=== PATIENT | male | born 1950 | race Caucasian/White ===

== ENCOUNTER → 2018-04-16 10:26 | Outpatient (CLI) | payer MEDICARE, SELFPAY ==
[2018-04-10 13:32] VITALS: BMI 37.9
[2018-04-16 11:04] LABS: Absolute Lymphocyte Count 1.22 X10^3/ul (0.83-4.51); Absolute Neutrophil Count 4.9 X10^3/uL (2.0-7.7); Basophil# 0.05 X10^3/uL; Basophil% 0.7 % (0-1); Eosinophil# 0.12 X10^3/uL; Eosinophils% 1.8 % (0-5); Hematocrit 44.5 % (40-54); Hemoglobin 14.7 g/dl (13.0-16.5); Lymphocyte # 1.22 X10^3/ul (4.0); Lymphocyte % 18.2 % (19-41); Mean Corpuscular Hgb 29.3 pg (27.0-32.0); Mean Corpuscular Volume 88.6 fL (80-94); Mean Platelet Vol. 10.6 fl (6.2-12.0); Monocyte# 0.43 X10^3/uL; Monocyte% 6.4 % (0-10); Neutrophil # 4.88 X10^3/uL (2.7-7.7); Neutrophil % 72.6 % (47-70); Platelet Count 253 K/mm3 (150-450); RBC Distribution Width CV 14.6 % (11.6-14.6); Red Blood Count 5.02 M/mm3 (4.6-6.2); White Blood Count 6.7 K/mm3 (4.4-11.0)
[2018-04-16 11:12] LABS: POSITIVE COUNT NO; POSITIVE DIFFERENTIAL NO; POSITIVE MORPHOLOGY NO
[2018-04-16 11:27] LABS: ALB/GLOB Ratio 0.9 RATIO (0.9-2.4); AST(SGOT) 15 U/L (15-37); Alanine Aminotransfer ALT/SGPT 28 U/L (16-61); Albumin, Serum 3.4 g/dL (3.2-5.0); Alkaline Phosphatase 135 U/L (45-117); Anion Gap 10 (5-15); BUN 16 mg/dL (7-18); BUN/Creat Ratio 16.3 RATIO (10-20); Calcium,Total 8.5 mg/dL (8.5-10.1); Chloride 109 mmol/L (98-107); Cholesterol 123 mg/dL (200); Creatinine, Serum 0.98 mg/dL (0.70-1.30); EST Glomerular Filtration Rate 81 mL/min (>60); Est Glom Filt Rate - Afr Amer 98 mL/min (>60); Globulin 3.9 g/dL (2.2-4.2); Glucose 134 mg/dL (74-106); High Density Lipoprotein 32 mg/dL; PSA,Total - Annual Screen 1.11 ng/mL (0.00-4.00); Potassium 4.3 mmol/L (3.5-5.1); Protein, Total 7.3 g/dL (6.4-8.2); Sodium Level 141 mmol/L (136-145); Triglycerides 135 mg/dL; Very Low Density Lipoprotein 27 mg/dL (5-40)
[2018-04-16 11:36] LABS: Hemoglobin A1c 7.1 % (4.2-6.3)
[2018-04-16 12:12] LABS: Microalbumin,Random Urine 86.2 mg/L (NO RANGE EST.); Microalbumin:Creatinine Ratio 62.9 mg/g CRE (<30 mg/g CRE)
== END ==
PROVIDERS: Family Provider Internal Medicine; PCP Internal Medicine; Referring Provider Internal Medicine; Visit Provider Internal Medicine
DX: E11.9 Type 2 diabetes mellitus without complications (principal); N40.0 Benign prostatic hyperplasia without lower urinary tract symptoms; Z12.5 Encounter for screening for malignant neoplasm of prostate
CPT/HCPCS: 36415; 80053; 80061; 82043; 82570; 83036; 84153; 85025; G0103

== ENCOUNTER → 2018-07-26 | Outpatient (CLI) | payer MEDICARE, SELFPAY ==
[2018-07-12 16:16] VITALS: BMI 37.4
--- NOTE | 2018-07-26 12:33 | ART_ITS ---
Version 2 Reason For Study: Claudication Procedure A bilateral lower extremity continuous wave Doppler with analog waveform analysis,segmental pressures,and ankle brachial indexes with exercise. Left Segmental Pressures Left brachial= 159mmHg. Left posterior tibial artery = 181mmHg. Left dorsalis pedis artery = 183mmHg. Left digit = 129 mmHg. The left dorsalis pedis waveforms are triphasic. The left posterior tibial artery waveforms are triphasic. Right Segmental Pressures Right brachial= 165mmHg. Right posterior tibial artery = 173mmHg. Right dorsalis pedis artery = 179mmHg. Right digit = 128 mmHg. The right dorsalis pedis waveforms are triphasic. The right posterior tibial artery waveforms are triphasic. Indices The right ankle brachial index by the dorsalis pedis is 1.08. The right ankle brachial index by the posterior tibial artery is 1.05. The right digital-brachial index is 0.78. The right post exercise ankle brachial index is 0.84. The left ankle brachial index by the dorsalis pedis is 1.11. The left ankle brachial index by the posterior tibial artery is 1.10. The left digital-brachial index is 0.78. The left post exercise ankle brachial index is 0.94. Interpretation Summary Normal resting bilateral lower extremity SILVESTRE's and doppler waveforms. Volume pulse recordings appear to be maintained bilaterally Minimally diminished digital indices bilaterally suggestive of possible temperature effect or small vessel disease. On exercise component the right SILVESTRE drops from 1.08 to 0.84 and there is recovery by 3 minutes. On exercise component the left SILVESTRE drops from 1.11 to 0.94 and there is recovery by 3 minutes. This would be consistent with mild vascular claudication bilaterally with the location of the disease not identified. Ordering Physician: Harvey Holguin Referring Physician: Mai Cruz Performed By: Michelle Ramirez RVT
== END | disposition home or self-care (01) ==
PROVIDERS: Family Provider Internal Medicine; PCP Internal Medicine; Referring Provider Surgery; Visit Provider Surgery
DX: I73.9 Peripheral vascular disease, unspecified (principal); I25.10 Atherosclerotic heart disease of native coronary artery without angina pectoris
CPT/HCPCS: 93306; 93924; Q9957; A4216; C8929

== ENCOUNTER → 2018-08-09 | Outpatient (CLI) | payer MEDICARE, SELFPAY ==
[2018-07-30 13:35] VITALS: BMI 37.4
--- NOTE | 2018-08-09 13:00 | CDU_ITS ---
Reason For Study: carotid stenosis Rt. Velocities/BP Lt. Velocities/BP Prox CCA 67.4/15.2 cm/sec. Prox CCA 91.2/15.1 cm/sec. Mid CCA 72.6/15.2 cm/sec. Mid CCA 96.2/16.3 cm/sec. Dist CCA 62.1/16.5 cm/sec. Dist CCA 75.3/12.6 cm/sec. Prox ICA 151.0/46.8 cm/sec. Prox ICA 445.0/160.9 cm/sec. Mid ICA 156.4/50.5 cm/sec. Mid ICA 374.1/107 cm/sec. Dist ICA 163.7/46.8 cm/sec. Dist ICA 338.3/70.0 cm/sec. Rt. ICA/CCA = 2.3. Lt. ICA/CCA = 4.6. Prox ECA 75.5/9.5 cm/sec. Prox ECA 139.0/16.0 cm/sec. Rt. Vert. 40.9/7.8 cm/sec. Lt. Vert. 47.5/11.8 cm/sec. Right Extracranial There is homogeneous, smooth atherosclerotic plaque noted in the right common carotid artery. There is heterogeneous, irregular atherosclerotic plaque noted in the right internal carotid artery. There is homogeneous, irregular atherosclerotic plaque noted in the right external carotid artery. Antegrade flow is noted in the right vertebral artery. Left Extracranial There is homogeneous, smooth atherosclerotic plaque noted in the left common carotid artery. There is heterogeneous, irregular atherosclerotic plaque noted in the left internal carotid artery. There is homogeneous, smooth atherosclerotic plaque noted in the left external carotid artery. Antegrade flow is noted in the left vertebral artery. Procedure Carotid Duplex [id number]. The exam was diagnostic. Prelim called to Dr. Melina Holguin. Exam performed in department. 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 <50% stenosis left external carotid Patent and antegrade vertebrals bilaterally Ordering Physician: Harvey Holguin Performed By: Efrain Keenan RVT
== END | disposition home or self-care (01) ==
LOC: CVS 12:46
PROVIDERS: Family Provider Internal Medicine; PCP Internal Medicine; Referring Provider Surgery; Visit Provider Surgery
DX: I65.23 Occlusion and stenosis of bilateral carotid arteries (principal)
CPT/HCPCS: 93880

== ENCOUNTER → 2018-08-14 | Outpatient (CLI) | payer MEDICARE, SELFPAY ==
[2018-07-30 13:35] VITALS: BMI 37.4
--- NOTE | 2018-08-14 07:41 | CT_ITS ---
STUDY: CTA NECK WITH CONTRAST REASON FOR EXAM: Male, 67 years old. Carotid stenosis. RADIATION DOSAGE (If Supplied By Facility): CTDIvol = ( 17.2 ) mGy, DLP = ( 744.45 ) mGycm TECHNIQUE: CT angiography with multi-detector data acquisition was performed from the aortic arch to the skull base following intravenous administration of 100 IV Isovue 370. MIP images were reconstructed from the axial data set. Post-processing of the angiographic images was performed, with multiplanar reformation and 3D reconstruction. Individualized dose optimization techniques were used for this CT. COMPARISON: None. FINDINGS: AORTIC ARCH: There is a bovine origin of the great vessels arising from the aortic arch with a common origin of the brachiocephalic and left common carotid artery. Normal origin of the left subclavian artery. RIGHT CAROTID ARTERIES: Normal right common carotid artery (CCA). Normal right common carotid bulb. There is moderate atherosclerotic plaque formation of the origin of the right internal carotid artery with an estimated stenosis of 50-69% stenosis. Normal visualized cervical portion of the right internal carotid artery. Normal origin of the right external carotid artery (ECA). LEFT CAROTID ARTERIES: Normal left common carotid artery (CCA). Normal left common carotid bulb. There is severe atherosclerotic plaque formation of the origin of the left internal carotid artery with a near complete occlusion. Normal visualized cervical portion of the left internal carotid artery. Normal origin of the left external carotid artery (ECA). VERTEBRAL ARTERIES: Normal bilateral vertebral arteries. 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 50-69% narrowing at the origin of the right internal carotid artery. Electronically Signed: Sharif Gonzalez, at 9:14 EDT , Service support ,
[2018-08-14 07:51] LABS: Hematocrit 48.7 % (40-54); Hemoglobin 15.9 g/dl (13.0-16.5); Mean Corp Hgb Conc 32.6 g/gl (32-36); Mean Corpuscular Hgb 27.5 pg (27.0-32.0); Mean Corpuscular Volume 84.1 fL (80-94); Mean Platelet Vol. 10.7 fl (6.2-12.0); Platelet Count 259 K/mm3 (150-450); RBC Distribution Width CV 15.3 % (11.6-14.6); RBC Distribution Width SD 46.8 fl (35.1-43.9); Red Blood Count 5.79 M/mm3 (4.6-6.2); White Blood Count 6.7 K/mm3 (4.4-11.0)
[2018-08-14 07:56] LABS: Scan Indicated on CBC? Y/N NO
[2018-08-14 08:21] LABS: CREATININE FINGERSTICK 0.9 mg/dL (0.70-1.30)
--- NOTE | 2018-08-14 08:23 | AAAS_ITS ---
Reason For Study: Abnormal CT Aorta Measurements Aorta Doppler Measurements Proximal aorta measures1.77 x 1.96cm. in cross- Peak systolic flow velocities within the proximal sectional axis. aorta measure 73.2 cm/sec. Proximal aorta measures1.79cm. in longitudinal Peak systolic flow velocities within the mid aorta axis. measure 147.2 cm/sec. Mid aorta measures1.75 x 2.03cm. in cross- Peak systolic flow velocities within the distal sectional axis. aorta measure 158.2 cm/sec. Mid aorta measures1.88cm. in longitudinal axis. Distal aorta measures1.58 x 1.7cm. in cross- sectional axis. Distal aorta measures1.75cm. in longitudinal axis. Left Iliac Artery Left iliac artery measures .75 x .92 cm. in the cross-sectional axis. Left iliac artery measures .76 cm. in the longitudinal axis. Peak systolic velocity in the left iliac artery measures 86.9 cm/sec. Right Iliac Artery Right iliac artery measures .75 x .8 cm. in the cross-sectional axis. Right iliac artery measures .81 cm. in the longitudinal axis. Peak systolic velocity in the right iliac artery measures 86.9 cm/sec. Procedure The exam was of fair technical quality due to bowel gas.. Technically difficult study due to bowel gas. Exam performed in department. Interpretation Summary Maximal aortic diameter proximally 1.77 x 1.96cm Increased flow velocity distal aorta consistent with mild disease. Left common iliac 0.75 x 0.92 cm Right common iliac 0.75 x 0.8 cm Fair quality exam because of bowel gas Ordering Physician: Harvey Holguin Performed By: Efrain Keenan RVAlejandrina
[2018-08-14 08:55] LABS: Anion Gap 9 (5-15); BUN 20 mg/dL (7-18); BUN/Creat Ratio 17.9 RATIO (10-20); Calcium,Total 9.1 mg/dL (8.5-10.1); Chloride 108 mmol/L (98-107); Creatinine, Serum 1.12 mg/dL (0.70-1.30); EST Glomerular Filtration Rate 70 mL/min (>60); Est Glom Filt Rate - Afr Amer 84 mL/min (>60); Glucose 126 mg/dL (74-106); Potassium 4.7 mmol/L (3.5-5.1); Sodium Level 142 mmol/L (136-145)
== END | disposition home or self-care (01) ==
PROVIDERS: Family Provider Internal Medicine; PCP Internal Medicine; Referring Provider Surgery; Visit Provider Surgery
DX: Z01.818 Encounter for other preprocedural examination (principal); I65.23 Occlusion and stenosis of bilateral carotid arteries; R93.5 Abnormal findings on diagnostic imaging of other abdominal regions, including retroperitoneum; E11.9 Type 2 diabetes mellitus without complications
CPT/HCPCS: 36415; 70498; 76706; 80048; 85027; Q9967

== ENCOUNTER 2018-09-12 05:30 | Inpatient (IN) | payer MEDICARE, SELFPAY ==
[2018-08-15 14:23] VITALS: BMI 37.4
[2018-09-05 10:06] VITALS: BP 147/77; PULSE 52; RESP 16; TEMP 36.3; O2SAT 97; BMI 37.5
[2018-09-05 11:16] LABS: Hematocrit 48.9 % (40-54); Hemoglobin 15.8 g/dl (13.0-16.5); Mean Corp Hgb Conc 32.3 g/gl (32-36); Mean Corpuscular Hgb 28.3 pg (27.0-32.0); Mean Corpuscular Volume 87.5 fL (80-94); Mean Platelet Vol. 10.4 fl (6.2-12.0); Platelet Count 232 K/mm3 (150-450); RBC Distribution Width CV 15.7 % (11.6-14.6); RBC Distribution Width SD 49.9 fl (35.1-43.9); Red Blood Count 5.59 M/mm3 (4.6-6.2); White Blood Count 7.8 K/mm3 (4.4-11.0)
[2018-09-05 11:17] LABS: International Normalized Ratio 1.1; Prothrombin Time (Protime)PT. 13.6 SECONDS (11.7-14.9); Scan Indicated on CBC? Y/N NO
[2018-09-05 11:18] LABS: Partial Thromboplast Time 28.6 Seconds (24.1-36.2)
[2018-09-05 11:42] LABS: AST(SGOT) 20 U/L (15-37); Alanine Aminotransfer ALT/SGPT 28 U/L (16-61); Albumin, Serum 3.7 g/dL (3.2-5.0); Alkaline Phosphatase 130 U/L (45-117); Anion Gap 4 (5-15); BUN 19 mg/dL (7-18); BUN/Creat Ratio 17.6 RATIO (10-20); Bilirubin, Direct 0.18 mg/dL (0.00-0.30); Calcium,Total 9.3 mg/dL (8.5-10.1); Chloride 108 mmol/L (98-107); Creatinine, Serum 1.08 mg/dL (0.70-1.30); EST Glomerular Filtration Rate 73 mL/min (>60); Est Glom Filt Rate - Afr Amer 88 mL/min (>60); Globulin 3.5 g/dL (2.2-4.2); Glucose 122 mg/dL (74-106); Potassium 4.8 mmol/L (3.5-5.1); Protein, Total 7.2 g/dL (6.4-8.2); Sodium Level 140 mmol/L (136-145)
[2018-09-05 11:46] LABS: Hemoglobin A1c 6.7 % (4.2-6.3)
[2018-09-12] VITALS (66 sets, daily range): BP systolic 102–206; BP diastolic 51–120; PULSE 51–111; RESP 11–20; TEMP 36.4–36.8; O2SAT 90–100; BMI 37.5; BMI 38.0; BMI 38.1
[2018-09-12 06:16] LABS: Bedside Glucose 116 mg/dL (70-110)
--- NOTE | 2018-09-12 06:21 | HP.PCM_ITS ---
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 Is patient in pain?: No Allergies No Known Allergies Allergy (Verified 08/15/18 14:22) Medications aspirin 81 mg tablet,delayed release 81 mg PO DAILY 04/10/18 [History Confirmed 08/15/18] clopidogrel 75 mg tablet 75 mg PO DAILY #90 tab 04/10/18 [Rx Confirmed 08/15/18] dutasteride 0.5 mg capsule 0.5 mg PO DAILY #90 cap 04/10/18 [Rx Confirmed 08/15/18] famotidine 20 mg tablet 20 mg PO DAILY PRN 04/10/18 [History Confirmed 08/15/18] metoprolol tartrate 25 mg tablet 25 mg PO BID #180 tab 04/10/18 [Rx Confirmed 08/15/18] multivitamin tablet 1 tab PO DAILY 04/10/18 [History Confirmed 08/15/18] glyburide 2.5 mg-metformin 500 mg tablet 1 tab PO DAILY #90 tab 05/16/18 [Rx Confirmed 08/15/18] pravastatin 80 mg tablet 80 mg PO DAILY #90 tab 06/07/18 [Rx Confirmed 08/15/18] tamsulosin 0.4 mg capsule 0.4 mg PO DAILY #90 cap 06/07/18 [Rx Confirmed 08/15/18] gabapentin 100 mg capsule 100 mg PO QHS #90 cap 07/10/18 [Rx Confirmed 08/15/18] hydrocortisone 2.5 % lotion 1 applic TOPICAL BID PRN #59 ml 07/10/18 [Rx Confirmed 08/15/18] betamethasone valerate 0.1 % lotion 1 applic TOPICAL DAILY PRN #60 ml 08/10/18 [Rx Confirmed 08/15/18] lisinopril 20 mg tablet 20 mg PO BID #90 tab 08/10/18 [Rx Confirmed 08/15/18] [facility] Medical History Mixed hyperlipidemia (Chronic) Atherosclerotic heart disease of [place] coronary artery without angina pectoris (Chronic) Essential hypertension (Chronic) Presence of stent in coronary artery (Chronic ~03/09/16) Non-rheumatic mitral regurgitation (Chronic) Nonrheumatic tricuspid valve regurgitation (Chronic) Bilateral carotid artery stenosis (Chronic) History of ST elevation myocardial infarction (STEMI) (Acute ~03/08/16) Type 2 diabetes mellitus (Chronic) Psoriasis (Chronic) Peripheral artery disease (Chronic) Sleep apnea (Chronic) Vision problems (Chronic) Vascular disease (Chronic) prostatse issues (Chronic) Pneumonia (Resolved) GERD (gastroesophageal reflux disease) (Chronic) Cataracts, bilateral (Chronic) Back problem (Chronic) Seasonal allergies (Chronic) Diabetes (Inactive) Heart attack (Inactive) Heart disease (Inactive) High cholesterol (Inactive) Hypertension (Inactive) Type 2 diabetes mellitus (Inactive) Surgical History S/P aortobifemoral bypass surgery (Resolved ~01/09/17) History of cataract surgery (Resolved) Presence of coronary angioplasty implant and graft (Resolved ~03/09/16) S/P aortobifemoral bypass surgery (Resolved) S/P aortobifemoral bypass surgery (Resolved) S/P aortobifemoral bypass surgery (Resolved) Status post aortobifemoral bypass surgery (Resolved) history aortic bifemerol bypass (Inactive) Family History Father Angina pectoris Brother Angina pectoris Cancer Myocardial infarction Heart disease Hypertension High cholesterol Mother Angina pectoris Cancer Myocardial infarction Heart disease Hypertension High cholesterol Sister Hypertension Social History Smoking Status: Former smoker alcohol intake: current alcohol intake frequency: holidays/special occasions only substance use type: does not use caffeine: Yes Type: coffee Number of servings: 3 what type of physical activity do you participate in: none HPI HPI HPI: CELESTE KINCAID, is a 67 M who presents to the office today for HPI HPI Surgical H&P: Yes HPI: CELESTE KINCAID, is a 67 M who presents to the office today for ongoing mayito gical evaluation regarding peripheral vascular occlusive disease. I initially saw the patient on July 30, 2018. This was my first patient interaction. He has recently moved to this area from [place]. During my interaction with him on July 30 it was apparent that he had had a previous history of extracranial carotid artery occlusive disease. At his previous interview he suggested that he had had a ultrasound and then a CT scan with a CT scan suggesting 40% stenosis on the right and 60% stenosis on the left and so conservative measures were recommended. We now have a partially readable copy from [facility] dated May 16, 2017 a CTA of the neck. Unfortunately the print is small. I can read that there is 40% stenosis of the right internal carotid and according to the patient 60% stenosis on the left though the number could be 80%. I am going by the patient's discussion with me as to what he was told. To help evaluate him on August 09, 2018 locally here at [place] we obtain carotid duplex imaging. Peak systolic velocity within the distal right internal carotid is 163 cm second peak systolic flow consistent with 50 to 69% stenosis. On the left peak systolic velocity within the proximal left internal carotid is 445 cm/s with an end-diastolic velocity of 160 cm/s. I felt that this was consistent with greater than 80% stenosis on the left. It is of note then that on August 14, 2018 yesterday the patient had a CTA of the carotids performed locally. I have reviewed this imaging. There is felt to be 50 to 69% stenosis on the right and subtotal occlusion of the origin of the left internal carotid. This would correlate with the current ultrasound examination although the current ultrasound examination does demonstrate patency on the left. 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 Is patient in pain?: No Allergies No Known Allergies Allergy (Verified 07/30/18 13:34) Medications aspirin 81 mg tablet,delayed release 81 mg PO DAILY 04/10/18 [History Confirmed 07/30/18] clopidogrel 75 mg tablet 75 mg PO DAILY #90 tab 04/10/18 [Rx Confirmed 07/30/18] dutasteride 0.5 mg capsule 0.5 mg PO DAILY #90 cap 04/10/18 [Rx Confirmed 07/30/18] famotidine 20 mg tablet 20 mg PO DAILY PRN 04/10/18 [History Confirmed 07/30/18] metoprolol tartrate 25 mg tablet 25 mg PO BID #180 tab 04/10/18 [Rx Confirmed 07/30/18] multivitamin tablet 1 tab PO DAILY 04/10/18 [History Confirmed 07/30/18] glyburide 2.5 mg-metformin 500 mg tablet 1 tab PO DAILY #90 tab 05/16/18 [Rx Confirmed 07/30/18] pravastatin 80 mg tablet 80 mg PO DAILY #90 tab 06/07/18 [Rx Confirmed 07/30/18] tamsulosin 0.4 mg capsule 0.4 mg PO DAILY #90 cap 06/07/18 [Rx Confirmed 07/30/18] betamethasone valerate 0.1 % lotion 1 applic TOPICAL DAILY PRN #60 ml 07/10/18 [Rx Confirmed 07/30/18] gabapentin 100 mg capsule 100 mg PO QHS #90 cap 07/10/18 [Rx Confirmed 07/30/18] hydrocortisone 2.5 % lotion 1 applic TOPICAL BID PRN #59 ml 07/10/18 [Rx Confirmed 07/30/18] lisinopril 20 mg tablet 20 mg PO DAILY #90 tab 07/12/18 [Rx Confirmed 07/30/18] [facility] Medical History Mixed hyperlipidemia (Chronic) Atherosclerotic heart disease of [place] coronary artery without angina pectoris (Chronic) Essential hypertension (Chronic) Presence of stent in coronary artery (Chronic ~03/09/16) Non-rheumatic mitral regurgitation (Chronic) Nonrheumatic tricuspid valve regurgitation (Chronic) Bilateral carotid artery stenosis (Chronic) History of ST elevation myocardial infarction (STEMI) (Acute ~03/08/16) Type 2 diabetes mellitus (Chronic) Psoriasis (Chronic) Peripheral artery disease (Chronic) Sleep apnea (Chronic) Vision problems (Chronic) Vascular disease (Chronic) prostatse issues (Chronic) Pneumonia (Resolved) GERD (gastroesophageal reflux disease) (Chronic) Cataracts, bilateral (Chronic) Back problem (Chronic) Seasonal allergies (Chronic) Diabetes (Inactive) Heart attack (Inactive) Heart disease (Inactive) High cholesterol (Inactive) Hypertension (Inactive) Type 2 diabetes mellitus (Inactive) Surgical History S/P aortobifemoral bypass surgery (Resolved ~01/09/17) History of cataract surgery (Resolved) Presence of coronary angioplasty implant and graft (Resolved ~03/09/16) S/P aortobifemoral bypass surgery (Resolved) S/P aortobifemoral bypass surgery (Resolved) S/P aortobifemoral bypass surgery (Resolved) Status post aortobifemoral bypass surgery (Resolved) history aortic bifemerol bypass (Inactive) Family History Father Angina pectoris Brother Angina pectoris Cancer Myocardial infarction Heart disease Hypertension High cholesterol Mother Angina pectoris Cancer Myocardial infarction Heart disease Hypertension High cholesterol Sister Hypertension Social History Smoking Status: Former smoker alcohol intake: current alcohol intake frequency: holidays/special occasions only substance use type: does not use caffeine: Yes Type: coffee Number of servings: 3 what type of physical activity do you participate in: none HPI HPI HPI: CELESTE KINCAID, is a 67 M who presents to the office today for surgical consultation regarding peripheral vascular occlusive disease. The patient is referred by Dr Cruz and Dr Mathias and a written copy of my surgical consult recommendations will be returned to them. Pleasant 67-year-old gentleman. He describes to me a previous history of iliac stents x5. He then describes to me severe lower extremity claudication. He did have a attempt at endovascular treatment of his lower extremity problem on December 27, 2016 but that failed. Subsequently on January 09, 2017 at [facility] in [facility] because of occlusion of the infrarenal abdominal aorta bilateral common iliacs bilateral external iliacs he had a aortobifemoral bypass with 16 x 8 Hemashield gold graft. Endarterectomy of the immediate infrarenal abdominal aorta was required due to the complete occlusion. Reinforcement of the entire proximal suture line with pledgets was required secondary to the thin abdominal aorta as a result of the endarterectomy. As of July 26, 2018 the patient had PVRs performed. Normal resting indices with the right DP and PT index of 1.08 and 1.05 and a digital index of 0.78. Post exercise the right SILVESTRE went close to 0.84 and there is rapid recovery. The resting left PT and DP index is 1. 1 and 1.01. The left digital brachial index is 0.78. Left post exercise index is 0.94. It is of additional note that the patient has bilateral extracranial carotid art chuck occlusive disease. By report April 2017 carotid duplex suggested 50 to 69% stenosis on the right and 70 to 99% stenosis on the left. By report a CTA of the neck was obtained suggesting 40% stenosis on the right and 60% on the left. He has not had additional follow-up since that time. April 2017 transthoracic echocardiogram shows left ventricular ejection fraction of 55 to 60%. March 2018 total cholesterol is 123 with an LDL of 64 and an HDL 32 with a triglyceride of 135 It is of note that he was a very long-term cigarette smoker at least the rate of a pack per day quitting in 2016 HPI HPI HPI: CELESTE KINCAID, is a 67 M who presents to the office today for ROS General General: No weight change, appetite, fatigue, colon cancer, breast cancer or weakness HEENT HEENT: Yes eye injury and eye surgery; no difficulty swallowing, swollen glands or hoarseness Endo Endocrine: Yes diabetes mellitus; no thyroid disease, thyroid cancer, Hair loss, heat intolerance or cold in tolerance Skin Skin: No rash or changing moles Breast Breast: No left breast lump, right breast lump, nipple discharge, breast pain, abnormal mammogram, abnormal US or breast enlargement Musc Musculoskeletal: No back problems, arthritis, rheumatoid arthritis, gout or joint pain Cardio Cardiovascular: Yes murmur, heart disease, high blood pressure, heart attack and heart stent; no pacemaker, atrial fibrillation, palpitations, shortness of breat with exertion or chest pain Psych Psychiatric: Yes anxiety; no depression or hearing voices Resp Respiratory: No shortness of breath, Yes sleep apnea, No cough, No COPD, No asthma, No emphysema, No wheezing Gastro Gastrointestinal: No abdominal pain, No nausea or vomiting, No diarrhea, No constipation, No blood in stool, Yes acid reflux, Yes hemorrhoids, No ulcers, No gallbladder problem, No black,tarry stools Donovan Hematologic: Yes blood thinners, No blood disorders, Yes bleeding, No anemia, No blood clots Neuro Neurologic: No system reviewed and no additional complaints, except as docu, No as per HPI, No abnormal walking, No abnormal hearing, No abnormal movements, No abnormal speech, No behavioral changes, No burning sensations, No confusion, No seizure-like activity, No unsteadiness, No dizziness, No localized weakness, No frequent falls, No headache(s), No lack of coordination, No loss of vision, No memory loss, Yes numbness, No other visual disturbances, No radiating pain, No restless legs, No sensory deficit, No fainting, Yes tingling, No tremor(s), No weakness, No other Exam Const General: cooperative, healthy appearing, comfortable, no acute distress Nutritional Appearance: obese Orientation: alert, awake, oriented x3 HENMT Head: normal to inspection Eyes General: appearance normal, both eyes and all related structures Chest Chest palpation & inspection: normal inspection of the chest Breast Palpation: No nipple discharge Resp Effort & Inspection: normal respiratory effort Auscultation: clear to auscultation bilaterally Cardio Rate: regular rate Rhythm: regular rhythm Heart Sounds: murmur Other: Bilateral radials are 0. Bilateral brachials 3+. Bilateral carotids 2+ no bruits. Bilateral femorals 3+ with well-healed groin incisions. Bilateral popliteals 3+. Bilateral DPs 0. Bilateral PTs 3+ GI Palpation: soft Other: Well-healed long midline incision extending from the xiphoid to the pubis. Nontender. No gross hepatospleno megaly. Bowel sounds are present. I am not able to palpate the aorta due to the patient's body habitus Musc Cervical Spine: normal cervical lordosis Skin Lesions: no lesions Neuro Cognition: normal cognition Extrem General: no calf tenderness bilaterally Psych Affect: normal affect Assessment & Plan Problems 1. S/P aortobifemoral bypass surgery Z95.828 2. Carotid stenosis, bilateral I65.23 3. Peripheral artery disease I73.9 Plan 67-year-old gentleman. December 2016 he had complicated aortobifemoral bypass graft with aortic endarterectomy. Difficulty obtaining a proximal anastomosis due to the thin nature of the abdominal aorta and pledgets were required circumferentially. The patient is at increased risk for pseudoaneurysm formation. I recommend an attempt at a aortic duplex exam particularly of this area. History of bilateral extracranial carotid artery occlusive disease. CTA did not correlate with previous carotid duplex imaging. The patient however has a already had significant imaging with contrast required. Again I recommend carotid duplex imaging as a current mode of him imaging modality with implants to compare to his previous one. He has peripheral vascular occlusive disease. The aortobifemoral bypass graft appears to be patent. We will obtain PVRs with exercise at 6 months and office follow-up. He clearly is at increased risk for progressive disease. Had an extensive discussion with the patient regarding modifiable factors. We discussed diet recommending a Mediterranean diet. We recommended exercise and weight loss and management of cholesterol and routine diabetes awareness with blood glucose checks and hypertension control with routine checks. He has had an opting to ask and have questions answered. A written descriptive information pack is been provided as well. I anticipate this time carotid duplex imaging. I anticipate at 6 months PVRs with exercise and office follow-up. We will obtain a aortic duplex exam inspecting the proximal anastomotic area of the aortobifemoral bypass. He has been educated about the importance of modifiable factors. I appreciate the opportunity of assisting with his surgical care CC: Dr. Cruz and Dr. Mathias \Harvey Holguin M.D., F.A.C.S. I very much appreciate the kind opportunity of assisting with his surgical care. Orders Orders: Carotid Duplex Ultrasound Today I65.23 Lower Ext Art Exam w/ Exercise 01/26/19 I73.9 Coding Level of Care Code Comprehensive,moderate Diagnoses S/P aortobifemoral bypass surgery Z95.828 Carotid stenosis, bilateral I65.23 Peripheral artery disease I73.9 07/30/18 1827<Electronically signed by Harvey Holguin MD> Date Harvey Holguin MD Cosigner Signature:Date (if applicable) CC: Mai Cruz MD; Jesus Mathias MD ~ Assessment & Plan Problems 1. Carotid stenosis, bilateral I65.23 Plan I had an extensive discussion with the patient today. His daughter who was not able to be present was available through a phone call and monitored the conversation. This was approximately a 30-minute [id number] consultative appointment. I have discussed with him the findings of the current carotid duplex imaging and if the current CTA of the neck performed here locally at [place]. I have compared and contrasted that with previous information. The patient states today that his previous carotid duplex exam 1 year ago was said to demonstrate significant disease particularly on the left. Apparently when the CTA came back with a softer reading it was felt to be the more accurate exam and no intervention was recommended. I have suggested to the patient that I believe that the carotid duplex ultrasound and the CTA both correlate well and the current circumstance. I feel that he has high-grade stenosis of the left proximal internal carotid. The patient is asymptomatic. I have discussed with him in detail the technique, benefit, risk and alternatives of a left carotid endarterectomy with patch angioplasty. We discussed utilization of an intraoperative shunt. We discussed utilization of an arterial line. I compared and contrasted that to left carotid artery stenting. I made clear to the patient that I do not perform carotid artery stenting. He has had an opportunity to ask and have questions answered. I am recommending to the patient intervention. The patient is aware that I will be on a brief vacation and that our opportunity to facilitate his surgery would be later in August. I offered him the opportunity to try to facilitate a referral elsewhere. His daughter expressed some interest in being referred to [facility]. At the conclusion of the appointment the patient was felt to have had answers to his questions. He will further discuss treatment options with his daughter. He will continue his medical treatment. I suspect he has had a high-grade of left carotid stenosis over the past year at least. I very much appreciate the kind opportunity of assisting with his surgical care. The patient will recontact me as to how he would like to proceed. CC: and Dr Mathias. Harvey Holguin M.D., F.A.C.S. Coding Level of Care Code Off vis,est,level 3 Diagnoses Carotid stenosis, bilateral I65.23 08/15/18 1432 <Electronically signed by Harvey bryan MD> Date _ Harvey Solanoign Signature: Date (if applicable) CC: Mai Cruz MD; Jesus Mathias MD ~ I have re-examined the patient. There are no clinical changes since date of exam.
--- NOTE | 2018-09-12 07:15 | PLAQ_PTH ---
PATIENT: CELESTE KINCAID LOC: ICU U#:[id number] AGE/SX: 67/M ROOM: ICU01 RE09/12/[address]: Dr. Harvey Holguin MD : 1950 BED: 1 DIS: 09/13/2018 SPEC #: [id number] RECD: 09/12/18 10:42 STATUS: GUSTAVO REQ #: [id number] ELSA: 09/12/18 07:[address]: Harvey Holguin DEPT: SURGICAL PATHOLOGY RECD BY: Antolin Albrecht ENTERED: 09/12/18 11:14 SP TYPE: PLAQUE OTHR DR: Dr. Mai Cruz MD Tissues: PLAQUE Procedures: Decalcification bone/plaque Surgery Specimen Level III HEADER OPERATION: Carotid endarterectomy PRE-OP DIAGNOSIS: Near complete occlusion left extracranial internal carotid artery TISSUE SUBMITTED: Left carotid plaque MICROSCOPIC DIAGNOSIS Carotid endarterectomy: Calcified atherosclerotic plaque. FA:[email or web address] 09/13/18 GROSS DESCRIPTION Received in fixative is one container labeled with the patient's name and designated plaque. The specimen consists of yellowish-pimentel plaque measuring 3.5 cm in length and 0.8 cm in diameter. The specimen is serially sectioned and totally submitted in two cassettes. / FA:[email or web address] 09/12/18 TC:5 CPT: 99902
--- NOTE | 2018-09-12 07:41 | OP.PCM_ITS ---
Problem List (1) Bilateral carotid artery stenosis Status: Chronic Report of Operation Date of Procedure: 09/12/18 Pre-Operative Diagnosis: Near complete occlusion left extracranial internal carotid artery Post-Operative Diagnosis: Same Surgery/Procedure Performed:: Attempted left radial arterial line placement. Attempted left brachial artery arterial line placement. Successful right brachial artery arterial line placement. Left carotid endarterectomy with bovine patch angioplasty Description of Surgical Findings:: Timeout informed consent was obtained. At the bedside in the holding room had the right radial artery inspected he had had previous cardiac intervention and it appeared that the artery was thrombosed. Inspection of the left radial sensory due to diminished radial artery. Jack test demonstrated adequate ulnar flow. The left wrist was gently extended prep with Betadine ultrasound machine use 1% lidocaine was instilled and I attempted to access the left radial artery. Although been able to access the artery could not Seldinger wire advanced. I then try the left brachial and the left brachial artery was very thickened. I was able to access the left brachial artery but again could not advance. I aborted further attempts in the holding area. The patient was separately taken the operating room. The right antecubital space was prepped with Betadine ul trasound which is the right brachial artery was less thick-walled and more superficial. I utilized 1% lidocaine total of 1 cc. Under ultrasound guidance advanced a 20-gauge Angiocath there are quit into the right brachial artery and this time seldinger wire advancement was achieved. The catheter was secured to skin with 3-0 silk. Is connected to pressure tubing. OpSite dressing was applied. Good waveform was obtained. A arm board was placed with Kerlix wrap. The hand was viable. No apparent complication. Subsequently the patient underwent general endotracheal intubation anesthesia an d the procedure commenced. 2 g of Ancef were given intravenously. Patient underwent general endotracheal intubation anesthesia. Was placed on the table. The left neck was sterilely prepped and draped. An oblique incision was made along the anterior border of the sternocleidomastoid. Sharp dissection carried down through the subtenons tissue. The patient had a rather fatty neck. Tedious dissection performed the crossing facial vein was secured with 3-0 Vicryl ligature. The common carotid was identified sufflation dissection was performed there appeared to be enlarged cervical vessels off of the external carotid including the superior thyroid ascending pharyngeal. He describes able to get circumferential control of the cervical vessels of the external carotid and then circumferential control of the internal carotid and common carotid. The patient initially received 11,000 units of heparin then throughout the procedure additional 1000 units of heparin and additional 500 units of heparin. Davis clamp was placed on the internal carotid that is actually been quite high the hypoglossal nerve had been identified and carefully preserved. Davis clamps placed in the internal carotid peripheral vascular clamp on the external carotid in common carotid and 11 blade was used to make an arteriotomy was exuberant exophytic grumous type plaque at the proximal internal carotid I was able to carefully tease my way through that I did make a incision superiorly with a 15 blade to get back to true lumen. This point was very high in the neck his cerebral oximeter did not change and so I elected not to place a shunt. There was good retrograde flow from the internal carotid. I sharply transected the plaque at the common carotid and used an elevator and completely released the plaque very nice reasonable feathering of the internal carotid and external carotid. Debris was carefully removed with fine forceps. I then placed 2 tacking sutures of 7-0 Prolene at the cephalad internal carotid. I used a 8 x 0.8 cm bovine Vascu- Guard patch.[id number], P and [id number], lot [id number] -shaped attached form. I performed a patch angioplasty with running 6-0 Prolene. Prior to completion of this was copiously irrigated. There is good antegrade flow from the common carotid good retrograde flow from the internal carotid. The patch angioplasty was completed. Initial flow was instituted from the external carotid common carotid from the internal carotid. A couple repair sutures of 7-0 Prolene was placed. Hemostasis was intact. Pressure was held fo r hemostasis. The patient did receive 10 mg of protamine as reversal. I initially used Surgicel that I remove that placed FloSeal. The wound was closed in layers with a running 3-0 Vicryl to repair the platysma and then a running septic and a 5-0 Vicryl. Skin edges were nicely approximated with Steri-Strips. The elvis-incisional area was anesthetized with 10 cc of 0.5% Marcaine. Telfa and tape dressings applied. Sponge and instrument and needle counts were reported to the surgeon for correct. Blood loss 200 cc. Specimen plaque. Drains none. He appeared to awake neurologically intact. He was taken to the recovery area in satisfactory condition. Harvey Holguin M.D., F.A.C.S. Type of Anesthesia:: General Anesthesiologist: Mindi Marks
[2018-09-12] MEDS: Cefazolin 2 GM in 0.9% Normal Saline 100 ML IV (07:43)
--- NOTE | 2018-09-12 07:46 | DCINST_ITS ---
Discharge Diet: Light diet - advance as tolerated - if you have questions about your diet instructions, please talk to you doctor. Discharge Activity: May Not Drive - for 1 week or while taking narcotic pain medicine. May shower in (days): 3 - July shower on Monday Lifting Restrictions: 10 pounds Call your doctor if your incision/area has: Continuous Slow Oozing, Sudden Increased Bleeding, Increased Pain/ Swelling, Increased Redness, Foul Smelling Discharge Call your doctor if you observe: Fever of 101 or Higher Suture Line Care: Avoid Pulling/Pushing, Avoid Pinching/Bending Additional Dressing/Incision Instructions:: If clothing rubs on the incision you may reapply a dry dressing to the incision site. Otherwise you may leave the Steri-Strips in place for 1 week. You may then carefully remove them after a soaking shower. Allergies/Adverse Reactions: Allergies No Known Allergies Allergy (Verified 09/05/18 09:51) Medications to take at Discharge aspirin 81 mg tablet,delayed release 81 mg PO DAILY 04/10/18 famotidine 20 mg tablet 20 mg PO DAILY PRN 04/10/18 multivitamin tablet 1 tab PO DAILY 04/10/18 hydrocortisone 2.5 % lotion 1 applic TOPICAL BID PRN #59 ml 07/10/18 betamethasone valerate 0.1 % lotion 1 applic TOPICAL DAILY PRN #60 ml 08/10/18 Clopidogrel Bisulfate [Clopidogrel] 75 mg PO DAILY 09/05/18 Dutasteride 0.5 mg PO DAILY 09/05/18 Gabapentin [Neurontin] 100 mg PO QHS 09/05/18 Glyburide/Metformin HCl [Glyburide-Metformin 2.5-500 mg] 1 tab PO DAILY 09/05/18 Lisinopril 20 mg PO BID 09/05/18 Metoprolol Tartrate [Lopressor (beta arnoldo)] 25 mg PO BID 09/05/18 Pravastatin Sodium 80 mg PO DAILY 09/05/18 Tamsulosin HCl 0.4 mg PO DAILY 09/05/18 Primary Care Physician: Mai Cruz MD [Primary Care Provider] - Test Results: Test results from this visit will be discussed in further detail at your follow- up appointment, if applicable. Please Follow Up With: Havrey Holguin MD - [phone] When: Call to make an appointment to be seen in about 10 days.
[2018-09-12] MEDS: Heparin Injection (Vial) 5,000 UNIT/ML VIAL 5000 UNIT (08:06)
[2018-09-12] MEDS: Bupivacaine Mpf 0.5% 30 ML VIAL (10:44)
[2018-09-12 11:51] LABS: Bedside Glucose 160 mg/dL (70-110)
--- NOTE | 2018-09-12 12:15 | SUR.PHASEI ---
ON ARRIVAL TO PACU, MODERATE AMOUNT SANGUINOUS DRAINAGE TO DRESSING, MILD EDEMA NOTED OVER SITE. SBP 190-200 WITH NIPRIDE GTT ON AT 0.3 MCG/KG/MIN, BP REPORTEDLY VERY LABILE IN O.R. PER FRANK HOU CRNA. PRESSURE HELD OVER SURGICAL SITE PER PROTOCOL, TITRATING NIPRIDE TO OBTAIN SBP < 160. NEURO CHECKS NEGATIVE. AFTER INITIAL 30 MINUTES OF SURGICAL SITE PRESSURE, CHECKED SITE WHICH NOW APPEARS MORE EDEMATOUS AND FIRM WITH ONLY SLIGHTLY MORE DRAINAGE NOTED ON DRESSING. GABBI Summers RN, CALLED TO Berenice OWENS O.R. RN IN ROOM WHERE DR CASTILLO IN SURGERY NOTIFYING THAT POSSIBLE HEMATOMA DEVELOPING, ASKING TO EVALUATE PATIENT SOON ABLE. RN CONTINUED TITRATING NIPRIDE TO LOWER SBP < 160. NO CORRELATION BETWEEN NIBP AND ART BP. PATIENT BP NOTED TO BE MILDLY LABILE AT TIMES. DR MEDINA CALLED TO EVALUATE PATIENT TO HELP CONTROL BP. FIRM SURGICAL SITE PRESSURE CONTINUED UNTIL EVALUATED BY DR CASTILLO AT APPROX 1210, AND CONTINUES UNTIL SBP CONSISTENTLY BELOW 160.
[2018-09-12] MEDS: HYDROcodone Bitartrate/Apap 5/325 Tablet PO ×2 (13:53→21:25)
--- NOTE | 2018-09-12 14:35 | SUR.PHASEI ---
PAGED DR CASTILLO TO UPDATE VIA NADYA, SEPTIC TANK INSTALLER: PATIENT SBP CONTINUES TO BE LABILE, UNABLE TO WEAN OFF NIPRIDE GTT WHICH CONTINUES AT 1 MCG/KG/MIN, HAS HAD ADDITIONAL IV LABETATOL AND HYDRALAZINE WHICH WAS ORDERED BY ANESTHESIA. DR CASTILLO AWARE/EVALUATED HEMATOMA WHICH IS SLIGHTLY LARGER THAN WHEN HE SAW IT, PRESSURE HAS BEEN HELD CONTINUOUSLY SINCE IT'S DISCOVERY EXCEPT FOR AN APPROX 15 MINUTE PERIOD WHEN PATIENT'S SBP MAINTAINED IN THE 130'S BEFORE INCREASING AGAIN. NEURO EXAM INTACT, CAN SWALLOW WITHOUT DIFFICULTY. DR CASTILLO ORDERED FOR PATIENT TO BE TRANSFERRED TO ICU ON NIPRIDE GTT, HE WILL CONSULT THE HOSPITALIST. CURRICULUM COORDINATOR NOTIFIED. THIS RN SPOKE WITH PATIENT'S DAUGHTER, COLLIN, TO UPDATE AND IS AGREEABLE AND VERBALIZES UNDERSTANDING. PATIENT AWARE.
--- NOTE | 2018-09-12 15:35 | CON.PCM_ITS ---
Problem List (1) Hypertensive urgency Status: Acute Reason for Consult Date of Consultation: 09/12/18 Reason for Consultation: Consult requested by Dr. Holguin for hypertension management History of Present Illness: The patient is a 67 year old M who underwent a left carotid endarterectomy today by Dr. Holguin. In the PACU, blood pressure was noted to be in the 170s and started to develop a hematoma over the left carotid endarterectomy surgical site. Patient received several doses of labetalol and hydralazine nicardipine drip which improved blood pressure into the 120s. Pressure was applied to the hematoma for 30 minutes by nursing. Patient feels a little groggy postoperatively and actually did vomit during the encounter. Patient did not have any nausea preceding that nor any abdominal pain. Patient was put on CPAP without oxygen which is what he takes at home but that was removed after he vomited. [] Past Medical History Past Medical History (Chronic Problems): Chronic Problems (Last Reviewed 08/15/18 @ 14:22 by Roxie Noble) Mixed hyperlipidemia (Chronic) Atherosclerotic heart disease of [place] coronary artery without angina pectoris (Chronic) Essential hypertension (Chronic) Presence of stent in coronary artery (Chronic ~03/09/16) PTCA/LAURA of the mid LCX 03/08/16; Staged PCI/LAURA of the mid and distal LAD 03/09/16 Non-rheumatic mitral regurgitation (Chronic) Nonrheumatic tricuspid valve regurgitation (Chronic) Bilateral carotid artery stenosis (Chronic) Diabetic neuropathy (Chronic) Venous insufficiency (Chronic) BPH (benign prostatic hyperplasia) (Chronic) Type 2 diabetes mellitus (Chronic) Psoriasis (Chronic) Peripheral artery disease (Chronic) Sleep apnea (Chronic) Vision problems (Chronic) Vascular disease (Chronic) prostatse issues (Chronic) GERD (gastroesophageal reflux disease) (Chronic) Cataracts, bilateral (Chronic) Back problem (Chronic) Seasonal allergies (Chronic) Medical History: Medical History (Last Reviewed 09/12/18 @ 15:36 by Matt Perea DO) Mixed hyperlipidemia (Chronic) E78.2 Atherosclerotic heart disease of [place] coronary artery without angina pectoris (Chronic) I25.10 Essential hypertension (Chronic) I10 Presence of stent in coronary artery (Chronic) Onset Date: ~03/09/16 Z95.5 PTCA/LAURA of the mid LCX 03/08/16; Staged PCI/LAURA of the mid and distal LAD Non-rheumatic mitral regurgitation (Chronic) I34.0 Nonrheumatic tricuspid valve regurgitation (Chronic) I36.1 Bilateral carotid artery stenosis (Chronic) I65.[address] elevation myocardial infarction (STEMI) (Acute) Onset Date: ~03/08/16 I25.2 Type 2 diabetes mellitus (Chronic) E11.9 Psoriasis (Chronic) L40.9 Peripheral artery disease (Chronic) I73.9 Sleep apnea (Chronic) G47.30 Vision problems (Chronic) H54.7 Vascular disease (Chronic) I99.9 prostatse issues (Chronic) Pneumonia (Resolved) J18.9 GERD (gastroesophageal reflux disease) (Chronic) K21.9 Cataracts, bilateral (Chronic) H26.9 Back problem (Chronic) M53.9 Seasonal allergies (Chronic) J30.2 Diabetes (Inactive) E11.9 Heart attack (Inactive) I21.9 03/08/16 Heart disease (Inactive) I51.9 High cholesterol (Inactive) E78.00 Hypertension (Inactive) I10 Type 2 diabetes mellitus (Inactive) E11.9 Allergies No Known Allergies Allergy (Verified 09/05/18 09:51) Home Medications: Ambulatory Orders Medication Instructions Recorded aspirin 81 mg tablet,delayed 81 mg PO DAILY 04/10/18 release famotidine 20 mg tablet 20 mg PO DAILY PRN 04/10/18 multivitamin tablet 1 tab PO DAILY 04/10/18 hydrocortisone 2.5 % lotion 1 applic TOPICAL BID PRN #59 ml 07/10/18 betamethasone valerate 0.1 % lotion 1 applic TOPICAL DAILY PRN #60 ml 08/10/18 Clopidogrel Bisulfate [Clopidogrel] 75 mg PO DAILY 09/05/18 Dutasteride 0.5 mg PO DAILY 09/05/18 Gabapentin [Neurontin] 100 mg PO QHS 09/05/18 Glyburide/Metformin HCl 1 tab PO DAILY 09/05/18 [Glyburide-Metformin 2.5-500 mg] Lisinopril 20 mg PO BID 09/05/18 Metoprolol Tartrate [Lopressor 25 mg PO BID 09/05/18 (beta arnoldo)] Pravastatin Sodium 80 mg PO DAILY 09/05/18 Tamsulosin HCl 0.4 mg PO DAILY 09/05/18 Surgical History: Surgical History (Last Reviewed 09/12/18 @ 15:37 by Matt Perea DO) S/P aortobifemoral bypass surgery (Resolved) Onset Date: ~01/09/17 Z95.828 16x8 Hemashield gold graft with endarterectomy of the immediate infrarenal abdominal aorta 01/09/17 History of cataract surgery Z98.49 Lt Presence of coronary angioplasty implant and graft Onset Date: ~03/09/16 Z95.5 PTCA/LAURA of the mid LCX 03/08/16; Staged PCI/LAURA of the mid and distal LAD 03/09/16 S/P aortobifemoral bypass surgery Z95.828 S/P aortobifemoral bypass surgery Z95.828 S/P aortobifemoral bypass surgery Z95.828 Status post aortobifemoral bypass surgery Z95.828 history aortic bifemerol bypass 01/03 Smoking Status: Former smoker Tobacco Use: Non-smoker - *Family History Maternal Family History: Family History (Last Reviewed 09/12/18 @ 15:38 by Matt Perea DO) Father Angina pectoris Brother Angina pectoris Cancer Myocardial infarction Heart disease Hypertension High cholesterol Mother Angina pectoris Cancer Myocardial infarction Heart disease Hypertension High cholesterol Sister Hypertension Review of Systems Constitutional: Denies: Anorexia, Chills, Fever Eyes: Denies: Blurred vision, Double vision HEENT: Denies: Head Aches, Sinus Congestion, Sinus Drainage Cardiovascular: Denies: Chest Pain, Palpitations Respiratory: Denies: Cough, Shortness of breath at rest, Sputum production Gastrointestinal: Reports: Vomiting. Denies: Abdominal Pain, Nausea Genitourinary: Denies: Dysuria Musculoskeletal: Denies: Joint Pain, Joint Tenderness Skin: Denies: Rash, Wounds Neurological: Denies: Numbness, Tingling, Focal weakness Psychiatric: Denies: Anxiety, Depression Hematologic/ Lymphatic: Denies: Easy Bruising, Easy Bleeding, Hx of blood clot Patient Problems: Active and Suspected Problems (Last Reviewed 08/15/18 @ 14:22 by Roxie Noble) Hypertensive urgency (Acute) - Physical Exam General: Alert, No apparent distress HEENT: Atraumatic, PERRLA, EOMI, Normocephalic Oral: Moist Mucosa, No Gingival or Mucosal Lesions/ Ulcerations Neck: - - hematoma over the left carotid enterectomy site. Lungs: Clear to auscultation, Normal air movement, No rhonchi, No wheeze Cardiovascular: Regular rate, Regular Rhythm, Normal S1, Normal S2 Abdomen: Bowel Sounds Present, Soft, Non Tender, Non-Distended, Hypoactive Bowel Sounds Extremities: No edema, No Calf Tenderness Skin: No rashes, No breakdown Musculoskeletal: No Tenderness to Palpation of Joints or Extremities, No Muscle Wasting Psych/Mental Status: Normal Affect, Appropriate Vital Signs Temp Pulse Resp BP Pulse Ox 36.8 C 108 H 20 H 122/66 H 96 09/12/18 15:20 09/12/18 15:25 09/12/18 15:25 09/12/18 15:25 09/12/18 15:25 Oxygen Flow Rate (L/min) 3 Oxygen Delivery Method Room Air Weight: 108.7 kg Body Mass Index (BMI) 37.5 Finger Stick Blood Glucose 160 Intake and Output for Last 24 Hours 09/10/18 09/11/18 09/12/18 23:59 23:59 23:59 Intake Total 2049 Balance 2049 Laboratory Tests Past 24 Hrs 09/12/18 09/12/18 05:55 11:45 POC Glucose 116 H 160 H POC Glucose 09/12/18 09/12/18 11:45 05:55 POC Glucose 160 H 116 H Assessment/Plan All Active Problems (Last Reviewed 08/15/18 @ 14:22 by Roxie Noble) Hypertensive urgency (Acute) S/P aortobifemoral bypass surgery (Resolved ~01/09/17) History of ST elevation myocardial infarction (STEMI) (Acute ~03/08/16) Pneumonia (Resolved) 1. Hypertensive urgency * with subsequent hematoma of LCEA incision * status post several doses of other antihypertensives * started on nicardipine in PACU, which has improved. When trying to wean off, SBP goes up to 170. Wean as tolerated. Goal per Dr. Holguin is SBP < 160. * continue home meds (lisinopril, metoprolol) * patient to be admitted to ICU given the nicardipine. 2. Left carotid endarterectomy * mgmt per general surgery * on ASA, pravastatin 3. DM2 * continue metformin and glyburide * add SSI 4. Hematoma * maintain BP * additional mgmt per primary svc 5. VTE proph: SCDs. Thank you for the consult. The hospital service will continue to follow along during the course of this patient's hospitalization. Code Visit Inpatient E&M: 99823 Init Hosp L2
[2018-09-12] MEDS: Lactated Ringers 1,000 ML 30 ML IV (16:09)
[2018-09-12 16:26] LABS: Bedside Glucose 257 mg/dL (70-110)
[2018-09-12] MEDS: Ondansetron 4 MG/2 ML Vial IV (17:20)
[2018-09-12] MEDS: Cefazolin 1 GM/50 ML BAG IV ×2 (17:42→23:27)
[2018-09-12] MEDS: Morphine 2 MG/ML Syringe IV ×2 (18:02→23:21)
[2018-09-12] MEDS: Enalaprilat 1.25 MG/ML Vial IV ×2 (19:17→23:21)
[2018-09-12] MEDS: 0.9% NaCl Peripheral Flush Adult/Peds IV ×3 (19:17→23:25)
--- NOTE | 2018-09-12 19:35 | CPS ---
set up pt own cpap machine with distilled water-pt placed on face -added saira to side with incision-ana maria well
[2018-09-12] MEDS: Gabapentin 100 MG Capsule PO (21:20)
[2018-09-12] MEDS: Finasteride 5 MG Tablet PO (21:20)
[2018-09-12] MEDS: Tamsulosin HCl 0.4 MG Capsule PO (21:20)
[2018-09-12] MEDS: Metoprolol Tartrate 25 MG Tablet PO (21:20)
[2018-09-12 21:35] LABS: Bedside Glucose 233 mg/dL (70-110)
[2018-09-13] VITALS (32 sets, daily range): BP systolic 101–172; BP diastolic 50–98; PULSE 56–100; RESP 11–19; TEMP 36.7–37.1; O2SAT 93–100
[2018-09-13] MEDS: 0.9% NaCl Peripheral Flush Adult/Peds IV ×2 (00:27→04:16)
[2018-09-13] MEDS: hydrALAZINE 20 MG/ML Vial 10 MG IV ×2 (00:27→04:32)
[2018-09-13] MEDS: Morphine 2 MG/ML Syringe IV ×2 (00:35→06:09)
[2018-09-13] MEDS: HYDROcodone Bitartrate/Apap 5/325 Tablet PO ×2 (04:38→10:46)
[2018-09-13 04:49] LABS: Anion Gap 8 (5-15); BUN 13 mg/dL (7-18); BUN/Creat Ratio 14.7 RATIO (10-20); Calcium,Total 8.5 mg/dL (8.5-10.1); Chloride 108 mmol/L (98-107); Creatinine, Serum 0.89 mg/dL (0.70-1.30); EST Glomerular Filtration Rate 91 mL/min (>60); Est Glom Filt Rate - Afr Amer 110 mL/min (>60); Estimated Creatinine Clearance 76.33 ml/min; Glucose 146 mg/dL (74-106); Sodium Level 142 mmol/L (136-145)
--- NOTE | 2018-09-13 05:45 | PCM.CAROT ---
General Carotid Note - Subjective Post-Op Day #: 1 Subjective: Pt feeling much better today, no specific complaints Urinary retention treated with lopez yesterday. Pt on chronic flomax Just finally off of nipride drip at 3a.m. - Objective Vital Signs Temp Pulse Resp BP Pulse Ox 98.1 F 78 19 H 138/64 H 98 09/13/18 04:00 09/13/18 05:00 09/13/18 05:00 09/13/18 05:00 09/13/18 05:00 Laboratory Tests Past 24 Hrs 09/13/18 04:25 Sodium 142 Potassium 4.0 Chloride 108 H Carbon Dioxide 26.0 Anion Gap 8 BUN 13 Creatinine 0.89 Estim Creat Clear Calc 76.33 Est GFR (MDRD) Af Amer 110 Est GFR (MDRD) Non-Af 91 BUN/Creatinine Ratio 14.7 Glucose 146 H Calcium 8.5 Neck: - - left neck swelling stable if not sl. softer Neurological: Cranial nerves II-XII grossly intact Cardiovascular: - - chest: clear, good effort - Assessment/Plan Will antoine shepard Mobilize pt Hopeful discharge later today
[2018-09-13 06:56] LABS: Bedside Glucose 151 mg/dL (70-110)
--- NOTE | 2018-09-13 07:53 | PCM.PN.HOSP ---
Patient Problems: Active and Suspected Problems (Last Reviewed 09/12/18 @ 15:36 by Matt Perea DO) Hypertensive urgency (Acute) Subjective: Overnight, patient blood pressure was controlled with IV Vasotec. Earlier in PACU, patient had IV labetalol, esmolol and hydralazine then transferred to ICU for further control. Patient was noted to have hematoma over left carotid endarterectomy surgical site. Blood pressure was in 170s in PACU. Currently, blood pressure is controlled. 114/51, 115/50, heart rate 70, regular. Pulse ox 95% on room air. Patient on sips oral. Vitals/I&O's: Vital Signs Temp Pulse Resp BP Pulse Ox 98.1 F 72 14 115/50 L 95 09/13/18 04:00 09/13/18 07:00 09/13/18 07:00 09/13/18 07:00 09/13/18 07:00 Oxygen Flow Rate (L/min) 3 Oxygen Delivery Method Room Air Weight: 240 lb 1.334 oz Body Mass Index (BMI) 38.0 Finger Stick Blood Glucose 160 Intake and Output for Last 24 Hours 09/11/18 09/12/18 09/13/18 23:59 23:59 23:59 Intake Total 2483 / 2956.4 1144.4 / 1144.4 Output Total 800 / 1100 550 / 550 Balance 1683 / 1856.4 594.4 / 594.4 General: Alert, Oriented x3, Cooperative HEENT: Atraumatic, PERRLA, EOMI, Normocephalic Neck: Supple, No JVD, Negative Carotid Bruits, - - Right carotid endarterectomy. Surgical dressing is dry. Surrounding hematoma is present. Lungs: Clear to auscultation, Normal air movement, No rhonchi, No wheeze, No rales, - - On CPAP at night Cardiovascular: Regular rate, Regular Rhythm, Normal S1, Normal S2, No murmurs, - - Peripheral pulses and radial artery are diminished; as per patient it is chronic. Patient also had aorto bifemoral graft. Abdomen: Bowel Sounds Present, Soft, Non Tender, Non-Distended Extremities: No edema, Capillary Refill Less than 3 Seconds Skin: No rashes, No breakdown Musculoskeletal: No Tenderness to Palpation of Joints or Extremities, Arthritic Changes Neurological: Cranial nerves II-XII grossly intact Psych/Mental Status: Normal Affect, Appropriate Laboratory Results 09/12/18 11:45: POC Glucose 160 H 09/12/18 16:17: POC Glucose 257 H 09/12/18 21:32: POC Glucose 233 H 09/13/18 04:25: Sodium 142, Potassium 4.0, Chloride 108 H, Carbon Dioxide 26.0, Anion Gap 8, BUN 13, Creatinine 0.89, Estim Creat Clear Calc 76.33, Est GFR (MDRD) Af Amer 110, Est GFR (MDRD) Non-Af 91, BUN/Creatinine Ratio 14.7, Glucose 146 H, Calcium 8.5 09/13/18 06:49: POC Glucose 151 H Current Medications Acetaminophen (Tylenol) 325 - 650 mg PO Q4H PRN PRN PRN Reason: Pain or Headache Hydrocodone Bitart/Acetaminophen ([place] 5mg-325mg) 1 - 2 tablet PO Q6H PRN PRN PRN Reason: Pain Last Admin: 09/13/18 04:38 Dose: 2 tablet Documented by: [facility] Betamethasone Valerate (Valisone Lotion) 1 applic TOPICAL DAILY PRN; Protocol PRN Reason: skin irritation Last Admin: 09/13/18 04:07 Dose: 1 applicatio Documented by: Dextrose (D50w Syringe) 0 gm IV X1 PRN; Protocol PRN Reason: Hypoglycemia Famotidine (Pepcid) 20 mg PO DAILY PRN PRN Reason: GERD Finasteride (Proscar) 5 mg PO DAILY [facility] Last Admin: 09/12/18 21:20 Dose: 5 mg Documented by: Gabapentin (Neurontin) 100 mg PO QHS [facility] Last Admin: 09/12/18 21:20 Dose: 100 mg Documented by: Glucagon () 1 mg IM .X1 PRN PRN Reason: Hypoglycemia Glyburide (Micronase) [facility] Hydralazine HCl (Apresoline Iv) 10 mg IV Q4H PRN PRN PRN Reason: SBP GREATER THAN 170 Last Admin: 09/13/18 04:32 Dose: 10 mg Documented by: Hydrocortisone (Hytone) 1 applic TOPICAL BID PRN PRN Reason: skin irritation Lactated Ringer's () 1,000 mls @ 30 mls/hr IV .[id number] [facility] Last Admin: 09/12/18 16:09 Dose: 30 mls/hr Documented by: Sodium Nitroprusside 50 mg/ (Dextrose) 250 mls @ 9.783 mls/hr CONT INF .[id number] [facility] Last Admin: 09/12/18 23:27 Dose: Not Given Documented by: Sodium Chloride () 250 mls @ 15 mls/hr IV .[id number] PRN PRN Reason: SALINE FLUSH Sodium Chloride () 1,000 mls @ 1 mls/hr IV .Q48H PRN PRN Reason: Saline Flush Insulin Human Lispro (Humalog Kwikpen (Bkc)) 0 unit SC TIDAC [facility]; Protocol Last Admin: 09/13/18 06:51 Dose: Not Given Documented by: Lisinopril (Zestril) 20 mg PO BID [facility] Metformin HCl (Glucophage) [facility] Metoprolol Tartrate (Lopressor (Beta Cora)) 25 mg PO BID [facility] Last Admin: 09/12/18 21:20 Dose: 25 mg Documented by: Morphine Sulfate () 2 - 4 mg IV Q1H PRN PRN PRN Reason: Pain Last Admin: 09/13/18 06:09 Dose: 2 mg Documented by: Morphine Sulfate () 2 - 4 mg IV Q1H PRN PRN PRN Reason: Pain Multivitamins (Multivitamin) 1 tablet PO DAILY@0800 [facility] Ondansetron HCl (Zofran) 4 mg IV Q8H PRN PRN PRN Reason: nausea Last Admin: 09/12/18 17:20 Dose: 4 mg Documented by: Pravastatin Sodium (Pravachol) 80 mg PO QHS [facility] Sodium Chloride () 5 - 15 ml IV UD PRN PRN Reason: SALINE FLUSH Last Admin: 09/13/18 04:16 Dose: 10 ml Documented by: Tamsulosin HCl (Flomax) 0.4 mg PO DAILY@0830 [facility] Last Admin: 09/12/18 21:20 Dose: 0.4 mg Documented by: Medical Necessity - Tobacco Use Smoking Status: Former smoker Tobacco Use: Non-smoker Assessment/Plan All Active Problems (Last Reviewed 09/12/18 @ 15:36 by Matt Perea DO) Hypertensive urgency (Acute) S/P aortobifemoral bypass surgery (Resolved ~01/09/17) History of ST elevation myocardial infarction (STEMI) (Acute ~03/08/16) Pneumonia (Resolved) There is a 67-year-old gentleman was admitted in ICU for hypertensive urgency after left carotid endarterectomy on 09/12/2018. In PACU, systolic blood pressure noted 170s and had hematoma over left carotid endarterectomy surgical site. The patient was started on nicardipine drip in PACU and then transferred to ICU. 1. Hypertensive urgency with subsequent hematoma of LCEA incision Patient did not respond to several doses of IV hydralazine, labetalol and esmolol. Was on on nicardipine in PACU, later discontinued overnight. continue home meds (lisinopril, metoprolol) Blood pressure is controlled 2. Left carotid endarterectomy with surgical site hematoma on ASA, and pravastatin 3. Coronary artery disease status post stents: Patient home medications continued. No chest pain. 4. DM2 continue metformin and glyburide. Blood sugars are controlled between 150-200. On BMP, glucose 146 5. BPH: Patient on Flomax and dutasteride at home. Here on Flomax and finasteride. Pizarro catheter is removed. Waiting for spontaneous voiding. VTE proph: SCDs. Plan: As the patient wants urine and tolerates oral, he is medically stable to be discharged. Blood pressure is controlled. Follow-up PCP in 1 to 2 weeks. Follow-up surgeon Dr. Harvey Holguin as scheduled Code Visit Inpatient E&M: 43406 [facility] L3
--- NOTE | 2018-09-13 10:20 | CASEMGMT ---
RN CM Note: Spoke with daughter MalinaZAIRE who will be assisting pt on dc. Pt is independent and plans to return home with family support. No discharge needs identified. Ryan RUIZ RN ACM DC PLAN: Home w/family support
[2018-09-13] MEDS: metFORMIN HCl 500 MG Tablet PO (10:21)
[2018-09-13] MEDS: Finasteride 5 MG Tablet PO (10:21)
[2018-09-13] MEDS: Lisinopril 20 MG Tablet PO (10:21)
[2018-09-13] MEDS: Metoprolol Tartrate 25 MG Tablet PO (10:21)
[2018-09-13] MEDS: Multivitamins,Therapeutic Tablet 1 TABLET PO (10:21)
[2018-09-13] MEDS: glyBURIDE 2.5 MG Tablet PO (10:21)
[2018-09-13] MEDS: Tamsulosin HCl 0.4 MG Capsule PO (10:22)
[2018-09-13] MEDS: Aspirin E.C. 81 MG Tablet PO (10:22)
[2018-09-13 12:20] LABS: Bedside Glucose 151 mg/dL (70-110)
[2018-09-13] MEDS: Famotidine 20 MG Tablet PO (14:00)
== END 2018-09-13 16:15 | disposition home or self-care (01) | DRG 38 ==
LOC: ACINP 05:32 → MS3 05:36 → ICU 15:41
PROVIDERS: Anesthesiology; Admitting Provider Surgery; Family Provider Internal Medicine; PCP Internal Medicine; Referring Provider Surgery; Visit Provider Surgery
PROC: 03CL0ZZ Extirpation of Matter from Left Internal Carotid Artery, Open Approach (ICD-10-PCS; CPT 35301; principal; 2018-09-12 06:55)
DX: I65.23 Occlusion and stenosis of bilateral carotid arteries (principal); L76.32 Postprocedural hematoma of skin and subcutaneous tissue following other procedure; I73.9 Peripheral vascular disease, unspecified; I16.0 Hypertensive urgency; Y83.8 Other surgical procedures as the cause of abnormal reaction of the patient, or of later complication, without mention of misadventure at the time of the procedure; I25.10 Atherosclerotic heart disease of native coronary artery without angina pectoris; R33.8 Other retention of urine; N40.1 Benign prostatic hyperplasia with lower urinary tract symptoms; Z87.891 Personal history of nicotine dependence; Z79.84 Long term (current) use of oral hypoglycemic drugs; Z95.5 Presence of coronary angioplasty implant and graft; I25.2 Old myocardial infarction; Z95.828 Presence of other vascular implants and grafts
CPT/HCPCS: 80048; 80076; 82962; 83036; 85027; 85610; 85730; 88304; 88311; J7040; J7120; A4216; J2405

== ENCOUNTER → 2018-09-25 | Outpatient (CLI) | payer MEDICARE, SELFPAY ==
[2018-09-12 16:13] VITALS: BMI 38.0
--- NOTE | 2018-09-25 13:31 | CDUL_ITS ---
Reason For Study: Post endarectomy Lt. Velocities/BP Prox CCA 63.6/13.1 cm/sec. Mid CCA 64.7/17.5 cm/sec. Dist CCA 66.6/11.6 cm/sec. Unable to visualized ECA, ICA and VertA due to hematoma. Nonvascularized hematoma noted. Procedure Carotid Duplex [id number]. The study was technically limited due to hematoma. Exam performed in department. Interpretation Summary Patent left common carotid artery Large left neck hematoma with no active flow within it noted Unable to visualize he left internal or external carotids or vertebral secondary to the hematoma Ordering Physician: Harvey Holguin Referring Physician: Mai Cruz Performed By: Michelle Ramirez RVT
== END | disposition home or self-care (01) ==
LOC: CVS 13:30
PROVIDERS: Family Provider Internal Medicine; PCP Internal Medicine; Referring Provider Surgery; Visit Provider Surgery
DX: I65.23 Occlusion and stenosis of bilateral carotid arteries (principal)
CPT/HCPCS: 93882

== ENCOUNTER → 2018-10-09 | Outpatient (CLI) | payer MEDICARE, SELFPAY ==
[2018-10-09 13:49] VITALS: BMI 38.0
[2018-10-09 15:46] LABS: Hematocrit 42.2 % (40-54); Hemoglobin 13.5 g/dL (13.0-16.5); Mean Corpuscular Hgb 28.3 pg (27.0-32.0); Mean Corpuscular Volume 88.5 fL (80-94); Mean Platelet Vol. 10.5 fl (6.2-12.0); Platelet Count 247 K/mm3 (150-450); RBC Distribution Width CV 15.8 % (11.6-14.6); RBC Distribution Width SD 50.7 fl (35.1-43.9); Red Blood Count 4.77 M/mm3 (4.6-6.2); White Blood Count 6.6 K/mm3 (4.4-11.0)
== END | disposition home or self-care (01) ==
LOC: LAB 14:53
PROVIDERS: Family Provider Internal Medicine; PCP Internal Medicine; Referring Provider Internal Medicine; Visit Provider Internal Medicine
DX: L40.9 Psoriasis, unspecified (principal); G47.30 Sleep apnea, unspecified
CPT/HCPCS: 36415; 85027

== ENCOUNTER → 2018-11-14 | Outpatient (CLI) | payer MEDICARE, SELFPAY ==
[2018-10-09 13:49] VITALS: BMI 38.0
== END | disposition home or self-care (01) ==
LOC: SL 20:12
PROVIDERS: Family Provider Internal Medicine; PCP Internal Medicine; Referring Provider Internal Medicine; Visit Provider Internal Medicine
DX: G47.10 Hypersomnia, unspecified (principal)
CPT/HCPCS: 95810

== ENCOUNTER → 2019-05-24 12:19 | Outpatient (CLI) | payer MEDICARE, OTHER, SELFPAY ==
[2019-05-01 06:25] VITALS: BMI 37.7
== END ==
PROVIDERS: PCP Internal Medicine; Referring Provider Internal Medicine Critical Care Medicine; Visit Provider Internal Medicine Critical Care Medicine
DX: G47.33 Obstructive sleep apnea (adult) (pediatric) (principal)
CPT/HCPCS: 95811

== ENCOUNTER → 2019-05-27 12:28 | Outpatient (CLI) | payer MEDICARE, OTHER, SELFPAY ==
[2019-05-01 06:25] VITALS: BMI 37.7
--- NOTE | 2019-05-28 17:43 | PFT ---
INTRODUCTION: The patient is a 68-year-old male that presents for pulmonary function studies secondary to a diagnosis of dyspnea. Respiratory therapy reports good patient effort. Bronchodilators were used during testing. INTERPRETATION: Forced expiration spirometry demonstrates the presence of a mild large airways obstructive ventilatory defect. There was no significant response to aerosolized bronchodilators. Spirograms are of good quality and plateau gradually indicating slow emptying of the lungs. Body plethysmography was performed and revealed an elevated RV to 120% of predicted, indicative of underlying air trapping. Diffusing capacity by single breath CO was within normal limits. IMPRESSION: Irreversible mild large airways obstructive ventilatory defect with associated air trapping and preserved diffusing capacity.
== END ==
PROVIDERS: PCP Internal Medicine; Referring Provider Internal Medicine Critical Care Medicine; Visit Provider Internal Medicine Critical Care Medicine
DX: R06.09 Other forms of dyspnea (principal)
CPT/HCPCS: 94060; 94726; 94729

== ENCOUNTER → 2019-08-02 14:37 | Outpatient (CLI) | payer MEDICARE, OTHER, SELFPAY ==
[2019-08-02 13:07] VITALS: BMI 38.0
[2019-08-02 15:26] LABS: Absolute Neutrophil Count 4.6 X10^3/uL (2.0-7.7); Basophil# 0.07 X10^3/uL; Eosinophil# 0.21 X10^3/uL; Eosinophils% 2.9 % (0-5); Hematocrit 45.2 % (40-54); Hemoglobin 14.9 g/dL (13.0-16.5); Lymphocyte % 23.7 % (19-41); Mean Corpuscular Hgb 29.2 pg (27.0-32.0); Mean Corpuscular Volume 88.6 fL (80-94); Mean Platelet Vol. 10.6 fl (6.2-12.0); Monocyte# 0.59 X10^3/uL; Monocyte% 8.2 % (0-10); NRBC Flagged by Analyzer 0 % (0-5); Neutrophil # 4.58 X10^3/uL (2.7-7.7); Neutrophil % 63.9 % (47-70); Platelet Count 209 K/mm3 (150-450); RBC Distribution Width CV 14.2 % (11.6-14.6); RBC Distribution Width SD 45.6 fl (35.1-43.9); White Blood Count 7.2 K/mm3 (4.4-11.0)
[2019-08-02 15:55] LABS: Microalbumin,Random Urine 92.4 mg/L (NO RANGE EST.)
[2019-08-02 16:20] LABS: ALB/GLOB Ratio 0.9 RATIO (0.9-2.4); AST(SGOT) 14 U/L (15-37); Alanine Aminotransfer ALT/SGPT 28 U/L (16-61); Albumin, Serum 3.4 g/dL (3.2-5.0); Alkaline Phosphatase 139 U/L (45-117); Anion Gap 9 (5-15); BUN 14 mg/dL (7-18); BUN/Creat Ratio 13.9 RATIO (10-20); Calcium,Total 8.9 mg/dL (8.5-10.1); Chloride 105 mmol/L (98-107); Cholesterol 151 mg/dL (200); Creatinine, Serum 1.01 mg/dL (0.70-1.30); EST Glomerular Filtration Rate 78 mL/min (>60); Est Glom Filt Rate - Afr Amer 95 mL/min (>60); Globulin 3.7 g/dL (2.2-4.2); Glucose 85 mg/dL (74-106); High Density Lipoprotein 38 mg/dL; PSA,Total - Annual Screen 1.22 ng/mL (0.00-4.00); Potassium 4.5 mmol/L (3.5-5.1); Protein, Total 7.1 g/dL (6.4-8.2); Sodium Level 138 mmol/L (136-145); Thyroid Stim Hormone (TSH) 1.75 uIU/mL (0.358-3.74); Triglycerides 195 mg/dL; Very Low Density Lipoprotein 39 mg/dL (5-40)
== END ==
PROVIDERS: PCP Internal Medicine; Referring Provider Nurse Practitioner Family; Visit Provider Nurse Practitioner Family
DX: E11.9 Type 2 diabetes mellitus without complications (principal); I10 Essential (primary) hypertension; N40.0 Benign prostatic hyperplasia without lower urinary tract symptoms; Z12.5 Encounter for screening for malignant neoplasm of prostate
CPT/HCPCS: 36415; 80053; 80061; 82043; 82570; 84153; 84443; 85025; G0103

== ENCOUNTER → 2019-10-30 12:42 | Outpatient (CLI) | payer MEDICARE, OTHER, SELFPAY ==
[2019-08-19 13:30] VITALS: BMI 37.8
--- NOTE | 2019-10-30 12:43 | CDU_ITS ---
Reason For Study: Carotid stenosis Rt. Velocities/BP Lt. Velocities/BP Prox CCA 76.2/11.3 cm/sec. Prox CCA 92.5/12.6 cm/sec. Mid CCA 91.5/14.6 cm/sec. Mid CCA 112/20.6 cm/sec. Dist CCA 69.5/13.5 cm/sec. Dist CCA 79.1/13.3 cm/sec. Prox ICA 165.2/44.5 cm/sec. Prox ICA 155.8/42.6 cm/sec. Mid ICA 139.4/26.1 cm/sec. Mid ICA 124.7/33.4 cm/sec. Dist ICA 135.7/18.8 cm/sec. Dist ICA 90/26.1 cm/sec. Rt. ICA/CCA = 2.17. Lt. ICA/CCA = 1.68. Prox ECA 143/17 cm/sec. Prox ECA 88.2/9.1 cm/sec. Rt. Vert. 52/11.3 cm/sec. Lt. Vert. 44.3/13.5 cm/sec. Right Extracranial There is homogeneous, smooth atherosclerotic plaque noted in the right common carotid artery. There is heterogeneous, irregular atherosclerotic plaque noted in the right internal carotid artery. There is homogeneous, smooth atherosclerotic plaque noted in the right external carotid artery. Antegrade flow is noted in the right vertebral artery. Left Extracranial There is homogeneous, smooth atherosclerotic plaque noted in the left common carotid artery. The left internal carotid artery is not well visualized in march scale, relied on color. There is intimal thickening but no significant atherosclerotic plaque noted in the left external carotid artery. Antegrade flow is noted in the left vertebral artery. Procedure Carotid Duplex [id number]. Exam performed in department. Interpretation Summary Irregular calcific plaque at the proximal right internal carotid artery with 50 to 69% stenosis. <50% stenosis right external carotid Difficult to image the left internal carotid artery. 50 to 69% stenosis of the left internal carotid. Color flow imaging might suggest a smaller diameter lumen <50% stenosis left external carotid Patent and antegrade vertebrals bilaterally From a previous examination of August 09, 2018 there is no change on the right and there is improvement noted on the left Ordering Physician: Harvey Holguin Referring Physician: Mai Cruz Performed By: Michelle Ramirez RVT
== END ==
PROVIDERS: PCP Internal Medicine; Referring Provider Surgery; Visit Provider Surgery
DX: I65.23 Occlusion and stenosis of bilateral carotid arteries (principal); Z98.890 Other specified postprocedural states
CPT/HCPCS: 93880

== ENCOUNTER → 2020-01-29 13:45 | Outpatient (CLI) | payer MEDICARE, OTHER, SELFPAY ==
[2020-01-29 13:09] VITALS: BMI 37.0
[2020-01-29 15:20] LABS: Absolute Lymphocyte Count 1.24 X10^3/uL (0.83-4.51); Absolute Neutrophil Count 4.2 X10^3/uL (2.0-7.7); Basophil# 0.07 X10^3/uL; Basophil% 1.1 % (0-1); Eosinophil# 0.13 X10^3/uL; Eosinophils% 2.1 % (0-5); Hematocrit 48.9 % (40-54); Hemoglobin 15.5 g/dL (13.0-16.5); Lymphocyte # 1.24 X10^3/ul (4.0); Lymphocyte % 19.9 % (19-41); Mean Corp Hgb Conc 31.7 g/dL (32-36); Mean Corpuscular Hgb 28.9 pg (27.0-32.0); Mean Corpuscular Volume 91.2 fL (80-94); Mean Platelet Vol. 10.7 fl (6.2-12.0); Monocyte# 0.62 X10^3/uL; NRBC Flagged by Analyzer 0 % (0-5); Neutrophil # 4.15 X10^3/uL (2.7-7.7); Neutrophil % 66.6 % (47-70); Platelet Count 260 K/mm3 (150-450); RBC Distribution Width CV 14.4 % (11.6-14.6); RBC Distribution Width SD 47.8 fl (35.1-43.9); Red Blood Count 5.36 M/mm3 (4.6-6.2); White Blood Count 6.2 K/mm3 (4.4-11.0)
[2020-01-29 15:30] LABS: Anion Gap 4 (5-15); BUN 20 mg/dL (7-18); BUN/Creat Ratio 17.4 RATIO (10-20); Calcium,Total 9.6 mg/dL (8.5-10.1); Chloride 108 mmol/L (98-107); Creatinine, Serum 1.15 mg/dL (0.70-1.30); EST Glomerular Filtration Rate 67 mL/min (>60); Est Glom Filt Rate - Afr Amer 81 mL/min (>60); Glucose 99 mg/dL (74-106); Potassium 4.8 mmol/L (3.5-5.1); Sodium Level 140 mmol/L (136-145)
== END ==
PROVIDERS: PCP Internal Medicine; Referring Provider Internal Medicine; Visit Provider Internal Medicine
DX: I10 Essential (primary) hypertension (principal)
CPT/HCPCS: 36415; 80048; 85025

== ENCOUNTER → 2020-05-21 12:28 | Outpatient (CLI) | payer MEDICARE, OTHER, SELFPAY ==
[2020-04-14 13:03] VITALS: BMI 36.6
[2020-04-28 13:08] VITALS: BMI 36.1
--- NOTE | 2020-05-21 12:31 | CDU_ITS ---
Reason For Study: Carotid stenosis Rt. Velocities/BP Lt. Velocities/BP Prox CCA 83.8/12.1 cm/sec. Prox CCA 114.7/21.5 cm/sec. Mid CCA 90.4/18.6 cm/sec. Mid CCA 110.4/18.2 cm/sec. Dist CCA 66.9/12.1 cm/sec. Dist CCA 92.8/16 cm/sec. Prox ICA 184.7/42.2 cm/sec. Prox ICA 153.6/39.6 cm/sec. Mid ICA 141.2/31.4 cm/sec. Mid ICA 141.2/31.6 cm/sec. Dist ICA 158.7/27 cm/sec. Dist ICA 91.9/27.9 cm/sec. Rt. ICA/CCA = 2.20. Lt. ICA/CCA = 1.39. Prox ECA 160.9/18.2 cm/sec. Prox ECA 115.6/9.7 cm/sec. Rt. Vert. 60.5/10.2 cm/sec. Lt. Vert. 47/11.4 cm/sec. Right Extracranial There is homogeneous, smooth atherosclerotic plaque noted in the right common carotid artery. There is heterogeneous, irregular atherosclerotic plaque noted in the right internal carotid artery. There is homogeneous, smooth atherosclerotic plaque noted in the right external carotid artery. Antegrade flow is noted in the right vertebral artery. Left Extracranial There is homogeneous, smooth atherosclerotic plaque noted in the left common carotid artery. There is heterogeneous, irregular atherosclerotic plaque noted in the left internal carotid artery. The left internal carotid artery is not well visualized. Relied on color flow and doppler to identify ICA. There is intimal thickening but no significant atherosclerotic plaque noted in the left external carotid artery. Antegrade flow is noted in the left vertebral artery. Procedure Carotid Duplex [id number]. This is a Carotid Duplex examination using B-mode, color flow and specral Doppler. The study was technically difficult. Exam performed in department. Interpretation Summary Irregular calcific plaque in the proximal right internal and external carotid arteries with mild shadowing. 50-69% stenosis right internal carotid <50% stenosis right external carotid Irregular plaque at the proximal left internal carotid artery. It is of note that the left internal carotid artery is not well visualized 50-69% stenosis left internal carotid <50% stenosis left external carotid Patent and antegrade vertebrals bilaterally No change from the previous examination of October 30, 2019 Ordering Physician: Harvey Holguin Referring Physician: Mai Cruz Performed By: Michelle Ramirez RVT
== END ==
PROVIDERS: PCP Internal Medicine; Referring Provider Surgery; Visit Provider Surgery
DX: I65.23 Occlusion and stenosis of bilateral carotid arteries (principal)
CPT/HCPCS: 93880

== ENCOUNTER → 2020-07-02 14:50 | Outpatient (CLI) | payer MEDICARE, OTHER, SELFPAY ==
[2020-06-05 09:48] VITALS: BMI 35.6
[2020-07-02 17:52] LABS: Absolute Lymphocyte Count 1.32 X10^3/uL (0.83-4.51); Absolute Neutrophil Count 4.5 X10^3/uL (2.0-7.7); Basophil# 0.09 X10^3/uL; Basophil% 1.4 % (0-1); Eosinophil# 0.14 X10^3/uL; Eosinophils% 2.1 % (0-5); Hematocrit 49.6 % (40-54); Hemoglobin 15.4 g/dL (13.0-16.5); Lymphocyte # 1.32 X10^3/ul (0.83-4.51); Lymphocyte % 19.8 % (19-41); Mean Corpuscular Hgb 28.1 pg (27.0-32.0); Mean Corpuscular Volume 90.3 fL (80-94); Mean Platelet Vol. 11.8 fl (6.2-12.0); NRBC Flagged by Analyzer 0 % (0-5); Neutrophil # 4.48 X10^3/uL (2.7-7.7); Neutrophil % 67.4 % (47-70); Platelet Count 224 K/mm3 (150-450); RBC Distribution Width CV 14.2 % (11.6-14.6); RBC Distribution Width SD 47.1 fl (35.1-43.9); Red Blood Count 5.49 M/mm3 (4.6-6.2); White Blood Count 6.7 K/mm3 (4.4-11.0)
[2020-07-02 18:10] LABS: AST(SGOT) 12 U/L (15-37); Alanine Aminotransfer ALT/SGPT 25 U/L (16-61); Albumin, Serum 3.5 g/dL (3.2-5.0); Alkaline Phosphatase 180 U/L (45-117); Anion Gap 5 (5-15); BUN 26 mg/dL (7-18); BUN/Creat Ratio 26.3 RATIO (10-20); Calcium,Total 9.3 mg/dL (8.5-10.1); Chloride 106 mmol/L (98-107); Creatinine, Serum 0.99 mg/dL (0.70-1.30); EST Glomerular Filtration Rate 80 mL/min (>60); Est Glom Filt Rate - Afr Amer 97 mL/min (>60); Globulin 3.5 g/dL (2.2-4.2); Glucose 122 mg/dL (74-106); Potassium 4.5 mmol/L (3.5-5.1); Sodium Level 136 mmol/L (136-145)
[2020-07-09 03:06] LABS: HEPATITIS B SURFACE AG Negative (Negative); Hepatitis A AB, Total Negative (Negative); Hepatitis A IgM Antibody Negative (Negative); Hepatitis B Core AB IgM Negative (Negative); Hepatitis B Core Ab Total Negative (Negative); Hepatitis C Ab <0.1 s/co ratio (0.0-0.9); QNTFERON TB Mitogen Value > 10.00 IU/mL (.); QNTFERON TB Nil Value 0.05 IU/mL (.); QNTFERON TB1+ Ag Value 0.04 IU/mL (.); QNTFERON TB2+ Ag Value 0.03 IU/mL (.)
[2020-07-09 16:40] LABS: Hep B Surface Antibodies Non Reactive (.); QNTIFERON TB Positive Criteria Negative (Negative)
== END ==
PROVIDERS: PCP Internal Medicine; Referring Provider Dermatology Pediatric Dermatology; Visit Provider Dermatology Pediatric Dermatology
DX: L40.0 Psoriasis vulgaris (principal); L71.8 Other rosacea; T49.0X5A Adverse effect of local antifungal, anti-infective and anti-inflammatory drugs, initial encounter; Z79.899 Other long term (current) drug therapy
CPT/HCPCS: 36415; 80053; 85025; 86480; 86704; 86705; 86706; 86708; 86709; 86803; 87340

== ENCOUNTER → 2020-08-11 13:36 | Outpatient (CLI) | payer MEDICARE, OTHER, SELFPAY ==
[2020-08-11 13:05] VITALS: BMI 35.6
[2020-08-11 17:02] LABS: Cholesterol 156 mg/dL (200); High Density Lipoprotein 47 mg/dL; PSA,Total - Annual Screen 1.64 ng/mL (0.00-4.00); Thyroid Stim Hormone (TSH) 2.96 uIU/mL (0.358-3.74); Triglycerides 159 mg/dL; Very Low Density Lipoprotein 32 mg/dL (5-40)
[2020-08-11 17:20] LABS: Microalbumin:Creatinine Ratio 115.3 mg/g CRE (<30 mg/g CRE)
== END ==
PROVIDERS: PCP Internal Medicine; Referring Provider Nurse Practitioner Family; Visit Provider Nurse Practitioner Family
DX: L40.9 Psoriasis, unspecified (principal); E11.42 Type 2 diabetes mellitus with diabetic polyneuropathy; I10 Essential (primary) hypertension; N40.0 Benign prostatic hyperplasia without lower urinary tract symptoms; G47.30 Sleep apnea, unspecified
CPT/HCPCS: 36415; 80061; 82043; 82570; 84153; 84443; G0103

== ENCOUNTER → 2020-09-01 13:33 | Outpatient (CLI) | payer MEDICARE, OTHER, SELFPAY ==
[2020-08-11 13:05] VITALS: BMI 35.6
[2020-09-01 13:02] VITALS: BMI 36.2
--- NOTE | 2020-09-01 13:35 | CT_ITS ---
STUDY: LOW DOSE CT LUNG CANCER SCREENING REASON FOR EXAM: Male, 69 years old. Lung cancer screening -- 40pack yr history; former smoker; asymptomatic RADIATION DOSAGE (If Supplied By Facility): CTDIvol = ( 3.18 ) mGy, DLP = ( 110.40 ) mGycm TECHNIQUE: No contrast was administered. Low dose technique was utilized (average mAS-38 and kVp 120). 1.25 mm axial source images with a slice interval of 1.25-mm were reconstructed in lung windows. 2.5 mm axial source images with a slice interval of 2.5-mm were reconstructed in lung windows. 5.0 mm axial source images with a slice interval of 5.0-mm were reconstructed in soft tissue windows. Nodule measured using lung windows on PACS and/or independent workstation with automated measurement of minimum and maximum diameter. Nodule measurement reported as average diameter rounded to the nearest whole number. Growth is defined as an increase ins size of greater than 1.5 mm. COMPARISON: None. NODULES: No suspicious nodules are seen. Calcified bilateral hilar lymph nodes. Emphysema: No significant emphysematous changes seen. Endobronchial lesion: None Aorta: Minimal plaque calcification. Coronary arteries: Coronary artery calcification. Mediastinal nodes: Small mediastinal lymph nodes. Other chest and abdominal findings: Degenerative changes of the thoracic spine. CT/Low Dose CT Lung Screening IMPRESSION: Lung-RADS category 2 - Continue annual screening with LDCT in 12 months. IMPORTANT NOTES FOR USE: ACR Lung-RADS Version 1.1 Assessment Categories Release Date: 2018 Category: Coded 0-4 bases on nodule(s) with highest degree of suspicion. Negative screen is defined as categories 1 and 2; a positive screen is defined as categories 3 and 4. Category 3 and 4A nodules that are unchanged on interval CT should be coded as category 2, and individuals returned to screening in 12 months. Category 4X: Category 3 or 4 nodules with additional imaging findings that increase the suspicion of lung cancer, such as spiculation, GGN that doubles in size in 1 year, enlarged lymph notes, etc. Category Modifiers: S (significant finding unrelated to lung cancer) Electronically Signed: Sharif Gonzalez MD at 14:26 EDT , Service support ,
== END ==
PROVIDERS: PCP Internal Medicine; Referring Provider Nurse Practitioner Family; Visit Provider Nurse Practitioner Family
DX: Z12.2 Encounter for screening for malignant neoplasm of respiratory organs (principal); Z87.891 Personal history of nicotine dependence
CPT/HCPCS: 71271

== ENCOUNTER → 2021-02-15 13:59 | Outpatient (CLI) | payer MEDICARE, OTHER, SELFPAY ==
[2021-02-15 15:28] LABS: Anion Gap 4 (5-15); BUN 16 mg/dL (7-18); BUN/Creat Ratio 16.4 RATIO (10-20); Calcium,Total 9.2 mg/dL (8.5-10.1); Chloride 106 mmol/L (98-107); Creatinine, Serum 0.98 mg/dL (0.70-1.30); EST Glomerular Filtration Rate 81 mL/min (>60); Est Glom Filt Rate - Afr Amer 98 mL/min (>60); Glucose 166 mg/dL (74-106); Potassium 4.9 mmol/L (3.5-5.1); Sodium Level 139 mmol/L (136-145)
== END ==
PROVIDERS: PCP Internal Medicine; Referring Provider Internal Medicine; Visit Provider Internal Medicine
DX: E11.42 Type 2 diabetes mellitus with diabetic polyneuropathy (principal)
CPT/HCPCS: 36415; 80048

== ENCOUNTER → 2021-07-12 | Outpatient (CLI) | payer MEDICARE, OTHER, SELFPAY ==
[2021-07-14 16:09] LABS: QNTFERON TB Mitogen Value > 10.00 IU/mL (.); QNTFERON TB Nil Value 0.28 IU/mL (.); QNTFERON TB1+ Ag Value 0.26 IU/mL (.); QNTFERON TB2+ Ag Value 0.27 IU/mL (.)
[2021-07-14 19:27] LABS: Hepatitis B Core Ab Total Negative (Negative); QNTIFERON TB Positive Criteria Negative (Negative)
== END | disposition home or self-care (01) ==
PROVIDERS: PCP Internal Medicine; Visit Provider Physician Assistant Medical
DX: L40.0 Psoriasis vulgaris (principal); Z79.899 Other long term (current) drug therapy
CPT/HCPCS: 36415; 86480; 86704

== ENCOUNTER → 2021-09-28 | Outpatient (CLI) | payer MEDICARE, OTHER, SELFPAY ==
[2021-09-28 15:18] LABS: Absolute Neutrophil Count 4.9 X10^3/uL (2.0-7.7); Basophil# 0.06 X10^3/uL; Basophil% 0.8 % (0-1); Eosinophil# 0.11 X10^3/uL; Eosinophils% 1.5 % (0-5); Hematocrit 42.4 % (40-54); Hemoglobin 13.4 g/dL (13.0-16.5); Lymphocyte % 19.4 % (19-41); Mean Corp Hgb Conc 31.6 g/dL (32-36); Mean Corpuscular Hgb 29.5 pg (27.0-32.0); Mean Corpuscular Volume 93.4 fL (80-94); Mean Platelet Vol. 11.7 fl (6.2-12.0); Monocyte# 0.69 X10^3/uL; Monocyte% 9.6 % (0-10); NRBC Flagged by Analyzer 0 % (0-5); Neutrophil # 4.92 X10^3/uL (2.7-7.7); Neutrophil % 68.4 % (47-70); Platelet Count 227 K/mm3 (150-450); RBC Distribution Width CV 14.8 % (11.6-14.6); RBC Distribution Width SD 51.6 fl (35.1-43.9); Red Blood Count 4.54 M/mm3 (4.6-6.2); White Blood Count 7.2 K/mm3 (4.4-11.0)
[2021-09-28 16:01] LABS: ALB/GLOB Ratio 1.1 RATIO (0.9-2.4); AST(SGOT) 23 U/L (15-37); Alanine Aminotransfer ALT/SGPT 32 U/L (16-61); Albumin, Serum 3.8 g/dL (3.2-5.0); Alkaline Phosphatase 146 U/L (45-117); Anion Gap 6 (5-15); BUN 28 mg/dL (7-18); BUN/Creat Ratio 23.1 RATIO (10-20); Calcium,Total 9.6 mg/dL (8.5-10.1); Chloride 105 mmol/L (98-107); Cholesterol 156 mg/dL (200); Creatinine, Serum 1.21 mg/dL (0.70-1.30); EST Glomerular Filtration Rate 63 mL/min (>60); Est Glom Filt Rate - Afr Amer 76 mL/min (>60); Globulin 3.5 g/dL (2.2-4.2); Glucose 96 mg/dL (74-106); High Density Lipoprotein 44 mg/dL; PSA,Total - Annual Screen 0.91 ng/mL (0.00-4.00); Potassium 5.4 mmol/L (3.5-5.1); Protein, Total 7.3 g/dL (6.4-8.2); Sodium Level 137 mmol/L (136-145); Triglycerides 116 mg/dL; Very Low Density Lipoprotein 23 mg/dL (5-40)
== END | disposition home or self-care (01) ==
LOC: BIMLAB 13:33
PROVIDERS: PCP Internal Medicine; Referring Provider Internal Medicine; Visit Provider Internal Medicine
DX: J30.2 Other seasonal allergic rhinitis (principal); E11.9 Type 2 diabetes mellitus without complications; L40.9 Psoriasis, unspecified; N40.0 Benign prostatic hyperplasia without lower urinary tract symptoms
CPT/HCPCS: 36415; 80053; 80061; 84153; 85025; G0103

== ENCOUNTER → 2021-10-12 | Outpatient (CLI) | payer MEDICARE, OTHER, SELFPAY ==
--- NOTE | 2021-10-12 13:57 | CT_ITS ---
STUDY: LOW DOSE CT LUNG CANCER SCREENING REASON FOR EXAM: Male, 70 years old. Lung cancer screening -- 50 pk yr hx; former smoker; asymptomatic RADIATION DOSAGE (If Supplied By Facility): CTDIvol = ( 2.39 ) mGy, DLP = ( 84.59 ) mGycm TECHNIQUE: No contrast was administered. Low dose technique was utilized (average mAS-38 and kVp 120). 1.25 mm axial source images with a slice interval of 1.25-mm were reconstructed in lung windows. 2.5 mm axial source images with a slice interval of 2.5-mm were reconstructed in lung windows. 5.0 mm axial source images with a slice interval of 5.0-mm were reconstructed in soft tissue windows. COMPARISON: Comparison is made with prior study dated 09/01/2020. NODULES: No suspicious nodules are seen. Emphysema: No significant emphysematous changes are present. Endobronchial lesion: Unremarkable. Aorta: Minimal atherosclerotic plaques. CORONARY ARTERIES: Coronary artery calcification is seen. Heart: Unremarkable. Pulmonary artery: Unremarkable Mediastinal nodes: Small benign-appearing mediastinal lymph nodes. Other chest and abdominal findings: Multiple small gallstones. CT/Low Dose CT Lung Screening IMPRESSION: Lung-RADS category 2 - Continue annual screening with LDCT in 12 months. IMPORTANT NOTES FOR USE: ACR Lung-RADS Version 1.1 Assessment Categories Release Date: 2018 Category: Coded 0-4 bases on nodule(s) with highest degree of suspicion. Negative screen is defined as categories 1 and 2; a positive screen is defined as categories 3 and 4. Category 3 and 4A nodules that are unchanged on interval CT should be coded as category 2, and individuals returned to screening in 12 months. Category 4X: Category 3 or 4 nodules with additional imaging findings that increase the suspicion of lung cancer, such as spiculation, GGN that doubles in size in 1 year, enlarged lymph notes, etc. Category Modifiers: S (significant finding unrelated to lung cancer) Electronically Signed: Sharif Gonzalez MD at 14:35 EDT ,
== END | disposition home or self-care (01) ==
PROVIDERS: PCP Internal Medicine; Referring Provider Nurse Practitioner Family; Visit Provider Nurse Practitioner Family
DX: Z87.891 Personal history of nicotine dependence (principal); Z12.2 Encounter for screening for malignant neoplasm of respiratory organs
CPT/HCPCS: 71271

== ENCOUNTER → 2021-12-29 | Outpatient (CLI) | payer MEDICARE, OTHER, SELFPAY ==
--- NOTE | 2021-12-29 15:40 | RAD_ITS ---
STUDY: X-RAY - THORACIC SPINE REASON FOR EXAM: Male, 71 years old. Back Pain TECHNIQUE: XR Spine Thoracic 3 Views COMPARISON: None FINDINGS: Normal kyphosis of the thoracic spine. There is no substantial scoliosis. There is multilevel endplate spondylosis of the thoracic vertebrae. There is multilevel disc space narrowing of the thoracic spine. The soft tissue structures are unremarkable. RAD/Thoracic Spine 3 Views IMPRESSION: There are degenerative changes as noted above. Electronically Signed: Mj Vick MD at 17:38 EDT ,
[2021-12-29 16:54] LABS: Anion Gap 7 (5-15); BUN 30 mg/dL (7-18); BUN/Creat Ratio 27.8 RATIO (10-20); Calcium,Total 9.9 mg/dL (8.5-10.1); Chloride 107 mmol/L (98-107); Creatinine, Serum 1.08 mg/dL (0.70-1.30); EST Glomerular Filtration Rate 72 mL/min (>60); Est Glom Filt Rate - Afr Amer 87 mL/min (>60); Glucose 96 mg/dL (74-106); Potassium 4.4 mmol/L (3.5-5.1); Sodium Level 140 mmol/L (136-145)
== END | disposition home or self-care (01) ==
PROVIDERS: PCP Internal Medicine; Referring Provider Internal Medicine; Visit Provider Internal Medicine
DX: E11.9 Type 2 diabetes mellitus without complications (principal); M54.9 Dorsalgia, unspecified
CPT/HCPCS: 36415; 72072; 80048

== ENCOUNTER → 2022-01-25 | Outpatient (CLI) | payer MEDICARE, OTHER, SELFPAY ==
--- NOTE | 2022-01-25 17:55 | STRESSREP ---
Stress Test Report Date: Procedure: Exercise tolerance test/imaging study Indications: CAD; PCI; PAD; hyperlipidemia; hypertension Consent: Per the patient Procedure: The patient exercised on a Tristin protocol for 4 minutes and 30 seconds completing Stage I and 1 minute and 30 seconds of Stage II achieving a peak heart rate of 150 bpm (100% predicted maximal heart rate) with resting blood pressure of 154/84 mmHg and a peak blood pressure 188/78 mmHg and a peak MET capacity of 7 METs. The baseline ECG demonstrated sinus bradycardia. The peak exercise ECG demonstrated somatic/motion artifact with no obvious ECG changes. There was a rare PVC during exercise and an isolated ventricular triplet during exercise and a rare PVC during recovery and a brief episode of ventricular bigeminy during recovery. The functional capacity was considered fair. There was no complaint of chest discomfort during exercise or recovery. The examination was discontinued secondary to dyspnea and leg discomfort. Impression: 1. Technically adequate (percent predicted maximal heart rate greater than 85%) exercise tolerance test 2. Peak exercise ECG with somatic/motion artifact with no obvious ECG changes 3. There was a rare PVC during exercise and an isolated ventricular couplet during exercise and a rare PVC during recovery and a brief episode of ventricular bigeminy during recovery 4. Nuclear images pending Myocardial perfusion imaging study: Technique: The patient was injected with 10.9 mCi of technetium 99m Cardiolite and subsequently rest SPECT Cardiolite nuclear imaging was obtained in the horizontal long, vertical long, and short axis views. The patient exercised on a Tristin protocol for 4 minutes and 30 seconds completing Stage I and 1 minute and 30 seconds of Stage II achieving a peak heart rate of 150 bpm (100% predicted maximal heart rate) with resting blood pressure of 154/84 mmHg and a peak blood pressure 188/78 mmHg and a peak MET capacity of 7 METs. The patient was injected with 33.2 mCi of technetium 99m Cardiolite and subsequently stress SPECT Cardiolite nuclear imaging was obtained in the horizontal long, vertical long, and short axis views. A gated Cardiolite study at peak stress was obtained. Interpretation: Rest and stress SPECT Cardiolite nuclear imaging status post realignment, normalization, and attenuation correction, demonstrates the appearance of diminished to absence of myocardial perfusion/tracer uptake in portions of the basal to mid inferolateral segments at both rest and stress and status post stress extending into the distal inferior lateral segments.. There is diminished end-systolic thickening and brightening in the aforementioned areas. The gated Cardiolite study demonstrates myocardial thickening and inward wall motion. The reported LVEF is 55%. Impression: 1. Rest and stress SPECT Cardiolite nuclear imaging demonstrate the appearance of diminished to absence of myocardial perfusion/tracer uptake in portions of the basal to mid inferolateral segments at both rest and stress and status post stress extending into the distal inferolateral segments compatible with an area of previous myocardial injury/infarction with elvis-infarct related myocardial ischemia. 2. The gated Cardiolite study reports an LVEF of 55%. This note was generated with [employer] software. It may contain incorrect words, spelling, and punctuation that were not noted in checking the note before signing.
== END | disposition home or self-care (01) ==
LOC: CVS 06:35
PROVIDERS: PCP Internal Medicine; Referring Provider Nurse Practitioner Gerontology; Visit Provider Nurse Practitioner Gerontology
DX: I25.10 Atherosclerotic heart disease of native coronary artery without angina pectoris (principal)
CPT/HCPCS: 78452; 93017; A9500; A4216

== ENCOUNTER 2022-02-04 13:00 | Outpatient (RCR) | payer MEDICARE, OTHER, SELFPAY ==
--- NOTE | 2022-01-17 14:48 | HP.PTEVAL ---
Patient's Visit Information CELESTE KINCAID is a 71 year old M referred to Physical Therapy by Dr. Mai Cruz MD with a diagnosis of Dorsalgia. Date of Evaluation: 01/17/22 Physical Therapist: Zane Lacey DPT - Visit Plan Frequency: 1x/Week Duration: 6 Weeks Plan: Start with thoracic rotation stretching. Add in thoracic extension and mid trap strengthening. I also gave him a pec stretching all to reduce his thoracic kyphosis and improve trunk stability. - Subjective Pt. is here today for his initial evaluation with diagnosis of dorsalgia. Pt. reports having having increased LBP for a few years now, but has been progressively getting worse. No mech of injury. Decreased pain: sitting in lounge chair does help, bending fwrd seems to help as well. Increases pain: prolonged walking, sleeping. He reports losing some wt. and seems to have progressed his pain. He describes pain at mid back. Pt denies N/T in any extremities and no N/T at all. He does have reports of stocking/glove pattern most likely associated with DMII. Pt. is hopeful to reduce his symptoms to walk recreationally without increase in symptoms. - Pain Lumbar spine Pain Intensity (Out of 10): 0 Pain Intensity Range: 0, 7 - Objective POSTURE: Pt. has increased thoracic kyphosis in sitting and standing. PALPATION: Pt. has rigid spine with spring testing throughout thoracic spine. No pain with testing. NEURO: ROM: Lumbar spine: min loss throughout, mild increase with flexion, but felt in thoracic spine. Thoracic spine: mod loss extension decrease better, flexion min loss increase NW, rotation min loss bialt increase NW. Pt. has tight B HS. MMT: Pt. has 5/5 strength throughout UE and LEs. Core strength- poor+. GAIT: Pt. has normal gait pattern without increase in symptoms. - Special Tests Thoracic Sitting: Flexion - Mechanical Response: No effect Thoracic Sitting: Flexion - Symptoms During Testing: Increases Thoracic Sitting: Flexion - Symptoms After Testing: No worse Thoracic Sitting: Extension - Mechanical Response: No effect Thoracic Sitting: Extension - Symptoms During Testing: Decreases Thoracic Sitting: Extension - Symptoms After Testing: No better Thoracic Sitting: Right rotation - Mechanical Response: No effect Thoracic Sitting: Right Rotation - Symptoms During Testing: No effect Thoracic Sitting: Right Rotation - Symptoms After Testing: No effect Thoracic Sitting: Left rotation - Mechanical Response: No effect Thoracic Sitting: Left Rotation - Symptoms During Testing: Decreases Thoracic Sitting: Left Rotation - Symptoms After Testing: Better Thoracic Lying: Prone Extension - Mechanical Response: No effect Thoracic Lying: Prone Extension - Symptoms During Testing: No effect Thoracic Lying: Prone Extension - Symptoms After Testing: No effect Thoracic Lying: Supine Extension - Mechanical Response: No effect Thoracic Lying: Supine Extension - Symptoms During Testing: No effect Thoracic Lying: Supine Extention - Symptoms After Testing: No effect L/S Slump test left side: Negative L/S Slump test right side: Negative L/S Left Straight Leg Raise: Negative L/S Right Straight Leg Raise: Negative Lumbar Standing: Flexion - Mechanical Response: No effect Lumbar Standing: Flexion - Symptoms During Testing: Increases Lumbar Standing: Flexion - Symptoms After Testing: No worse Comments:: pain at thoracic spine Lumbar Standing: Extension - Mechanical Response: No effect Lumbar Standing: Extension - Symptoms During Testing: No effect Lumbar Standing: Extension - Symptoms After Testing: No effect Lumbar Standing: Right Side Glides - Mechanical Response: No effect Lumbar Standing: Right Side Lowber - Symptoms During Testing: No effect Lumbar Standing: Right Side Lowber - Symptoms After Testing: No effect Lumbar Standing: Left Side Lowber - Mechanical Response: No effect Lumbar Standing: Left Side Lowber - Symptoms During Testing: No effect Lumbar Standing: Left Side Lowber - Symptoms After Testing: No effect - Balance/Special Test Scores Oswestry Low Back Score: 14 - Goals Goal 1:: LTG: Pt. to be I with HEP. Goal Time Frame: 4-6 Weeks Goal 2:: LTG: Pt. to have full thoracic ROM without increase in symptoms. Goal Time Frame: 4-6 Weeks Goal 3:: STG: Pt. to sleep throughout the night without increase in symptoms. Goal Time Frame: 2-4 Weeks Goal 4:: LTG: Pt. to be able to walk unlimited distances without increase in symptoms. 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 He does not have any radicular symptoms, but did have a marked reduction in flexion symptoms after thoracic rotation to L side - Anticipated Interventions Patient/Client Instruction: Educate patient on: Condition, Plan of Care, Risk Factors, Benefits of Fitness Program For the Purpose of:: To improve decision making, To facilitate caregiver knowledge, To improve self management, To prevent re-injury, To improve ability to perform tasks related to life management, To improve tolerance to ADL's Therapeutic Exercise to Include: Strength training, Power training, Postural training, Flexibilty training, Passive ROM, Active ROM, Dynamic Lumbar Stabilization, Dimple Exercises For the Purpose of:: To decrease pain, To increase ROM, To improve nutrient delivery to tissue, To increase oxygenation perfusion, To improve muscle performance and motor function, To increase tolerance to activity/condition/position, To improve health of tissue, To decrease soft tissue restriction, To increase flexibility/ROM, To improve endurance Thank you for the opportunity to evaluate your patient. For Medicare and Medicare HMO plans, please review the plan of care and approve it. It will need to be FAXED BACK to us at [phone] for Medicare purposes. For Medicare only, by signing this I certify the plan of care. Please let me know if there are questions or concerns regarding this plan of care. Physician Signature: Date:
== END 2022-02-04 19:00 | disposition home or self-care (01) ==
LOC: PT 13:00
PROVIDERS: PCP Internal Medicine; Referring Provider Internal Medicine; Visit Provider Internal Medicine
DX: M54.9 Dorsalgia, unspecified (principal)
CPT/HCPCS: 97110; 97140; 97161

== ENCOUNTER 2022-02-14 13:47 | Outpatient (CLI) | payer MEDICARE, OTHER, SELFPAY ==
--- NOTE | 2022-02-14 13:49 | CDU_ITS ---
Reason For Study: Bilateral carotid artery stenosis Rt. Velocities/BP Lt. Velocities/BP Prox CCA 71.1/11.6 cm/sec. Prox CCA 75.3/18.8 cm/sec. Mid CCA 74/13.5 cm/sec. Mid CCA 91.2/18.8 cm/sec. Dist CCA 59.8/10.7 cm/sec. Dist CCA 77.7/12.6 cm/sec. Prox ICA 178.8/49.5 cm/sec. Prox ICA 137.5/29.8 cm/sec. Mid ICA 134.6/33.6 cm/sec. Mid ICA 106.5/29.8 cm/sec. Dist ICA 136.8/29.2 cm/sec. Dist ICA 93.7/22.5 cm/sec. Rt. ICA/CCA = 2.51. Lt. ICA/CCA = 1.77. Prox ECA 106.9/8 cm/sec. Prox ECA 72.8/9 cm/sec. Rt. Vert. 47/9 cm/sec. Lt. Vert. 43.7/12.6 cm/sec. Right Extracranial There is homogeneous, smooth atherosclerotic plaque noted in the right common carotid artery. There is heterogeneous, irregular atherosclerotic plaque noted in the right internal carotid artery. There is homogeneous, smooth atherosclerotic plaque noted in the right external carotid artery. Antegrade flow is noted in the right vertebral artery. Left Extracranial There is homogeneous, smooth atherosclerotic plaque noted in the left common carotid artery. There is heterogeneous, irregular atherosclerotic plaque noted in the left internal carotid artery. There is intimal thickening but no significant atherosclerotic plaque noted in the left external carotid artery. Antegrade flow is noted in the left vertebral artery. Procedure Carotid Duplex [id number]. This is a Carotid Duplex examination using B-mode, color flow and specral Doppler. Exam performed in department. VL/Carotid Duplex Ultrasound Interpretation Summary Irregular calcific plaque with shadowing at the proximal right internal carotid artery with 50 to 69% stenosis. Less than 50% stenosis right external carotid artery Irregular calcific plaque with shadowing at the proximal left internal carotid artery with 50 to 69% stenosis Less than 50% stenosis left external carotid artery Patent and antegrade vertebral arteries bilaterally No significant change from the previous examination of May 21, 2020 Ordering Physician: Francisca Astudillo Referring Physician: Mai Cruz Performed By: Michelle Ramirez RVT
== END 2022-02-14 23:59 | disposition home or self-care (01) ==
LOC: CVS 13:48
PROVIDERS: PCP Internal Medicine; Referring Provider Nurse Practitioner Gerontology; Visit Provider Nurse Practitioner Gerontology
DX: I65.23 Occlusion and stenosis of bilateral carotid arteries (principal)
CPT/HCPCS: 93880

== ENCOUNTER → 2022-04-21 | Outpatient (CLI) | payer MEDICARE, OTHER, SELFPAY ==
[2022-04-21 15:24] LABS: Hemoglobin A1c 5.2 % (3.8-5.6)
[2022-04-21 15:32] LABS: Anion Gap 6 (5-15); BUN 38 mg/dL (7-18); BUN/Creat Ratio 30.2 RATIO (10-20); Calcium,Total 9.9 mg/dL (8.5-10.1); Chloride 105 mmol/L (98-107); Creatinine, Serum 1.26 mg/dL (0.70-1.30); EST Glomerular Filtration Rate 60 mL/min (>60); Est Glom Filt Rate - Afr Amer 73 mL/min (>60); Glucose 93 mg/dL (74-106); Potassium 4.7 mmol/L (3.5-5.1); Sodium Level 137 mmol/L (136-145)
[2022-04-21 15:42] LABS: Microalbumin,Random Urine 24.3 mg/L (NO RANGE EST.); Microalbumin:Creatinine Ratio 26.8 mg/g CRE (<30 mg/g CRE)
== END | disposition home or self-care (01) ==
LOC: BIMLAB 14:24
PROVIDERS: PCP Internal Medicine; Referring Provider Internal Medicine; Visit Provider Internal Medicine
DX: E11.42 Type 2 diabetes mellitus with diabetic polyneuropathy (principal)
CPT/HCPCS: 36415; 80048; 82043; 82570; 83036

== ENCOUNTER → 2022-07-13 | Outpatient (CLI) | payer MEDICARE, OTHER, SELFPAY ==
[2022-07-15 18:07] LABS: QNTFERON TB Mitogen Value > 10.00 IU/mL (.); QNTFERON TB Nil Value 0.46 IU/mL (.); QNTFERON TB1+ Ag Value 0.46 IU/mL (.); QNTFERON TB2+ Ag Value 0.46 IU/mL (.); QNTIFERON TB Positive Criteria Negative (Negative)
== END | disposition home or self-care (01) ==
PROVIDERS: PCP Internal Medicine
DX: L40.0 Psoriasis vulgaris (principal); Z79.899 Other long term (current) drug therapy; L57.0 Actinic keratosis
CPT/HCPCS: 36415; 86480

== ENCOUNTER → 2023-03-29 | Outpatient (CLI) | payer MEDICARE, OTHER, SELFPAY ==
--- OUTSIDE RECORDS SUMMARY | 2023-03-29 16:11 | XMS RPT_ITS | CCD ---
Author Name Unknown Address [facility] [address] [place] [address] Organization [facility] Care Team Providers Care Site Foreman Name Role Phone Deanna Cruz Primary Care Provider No, Physician Primary Care Provider Deanna Singer MD Primary Care Provider DEANNA CRUZ Primary Care Unavailable LAVERN SYKES Attending DEANNA Singer Primary Care Unavailable LAVERN SYKES Referring LAVERN Chacko Attending Rian pham Allergies Allergy Classification Reported Allergen(s) Allergy Type Date of Onset Reaction(s) Facility (1 source) Pravastatin Drug Allergy 07-12-[address] [facility] Medications Current Medications Medication Drug Class(es) Dates Sig (Normalized) Sig (Original) benoxinate hydrochloride 4 mg/ml / fluorescein sodium 2.5 mg/ml ophthalmic solution (1 source) Diagnostic Dye Start: 08-06-2021 End: 08-07-2021 fluorescein-benox inate 0.25-0.4 % 1 Drop (FLURESS) dutasteride 0.5 mg oral capsule (4 sources) 5-alpha Reductase Inhibitor Start: 12-03-2022 take 1 capsule by mouth once daily dutasteride (AVODART) 0.5 mg capsule Take 1 (one) capsule (0.5 mg total) by mouth daily . 0 12/03/2022 Active Completed/Discontinued Medications Medication Drug Class(es) Dates Sig (Normalized) Sig (Original) acetaminophen 325 mg / HYDROcodone bitartrate 10 mg oral tablet (1 source) Opioid Agonist take 1 tablet by mouth every six hours as needed HYDROcodone-Acetamin ophen (NORCO) 10-325 mg per tablet hydrocodone 10 mg-acetaminophen 325 mg tablet TK 1 T PO Q 6 H PRN P 0 Active Problems Active Problems Problem Classification Problem Date Documented Da te Episodic/Chronic Blindness and vision defects (2 sources) Bilateral hyperopia of eyes; Translations: [Hypermetropia, bilateral] 01-02-2023 Episodic Cardiac dysrhythmias (1 source) Bradycardia; Translations: [Bradycardia, unspecified] 12-26-2022 Episodic Cataract (4 sources) Combined forms of age-related cataract, right eye; Translations: [Bilateral pseudophakia] Onset: 04-29-2020 Chronic Cataract (1 source) Pseudophakia of left eye; Translations: [Pseudophakia of left eye] Diabetes mellitus without complication (5 sources) Diabetes mellitus type 2 without retinopathy; Translations: [Type 2 diabetes mellitus] 04-20-2020 Chronic Disorders of lipid metabolism (2 sources) Hypercholesterolemi a; Translations: [Pure hypercholesterolemi a, unspecified] Onset: 2020 2020 Chronic Essential hypertension (3 sources) Essential hypertension; Translations: [Essential (primary) hypertension] Onset: 04-29-2020 04-29-2020 Chronic Hyperplasia of prostate (2 sources) Benign prostatic hyperplasia; Translations: [Benign prostatic hyperplasia without lower urinary tract symptoms] Onset: 2020 2020 Chronic Other ear and sense organ disorders (1 source) Impacted cerumen in left ear; Translations: [Impacted cerumen, left ear] 12-26-2022 Episodic Other ear and sense organ disorders (1 source) Acute otitis externa; Translations: [Swimmer's ear, left ear] 12-26-2022 Episodic Other eye disorders (1 source) Bilateral vitreous floaters; Translations: [Other vitreous opacities, bilateral] Chronic Other eye disorders (1 source) Posterior vitreous detachment of left eye; Translations: [Vitreous degeneration, left eye] Chronic Residual codes; unclassified (2 sources) Obstructive sleep apnea syndrome; Translations: [Obstructive sleep apnea (adult) (pediatric)] Onset: 2020 2020 Chronic Retinal detachments; defects; vascular occlusion; and retinopathy (3 sources) Occlusion of right branch retinal artery; Translations: [Retinal artery branch occlusion, right eye] Onset: 04-29-2020 Chronic Retinal detachments; defects; vascular occlusion; and retinopathy (1 source) Occlusion of right branch retinal artery; Translations: [Branch retinal artery occlusion of right eye] Screening and history of mental health and substance abuse codes (1 source) Ex-smoker; Translations: [Personal history of nicotine dependence] 12-26-2022 Episodic Past or Other Problems Problem Classification Problem Date Documented Da te Episodic/Chronic Coronary atherosclerosis and other heart disease (2 sources) Stented coronary artery; Translations: [Presence of coronary angioplasty implant and graft] Onset: 2020 2020 Episodic Other male genital disorders (2 sources) Disorder of prostate; Translations: [Disorder of prostate, unspecified] Onset: 04-29-2020 04-29-2020 Episodic Results Test Name Value Interpretation Reference Range Facil ity Vital Signs Date Time Vital Sign Value Performing Clinician Faci lity 12-26-2022 11:06-0400 Diastolic blood pressure 75 mm[Hg] Kamila Peterson PA-C Work Phone: [facility] Encounters Encounter Date Encounter Type Care Provider Facility Start: 01-02-2023 End: 01-02-2023 ambulatory DEANNA CRUZ Facility:[facility] Start: 01-02-2023 End: 01-02-2023 Patient encounter procedure Lavern Sykes OD Work Phone: Optometry Procedures Date Procedure Procedure Detail Performing Clinician Start: 08-06-2021 Computerized ophthal deysi imaging retina Raphael Alan MD Work Phone: Start: 04-20-2020 Camera fundoscopy Gurdeep Kelly Work Phone: Start: 04-20-2020 IOL BIOMETRY W/ IOL CALC OD (RIGHT EYE) Raphael Alan Work Phone: Start: 04-20-2020 Computerized ophthal deysi imaging retina Raphael Alan Work Phone: Plan of Treatment Date Care Activity Detail Author Start: 08-09-2023 Hepatitis C antibody, confirmatory test Dilated Retinal Exam [facility] Start: 11-18-2022 COVID-19 Vaccine ( season) COVID-19 Vaccine ( season) [facility] Start: 11-18-2022 Influenza vaccination [facility] Start: 10-06-2022 Screening for malignant neoplasm of colon [facility] Start: 08-06-2022 Hepatitis C antibody, confirmatory test DILATED RETINAL EXAM [facility] Start: 03-20-2022 Advance Directive Discussion Advance Directive Discussion [facility] Start: 03-20-2022 Depression Assessment Depression Assessment [facility] Start: 11-18-2021 Influ[facility] Start: 04-20-2021 Hepatitis C antibody, confirmatory test DILATED RETINAL EXAM [facility] Start: 04-15-2021 COVID-19 VACCINE (2 - Pfizer series) COVID-19 VACCINE (2 - Pfizer series) [facility] Start: 03-20-2021 ADVANCE DIRECTIVE DISCUSSION ADVANCE DIRECTIVE DISCUSSION [facility] Start: 11-19-2019 Influenza vaccination INFLUENZA (#1) [facility] Start: 12-09-2016 ADVANCE DIRECTIVE DISCUSSION ADVANCE DIRECTIVE DISCUSSION [facility] Start: 12-09-2016 Fall risk assessment Falls Risk Assessment [facility] Start: 12-09-2016 Pneumococcal Vaccine: Age 65+ (1 - PCV) Pneumococcal Vaccine: Age 65+ (1 - PCV) [facility] Start: 12-09-2016 PNEUMOVAX AGE 65 AND OVER WITH 5YR LOOKBACK (#1) PNEUMOVAX AGE 65 AND OVER WITH 5YR LOOKBACK (#1) [facility] Start: 2011 Hepatitis B Vaccine (1 of 3 - Risk 3-dose series) Hepatitis B Vaccine (1 of 3 - Risk 3-dose series) [facility] Start: 12-09-2006 PROSTATE CANCER SCREENING DISCUSSION PROSTATE CANCER SCREENING DISCUSSION [facility] Start: 12-09-2001 Administration of herpes zoster vaccine Zoster Vaccines (1 of 2) [facility] Start: 12-09-2001 Screening for malignant neoplasm of colon [facility] Start: 12-09-2001 SHINGRIX VACCINE (1 of 2) SHINGRIX VACCINE (1 of 2) [facility] Start: 12-09-1996 COLOGUARD (FIT-DNA) COLOGUARD (FIT-DNA) [facility] Start: 12-09-1996 Colonoscopy COLONOSCOPY [facility] Start: 12-09-1996 COLORECTAL CANCER SCREENING COLORECTAL CANCER SCREENING [facility] Start: 12-09-[address] COLONOGRAPHY [facility] Start: 12-09-1996 FECAL OCCULT BLOOD FECAL OCCULT BLOOD [facility] Start: 12-09-1996 SIGMOIDOSCOPY SIGMOIDOSCOPY [facility] Start: 12-09-1970 Urine microalbumin profile [facility] Start: 12-09-1969 ANNUAL PCP TEAM CHRONIC DISEASE VISIT ANNUAL PCP TEAM CHRONIC DISEASE VISIT [facility] Start: 12-09-1969 BP CONTROLLED (<130/80) BP CONTROLLED (<130/80) [facility] Start: 12-09-1969 Hepatitis B surface antibody level LDL CHOLESTEROL [facility] Start: 12-09-1969 HEPATITIS C SCREENING HEPATITIS C SCREENING [facility] Start: 12-09-1969 Hepatitis C screening Hepatitis C Screening [facility] Start: 1963 Adult depression screening assessment [facility] Start: 12-09-1961 [object Object] DIABETIC FOOT EXAM [facility] Start: 12-09-1961 Hepatitis B screening URINE ALBUMIN:CREATININE RATIO [facility] Start: 12-09-1957 Pneumococcal Vaccine: 65+ (1 - PCV) Pneumococcal Vaccine: 65+ (1 - PCV) [facility] Start: 12-09-1956 HbA1c (Bld) [Mass fraction] HBA1C [facility] Start: 12-09-1954 History and physical examination, annual for health maintenance Wellness Visit [facility] Start: 1950 ABDOMINAL AORTIC ANEURYSM SCREENING ABDOMINAL AORTIC ANEURYSM SCREENING [facility] Start: 1950 Prostate specific antigen measurement PSA Level [facility] Start: 1950 Screening for malignant neoplasm of colon [facility] Start: 1950 Tetanus vaccination Tetanus: Every 10yrs [facility] End: 12-27-2023 Ear cerum removal Ear cerum removal Procedures Routine Impacted cerumen of left ear 1 Occurrences starting 12/26/2022 until 12/27/2023 [facility] Work Phone: Immunizations Immunization Date Immunization Notes Care Provider Dominique arce 12-29-2021 influenza virus vaccine, unspecified formulation Lavern Sykes OD Work Phone: [facility] Payers Date Payer Category Payer Medicare [id number] 2020 Unknown [id number] 2020 Unknown [id number] 2016 Medicare [id number] 2016 Medicare [id number] 2016 Medicare [id number] Social History Date Type Detail Facility Start: 04-20-2020 End: 12-26-2022 Tobacco smoking status NHIS Former smoker [facility] End: 04-20-2015 History of tobacco use Current smoker [facility] Start: 04-20-2020 End: 12-26-2022 Tobacco use and exposure [facility] used [facility] Start: 04-20-2020 End: 01-02-2023 Alcohol intake Ex-drinker (finding) [facility] Start: 1950 Sex Assigned At Not on file [facility] Exposure to SARS-CoV -2 (event) Not sure [facility] End: 04-20-2015 History of tobacco use Cigarette Smoker [facility] Start: 08-08-2022 Gender identity Not on file [facility] Start: 08-08-2022 History of Social function [facility] National Score (1-10 0), lower number is lower risk [address] [facility] Medical Equipment Procedure Code Equipment Code Equipment Origin al Text Equipment Identifier Dates Lens Acrysof Iq +21.5 Diopter Natural 0 D Biconvex Acrylic Methacrylate - [id number] Start: 05-27-2020 Clinical Notes 05-28-2020 to 01-02-2023 Patient InstructionsCoLavern colon OD - 01/02/2023 1:22 PM EDTPatient InstructionsAttachKamila Galaviz PA-C - 12/26/2022 12:23 PM EDTPatient Instructions Note Date & Type Note Facility 01-02-2023 Note HNO ID: [id number] Author: Lavern Sykes OD Service: ? Author Type: MOTION PICTURE CRITIC Type: Progress Notes Filed: 01/02/2023 1:26 PM Note Text: ASSESSMENT/PLAN: 1. Hyperopia, bilateral - ICD9: 367.0, ICD10: H52.03 (primary diagnosis) 2. Regular astigmatism, bilateral - ICD9: 367.21, ICD10: H52.223 Continue to wear his glasses as desired. He would like to continue care in [place] for convenience. Lavern Sykes OD I have confirmed and edited as necessary the relevant ophthalmic history, ROS, and the neuro exam findings as obtained by others. [facility] 01-02-2023 Instructions Lavern Sykes OD - 01/02/2023 1:23 PM EDT ASSESSMENT/PLAN: 1. Hyperopia, bilateral - ICD9: 367.0, ICD10: H52.03 (primary diagnosis) 2. Regular astigmatism, bilateral - ICD9: 367.21, ICD10: H52.223 Continue to wear his glasses as desired. He would like to continue care in [place] for convenience. documented in this encounter [facility] 01-02-2023 History of Presen t illness Narrative ASSESSMENT/PLAN: 1. Hyperopia, bilateral - ICD9: 367.0, ICD10: H52.03 (primary diagnosis) 2. Regular astigmatism, bilateral - ICD9: 367.21, ICD10: H52.223 Continue to wear his glasses as desired. He would like to continue care in [place] for convenience. Lavern Sykes OD I have confirmed and edited as necessary the relevant ophthalmic history, ROS, and the neuro exam findings as obtained by others. documented in this encounter [facility] 12-26-2022 Instructions Kamila Peterson PA-C - 12/26/2022 12:29 PM EDT Samantha Bertrand ear wax impaction/ Left ear canal infection Ear irrigation Floxin otic Any worsening ear pain, bloody or abnl discharge, doc temp, new or unusual headache, nausea/vomiting, neck pain/stiffness/rash, pain/redness/warmth/swelling behind ear, difficulty walking/speaking, feeling like you are going to pass out/passing out, or any other concerns - ER! Get better!!! The following attachments cannot be sent through Care Everywhere.Earwax Blockage (Setswana)Otitis Externa (Setswana)documented in this encounter [facility] 12-26-2022 History of Presen t illness Narrative Images from the original note were not included. Patient Name: [facility] Location: [facility] [address] [place] [id number] Date Of : Date Of Visit: 1950 12/26/2022 MRN# Provider: [id number] Kamila Peterson PA-C Chief Complaint Patient presents with Ear Fullness C/O left ear fullness x weekend Assessment & Plan 1. Impacted cerumen of left ear Ear cerum removal 2. Former smoker 3. Bradycardia 4. Acute swimmer's ear of left side No follow-ups on file. Medical Decision Making This patient is a 72-year-old male who presents with nontraumatic left ear fullness for the last 2 to 3 days. He has a history of cerumen impactions in the past. He denies any bleeding or discharge from the ear. He has had no luck trying to remove wax on his own before arrival. No recent head cold or chest cold, his heart rate is usually bradycardic due to being on Lopressor, he has had no headache, neck pain, focal abnormality deficits, recent head cold or chest cold, documented temperature, nausea or vomiting, or any other concerns at this time. Exam reveals hard dark wax 60% of left EAC. I cannot visualize TM at this time in the left ear. There is no tragal tenderness, mastoid tenderness redness or swelling. No abscess or skin break or rash located around/in ear. There is no auricular lymphadenopathy. Serum impaction left ear, acute otitis externa Ear irrigation was successful in complete removal of wax, patient tolerated well; no bleeding or skin abnl from irrigation noted on repeat exam Floxin eardrops Follow-up with PCP in 7 to 10 days for recheck of left ear See AVS Additional Clinical Comments Pt is nontoxic, afebrile, w/o ams and verbalized good understanding and agreement. Subjective 72 y.o. male presents with Ear Fullness (C/O left ear fullness x weekend) Ear Fullness Pertinent negatives include no abdominal pain, coughing, diarrhea, ear discharge, headaches, hearing loss, neck pain, rash, rhinorrhea, sore throat or vomiting. Review Of Systems Review of Systems Constitutional: Negative for activity change, appetite change, chills, diaphoresis, fatigue, fever and unexpected weight change. HENT: Negative for congestion, dental problem, drooling, ear discharge, ear pain, facial swelling, hearing loss, mouth sores, nosebleeds, postnasal drip, rhinorrhea, sinus pressure, sinus pain, sneezing, sore throat, tinnitus and trouble swallowing. + L ear fullness Eyes: Negative for photophobia, pain, discharge, redness and visual disturbance. Respiratory: Negative for apnea, cough, choking, chest tightness, shortness of breath, wheezing and stridor. Cardiovascular: Negative for chest pain, palpitations and leg swelling. Gastrointestinal: Negative for abdominal pain, diarrhea, nausea and vomiting. Musculoskeletal: Negative for joint swelling, myalgias, neck pain and neck stiffness. Skin: Negative for rash and wound. Neurological: Negative for syncope, facial asymmetry, speech difficulty and headaches. Hematological: Negative for adenopathy. Does not bruise/bleed easily. Medical History History reviewed. No pertinent past medical history. History reviewed. No pertinent surgical history. There is no problem list on file for this patient. Social History Social History Tobacco Use Smoking status: Former Types: Cigarettes Smokeless tobacco: Never Vaping Use Vaping Use: Never used Substance Use Topics Alcohol use: Not Currently Drug use: Not Currently Family History No family history on file. Objective Physical Exam BP (!) 143/75 Comment: recheck CLG Pulse (!) 44 Comment: recheck CLG Temp 97.8 F (36.6 C) Resp 16 Ht 5' 7 Wt 78.9 kg (174 lb) SpO2 98% BMI 27.25 kg/m Vision/Hearing Exam:No results found. Physical Exam Vitals and nursing note reviewed. Constitutional: General: He is not in acute distress. Appearance: Normal appearance. He is normal weight. He is not ill-appearing, toxic-appearing or diaphoretic. HENT: Head: Normocephalic and atraumatic. Right Ear: External ear normal. Decreased hearing noted. No drainage, swelling or tenderness. No middle ear effusion. There is no impacted cerumen. No foreign body. No mastoid tenderness. No hemotympanum. Tympanic membrane is not perforated, erythematous or retracted. Left Ear: External ear normal. Decreased hearing noted. Drainage, swelling and tenderness present. No middle ear effusion. There is impacted cerumen. No foreign body. No mastoid tenderness. No hemotympanum. Tympanic membrane is not perforated, erythematous or retracted. Nose: Septal deviation present. No mucosal edema, congestion or rhinorrhea. Right Nostril: No epistaxis. Left Nostril: No epistaxis. Right Turbinates: Not enlarged, swollen or pale. Left Turbinates: Not enlarged, swollen or pale. Right Sinus: No maxillary sinus tenderness or frontal sinus tenderness. Left Sinus: No maxillary sinus tenderness or frontal sinus tenderness. Comments: No nasal congestion noted on exam at this time; No turb edema or rhinorrhea. No sinus pain/pressure at this time. No epistaxis; no fb in nares. No nasal polyp. + septal deviation. Mouth/Throat: Lips: [place]. No lesions. Mouth: Mucous membranes are moist. No oral lesions or angioedema. Dentition: No dental tenderness, gingival swelling, dental caries, dental abscesses or gum lesions. Tongue: No lesions. Tongue does not deviate from midline. Palate: No mass and lesions. Pharynx: Oropharynx is clear. Uvula midline. No pharyngeal swelling, oropharyngeal exudate, posterior oropharyngeal erythema or uvula swelling. Tonsils: No tonsillar exudate or tonsillar abscesses. 0 on the right. 0 on the left. Comments: The patient handles his own oral secretions well; no drooling, tripoding, stridor, trismus, speech dyspnea, painful or abnormal respirations. Uvula and tongue are midline without edema. Lips and fingertips acyanotic. No evidence of tons ascess or ludwigs angina at this time. Eyes: General: No scleral icterus. Right eye: No discharge. Left eye: No discharge. Extraocular Movements: Extraocular movements intact. Conjunctiva/sclera: Conjunctivae normal. Cardiovascular: Rate and Rhythm: Regular rhythm. Bradycardia present. Pulses: Normal pulses. Heart sounds: Normal heart sounds. No murmur heard. No friction rub. Pulmonary: Effort: Pulmonary effort is normal. No respiratory distress. Breath sounds: Normal breath sounds. No stridor. No wheezing, rhonchi or rales. Chest: Chest wall: No tenderness. Musculoskeletal: General: No deformity. Normal range of motion. Cervical back: Normal range of motion and neck supple. Skin: General: Skin is warm and dry. Capillary Refill: Capillary refill takes 2 to 3 seconds. Findings: No rash. Neurological: General: No focal deficit present. Mental Status: He is alert and oriented to person, place, and time. Gait: Gait normal. Psychiatric: Mood and Affect: Mood normal. Behavior: Behavior normal. Thought Content: Thought content normal. Judgment: Judgment normal. Procedure Notes Procedures Results No results found for this or any previous visit (from the past 168 hour(s)). No orders to display Orders Placed This Visit Orders Placed This Encounter Procedures Ear cerum removal Medication List At End Of Visit Current Outpatient Medications Medication Sig Dispense Refill dutasteride (AVODART) 0.5 mg capsule Take 1 (one) capsule (0.5 mg total) by mouth daily . lisinopriL (PRINIVIL,ZESTRIL) 20 MG tablet Take 1 (one) tablet (20 mg total) by mouth daily . metoprolol tartrate (LOPRESSOR) 25 MG tablet TAKE 1/2 (ONE-HALF) TABLET BY MOUTH TWICE DAILY FOR BLOOD PRESSURE tamsulosin (FLOMAX) 0.4 mg capsule TAKE 1 CAPSULE BY MOUTH ONCE DAILY FOR PROSTATE triamcinolone (KENALOG) 0.1 % cream APPLY TOPICALLY TO THE AFFECTED AREAS TWICE DAILY FOR UP TO TWO WEEKS, TAKING A WEEK OFF BEFORE RESUMING FOR FLARE UPS ofloxacin (FLOXIN) 0.3 % otic solution 10 drops in affected ear(s) once daily x 7 days . 5 mL 0 No current facility-administered medications for this visit. Patient Instructions Samantha Bertrand ear wax impaction/ Left ear canal infection Ear irrigation Floxin otic Any worsening ear pain, bloody or abnl discharge, doc temp, new or unusual headache, nausea/vomiting, neck pain/stiffness/rash, pain/redness/warmth/swelling behind ear, difficulty walking/speaking, feeling like you are going to pass out/passing out, or any other concerns - ER! Get better!!! documented in this encounter [facility] 08-08-2022 Note HNO ID: [id number] Author: Lavern Sykes OD Service: ? Author Type: MOTION PICTURE CRITIC Type: Progress Notes Filed: 08/08/2022 2:44 PM Note Text: ASSESSMENT/PLAN: 1. Type 2 diabetes mellitus without retinopathy (HCC) - ICD9: 250.00, ICD10: E11.9 (primary diagnosis) Examination shows no ocular diabetic complications today. Discussed need for optimal diabetes control to minimize chance of ocular complications. Advise patient to immediately report worsening in status or additional symptoms. Continue yearly dilated eye examinations. 2. Branch retinal artery occlusion of right eye - ICD9: 362.32, ICD10: H34.231 Stable at this time. 3. Posterior vitreous detachment of left eye - ICD9: 379.21, ICD10: H43.812 4. Floaters, bilateral - ICD9: 379.24, ICD10: H43.393 Vitreal floaters stable both eyes. Retinas flat and intact with no apparent retinal tear or traction. Discussed symptoms of retinal tear/detachment and if seen patient will return to clinic without delay. 5. Pseudophakia, both eyes - ICD9: V43.1, ICD10: Z96.1 Posterior chamber intraocular lenses are well positioned and clear. Recommended yearly dilated exams. Lavern Sykes, OD I have confirmed and edited as necessary the relevant ophthalmic history, ROS, and the neuro exam findings as obtained by others. [facility] 08-06-2021 Instructions Lavern Sykes, MC - 08/06/2021 3:15 PM EDT ASSESSMENT/PLAN: 1. Type 2 diabetes mellitus without retinopathy (HCC) - ICD9: 250.00, ICD10: E11.9 (primary diagnosis) Examination shows no ocular diabetic complications today. Discussed need for optimal diabetes control to minimize chance of ocular complications. Advise patient to immediately report worsening in status or additional symptoms. Continue yearly dilated eye examinations. 2. Branch retinal artery occlusion of right eye - ICD9: 362.32, ICD10: H34.231 Stable and continue to monitor. 3. Floaters, bilateral - ICD9: 379.24, ICD10: H43.393 4. Posterior vitreous detachment of left eye - ICD9: 379.21, ICD10: H43.812 Vitreal floaters stable both eyes. Retinas flat and intact with no apparent retinal tear or traction. Discussed symptoms of retinal tear/detachment and if seen patient will return to clinic without delay. 5. Pseudophakia, both eyes - ICD9: V43.1, ICD10: Z96.1 Posterior chamber intraocular lenses are well positioned. Recommended yearly exams, sooner if changes are noted in his vision. documented in this encounter [facility] 08-06-2021 History of Presen t illness Narrative ASSESSMENT/PLAN: 1. Type 2 diabetes mellitus without retinopathy (HCC) - ICD9: 250.00, ICD10: E11.9 (primary diagnosis) Examination shows no ocular diabetic complications today. Discussed need for optimal diabetes control to minimize chance of ocular complications. Advise patient to immediately report worsening in status or additional symptoms. Continue yearly dilated eye examinations. 2. Branch retinal artery occlusion of right eye - ICD9: 362.32, ICD10: H34.231 Stable and continue to monitor. 3. Floaters, bilateral - ICD9: 379.24, ICD10: H43.393 4. Posterior vitreous detachment of left eye - ICD9: 379.21, ICD10: H43.812 Vitreal floaters stable both eyes. Retinas flat and intact with no apparent retinal tear or traction. Discussed symptoms of retinal tear/detachment and if seen patient will return to clinic without delay. 5. Pseudophakia, both eyes - ICD9: V43.1, ICD10: Z96.1 Posterior chamber intraocular lenses are well positioned. Recommended yearly exams, sooner if changes are noted in his vision. Lavern Sykes, MC documented in this encounter [facility] documented as of this encounter (statuses as of 08/06/2021) [facility]03-[facility]21 History of Past illness Narrative* Problem Noted Date Diagnosed Date Resolved Date Status post cataract extract ion and insertion of intraocular lens of right eye 05/28/2020 022 Combined forms of age-relate d cataract of right eye 04/29/2020 05/27/2020 documented as of this encounter (statuses as of 01/02/2023) [facility] Diagnosis Type 2 diabetes mellitus without retinopathy (HCC)- Primary Type II or unspecified type diabetes mellitus without mention of complication, not stated as uncontrolled Branch retinal artery occlusion of right eye Arterial branch occlusion of retina Floaters, bilateral Posterior vitreous detachment of left eye Vitreous degeneration Pseudophakia, both eyes Lens replaced by other means documented [facility] this [facility] Diagnosis Impacted cerumen of left ear- Primary Impacted cerumen Former smoker Personal history of tobacco use, presenting hazards to health Bradycardia Other specified cardiac dysrhythmias Acute swimmer's ear of left side [facility] Hyperopia, bilateral- Primary Regular astigmatism, bilateral documented in this encounter [facility] Instructions * Patient Instructions* Raphael Alan - 04/20/2020 1:36 PM EST Please keep your blood sugar under good control to minimize risk of ocular complications from diabetes. Current Ophthalmic Meds propylene glycoL (SYSTANE COMPLETE) 0.6 % drop Use 1 Drop in both eyes three times daily. erythromycin ophthalmic ointment Use 1 application in both eyes daily at bedtime. documented in this encounter History of Present Illness * Raphael Alan - 04/20/2020 3:23 PM EST ASSESSMENT/PLAN: 1. Branch retinal artery occlusion of right eye - ICD9: 362.32, ICD10: H34.231 (primary diagnosis) - FUNDUS PHOTOS OU (BOTH EYES) Patient to return for further testing. 2. Combined forms of age-related cataract of right eye - ICD9: 366.19, ICD10: H25.811 - IOL BIOMETRY W/ IOL CALC OD (RIGHT EYE) Patient to obtain physical clearance from PCP before proceeding with cataract surgery of the right eye. 3. Pseudophakia of left eye - ICD9: V43.1, ICD10: Z96.1 Stable 4. Type 2 diabetes mellitus without retinopathy (HCC) - ICD9: 250.00, ICD10: E11.9 Please keep your blood sugar under good control to minimize risk of ocular complications from diabetes. 5. Essential hypertension - ICD9: 401.9, ICD10: I10 Continue care with your primary care provider as directed. Raphael Alan MD I have confirmed and edited as necessary the relevant ophthalmic history, review of systems, surgical history, and ophthalmological examination findings as obtained by the ophthalmic technical staff.I have seen and examined Celeste Banks Cindy. I have discussed the examination findings, diagnosis, and treatment options with Celeste Banks Cindy and/or his family. I have also reviewed and agree with the assessment and plan as stated above and agree with all its relevant components. I gave the patient the opportunity to ask questions about the findings, diagnosis, and treatment options. documented in this encounter Assessments Diagnosis Branch retinal artery occlusion of right eye- Primary Arterial branch occlusion of retina Combined forms of age-related cataract of right eye Other and combined forms of senile cataract Pseudophakia of left eye Lens replaced by other means Type 2 diabetes mellitus without retinopathy (HCC) Type II or unspecified type diabetes mellitus without mention of complication, not stated as uncontrolled Essential hypertension Unspecified essential hypertension Medications Administered Section Active Administered Medications - up to 3 most recent administrations Medication Order MAR Action Action Date Dose Rate Site fluorescein-benoxinate 0.25-0.4 % 1 Drop (FLURESS) 1 Drop, BOTH EYES, DIRECTED, Starting 04/20/20 at 1400, Until Mon04/21/20 at 0159, Administer for applanation tonometry. In the event of a Fluress shortage, administer [place]-Fluor 1 drop into both eyes as directed for applanation tonometry, Given 04/20/2020 2:10 PM EST 1 Drop PHENYLephrine 2.5 % 1 Drop (AK-DILATE, KAZ-SYNEPHRINE) 1 Drop, BOTH EYES, DIRECTED, Starting Mon04/20/20 at 1400, Until Mon04/21/20 at 0159, Administer for dilation PROTECT FROM LIGHT, Given 04/20/2020 2:10 PM EST 1 Drop proparacaine 0.5 % 1 Drop (ALCAINE) 1 Drop, BOTH EYES, DIRECTED, Starting Mon04/20/20 at 1400, Until Mon04/21/20 at 0159, Administer for pneumo tonometry, tonopen tonometry, or pachymetry. In the event of a proparacaine shortage, administer tetracaine 0.5% ophthalmic drops 1 drop in the left eye as directed for pneumo tonometry, tonopen tonometry, or pachymetry, Given 04/20/2020 2:10 PM EST 1 Drop tropicamide 1 % 1 Drop (MYDRIACYL) 1 Drop, BOTH EYES, DIRECTED, Starting Mon04/20/20 at 1400, Until Mon04/21/20 at 0159, Administer for dilation, Given 04/20/2020 2:10 PM EST 1 Drop Active Administered Medications - up to 3 most recent administrations Medication Order MAR Action Action Date Dose Rate Site PHENYLephrine 2.5 % 1 Drop (AK-DILATE, KAZ-SYNEPHRINE) 1 Drop, BOTH EYES, DIRECTED, Starting on Mon08/06/21 at 1500, Until 08/07/21 at 0259, Administer for dilation PROTECT FROM LIGHT Given 08/06/2021 2:45 PM EDT 1 Drop proparacaine 0.5 % 1 Drop (ALCAINE) 1 Drop, BOTH EYES, DIRECTED, Starting on Mon08/06/21 at 1500, Until 08/07/21 at 0259, Administer for pneumo tonometry, tonopen tonometry, or pachymetry. 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 the event this information is protected by the Federal Confidentiality of Alcohol and Drug Abuse Patient Records regulations: The Federal rules restrict any use of the information to criminally investigate or prosecute any alcohol or drug abuse patient.[facility] the event this information is protected by the Federal Confidentiality of Alcohol and Drug Abuse Patient Records regulations: The Federal rules restrict any use of the information to criminally investigate or prosecute any alcohol or drug abuse patient.[facility] Reason for Visit (unrecogniz ed section and content) Reason Comments Branch Retinal Artery Occlusion Follow U p RIght eye Diabetes Last blood sugar jose ding was 159. Last HgbA1c was 8.3 Pseudophakia Bilateral Reason Comments Ear Fullness C/O left ear fullnes s x weekend Reason Comments Refraction Care Teams (unrecognized sec tion and content) Site Foreman Relationship Specialty Start Date End Date No, Physician [facility] PCP - General 12/26/22 Site Foreman Relationship Specialty Start Date End Date Deanna Cruz MD [address] [place] [address] PCP - General Internal Medicine 04/20/20 (unrecognized sect ion and content) No Status Records Found INFORMATION SOURCE (unrecogn ized section and content) FOR RECORDS PERTAINING TO PATIENTS WHO ARE OR HAVE BEEN ENROLLED IN A CHEMICAL DEPENDENCY/SUBSTANCEABUSE PROGRAM, SOME INFORMATION MAY BE OMITTED. This clinical summary was aggregated from multiple sources. Caution should be exercised in using it in the provision of clinical care. This summary normalizes information from multiple sources, and as a consequence, information in this document may materially change the coding, format and clinical context of patient data. In addition, data may be omitted in some cases. CLINICAL DECISIONS SHOULD BE BASED ON THE PRIMARY CLINICAL RECORDS. [employer] [facility]. provides no warranty or guarantee of the accuracy or completeness of information in this document.
[2023-03-29 16:34] LABS: Absolute Lymphocyte Count 1.21 X10^3/uL (0.83-4.51); Absolute Neutrophil Count 3.7 X10^3/uL (2.0-7.7); Basophil# 0.08 X10^3/uL; Basophil% 1.4 % (0-1); Eosinophil# 0.08 X10^3/uL; Eosinophils% 1.4 % (0-5); Hematocrit 45.1 % (40-54); Hemoglobin 14.5 g/dL (13.0-16.5); Lymphocyte # 1.21 X10^3/ul (0.83-4.51); Lymphocyte % 21.6 % (19-41); Mean Corp Hgb Conc 32.2 g/dL (32-36); Mean Corpuscular Hgb 29.1 pg (27.0-32.0); Mean Corpuscular Volume 90.6 fL (80-94); Monocyte# 0.52 X10^3/uL; Monocyte% 9.3 % (0-10); NRBC Flagged by Analyzer 0 % (0-5); Neutrophil # 3.68 X10^3/uL (2.7-7.7); Neutrophil % 65.9 % (47-70); Platelet Count 183 K/mm3 (150-450); RBC Distribution Width CV 15.3 % (11.6-14.6); RBC Distribution Width SD 50.2 fl (35.1-43.9); Red Blood Count 4.98 M/mm3 (4.6-6.2); White Blood Count 5.6 K/mm3 (4.4-11.0)
[2023-03-29 17:00] LABS: ALB/GLOB Ratio 0.9 RATIO (0.9-2.4); AST(SGOT) 24 U/L (15-37); Alanine Aminotransfer ALT/SGPT 39 U/L (16-61); Albumin, Serum 3.5 g/dL (3.2-5.0); Alkaline Phosphatase 190 U/L (45-117); Anion Gap 7 (5-15); BUN 31 mg/dL (7-18); BUN/Creat Ratio 25.6 RATIO (10-20); Calcium,Total 9.1 mg/dL (8.5-10.1); Chloride 109 mmol/L (98-107); Cholesterol 386 mg/dL (200); Creatinine, Serum 1.21 mg/dL (0.70-1.30); EST Glomerular Filtration Rate 63 mL/min (>60); Est Glom Filt Rate - Afr Amer 76 mL/min (>60); Globulin 3.9 g/dL (2.2-4.2); Glucose 88 mg/dL (74-106); High Density Lipoprotein 74 mg/dL; PSA,Total- Diagnostic 1.05 ng/mL (0.0-4.0); Potassium 4.5 mmol/L (3.5-5.1); Protein, Total 7.4 g/dL (6.4-8.2); Sodium Level 139 mmol/L (136-145); Triglycerides 82 mg/dL; Very Low Density Lipoprotein 16 mg/dL (5-40)
[2023-03-29 17:10] LABS: Microalbumin:Creatinine Ratio 189.7 mg/g CRE (<30 mg/g CRE)
== END | disposition home or self-care (01) ==
LOC: BIMLAB 15:49
PROVIDERS: PCP Internal Medicine; Referring Provider Internal Medicine; Visit Provider Internal Medicine
DX: E11.42 Type 2 diabetes mellitus with diabetic polyneuropathy (principal); I10 Essential (primary) hypertension; N40.0 Benign prostatic hyperplasia without lower urinary tract symptoms
CPT/HCPCS: 36415; 80053; 80061; 82043; 82570; 84153; 85025

== ENCOUNTER → 2023-05-25 | Outpatient (CLI) | payer MEDICARE, OTHER, SELFPAY ==
[2023-05-25 15:23] LABS: Absolute Lymphocyte Count 1.44 X10^3/uL (0.83-4.51); Absolute Neutrophil Count 3.6 X10^3/uL (2.0-7.7); Basophil# 0.07 X10^3/uL; Basophil% 1.2 % (0-1); Eosinophil# 0.09 X10^3/uL; Eosinophils% 1.6 % (0-5); Hemoglobin 13.5 g/dL (13.0-16.5); Lymphocyte # 1.44 X10^3/ul (0.83-4.51); Mean Corp Hgb Conc 31.4 g/dL (32-36); Mean Corpuscular Hgb 28.7 pg (27.0-32.0); Mean Corpuscular Volume 91.5 fL (80-94); Mean Platelet Vol. 11.1 fl (6.2-12.0); Monocyte# 0.56 X10^3/uL; Monocyte% 9.7 % (0-10); NRBC Flagged by Analyzer 0 % (0-5); Neutrophil # 3.57 X10^3/uL (2.7-7.7); Neutrophil % 62.2 % (47-70); Platelet Count 254 K/mm3 (150-450); RBC Distribution Width CV 16.1 % (11.6-14.6); RBC Distribution Width SD 53.8 fl (35.1-43.9); White Blood Count 5.8 K/mm3 (4.4-11.0)
[2023-05-25 15:59] LABS: AST(SGOT) 29 U/L (15-37); Alanine Aminotransfer ALT/SGPT 47 U/L (16-61); Albumin, Serum 3.6 g/dL (3.2-5.0); Alkaline Phosphatase 140 U/L (45-117); Anion Gap 8 (5-15); BUN 45 mg/dL (7-18); BUN/Creat Ratio 32.8 RATIO (10-20); Calcium,Total 9.6 mg/dL (8.5-10.1); Chloride 105 mmol/L (98-107); Creatinine, Serum 1.37 mg/dL (0.70-1.30); EST Glomerular Filtration Rate 54 mL/min (>60); Est Glom Filt Rate - Afr Amer 66 mL/min (>60); Globulin 3.7 g/dL (2.2-4.2); Glucose 89 mg/dL (74-106); Potassium 4.9 mmol/L (3.5-5.1); Protein, Total 7.3 g/dL (6.4-8.2); Sodium Level 136 mmol/L (136-145)
== END | disposition home or self-care (01) ==
LOC: BIMLAB 13:41
PROVIDERS: PCP Internal Medicine; Visit Provider Internal Medicine
DX: K56.609 Unspecified intestinal obstruction, unspecified as to partial versus complete obstruction (principal)
CPT/HCPCS: 36415; 80053; 85025

== ENCOUNTER → 2023-06-12 | Outpatient (CLI) | payer MEDICARE, OTHER, SELFPAY ==
[2023-06-14 19:07] LABS: QNTFERON TB Mitogen Value > 10.00 IU/mL (.); QNTFERON TB Nil Value 0.04 IU/mL (.); QNTFERON TB1+ Ag Value 0.03 IU/mL (.); QNTFERON TB2+ Ag Value 0.04 IU/mL (.); QNTIFERON TB Positive Criteria Negative (Negative)
== END | disposition home or self-care (01) ==
LOC: LAB 14:43
PROVIDERS: PCP Internal Medicine
DX: L40.0 Psoriasis vulgaris (principal); Z79.899 Other long term (current) drug therapy; D69.2 Other nonthrombocytopenic purpura
CPT/HCPCS: 36415; 86480

== ENCOUNTER → 2023-08-23 | Outpatient (CLI) | payer MEDICARE, OTHER, SELFPAY ==
[2023-08-23 14:23] LABS: Bacteria 0 SEEN /hpf (None Seen); Mucous, Urine 0 SEEN /hpf (<or=2+); Red Blood Cells-Urine 0 SEEN /hpf (0-5); White Blood Cells 0 SEEN /hpf (0-5)
[2023-08-23 17:05] LABS: Absolute Lymphocyte Count 1.16 X10^3/uL (0.83-4.51); Absolute Neutrophil Count 3.4 X10^3/uL (2.0-7.7); Basophil# 0.06 X10^3/uL; Basophil% 1.2 % (0-1); Eosinophil# 0.07 X10^3/uL; Eosinophils% 1.4 % (0-5); Hematocrit 45.9 % (40-54); Lymphocyte # 1.16 X10^3/ul (0.83-4.51); Lymphocyte % 22.8 % (19-41); Mean Corp Hgb Conc 32.7 g/dL (32-36); Mean Corpuscular Hgb 29.6 pg (27.0-32.0); Mean Corpuscular Volume 90.7 fL (80-94); Mean Platelet Vol. 11.1 fl (6.2-12.0); Monocyte# 0.36 X10^3/uL; Monocyte% 7.1 % (0-10); NRBC Flagged by Analyzer 0 % (0-5); Neutrophil # 3.41 X10^3/uL (2.7-7.7); Neutrophil % 67.1 % (47-70); Platelet Count 182 K/mm3 (150-450); RBC Distribution Width CV 14.6 % (11.6-14.6); RBC Distribution Width SD 48.7 fl (35.1-43.9); Red Blood Count 5.06 M/mm3 (4.6-6.2); White Blood Count 5.1 K/mm3 (4.4-11.0)
[2023-08-23 17:08] LABS: Color, Urine Yellow (Yellow); Glucose, Dipstick Normal (Normal); Ketone-Dipstick 5 mg/dl (Negative); Leukocyte Esterase-Dipstick Negative /ul (Negative); Nitrite-Dipstick Negative (Negative); Occult Blood-Urine Negative /ul (Negative); Protein-Dipstick 15 mg/dl (Negative); Urine Bilirubin Dipstick Negative (Negative); Urine Clarity Clear (Clear); Urine Urobilinogen Normal (Normal)
[2023-08-23 17:40] LABS: Anion Gap 10 (5-15); BUN 49 mg/dL (7-18); BUN/Creat Ratio 36.8 RATIO (10-20); Calcium,Total 9.7 mg/dL (8.5-10.1); Chloride 111 mmol/L (98-107); Creatinine, Serum 1.33 mg/dL (0.70-1.30); EST Glomerular Filtration Rate 56 mL/min (>60); Est Glom Filt Rate - Afr Amer 68 mL/min (>60); Glucose 88 mg/dL (74-106); Potassium 4.6 mmol/L (3.5-5.1); Sodium Level 138 mmol/L (136-145)
[2023-08-23 17:42] LABS: Cholesterol 236 mg/dL (200); High Density Lipoprotein 68 mg/dL; Triglycerides 93 mg/dL; Very Low Density Lipoprotein 19 mg/dL (5-40)
[2023-08-23 17:44] LABS: Squamous Epithelial Cells - UA 0-5 SEEN /hpf (0-5)
== END | disposition home or self-care (01) ==
LOC: BIMLAB 14:21
PROVIDERS: PCP Internal Medicine; Referring Provider Internal Medicine; Visit Provider Internal Medicine
DX: I10 Essential (primary) hypertension (principal); N40.0 Benign prostatic hyperplasia without lower urinary tract symptoms
CPT/HCPCS: 36415; 80048; 80061; 81001; 85025

== ENCOUNTER → 2023-09-04 | Outpatient (CLI) | payer MEDICARE, OTHER, SELFPAY ==
[2023-09-04 20:31] LABS: Anion Gap 8 (5-15); BUN 39 mg/dL (7-18); BUN/Creat Ratio 27.9 RATIO (10-20); Calcium,Total 9.6 mg/dL (8.5-10.1); Chloride 108 mmol/L (98-107); EST Glomerular Filtration Rate 53 mL/min (>60); Est Glom Filt Rate - Afr Amer 64 mL/min (>60); Glucose 92 mg/dL (74-106); Potassium 5.3 mmol/L (3.5-5.1); Sodium Level 138 mmol/L (136-145)
== END | disposition home or self-care (01) ==
LOC: BIMLAB 13:47
PROVIDERS: PCP Internal Medicine; Visit Provider Internal Medicine
DX: R94.4 Abnormal results of kidney function studies (principal)
CPT/HCPCS: 36415; 80048

== ENCOUNTER → 2023-09-12 | Outpatient (CLI) | payer MEDICARE, OTHER, SELFPAY ==
[2023-09-12 15:28] LABS: Anion Gap 5 (5-15); BUN 44 mg/dL (7-18); BUN/Creat Ratio 29.1 RATIO (10-20); Calcium,Total 9.5 mg/dL (8.5-10.1); Chloride 110 mmol/L (98-107); Creatinine, Serum 1.51 mg/dL (0.70-1.30); EST Glomerular Filtration Rate 49 mL/min (>60); Est Glom Filt Rate - Afr Amer 59 mL/min (>60); Glucose 93 mg/dL (74-106); Potassium 5.1 mmol/L (3.5-5.1); Sodium Level 137 mmol/L (136-145)
== END | disposition home or self-care (01) ==
LOC: BIMLAB 13:02
PROVIDERS: PCP Internal Medicine; Visit Provider Internal Medicine
DX: R94.4 Abnormal results of kidney function studies (principal)
CPT/HCPCS: 36415; 80048

== ENCOUNTER → 2023-11-23 | Outpatient (CLI) | payer MEDICARE, OTHER, SELFPAY ==
[2023-11-23 15:21] LABS: Mucous, Urine 0 SEEN /hpf (<or=2+); Red Blood Cells-Urine 0 SEEN /hpf (0-5); White Blood Cells 0 SEEN /hpf (0-5)
[2023-11-23 16:52] LABS: Color, Urine Yellow (Yellow); Glucose, Dipstick Normal (Normal); Ketone-Dipstick Negative (Negative); Leukocyte Esterase-Dipstick Negative /ul (Negative); Nitrite-Dipstick Negative (Negative); Occult Blood-Urine Negative /ul (Negative); Protein-Dipstick Negative (Negative); Urine Bilirubin Dipstick Negative (Negative); Urine Clarity Clear (Clear); Urine Urobilinogen Normal (Normal)
[2023-11-23 17:07] LABS: ALB/GLOB Ratio 1.2 RATIO (0.9-2.4); AST(SGOT) 26 U/L (15-37); Alanine Aminotransfer ALT/SGPT 44 U/L (16-61); Albumin, Serum 3.8 g/dL (3.2-5.0); Alkaline Phosphatase 167 U/L (45-117); Anion Gap 7 (5-15); BUN 38 mg/dL (7-18); BUN/Creat Ratio 28.6 RATIO (10-20); Calcium,Total 9.5 mg/dL (8.5-10.1); Chloride 107 mmol/L (98-107); Cholesterol 98 mg/dL (200); Creatinine, Serum 1.33 mg/dL (0.70-1.30); EST Glomerular Filtration Rate 56 mL/min (>60); Est Glom Filt Rate - Afr Amer 68 mL/min (>60); Globulin 3.3 g/dL (2.2-4.2); Glucose 87 mg/dL (74-106); High Density Lipoprotein 71 mg/dL; Potassium 4.8 mmol/L (3.5-5.1); Protein, Total 7.1 g/dL (6.4-8.2); Sodium Level 136 mmol/L (136-145); Triglycerides 43 mg/dL; Very Low Density Lipoprotein 9 mg/dL (5-40)
[2023-11-23 17:12] LABS: Bacteria RARE /hpf (None Seen); Squamous Epithelial Cells - UA 0-5 SEEN /hpf (0-5)
[2023-11-24 12:51] LABS: T4 Free Direct 1.11 ng/dL (0.76-1.46)
== END | disposition home or self-care (01) ==
LOC: BIMLAB 15:20
PROVIDERS: PCP Internal Medicine; Referring Provider Internal Medicine; Visit Provider Internal Medicine
DX: E78.2 Mixed hyperlipidemia (principal); I48.91 Unspecified atrial fibrillation; N18.30 Chronic kidney disease, stage 3 unspecified; I12.9 Hypertensive chronic kidney disease with stage 1 through stage 4 chronic kidney disease, or unspecified chronic kidney disease
CPT/HCPCS: 36415; 80053; 80061; 81001; 84439; 84443

== ENCOUNTER → 2024-05-22 | Outpatient (CLI) | payer MEDICARE, OTHER, SELFPAY ==
[2024-05-22 16:50] LABS: Absolute Lymphocyte Count 1.22 X10^3/uL (0.83-4.51); Absolute Neutrophil Count 3.9 X10^3/uL (2.0-7.7); Basophil# 0.06 X10^3/uL; Basophil% 1.1 % (0-1); Eosinophil# 0.06 X10^3/uL; Eosinophils% 1.1 % (0-5); Hematocrit 42.3 % (40-54); Hemoglobin 14.1 g/dL (13.0-16.5); Lymphocyte # 1.22 X10^3/ul (0.83-4.51); Lymphocyte % 21.5 % (19-41); Mean Corp Hgb Conc 33.3 g/dL (32-36); Mean Corpuscular Hgb 30.5 pg (27.0-32.0); Mean Corpuscular Volume 91.4 fL (80-94); Mean Platelet Vol. 11.1 fl (6.2-12.0); Monocyte# 0.46 X10^3/uL; Monocyte% 8.1 % (0-10); NRBC Flagged by Analyzer 0 % (0-5); Neutrophil # 3.85 X10^3/uL (2.7-7.7); Neutrophil % 67.8 % (47-70); Platelet Count 211 K/mm3 (150-450); RBC Distribution Width CV 14.8 % (11.6-14.6); RBC Distribution Width SD 49.9 fl (35.1-43.9); Red Blood Count 4.63 M/mm3 (4.6-6.2); White Blood Count 5.7 K/mm3 (4.4-11.0)
[2024-05-22 18:06] LABS: ALB/GLOB Ratio 1.5 RATIO (0.9-2.4); AST(SGOT) 37 U/L (<=37); Alanine Aminotransfer ALT/SGPT 39 U/L (<=46); Albumin, Serum 4.2 g/dL (3.4-4.8); Alkaline Phosphatase 176 U/L (40-129); Anion Gap 13 (5-15); BUN 29 mg/dL (4-19); BUN/Creat Ratio 23.2 RATIO (10-20); Calcium,Total 9.9 mg/dL (7.6-11.0); Chloride 105 mmol/L (98-108); Creatinine, Serum 1.24 mg/dL (0.70-1.20); EST Glomerular Filtration Rate 62 (>60); Globulin 2.8 g/dL (2.2-4.2); Glucose 77 mg/dL (70-99); PSA,Total - Annual Screen 0.86 ng/mL (0.02-4.00); Potassium 4.7 mmol/L (3.3-5.1); Sodium Level 138 mmol/L (133-145)
[2024-05-22 18:10] LABS: Microalbumin,Random Urine 37.2 mg/L (NO RANGE EST.); Microalbumin:Creatinine Ratio 341.3 mg/g CRE
== END | disposition home or self-care (01) ==
LOC: BIMLAB 14:41
PROVIDERS: PCP Internal Medicine; Referring Provider Internal Medicine; Visit Provider Internal Medicine
DX: I12.9 Hypertensive chronic kidney disease with stage 1 through stage 4 chronic kidney disease, or unspecified chronic kidney disease (principal); E11.22 Type 2 diabetes mellitus with diabetic chronic kidney disease; N18.30 Chronic kidney disease, stage 3 unspecified; N40.0 Benign prostatic hyperplasia without lower urinary tract symptoms; Z12.5 Encounter for screening for malignant neoplasm of prostate
CPT/HCPCS: 36415; 80053; 82043; 82570; 84153; 85025; G0103

== ENCOUNTER → 2024-08-27 | Outpatient (CLI) | payer MEDICARE, OTHER, SELFPAY ==
--- NOTE | 2024-08-27 14:44 | CT_ITS ---
PROCEDURE: LOW DOSE CT LUNG SCREENING 08/27/2024 REASON FOR EXAM: LUNG CANCER SCREENING Patient has smoked 1 pack per day for multiple years. TECHNIQUE: Low Dose CT Lung screening without contrast. Coronal and Sagittal reconstruction series were provided. One or more dose reduction techniques were used (e.g., Automated exposure control, adjustment of the mA and/or kV according to patient size, use of iterative reconstruction technique). REFERENCE LINK: [employer] Lung-RADS RADIATION DOSE SUMMARY: CTDlvol: 2.39 mGy DLP: 89.06 mGycm COMPARISON: Prior study dated October 12, 2021. FINDINGS: PULMONARY NODULES: (Only nodules >3mm are reported) Nodules described below are on series 1 unless otherwise specified. Pulmonary Nodules: No suspicious nodules are seen. Hardware:None Lymph Nodes:Calcified right hilar lymph nodes and calcified subcarinal lymph nodes. Heart and Vasculature:Coronary artery calcifications are noted. Coronary Artery Calcifications: Present Lungs and Airways: Mild emphysematous changes are present. Pleura:No pleural effusion. Upper Abdomen:Unremarkable Bones:Degenerative changes of the thoracic spine. CT/Low Dose CT Lung Screening IMPRESSION: Mild emphysematous changes. Coronary artery calcification (CAC) is is present Lung-RADS Category: 2 BENIGN (BASED ON IMAGING FEATURES OR INDOLENT BEHAVIOR). RECOMMEND 12-MONTH SCREENING LDCT. Other Significant Findings: None. Reading Location: [place] [id number]
--- OUTSIDE RECORDS SUMMARY | 2024-08-27 23:54 | XMS RPT_ITS | CCD ---
Author Organization 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 Deanna Cruz Primary Care Provider [phone] Dr. Deanna Cruz Referring Provider [phone] Dr. Tristin Jeffery Attending Provider Dr. Deanna Cruz Attending Provider [phone] LINE MANAGER, LINE MANAGER-C Sumit Doyle Attending Provider Deanna Cruz MD Primary Care Provider [phone] Dr. Deanna Cruz Primary Care Provider [phone] Dr. Deanna Cruz Referring Provider [phone] Dr. Deanna Cruz Attending Provider [phone] Cassie LINE MANAGER, LINE MANAGER-C Paulette Attending Provider Dr. Deanna Cruz Primary Care Provider [phone] Dr. Deanna Cruz Referring Provider [phone] Cassie LINE MANAGER, LINE MANAGER-C Paulette Referring Provider Dr. Deanna Cruz Primary Care Provider [phone] Cassie LINE MANAGER, LINE MANAGER-C Paulette Attending Provider Cassie LINE MANAGER, LINE MANAGER-C Paulette Referring Provider Dr. Deanna Cruz Attending Provider [phone] Dr. Deanna rCuz Referring Provider [phone] Baudilio LINE MANAGER, LINE MANAGER-C Francisca Attending Provider Baudilio LINE MANAGER, LINE MANAGER-C Francisca Referring Provider Baudilio FAM, LINE MANAGER-C Francisca Other Provider [phone] Dr. Jesus Mathias Attending Provider [phone] Dr. Deanna Cruz Primary Care Provider [phone] Dr. Nupur Holguin Attending Provider Dr. Deanna Cruz Primary Care Provider [phone] Dr. Deanna Cruz Referring Provider [phone] Babs PA, PA Anna Aguila Attending Provider Claudia FAM, LINE MANAGER-C Elis Aguila Attending Provider [phone] Dr. Tristin Jeffery Attending Provider Dr. Deanna Cruz Attending Provider [phone], Physician Primary Care Provider UnavailDeanna Gibson MD Primary Care Provider [phone] DEANNA CRUZ Primary Care Unav ailKAMILA Augustine Attending Unavailletty ble KAMILA CESAR Attending Unavaila ble NO, PHYSICIAN Primary Care Unavailable Dr. Deanna Cruz Primary Care Provider [phone] Dr. Deanna Cruz Attending Provider [phone] Dr. Deanna Cruz Referring Provider [phone] Deanna Cruz MD Primary Care Prov ider Dr. Deanna Cruz Primary Care Provider [phone] Dr. Deanna Cruz Attending Provider [phone] Dr. Deanna Cruz Referring Provider [phone] BAYLEE Garzon Attending Provider Unavailable DEANNA CRUZ Primary Care Unav ailable LOAGN, JAGPRIT NASH Attending Unavailab jocelin Carmichael LINE MANAGER, LINE MANAGER-C Jes Attending Provider [phone] Deanna Cruz MD Primary Care Provider [phone] DEANNA CRUZ B Primary Care Unavailable RORY TINOCO Attending Unavailabl e OLEGHE, EFEWONGBE B Primary Care Unavailable RORY TINOCO Attending Unavailabl e OLEGHE, EFEWONGBE SYLVIA Primary Care Unav ailable LENEHAN, MEMO HICKMAN Admitting Unavailabl e LENEHAN, MEMO HICKMAN Referring Unavailabl e LENEHAN, MEMO HICKMAN Referring Unavailabl e OLEGHE, EFEWONGBE SYLVIA Primary Care Unav ailable LENEHAN, MEMO HICKMAN Attending Unavailabl e OLEGHE, EFEWONGBE SYLVIA Primary Care Unav ailable STELNICOLÁS ARCOS Attending Unavailab le NICOLÁS TINSLEY Referring Unavailab le LOGAN, ODALIS NASH Referring Unavailab le OLEGHE, EFEWONGBE SYLVIA Primary Care Unav ailable [facility] Attending NENITA Patel Consulting Unavailabl e [place] Admitting Unavailable Anthony MANZANARES, Dr. Oneill Primary Care Provider Anthony MANZANARES, Dr. Oneill Attending Provider [phone] Anthony MANZANARES, Dr. Oneill Referring Provider [phone] MEMO KELLEY Referring Unavailabl e STELNICOLÁS ARCOS Attending Unavailab le OLEGHE, EFEWONGBE SYLVIA Primary Care Unav ailable LENEHAN, MEMO HICKMAN Admitting Unavailabl e STELNICOLÁS ARCOS Attending Unavailab le OLEGHE, EFEWONGBE SYLVIA Primary Care Unav ailable OLEGHE, EFEWONGBE SYLVIA Primary Care Unav ailable LENEHAN, MEMO HICKMAN Admitting Unavailabl e LENEHAN, MEMO HICKMAN Attending Unavailabl e LENEHAN, MEMO HICKMAN Referring Unavailabl e OLEGHE, EFEWONGBE SYLVIA Primary Care Unav ailable LENEHAN, MEMO JESUS Attending Unavailabl e OLEGHE, EFEWONGBE SYLVIA Primary Care Unav ailable MEMO KELLEY Attending UnavailJes Krueger Attending Unavailable Oleghe, Efewongbe Primary Care Unavailable Oleghe, Efewongbe Referring Unavailable Oleghe, Efewongbe Referring Unavailable Oleghe, Efewongbe Attending Unavailable Oleghe, Efewongbe Primary Care Unavailable Oleghe, Efewongbe Referring Unavailable Oleghe, Efewongbe Primary Care Unavailable Oleghe, Efewongbe Attending Unavailable Oleghe, Efewongbe Primary Care Unavailable Oleghe, Efewongbe Attending Unavailable Oleghe, Efewongbe Referring Unavailable Oleghe, Efewongbe Primary Care Unavailable Oleghe, Efewongbe Attending Unavailable Oleghe, Efewongbe Attending Unavailable Oleghe, Efewongbe Primary Care Unavailable Oleghe, Efewongbe Referring Unavailable Oleghe, Efewongbe Primary Care Unavailable Oleghe, Efewongbe Attending Unavailable Cassie LINE MANAGER, Paulette Attending Unavailable Cassie LINE MANAGER Paulette Referring Unavailable Oleghe, Efewongbe Primary Care Unavailable Oleghe, Efewongbe Primary Care Unavailable Oleghe, Efewongbe Attending Unavailable Oleghe, Efewongbe Referring Unavailable Oleghe Dr. Deanna MANZANARES Primary Care Provider Dr. Deanna Cruz MD Attending Provider Dr. Deanna Cruz MD Referring Provider Amol BOLANDCJes Attending Provider Cassie FAM-CPaulette Attending Provider Allergies Allergy Classification Reported Allergen(s) Allergy Type Date of Onset Reaction(s) Facility (15 sources) Pravastatin; Translations: [PRAVASTATIN] Drug Allergy 2 Unknown [facility] (3 sources) amLODIPine Drug Allergy 4 Drug-induced constipation with proper administration [facility] (1 source) amLODIPine Drug Allergy 5 [facility] (1 source) Pravastatin Drug Allergy 5 [facility] Medications Current Medications Medication Drug Class(es) Dates Sig (Normalized) Sig (Original) apixaban 5 mg oral tablet (13 sources) Factor Xa Inhibitor Start: 11-23-2023 End: 06-18-2024 take 1 tablet by mouth twice daily Apixaban (Eliquis) 5 mg tablet Active 5 mg PO TWICE A DAY 60 June 18, 2024 12:14pm End: 01-10-2024 take 1 tablet by mouth twice daily apixaban (ELIQUIS) 2.5 mg Tab Take 1 (one) tablet (2.5 mg total) by mouth 2 (two) times a day . 01/10/2024 Discontinued (Reorder (Suppress CancelRx Message to Pharmacy)) benoxinate hydrochloride 4 mg/ml / fluorescein sodium 2.5 mg/ml ophthalmic solution (1 source) Diagnostic Dye Start: 08-06-2021 End: 08-07-2021 fluorescein-benoxinate 0.25-0.4 % 1 Drop (FLURESS) cholecalciferol 0.025 mg oral tablet (20 sources) Vitamin D Start: 03-29-2023 take 1 tablet by mouth once daily Cholecalciferol (Vitamin D3) 25 mcg (1,000 unit) tablet Active 5000 U PO DAILY March 29, 2023 4:02pm Start: 12-03-2020 cholecalcifero l, vitamin D3, 1,000 unit tablet Take 5 (five) tablets (5,000 Units total) by mouth . 12/03/2020 Active Start: 12-03-2020 cholecalcifero l (VITAMIN D3) 1,000 unit tab tablet Take by mouth. 0 12/03/2020 Active Start: 12-03-2020 End: 03-29-2023 take 1 tablet by mouth once daily Cholecalciferol (Vitamin D3) 25 mcg (1,000 unit) tablet Discontinued 25 ug PO DAILY December 03, 2020 12:00am March 29, 2023 4:04pm Comment on above: Take by mouth. lisinopril 20 mg oral tablet (20 sources) Angiotensin Converting Enzyme Inhibitor Start: 05-25-2023 End: 06-18-2024 take 1 tablet by mouth twice daily Lisinopril 20 mg tablet Active 20 mg PO TWICE A DAY 180 June 18, 2024 12:14pm Start: 08-10-2018 End: 04-07-2022 take 1 tablet by mouth twice daily Lisinopril 20 mg tablet Discontinued 20 mg PO TWICE A DAY 180 August 09, 2021 12:41pm April 07, 2022 3:53pm Start: 07-12-2018 End: 06-22-2023 take 1 tablet by mouth once daily Lisinopril 20 mg tablet Discontinued 20 mg PO DAILY 180 March 30, 2023 9:53am May 25, 2023 2:34pm Start: 04-16-2018 End: 07-12-2018 take 1 tablet by mouth once daily Lisinopril 10 mg tablet Discontinued 10 mg PO DAILY 90 April 16, 2018 4:49pm July 12, 2018 5:19pm Start: 04-10-2018 End: 04-16-2018 take 1 tablet by mouth once daily Lisinopril 5 mg tablet Discontinued 5 mg PO DAILY 90 April 10, 2018 3:04pm April 16, 2018 4:49pm Comment on above: Take 1 tablet by nancy th twice daily. Take 20 mg by mouth once daily. magnesium oxide 500 mg oral tablet (13 sources) Start: 01-12-2022 take 1 tablet by mouth once daily Magnesium Oxide 500 mg tablet Active 500 mg PO DAILY January 12, 2022 12:00am metoprolol tartrate 25 mg oral tablet (20 sources) beta-Adrenergic Arnoldo Start: 12-02-2022 take 0.5 tablet by mouth twice daily metoprolol tartrate (LOPRESSOR) 25 MG tablet TAKE 1/2 (ONE-HALF) TABLET BY MOUTH TWICE DAILY FOR BLOOD PRESSURE 12/02/2022 Active Start: 01-12-2022 End: 03-06-2024 Metoprolol Tartrate 25 mg ta blet Discontinued 12.5 mg PO TWICE A DAY 180 December 02, 2022 12:19pm March 06, 2024 1:18pm Start: 01-12-2022 End: 12-02-2022 take 12.5 mg by mouth twice daily Metoprolol Tartrate Active 12.5 MG PO TWICE A DAY 180 December 02, 2022 12:19pm Start: 04-10-2018 End: 01-12-2022 take 1 tablet by mouth twice daily Metoprolol Tartrate 25 mg tablet Discontinued 25 mg PO TWICE A DAY 180 May 13, 2021 11:35am January 12, 2022 3:13pm Comment on above: Take 1 tablet by nancy th twice daily. Multivitamin (Multiple Vitamins) tablet (12 sources) Start: 04-10-2018 take 1 tablet by mouth once daily Multivitamin (Multiple Vitamins) tablet Active 1 TABLET PO DAILY April 10, 2018 2:20pm Start: 04-10-2018 End: 01-12-2022 Multivitamin (Multiple Vitam ins) tablet Discontinued 1 {tbl} PO DAILY April 10, 2018 1:00am January 12, 2022 2:29pm Start: 04-10-2018 End: 01-12-2022 take 1 tablet by mouth once daily Multivitamin (Multiple Vitamins) tablet Discontinued 1 TABLET PO DAILY April 10, 2018 1:00am January 12, 2022 2:29pm Start: 04-10-2018 End: 01-12-2022 take 1 tablet by mouth once daily Multivitamin (Multiple Vitamins) tablet Discontinued 1 TABLET PO DAILY April 10, 2018 12:00am January 12, 2022 1:29pm Start: 04-10-2018 take 1 tablet by nancy once daily Multivitamin (Multiple Vitamins) tablet Active 1 TABLET PO DAILY April 10, 2018 1:00am ofloxacin 3 mg/ml otic solution (1 source) Quinolone Antimicrobial Start: 12-26-2022 ofloxacin (FLOXIN) 0.3 % otic solution 10 drops in affected ear(s) once daily x 7 days . 5 mL 0 12/26/2022 Active phenylephrine hydrochloride 25 mg/ml ophthalmic solution (2 sources) alpha-1 Adrenergic Agonist Start: 08-06-2021 End: 08-07-2021 PHENYLephrine 2.5 % 1 Drop (AK-DILATE, KAZ-SYNEPHRINE) Start: 04-20-2020 End: 04-21-2020 PHENYLephrine 2.5 % 1 Drop ( AK-DILATE, KAZ-SYNEPHRINE) proparacaine hydrochloride 5 mg/ml ophthalmic solution (2 sources) Local Anesthetic Start: 08-06-2021 End: 08-07-2021 proparacaine 0.5 % 1 Drop (ALCAINE) Start: 04-20-2020 End: 04-21-2020 proparacaine 0.5 % 1 Drop (A LCAINE) propylene glycol 6 mg/ml ophthalmic solution (4 sources) Start: 04-29-2020 propylene glyc oL (SYSTANE COMPLETE) 0.6 % drop Use 1 Drop in both eyes three times daily. 5 mL 11 04/29/2020 Active Start: 04-29-2020 propylene glyc oL (SYSTANE COMPLETE) 0.6 % drop Use 1 Drop in both eyes three times daily. 5 mL 11 04/29/2020 Active Start: 04-20-2020 take 1 drop(s) into the eye(s) three times daily, then take 0.6 drop(s) into the eye(s) propylene glycoL (SYSTANE COMPLETE) 0.6 % drop Use 1 Drop in both eyes three times daily. 0 04/20/2020 Active Comment on above: Use 1 Drop in both e yes three times daily. 1 ml tildrakizumab-asmn 100 mg/ml prefilled syringe (20 sources) Interleukin-23 Antagonist Start: 08-11-2020 inject 1 mL by subcutaneous injection every three months tildrakizumab-a smn (ILUMYA) 100 mg/mL Syrg Inject 1 mL (100 mg total) under the skin every 3 (three) months . 08/11/2020 Active Start: 08-11-2020 Tildrakizumab- Asmn (Ilumya) 100 mg/mL syringe Active 100 mg SC every 12 weeks August 11, 2020 12:00am traZODone hydrochloride 50 mg oral tablet (15 sources) Serotonin Reuptake Inhibitor Start: 03-29-2023 take 1 tablet by mouth at bedtime as needed Trazodone 50 mg tablet Active 50 mg PO AT BEDTIME as needed for insomnia 60 March 29, 2023 1:00am triamcinolone acetonide 1 mg/ml topical cream (11 sources) Corticosteroid Start: 10-05-2022 triamcinolone (KENALOG) 0.1 % cream APPLY TOPICALLY TO THE AFFECTED AREAS TWICE DAILY FOR UP TO TWO WEEKS, TAKING A WEEK OFF BEFORE RESUMING FOR FLARE UPS 10/05/2022 Active tropicamide 10 mg/ml ophthalmic solution (2 sources) Anticholinergic Start: 08-06-2021 End: 08-07-2021 tropicamide 1 % 1 Drop (MYDRIACYL) Start: 04-20-2020 End: 02-02-2021 tropicamide 1 % 1 Drop (MYDR IACYL) Vitamin B Complex (6 sources) Start: 01-12-2022 take 1 tablet by nancy th once daily Vitamin B Complex Active 1 TABLET PO DAILY January 12, 2022 12:00am Start: 01-12-2022 take 1 tablet by mouth once da frandy Vitamin B Complex Active 1 TABLET PO DAILY January 11, 2022 11:00pm VITAMIN B COMPLEX ORAL (5 sources) Start: 01-12-2022 VITAMIN B COMP MACY ORAL Take 1 tablet by mouth . 01/12/2022 Active Vitamin B Complex tablet (2 sources) Start: 01-12-2022 Vitamin B Comp macy tablet Active 1 {tbl} PO DAILY January 12, 2022 12:00am Completed/Discontinued Medications Medication Drug Class(es) Dates Sig (Normalized) Sig (Original) acetaminophen 325 mg / HYDROcodone bitartrate 5 mg oral tablet (13 sources) Opioid Agonist Start: 09-13-2018 End: 09-18-2018 Hydrocodone-Acetami nophen 1 TABLET tablet Discontinued 1 {tbl} PO EVERY 6 HOURS NEEDED as needed for Pain 8 3 September 13, 2018 September 15, 2018 12:00am September 18, 2018 12:06am Start: 09-13-2018 End: 09-18-2018 take 1 tablet by mouth every six hours as needed Hydrocodone-Acetaminophen Discontinued 1 TABLET PO EVERY 6 HOURS NEEDED 8 3 September 13, 2018 September 18, 2018 12:06am take 1 tablet by nancy th every six hours as needed HYDROcodone-Acetaminophen (NORCO) 10-325 mg per tablet hydrocodone 10 mg-acetaminophen 325 mg tablet TK 1 T PO Q 6 H PRN P 0 Active Comment on above: hydrocodone 10 mg-ac etaminophen 325 mg tablet TK 1 T PO Q 6 H PRN P amLODIPine 5 mg oral tablet (20 sources) Dihydropyridine Calcium Channel Arnoldo Start: 01-26-20 End: 05-25-19 take 1 tablet by mouth once daily Amlodipine 5 mg tablet Discontinued 5 mg PO DAILY August 09, 2021 12:41pm May 25, 2023 1:58pm Comment on above: Take 1 tablet by nancy th once daily. aspirin 81 mg delayed release oral tablet (15 sources) Platelet Aggregation Inhibitor, Nonsteroidal Anti-inflammatory Drug Start: 04-10-19 End: 02-21-20 take 1 tablet by mouth once daily Aspirin 81 mg tablet,delayed release (DR/EC) Discontinued 81 mg PO DAILY April 10, 2018 1:00am February 21, 2024 3:03pm End: 01-02-2023 take 1 tablet by mouth once daily aspirin 81 mg chewable tablet Take 1 tablet by mouth once daily. 0 01/02/2023 Discontinued (Discontinued by another Health Care Provider) Comment on above: Take 1 tablet by nancy once daily. atorvastatin 80 mg oral tablet (20 sources) HMG-CoA Reductase Inhibitor Start: 05-20-19 End: 02-19-20 take 1 tablet by mouth once daily in the evening Atorvastatin 80 mg tablet Discontinued 80 mg PO EVERY EVENING May 18, 2023 6:05pm February 19, 2024 4:40pm betamethasone 0.5 mg/ml topical cream (20 sources) Corticosteroid Start: 02-27-20 End: 04-12-19 Betamethasone Dipropionate 0.05 % cream Discontinued 1 NMA TOPICAL DAILY as needed February 27, 2020 1:00am April 12, 2021 1:50pm Start: 04-10-2018 End: 08-19-2019 Betamethasone Valerate 0.1 % lotion Discontinued 1 NMA TOPICAL DAILY as needed for skin irritation August 10, 2018 7:35am August 19, 2019 1:32pm clopidogrel 75 mg oral tablet (20 sources) P2Y12 Platelet Inhibitor Start: 03-11-2016 End: 04-04-2024 take 1 tablet by mouth once daily Clopidogrel 75 mg tablet Discontinued 75 mg PO DAILY March 30, 2023 9:53am April 04, 2024 9:24am Comment on above: Take 1 tablet by nancy once daily. dapagliflozin 10 mg oral tablet (12 sources) Sodium-Glucose Cotransporter 2 Inhibitor Start: 05-19-2021 End: 05-19-2021 take 1 tablet by mouth once daily in the morning Dapagliflozin Propanediol (Farxiga) 10 mg tablet Discontinued 10 mg PO EVERY MORNING May 19, 2021 1:00am May 19, 2021 4:25pm dutasteride 0.5 mg oral capsule (20 sources) 5-alpha Reductase Inhibitor Start: 04-10-2018 End: 03-04-2024 take 1 capsule by mouth once daily Dutasteride 0.5 mg capsule Discontinued 0.5 mg PO DAILY December 05, 2023 12:30pm March 04, 2024 6:09pm Comment on above: Take 1 capsule by [facility] once daily. empagliflozin 25 mg oral tablet (12 sources) Sodium-Glucose Cotransporter 2 Inhibitor Start: 05-19-2021 End: 07-12-2021 take 1 tablet by mouth once daily in the morning Empagliflozin (Jardiance) 25 mg tablet Discontinued 25 mg PO EVERY MORNING May 19, 2021 1:00am July 12, 2021 2:41pm erythromycin 0.005 mg/mg ophthalmic ointment (1 source) Macrolide, Macrolide Antimicrobial Start: 04-20-2020 erythromycin ophthalmic ointment Use 1 application in both eyes daily at bedtime. 3.5 g 1 04/20/2020 Active Comment on above: Use 1 application in both eyes daily at bedtime. ezetimibe 10 mg oral tablet (6 sources) Dietary Cholesterol Absorption Inhibitor Start: 09-06-2023 End: 02-21-2024 take 1 tablet by mouth once daily Ezetimibe 10 mg tablet Discontinued 10 mg PO daily November 24, 2023 12:00am February 21, 2024 3:03pm famotidine 20 mg oral tablet (15 sources) Histamine-2 Receptor Antagonist Start: 04-10-2018 End: 09-28-2021 take 1 tablet by mouth once daily as needed for gastroesophageal reflux disease Famotidine 20 mg tablet Discontinued 20 mg PO DAILY as needed for GERD April 10, 2018 1:00am September 28, 2021 1:26pm Comment on above: Take by mouth. fluorescein-benox inate 0.25-0.4 % 1 Drop (FLURESS) (1 source) Start: 04-20-2020 End: 04-21-2020 fluorescein-benox inate 0.25-0.4 % 1 Drop (FLURESS) gabapentin 100 mg oral capsule (20 sources) Anti-epileptic Agent Start: 07-10-2018 End: 02-15-2021 take 1 capsule by mouth at bedtime Gabapentin 100 MG capsule Discontinued 100 mg PO AT BEDTIME September 05, 2018 9:56am October 09, 2018 4:29pm glyBURIDE 2.5 mg / metFORMIN hydrochloride 500 mg oral tablet (20 sources) Biguanide, Sulfonylurea Start: 04-10-2018 End: 04-28-2020 Glyburide-Metform in 2.5-500 mg tablet Discontinued 1 {tbl} PO DAILY February 12, 2020 10:27am April 28, 2020 2:16pm Start: 04-10-2018 End: 04-28-2020 take 1 tablet by mouth once daily Glyburide-Metformin Discontinued 1 TABLET PO DAILY February 12, 2020 10:27am April 28, 2020 2:16pm hydrocortisone 25 mg/ml topical lotion (12 sources) Corticosteroid Start: 07-10-2018 End: 01-08-2019 Hydrocortisone 2.5 % lotion Discontinued 1 NMA TOPICAL TWICE A DAY as needed for skin irritation 59 July 10, 2018 12:00am January 08, 2019 1:54pm LORazepam 0.5 mg oral tablet (20 sources) Benzodiazepine Start: 05-20-2019 End: 08-02-2019 take 1 tablet by mouth at bedtime as needed for sleep Lorazepam 0.5 mg tablet Discontinued 0.5 mg PO AT BEDTIME as needed for sleep May 21, 2019 1:00am August 02, 2019 1:05pm 24 hr metFORMIN hydrochloride 500 mg extended release oral tablet (20 sources) Biguanide Start: 07-12-2021 End: 07-20-2022 take 1 tablet by mouth twice daily Metformin 500 mg tablet extended release 24 hr Discontinued 500 mg PO TWICE A DAY July 12, 2021 2:41pm July 20, 2022 4:39pm On Hold: None Start: 05-19-2021 End: 07-12-2021 Metformin 500 mg tablet exte nded release 24 hr Discontinued 2000 mg PO EVERY EVENING 360 May 19, 2021 2:47pm July 12, 2021 2:42pm Start: 05-19-2021 End: 07-12-2021 take 2000 mg by mouth once daily in the evening Metformin Discontinued 2000 MG PO EVERY EVENING 360 May 19, 2021 2:47pm July 12, 2021 2:42pm Start: 02-15-2021 End: 05-19-2021 Metformin 500 mg tablet exte nded release 24 hr Discontinued 1000 mg PO EVERY EVENING 180 90 February 15, 2021 2:49pm May 19, 2021 2:52pm Start: 02-15-2021 End: 05-19-2021 take 1000 mg by mouth once daily in the evening Metformin Discontinued 1000 MG PO EVERY EVENING 180 February 15, 2021 2:49pm May 19, 2021 2:52pm Start: 04-28-2020 metFORMIN ER ( GLUCOPHAGE XR) 500 mg 24 hr tablet Start: 04-28-2020 End: 02-15-2021 take 1 tablet by mouth once daily in the evening Metformin 500 mg tablet extended release 24 hr Discontinued 500 mg PO EVERY EVENING April 28, 2020 1:00am February 15, 2021 2:50pm minocycline 100 mg oral capsule (12 sources) Tetracycline-class Drug Start: 08-11-2020 End: 12-03-2020 Minocycline 100 mg capsule Discontinued CAPSULE PO August 11, 2020 12:00am December 03, 2020 2:45pm Start: 08-11-2020 End: 12-03-2020 Minocycline Discontinued CAP FRED PO August 11, 2020 12:00am December 03, 2020 2:45pm pantoprazole 40 mg delayed release oral tablet (19 sources) Proton Pump Inhibitor Start: 09-28-2021 End: 07-20-2022 take 1 tablet by mouth once daily as needed Pantoprazole 40 mg tablet,delayed release (DR/EC) Discontinued 40 mg PO DAILY as needed January 12, 2022 2:29pm July 20, 2022 1:36pm pravastatin sodium 80 mg oral tablet (20 sources) HMG-CoA Reductase Inhibitor Start: 04-10-2018 End: 01-02-2023 take 1 tablet by mouth once daily Pravastatin 80 mg tablet Discontinued 80 mg PO DAILY December 01, 2020 11:24am May 19, 2021 2:50pm Comment on above: Take 1 tablet by nancy once daily. tamsulosin hydrochloride 0.4 mg oral capsule (20 sources) alpha-Adrenergic Arnoldo Start: 04-10-2018 End: 08-16-2024 take 1 capsule by mouth once daily Tamsulosin 0.4 mg capsule Discontinued 0.4 mg PO DAILY August 22, 2022 11:22am August 23, 2023 2:39pm Comment on above: Take 1 capsule by mo [facility] once daily. Problems Active Problems Problem Classification Problem Date Documented Date Episodic/Chronic Acute myocardial infarction (12 sources) Myocardial infarction; Translations: [Acute myocardial infarction, unspecified] 06-26-2019 Chronic Comment on above: 03/08/16 Blindness and vision defects (12 sources) Disorder of vision; Translations: [Unspecified visual loss] 09-12-2018 Chronic Blindness and vision defects (2 sources) Bilateral hyperopia of eyes; Translations: [Hypermetropia, bilateral] 01-02-2023 Episodic Cardiac dysrhythmias (20 sources) Persistent atrial fibrillation; Translations: [Other persistent atrial fibrillation] Onset: 01-10-2024 01-10-2024 Chronic Cardiac dysrhythmias (20 sources) Bradycardia; Translations: [Bradycardia, unspecified] Onset: 12-26-2022 Episodic Cataract (19 sources) Combined forms of age-related cataract, right eye; Translations: [Bilateral cataracts] Onset: 04-29-2020 Resolved: 05-27-2020 Chronic Cataract (1 source) Pseudophakia of left eye; Translations: [Pseudophakia of left eye] Chronic kidney disease (2 sources) Chronic kidney disease stage 3; Translations: [Stage 3 chronic kidney disease] 11-23-2023 Chronic Chronic kidney disease (1 source) Chronic kidney disease; Translations: [Chronic kidney disease, stage 3 unspecified] Onset: 11-23-2023 Coronary atherosclerosis and other heart disease (20 sources) History of acute ST segment elevation myocardial infarction; Translations: [Old myocardial infarction] Onset: 02-18-2016 Chronic Comment on above: PTCA/LAURA of the mid LCX 03/08/16; Staged PCI/LAURA of the mid and distal LAD 03/09/16 Diabetes mellitus with complications (13 sources) Neuropathy due to diabetes mellitus; Translations: [Type 2 diabetes mellitus with diabetic neuropathy, unspecified] Onset: 05-22-2024 06-05-2020 Chronic Diabetes mellitus without complication (20 sources) Diabetes mellitus type 2 without retinopathy; Translations: [Type 2 diabetes mellitus] Onset: 05-22-2024 04-20-2020 Chronic Disorders of lipid metabolism (20 sources) Hypercholesterolemia; Translations: [Pure hypercholesterolemia, unspecified] Onset: 2020 Chronic Esophageal disorders (20 sources) Gastroesophageal reflux disease; Translations: [Gastro-esophageal reflux disease without esophagitis] Chronic Essential hypertension (20 sources) Essential hypertension; Translations: [Essential (primary) hypertension] Onset: 04-29-2020 Chronic Fever of unknown origin (2 sources) Fever, unspecified; Translations: [Fever, unspecified] Onset: 04-01-2023 Episodic Heart valve disorders (20 sources) Tricuspid incompetence, non-rheumatic ; Translations: [Nonrheumatic tricuspid (valve) insufficiency] 09-12-2018 Chronic Hyperplasia of prostate (20 sources) Benign prostatic hyperplasia; Translations: [Benign prostatic hyperplasia without lower urinary tract symptoms] Onset: 2020 2020 Chronic Hypertension with complications and secondary hypertension (16 sources) Hypertensive urgency ; Translations: [Hypertensive urgency] Onset: 06-04-2024 Chronic Immunizations and screening for infectious disease (12 sources) Needs influenza immunization; Translations: [Encounter for immunization] Episodic Intestinal obstruction without hernia (20 sources) Small bowel obstruction; Translations: [Unspecified intestinal obstruction, unspecified as to partial versus complete obstruction] Onset: 05-13-2023 05-14-2023 Episodic Occlusion or stenosis of precerebral arteries (20 sources) Bilateral stenosis of carotid arteries; Translations: [Occlusion and stenosis of bilateral carotid arteries] Chronic Other and ill-defined heart disease (12 sources) Heart disease; Translations: [Heart disease, unspecified] 09-12-2018 Chronic Other circulatory disease (12 sources) History of aortofemoral bypass surgery; Translations: [Presence of other vascular implants and grafts] Onset: 12-18-2016 09-12-2018 Chronic Comment on above: 16x8 Hemashield gold graft with endarterectomy of the immediate infrarenal abdominal aorta 01/09/17 Other circulatory disease (7 sources) Presence of other vascular implants and grafts; Translations: [Other postprocedural status] Onset: 12-18-2016 Chronic Other circulatory disease (12 sources) Vascular disorder; Translations: [Unspecified disorder of circulatory system] 09-12-2018 Episodic Other circulatory disease (2 sources) Elevated blood-pressure reading, without diagnosis of hypertension; Translations: [Elevated blood-pressure reading, without diagnosis of hypertension] Onset: 04-01-2023 Episodic Other diseases of veins and lymphatics (12 sources) Venous insufficiency of leg; Translations: [Venous insufficiency (chronic) (peripheral)] 05-19-2021 Episodic Other diseases of veins and lymphatics (12 sources) Vascular insufficiency; Translations: [Venous insufficiency (chronic) (peripheral)] 06-05-2020 Episodic Other diseases of veins and lymphatics (1 source) Venous insufficiency (chronic) (peripheral); Translations: [Venous (peripheral) insufficiency, unspecified] Episodic Other ear and sense organ disorders (1 source) Impacted cerumen in left ear; Translations: [Impacted cerumen, left ear] 12-26-2022 Episodic Other ear and sense organ disorders (1 source) Acute otitis externa; Translations: [Swimmer's ear, left ear] 12-26-2022 Episodic Other ear and sense organ disorders (5 sources) Impacted cerumen; Translations: [Impacted cerumen, unspecified ear] 07-20-2022 Episodic Other eye disorders (2 sources) Bilateral vitreous floaters; Translations: [Other vitreous opacities, bilateral] Chronic Other eye disorders (2 sources) Posterior vitreous detachment of left eye; Translations: [Vitreous degeneration, left eye] Chronic Other eye disorders (13 sources) H/O: R cataract extraction; Translations: [Cataract extraction status, right eye] Onset: 05-28-2020 Resolved: 08-06-2021 12-01-2020 Episodic Comment on above: 05/27/20 Other inflammatory condition of skin (20 sources) Psoriasis; Translations: [Psoriasis, unspecified] Onset: 01-10-2024 09-12-2018 Chronic Other inflammatory condition of skin (2 sources) Psoriasis, unspecified; Translations: [Psoriasis, unspecified] Onset: 01-10-2024 Chronic Other lower respiratory disease (12 sources) Dyspnea; Translations: [Dyspnea, unspecified] 06-05-2020 Episodic Other nutritional; endocrine; and metabolic disorders (12 sources) Body mass index 30+ - obesity; Translations: [Obesity, unspecified] 04-12-2021 Chronic Other nutritional; endocrine; and metabolic disorders (1 source) Obesity, unspecified; Translations: [Obesity, unspecified] Chronic Other screening for suspected conditions (not mental disorders or infectious disease) (18 sources) Patient encounter status; Translations: [Encounter for screening for malignant neoplasm of respiratory organs] Onset: 09-18-2023 Episodic Other upper respiratory disease (12 sources) Seasonal allergy; Translations: [Other seasonal allergic rhinitis] 09-12-2018 Chronic Other upper respiratory disease (6 sources) Hoarse; Translations: [Dysphonia] 04-12-2022 Episodic Other upper respiratory disease (1 source) Dysphonia; Translations: [Dysphonia] 04-12-2022 Episodic Other upper respiratory infections (11 sources) Nasal discharge; Translations: [Postnasal drip] Onset: 04-01-2023 04-12-2022 Episodic Peripheral and visceral atherosclerosis (20 sources) Peripheral vascular disease, unspecified; Translations: [Peripheral arterial disease] Onset: 06-25-2023 09-12-2018 Chronic Pneumonia (except that caused by tuberculosis or sexually transmitted disease) (12 sources) Pneumonia; Translations: [Pneumonia, unspecified organism] 09-12-2018 Episodic Residual codes; unclassified (16 sources) Obstructive sleep apnea syndrome; Translations: [Obstructive sleep apnea (adult) (pediatric)] Onset: 2020 2020 Chronic Comment on above: BiPAP 12/ Residual codes; unclassified (12 sources) Sleep apnea; Translations: [Sleep apnea, unspecified] 09-12-2018 Chronic Residual codes; unclassified (3 sources) Obstructive sleep apnea (adult) (pediatric); Translations: [Obstructive sleep apnea (adult)(pediatric)] Chronic Residual codes; unclassified (2 sources) Pain, unspecified; Translations: [Pain, unspecified] Onset: 04-01-2023 Episodic Residual codes; unclassified (2 sources) Chills (without fever); Translations: [Chills (without fever)] Onset: 04-01-2023 Episodic Residual codes; unclassified (5 sources) Insomnia; Translations: [Insomnia, unspecified] 03-29-2023 Episodic Residual codes; unclassified (3 sources) Insomnia, unspecified; Translations: [Insomnia, unspecified] 03-29-2023 Episodic Retinal detachments; defects; vascular occlusion; and retinopathy (16 sources) Unspecified retinal vascular occlusion; Translations: [Retinal vascular occlusion of right eye] Onset: 04-29-2020 Chronic Retinal detachments; defects; vascular occlusion; and retinopathy (1 source) Occlusion of right branch retinal artery; Translations: [Branch retinal artery occlusion of right eye] Screening and history of mental health and substance abuse codes (18 sources) Tobacco use and exposure - finding; Translations: [Personal history of nicotine dependence] Onset: 04-01-2023 Episodic Spondylosis; intervertebral disc disorders; other back problems (20 sources) Back problem; Translations: [Dorsopathy, unspecified] Episodic Substance-related disorders (1 source) Nicotine dependence, cigarettes, uncomplicated; Translations: [Nicotine dependence, cigarettes, uncomplicated] Onset: 08-21-2024 Chronic Unclassified (12 sources) prostatse issues 09-12-2018 Unclassified (1 source) Contact with and (suspected) exposure to covid-19; Translations: [Contact with and (suspected) exposure to covid-19] Onset: 04-01-2023 Unclassified (4 sources) Other persistent atrial fibrillation; Translations: [Other persistent atrial fibrillation] Onset: 01-10-2024 Viral infection (2 sources) COVID-19; Translations: [COVID-19] Onset: 04-01-2023 Past or Other Problems Problem Classification Problem Date Documented Da te Episodic/Chronic Conditions associated with dizziness or vertigo (3 sources) Lightheadedness; Translations: [Dizziness and giddiness] Onset: 08-29-2023 06-22-2023 Episodic Coronary atherosclerosis and other heart disease (20 sources) Stented coronary artery; Translations: [Presence of coronary angioplasty implant and graft] Onset: 02-18-2016 Episodic Comment on above: PTCA/LAURA of the mid LCX 03/08/16; Staged PCI/LAURA of the mid and distal LAD 03/09/16 Mood disorders (2 sources) Mood disorders Onset: 05-15-2023 05-15-2023 Other ear and sense organ disorders (2 sources) Impacted cerumen, left ear; Translations: [Impacted cerumen, left ear] Onset: 12-26-2022 Episodic Other ear and sense organ disorders (2 sources) Swimmer's ear, left ear; Translations: [Swimmer's ear, left ear] Onset: 12-26-2022 Episodic Other male genital disorders (3 sources) Disorder of prostate; Translations: [Disorder of prostate, unspecified] Onset: 04-29-2020 04-29-2020 Episodic Residual codes; unclassified (2 sources) Other specified postprocedural states; Translations: [Other specified postprocedural states] Onset: 06-25-2023 Episodic Unclassified (1 source) Contact with and (suspected) exposure to covid-19; Translations: [Contact with and (suspected) exposure to covid-19] Onset: 04-01-2023 Results Test Name Value Interpretation Reference Range Facility Pulmonary Visit Reporton Pulmonary Visit Report [facility] [place] [address] [place] [address] OFFICE VISIT Date of Service: 06/12/24 MR#: [id number] Acct: [id number] Name: CELESTE KINCAID Rep #: [id number] : 1950 Provider: DIANNA Carmichael Age/Sex: 73/M [place] [facility] [place] Signed Assessment and Plan Assessment and Plan (1) ANUJA (obstructive sleep apnea): Status: Chronic Comment: BiPAP 02/24 Plan: He is using and benefiting from Pap therapy. No indication for titration study at this time. Contact the office for any new or worsening symptoms in the meantime. Follow-up in 6 months. Plan Details Follow Up: 6 Months HPI 1 Y FU Chief Complaint: Routine follow-up HPI Comments Details: This patient presents to the office today for follow-up of his obstructive sleep apnea. He is ambulatory and currently on room air. He has not recently been seen in the ED or urgent care for any respiratory illness. He has not required any antibiotics or prednisone for any breathing problems. He denies any difficulty with shortness of breath. He denies any cough, sputum production or hemoptysis. He denies any wheezing, chest tightness, chest pain or palpitations. He has not had an y fever, chills or body aches. He wakes up feeling rested and refreshed. He is experiencing dry mouth. He also reports random headaches. He is not having excessive nocturia. He is not having trouble with mask leaks. Compliance report for the past 30 days shows 100% % compliance. Average use is 7 hours and 9 minutes per night. Current setting is BiPAP 12/8 cm of water with a residual AHI of 3.1 events per hour. 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: [employer] Accompanied by: Self Is patient in pain?: No Allergies pravastatin Adverse Reaction (Unknown, Verified 06/12/24 14:18) Ineffective amlodipine Adverse Reaction (Verified 06/12/24 14:18) Constipation Medications ???Medication ???Instructions ???Recorded ???Confirmed ???Type tildrakizumab-asmn 100 mg/mL 100 mg subcut Q12W 08/11/20 History subcutaneous syringe (Ilumya) magnesium oxide 500 mg PO DAILY 01/12/22 05/22/24 History vitamin B complex 1 tab PO DAILY 01/12/22 05/22/24 H istory cholecalciferol (vitamin D3) 25 5,000 unit PO DAILY 03/29/2305/22 History mcg (1,000 unit) tablet trazodone 50 mg tablet 50 mg PO QHS PRN insomnia #60 tabs 03/29/23 05/22/24 Rx tamsulosin 0.4 mg capsule 0.4 mg PO DAILY PROSTATE #90 caps 08/23/23 05/22/24 Rx lisinopril 20 mg tablet 20 mg PO BID BP #180 tabs 12/20/23 05/22/24 Rx apixaban 5 mg tablet (Eliquis) 5 mg PO BID #60 tabs 01/29/2408/11 Rx atorvastatin 80 mg tablet 80 mg PO QPM #90 tabs 02/19/2408/11 Rx dutasteride 0.5 mg capsule 0.5 mg PO DAILY PROSTATE #90 caps 03/04/24 05/22/24 Rx metoprolol tartrate 25 mg tablet 12.5 mg (1/2 x 25 mg) PO BID BP 05/22/24 Rx #180 tabs clopidogrel 75 mg tablet 75 mg PO DAILY #90 tabs 04/04/24 0 05/22/24 Rx Have you fallen in the past year?: No PFSH Medical History History of cardioversion Atrial fibrillation CKD (chronic kidney disease), stage III Carotid artery stenosis Abnormal kidney function study SBO (small bowel obstruction) Insomnia Cerumen impaction Flu vaccine need Back pain Venous insufficiency of both lower extremities Health care maintenance Bradycardia History of tobacco use Encounter for screening for malignant neoplasm of lung Chronic low back pain Retinal vascular occlusion of right eye Dyspnea ANUJA (obstructive sleep apnea) Mixed hyperlipidemia Type 2 diabetes mellitus Atherosclerotic heart disease of [place] coronary artery without angina pectoris Essential hypertension Presence of stent in coronary artery ( 03/09/16) Non-rheumatic mitral regurgitation Nonrheumatic tricuspid valve regurgitation Bilateral carotid artery stenosis History of ST elevation myocardial infarction (STEMI) ( 03/08/16) Diabetic neuropathy Venous insufficiency BPH (benign prostatic hyperplasia) Type 2 diabetes mellitus Psoriasis Peripheral artery disease Sleep apnea Heart attack Vision problems Vascular disease prostatse issues Pneumonia High cholesterol Hypertension Heart disease GERD (gastroesophageal reflux disease) Diabetes Cataracts, bilateral Back problem Seasonal allergies Surgical History Hx of r (more content not included)... Normal [facility] Absolute lymphocyte countOrd ered By: Deanna Cruz on 05-22-2024 Lymphocytes Auto (Unsp spec) [#/Vol] 1.22 10*3/uL 0.83-4.51 [facility] Absolute neutrophil countOrd ered By: Deanna Cruz on 05-22-2024 Neutrophils (Bld) [#/Vol] 3.9 10*3/uL 2.0-7.7 [facility] Albumin DL <= 20 mg/L (U) [M ass/Vol]Ordered By: Deanna Cruz on 05-22-2024 Urine Random Microalbumin 37.2 mg/L NO RANGE EST. [facility] Anion gap in Serum or Plasma Ordered By: Deanna Cruz on 05-22-2024 Anion gap [Moles/Vol] 13 mmol/L 5-15 [facility] Automated lymphocyte count a s percentage of total leukocytesOrdered By: Deanna Cruz on 05-22-2024 Lymphocytes/100 WBC Auto (Unsp spec) 21.5 % 19-41 [facility] BUN/creatinine ratioOrdered By: Deanan Cruz on 05-22-2024 Urea nitrogen/Creatinine [Mass ratio] 23.2 mg/mg High 10-20 [facility] Basophil percentageOrdered B y: Deanna Curz on 05-22-2024 Basophils/100 WBC (Bld) 1.1 % High 0-1 [facility] Bilirubin, totalOrdered By: Deanna Cruz on 05-22-2024 Bilirubin [Mass/Vol] 0.60 mg/dL 0.00-1.30 [facility] CBC W/Diff, Automatedon Absolute Lymph 1.22 X10 3/uL Normal 0.83-4.51 [facility] Comment on above: Performed By: #### L 501.9910, [id number], L500.4050, L100.0100 #### [facility] [address] [place], [address] Absolute Neut 3.9 X10 3/uL Normal 2.0-7.7 [facility] Comment on above: Performed By: #### L 501.9910, [id number], [id number], L100.0100 #### [facility] [address] [place], [address] Basophils/100 WBC (Bld) 1.1 % High 0-1 [facility] Comment on above: Performed By: #### L 501.9910, L502.0250, L500.4050, L100.0100 #### [facility] [address] [place], [address] Eosinophils/100 WBC (Bld) 1.1 % Normal 0-5 [facility] Comment on above: Performed By: #### L 501.9910, [id number], L500.4050, L100.0100 #### [facility] [address] [place], [address] Erythrocyte distribution width (RBC) [Ratio] 14.8 % High 11.6-14.6 [facility] Comment on above: Performed By: #### L 501.9910, [id number], L500.4050, L100.0100 #### [facility] [address] [place], [address] Hematocrit (Bld) [Volume fraction] 42.3 % Normal 40-54 [facility] Comment on above: Performed By: #### L 501.9910, L502.0250, L500.4050, L100.0100 #### [facility] [address] [place], [address] Hemoglobin (Bld) [Mass/Vol] 14.1 g/dL Normal 13.0-16.5 [facility] Comment on above: Performed By: #### L 501.9910, L502.0250, L500.4050, L100.0100 #### [facility] [address] [place], [address] IG% 0.400 Normal 0.0-0.9 [facility] Comment on above: Result Comment: IG% - Immature Granulocytes (promyelocytes, myelocytes and metamyelocytes) > 1% indicates that a LEFT SHIFT is Present. Performed By: #### L 501.9910, L502.0250, L500.4050, L100.0100 #### [facility] [address] [place], [address] Lymphocytes/100 WBC (Bld) 21.5 % Normal 19-41 [facility] Comment on above: Performed By: #### L 501.9910, L502.0250, L500.4050, L100.0100 #### [facility] [address] [place], [address] MCH (RBC) [Entitic mass] 30.5 pg Normal 27.0-32.0 [facility] Comment on above: Performed By: #### L 501.9910, L502.0250, L500.4050, L100.0100 #### [facility] [address] [place], [address] MCHC (RBC) [Mass/Vol] 33.3 g/dL Normal 32-36 [facility] Comment on above: Performed By: #### L 501.9910, L502.0250, L500.4050, L100.0100 #### [facility] [address] [place], [address] MCV (RBC) [Entitic vol] 91.4 fL Normal 80-94 [facility] Comment on above: Performed By: #### L 501.9910, L502.0250, L500.4050, L100.0100 #### [facility] [address] [place], [address] Monocytes/100 WBC (Bld) 8.1 % Normal 0-10 [facility] Comment on above: Performed By: #### L 501.9910, L502.0250, L500.4050, L100.0100 #### [facility] [address] [place], [address] Neutrophils/100 WBC (Bld) 67.8 % Normal 47-70 [facility] Comment on above: Performed By: #### L 501.9910, L502.0250, L500.4050, L100.0100 #### [facility] [address] [place], [address] Nucleated RBC (Bld) [#/Vol] 0 10*3/uL Normal 0-5 [facility] Comment on above: Performed By: #### L 501.9910, L502.0250, L500.4050, L100.0100 #### [facility] [address] [place], [address] Platelet mean volume (Bld) [Entitic vol] 11.1 fL Normal 6.2-12.0 [facility] Comment on above: Performed By: #### L 501.9910, L502.0250, L500.4050, L100.0100 #### [facility] [address] [place], [address] Platelets (Bld) [#/Vol] 211 10*3/uL Normal 150-450 [facility] Comment on above: Performed By: #### L 501.9910, L502.0250, L500.4050, L100.0100 #### [facility] [address] [place], [address] RBC (Bld) [#/Vol] 4.63 10*6/uL Normal 4.6-6.2 [facility] Comment on above: Performed By: #### L 501.9910, L502.0250, L500.4050, L100.0100 #### [facility] [address] [place], [address] RDW SD 49.9 fl High 35.1-43.9 [facility] Comment on above: Performed By: #### L 501.9910, L502.0250, L500.4050, L100.0100 #### [facility] [address] [place], [address] WBC (Bld) [#/Vol] 5.7 10*3/uL Normal 4.4-11.0 [facility] Comment on above: Performed By: #### L 501.9910, L502.0250, L500.4050, L100.0100 #### [facility] [address] [place], [address] Carbon dioxide, total [Moles /volume] in Central venous bloodOrdered By: Deanna Cruz on 05-22-2024 CO2 [Moles/Vol] 20.0 mmol/L Low 21.0-32.0 [facility] Chloride assayOrdered By: Miya Cruz on 05-22-2024 Chloride [Moles/Vol] 105 mmol/L 98-108 [facility] Comprehensive Metabolic Prof ilon 05-22-2024 Albumin [Mass/Vol] 4.2 g/dL Normal 3.4-4.8 [facility] Comment on above: Performed By: #### L 501.9910, L502.0250, L500.4050, L100.0100 ####[facility] [address] [place], [address] Albumin/Globulin [Mass ratio] 1.5 {ratio} Normal 0.9-2.4 [facility] Comment on above: Performed By: #### L 501.9910, L502.0250, L500.4050, L100.0100 ####[facility] [address] [place], [address] ALK PHOS 176 U/L High 40-129 [facility] Comment on above: Performed By: #### L 501.9910, L502.0250, L500.4050, L100.0100 ####[facility] [address] [place], [address] ALT [Catalytic activity/Vol] 39 U/L Normal <=46 [facility] Comment on above: Performed By: #### L 501.9910, L502.0250, L500.4050, L100.0100 ####[facility] [address] [place], [address] AST [Catalytic activity/Vol] 37 U/L Normal <=37 [facility] Comment on above: Performed By: #### L 501.9910, L502.0250, L500.4050, L100.0100 ####[facility] [address] [place], [address] Bilirubin [Mass/Vol] 0.60 mg/dL Normal 0.00-1.30 [facility] Comment on above: Performed By: #### L 501.9910, L502.0250, L500.4050, L100.0100 ####[facility] [address] [place], [address] BUN/CRE 23.2 RATIO High 10-20 [facility] Comment on above: Performed By: #### L 501.9910, L502.0250, L500.4050, L100.0100 ####[facility] [address] [place] [place], [address] Calcium [Mass/Vol] 9.9 mg/dL Normal 7.6-11.0 [facility] Comment on above: Performed By: #### L 501.9910, L502.0250, L500.4050, L100.0100 ####[facility] [address] [place], [address] Chloride [Moles/Vol] 105 mmol/L Normal 98-108 [facility] Comment on above: Performed By: #### L 501.9910, L502.0250, L500.4050, L100.0100 ####[facility] [address] [place], [address] CO2 [Moles/Vol] 20.0 mmol/L Low 21.0-32.0 [facility] Comment on above: Performed By: #### L 501.9910, L502.0250, L500.4050, L100.0100 ####[facility] [address] [place], [address] Creatinine [Mass/Vol] 1.24 mg/dL High 0.70-1.20 [facility] Comment on above: Performed By: #### L 501.9910, L502.0250, L500.4050, L100.0100 ####[facility] [address] [place], [address] GAP 13 Normal 5-15 [facility] Comment on above: Performed By: #### L 501.9910, L502.0250, L500.4050, L100.0100 ####[facility] [address] [place], [address] GFR/1.73 sq M.predicted among non-blacks MDRD (S/P/Bld) [Vol rate/Area] 62 mL/min/{1.73_m2} Normal >60 [facility] Comment on above: Result Comment: mL/m in/1.73m2 CKD-EPI Creatinine Equation (2020) Performed By: #### L 501.9910, L502.0250, L500.4050, L100.0100 ####[facility] [address] [place], [address] Globulin (S) [Mass/Vol] 2.8 g/dL Normal 2.2-4.2 [facility] Comment on above: Performed By: #### L 501.9910, L502.0250, L500.4050, L100.0100 ####[facility] [address] [place], [address] Glucose [Mass/Vol] 77 mg/dL Normal 70-99 [facility] Comment on above: Performed By: #### L 501.9910, L502.0250, L500.4050, L100.0100 ####[facility] [address] [place], [address] Potassium [Moles/Vol] 4.7 mmol/L Normal 3.3-5.1 [facility] Comment on above: Performed By: #### L 501.9910, L502.0250, L500.4050, L100.0100 ####[facility] [address] [place], [address] Sodium [Moles/Vol] 138 mmol/L Normal 133-145 [facility] Comment on above: Performed By: #### L 501.9910, L502.0250, L500.4050, L100.0100 ####[facility] [address] [place], [address] T PROT 7.0 g/dL Normal 5.9-8.4 [facility] Comment on above: Performed By: #### L 501.9910, L502.0250, L500.4050, L100.0100 ####[facility] [address] [place], [address] Urea nitrogen [Mass/Vol] 29 mg/dL High 4-19 [facility] Comment on above: Performed By: #### L 501.9910, L502.0250, L500.4050, L100.0100 ####[facility] [address] [place], [address] Creatinine Unsp time (U) [Ma ss/Vol]Ordered By: Deanna Cruz on 05-22-2024 Creatinine (U) [Mass/Vol] 109.00 mg/dL 39-259 [facility] Eosinophil percentageOrdered By: Deanna Cruz on 05-22-2024 Eosinophils/100 WBC (Bld) 1.1 % 0-5 [facility] Erythrocyte distribution wid th ratioOrdered By: Deanna Cruz on 05-22-2024 Erythrocyte distribution width (RBC) [Ratio] 14.8 % High 11.6-14.6 [facility] Erythrocyte distribution wid th standard deviationOrdered By: Deanna Cruz on 05-22-2024 Erythrocyte distribution width (RBC) [Entitic vol] 49.9 fL High 35.1-43.9 [facility] Erythrocyte distribution width (RBC) [Ratio] 49.9 fl High 35.1-43.9 [facility] GFR/1.73 sq M.predicted loyd g non-blacks MDRD (S/P/Bld) [Vol rate/Area]Ordered By: Deanna Cruz on 05-22-2024 Estimated GFR (MDRD) Non-Af Amer 62 >60 [facility] Comment on above: mL/min/1.73m2 CKD-EP I Creatinine Equation (2020) Glomerular filtration rate ( GFR) estimation/1.73 sq m using serum, plasma, or whole bOrdered By: Deanna Cruz on 05-22-2024 GFR/1.73 sq M.predicted among non-blacks MDRD (S/P/Bld) [Vol rate/Area] 62 mL/min/{1.73_m2} >60 [facility] Comment on above: mL/min/1.73m2 CKD-EP I Creatinine Equation (2020) Hematocrit Auto (Bld) [Volum e fraction]Ordered By: Deanna Cruz on 05-22-2024 Hematocrit (Bld) [Volume fraction] 42.3 % 40-54 [facility] Hemoglobin measurementOrdere d By: Deanna Cruz on 05-22-2024 Hemoglobin (Bld) [Mass/Vol] 14.1 g/dL 13.0-16.5 [facility] Immature granulocytes/100 WB C Auto (Bld)Ordered By: Deanna Cruz on 05-22-2024 Immature granulocytes/100 WBC (Bld) 0.400 % 0.0-0.9 [facility] Comment on above: IG% - Immature Granu locytes (promyelocytes, myelocytes and metamyelocytes) > 1% indicates that a LEFT SHIFT is Present. Internal Medicine Office Vis venkat 05-22-2024 Internal Medicine Office Visit [facility] [address] [place] [address] [place] [address] OFFICE VISIT Date of Service: 05/22/24 MR#: [id number] Acct: [id number] Name: CELESTE KINCAID Rep #: [id number] : 1950 Provider: Dr. 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 Required: No Accompanied by: Self Is patient in pain?: No Allergies pravastatin Adverse Reaction (Unknown, Verified 05/22/24 13:58) Ineffective amlodipine Adverse Reaction (Verified 05/22/24 13:58) Constipation Medications ???Medication ???Instructions ???Recorded ???Confirmed ???Type tildrakizumab-asmn 100 mg/mL 100 mg subcut Q12W 08/11/20 History subcutaneous syringe (Ilumya) magnesium oxide 500 mg PO DAILY 01/12/22 05/22/24 History vitamin B complex 1 tab PO DAILY 01/12/22 05/22/24 H istory cholecalciferol (vitamin D3) 25 5,000 unit PO DAILY 03/29/2305/22 History mcg (1,000 unit) tablet trazodone 50 mg tablet 50 mg PO QHS PRN insomnia #60 tabs 03/29/23 05/22/24 Rx tamsulosin 0.4 mg capsule 0.4 mg PO DAILY PROSTATE #90 caps 08/23/23 05/22/24 Rx lisinopril 20 mg tablet 20 mg PO BID BP #180 tabs 12/20/23 05/22/24 Rx apixaban 5 mg tablet (Eliquis) 5 mg PO BID #60 tabs 01/29/2408/11 Rx atorvastatin 80 mg tablet 80 mg PO QPM #90 tabs 02/19/2408/11 Rx dutasteride 0.5 mg capsule 0.5 mg PO DAILY PROSTATE #90 caps 03/04/24 05/22/24 Rx metoprolol tartrate 25 mg tablet 12.5 mg (1/2 x 25 mg) PO BID BP 05/22/24 Rx #180 tabs clopidogrel 75 mg tablet 75 mg PO DAILY #90 tabs 04/04/24 0 05/22/24 Rx Have you fallen in the past year?: No PFSH Medical History History of cardioversion Atrial fibrillation CKD (chronic kidney disease), stage III Carotid artery stenosis Abnormal kidney function study SBO (small bowel obstruction) Insomnia Cerumen impaction Flu vaccine need Back pain Venous insufficiency of both lower extremities Health care maintenance Bradycardia History of tobacco use Encounter for screening for malignant neoplasm of lung Chronic low back pain Retinal vascular occlusion of right eye Dyspnea ANUJA (obstructive sleep apnea) Mixed hyperlipidemia Type 2 diabetes mellitus Atherosclerotic heart disease of [place] coronary artery without angina pectoris Essential hypertension Presence of stent in coronary artery ( 03/09/16) Non-rheumatic mitral regurgitation Nonrheumatic tricuspid valve regurgitation Bilateral carotid artery stenosis History of ST elevation myocardial infarction (STEMI) ( 03/08/16) Diabetic neuropathy Venous insufficiency BPH (benign prostatic hyperplasia) Type 2 diabetes mellitus Psoriasis Peripheral artery disease Sleep apnea Heart attack Vision problems Vascular disease prostatse issues Pneumonia High cholesterol Hypertension Heart disease GERD (gastroesophageal reflux disease) Diabetes Cataracts, bilateral Back problem Seasonal allergies Surgical History Hx of right cataract extraction History of left-sided carotid endarterectomy ( 08/2018) History of cataract surgery Presence of coronary angioplasty implant and graft ( 03/09/16) S/P aortobifemoral bypass surgery ( 01/09/17) Status post aortobifemoral bypass surgery S/P aortobifemoral bypass surgery S/P aortobifemoral bypass surgery S/P aortobifemoral bypass surgery history aortic bifemerol bypass Family History Father Angina pectoris Brother Angina pectoris Cancer Myocardial infarction Heart disease Hypertension High cholesterol Prostate cancer Mother Angina pectoris Cancer Myocardial infarction Heart disease Hypertension High cholesterol Sister Hypertension Brother Prostate cancer Cancer prostate cancer, with mets. Social History Smoking Status: Former smoker Tobacco: How many years used: 45 alcohol intake: current alcohol intake frequency: holidays/special occasions only substance use type: does not use caffeine: Yes Type: coffee Number of servings: 3 what type of physical activity do you participate in: none HPI HPI Chief Complaint: Follow-up chronic conditions Details: CELESTE KINCAID, is a 73 M who prese (more content not included)... Normal [facility] Laboratory - Chemistry and C hemistry - challengeOrdered By: Deanna Cruz on 05-22-2024 AST [Catalytic activity/Vol] 37 U/L <38 [facility] Laboratory - Hematology and Cell countsOrdered By: Deanna Cruz on 05-22-2024 HbA1c (Bld) [Mass fraction] 5.1 % 4.2-6.3 [facility] Lymphocytes Auto (Unsp spec) [#/Vol]Ordered By: Miyastefaniaroger Grupoeusebiovero on 05-22-2024 Lymphocytes (Bld) [#/Vol] 1.22 10*3/uL 0.83-4.51 [facility] Lymphocytes/100 WBC Auto (Un sp spec)Ordered By: Deanna Lombardoeusebiovero on 05-22-2024 Lymphocytes/100 WBC (Bld) 21.5 % 19-41 [facility] MCV (mean corpuscular volume ) determinationOrdered By: stefaniasnydervika Lombardovero on 05-22-2024 MCV (RBC) [Entitic vol] 91.4 fL 80-94 [facility] Mean corpuscular hemoglobin (MCH) determinationOrdered By: [facility] Grupovero on 05-22-2024 MCH (RBC) [Entitic mass] 30.5 pg 27.0-32.0 [facility] Mean corpuscular hemoglobin concentration (MCHC) determinationOrdered By: stefaniasnydervika Cruz on 05-22-2024 MCHC (RBC) [Mass/Vol] 33.3 g/dL 32-36 [facility] Mean platelet volume determi nationOrdered By: stefaniasnydervika Cruz on 05-22-2024 Platelet mean volume (Bld) [Entitic vol] 11.1 fL 6.2-12.0 [facility] Microalb:Creat Ratio,Random URon 05-22-2024 Creatinine [Mass/Vol] 109.00 mg/dL Normal 39-259 [facility] Comment on above: Performed By: #### L 501.9910, L502.0250, L500.4050, L100.0100 ####[facility] [address] [place], [place], [id number] MALB:CREAT 341.3 mg/g CRE Normal [facility] Comment on above: Performed By: #### L 501.9910, L502.0250, L500.4050, L100.0100 ####[facility] [address] [place], [address] MICROALBUMIN,UR 37.2 mg/L Normal NO RANGE EST. [facility] Comment on above: Performed By: #### L 501.9910, L502.0250, L500.4050, L100.0100 ####[facility] [address] [place], [address] Microalbumin/creat ratio urO rdered By: Deanna Cruz on 05-22-2024 Urine Microalbumin/Creatini ne Ratio 341.3 mg/g CRE [facility] Monocyte percentageOrdered B y: Deanna Cruz on 05-22-2024 Monocytes/100 WBC (Bld) 8.1 % 0-10 [facility] Neutrophil percentageOrdered By: [facility] Grupovero on 05-22-2024 Neutrophils/100 WBC (Bld) 67.8 % 47-70 [facility] Nucleated red blood cell per centageOrdered By: [facility] on 05-22-2024 Nucleated RBC/100 WBC (Bld) [Ratio] 0 % 0-5 [facility] PSA, total screeningOrdered By: Deanna Hendersonvero on 05-22-2024 Prostate Specific Antigen Screen 0.86 ng/mL 0.02-4.00 [facility] Comment on above: This test was perfor med using the [employer] tPSA method. Measured values of a patient sample can vary depending on the testing procedure used. PSA values determined on patient samples by different testing procedures cannot be used interchangeably. If there is a change in PSA assays while monitoring therapy, sequential testing should be performed to confirm baseline values. PSA,Total - Annual Screenon 05-22-2024 PSA,TOT SCREEN 0.86 ng/mL Normal 0.02-4.00 [facility] Comment on above: Result Comment: This test was performed using the [employer] tPSA method. Measured values of a patient??sample can vary depending on the testing procedure used. PSA values determined on patient samples by different testing procedures cannot be used interchangeably. If there is a change in PSA assays while monitoring therapy, sequential testing should be performed to confirm baseline values. Performed By: #### L 501.9910, L502.0250, L500.4050, L100.0100 ####[facility] [address] [place], [address] Platelet countOrdered By: Miya Cruz on 05-22-2024 Platelets (Bld) [#/Vol] 211 10*3/uL 150-450 [facility] Potassium (Unsp spec) [Mass/ Vol]Ordered By: Deanna Cruz on 05-22-2024 Potassium [Moles/Vol] 4.7 mmol/L 3.3-5.1 [facility] Potassium measurement (mass/ volume)Ordered By: Deanna Cruz on 05-22-2024 Potassium (Unsp spec) [Mass/Vol] 4.7 mmol/L 3.3-5.1 [facility] RBC Auto (Bld) [#/Vol]Ordere d By: Deanna Cruz on 05-22-2024 RBC (Bld) [#/Vol] 4.63 10*6/uL 4.6-6.2 [facility] Random urine creatinine candido urement (mass/volume)Ordered By: Deanna Cruz on 05-22-2024 Creatinine Unsp time (U) [Mass/Vol] 109.00 mg/dL 39-259 [facility] Serum creatinine measurement (mass/volume)Ordered By: Deanna Cruz on 05-22-2024 Creatinine [Mass/Vol] 1.24 mg/dL High 0.70-1.20 [facility] Serum globulin measurementOr dered By: Deanna Cruz on 05-22-2024 Globulin (S) [Mass/Vol] 2.8 g/dL 2.2-4.2 [facility] Serum glucose measurement (m ass/volume)Ordered By: Deanna Cruz on 05-22-2024 Glucose [Mass/Vol] 77 mg/dL 70-99 [facility] Serum or plasma alanine mancilla otransferase (ALT) measurementOrdered By: Deanna Cruz on 05-22-2024 ALT [Catalytic activity/Vol] 39 U/L <47 [facility] Serum or plasma albumin candido urement (mass/volume)Ordered By: Deanna Cruz on 05-22-2024 Albumin [Mass/Vol] 4.2 g/dL 3.4-4.8 [facility] Serum or plasma albumin/glob ulin mass ratioOrdered By: Deanna Cruz on 05-22-2024 Albumin/Globulin [Mass ratio] 1.5 {ratio} 0.9-2.4 [facility] Serum or plasma alkaline dashawn sphatase measurementOrdered By: Deanna Cruz on 05-22-2024 ALP [Catalytic activity/Vol] 176 U/L High 40-129 [facility] Serum or plasma calcium candido urement (mass/volume)Ordered By: Deanna Cruz on 05-22-2024 Calcium [Mass/Vol] 9.9 mg/dL 7.6-11.0 [facility] Serum or plasma urea nitroge n measurement (mass/volume)Ordered By: Deanna Cruz on 05-22-2024 Urea nitrogen [Mass/Vol] 29 mg/dL High 4-19 [facility] Sodium levelOrdered By: Ligia dowdconcepcion Anthony on 05-22-2024 Sodium [Moles/Vol] 138 mmol/L 133-145 [facility] Total proteinOrdered By: Toro Cruz on 05-22-2024 Protein [Mass/Vol] 7.0 g/dL 5.9-8.4 [facility] Urine albumin measurement [facility] detection limit of 20 mg/L or less (mass/volume)Ordered By: Deanna Cruz on 05-22-2024 Albumin DL <= 20 mg/L (U) [Mass/Vol] 37.2 mg/L NO RANGE EST. [facility] White blood cell (WBC) count Ordered By: Deanna Cruz on 05-22-2024 WBC (Bld) [#/Vol] 5.7 10*3/uL 4.4-11.0 [facility] ECG 12 Leadon 04-30-2024 [facility] Office Vis venkat 02-21-2024 Internal Medicine Office Visit [facility] [address] [place] [address] [place] [address] OFFICE VISIT Date of Service: 02/21/24 MR#: [id number] Acct: [id number] Name: CELESTE KINCAID Rep #: [id number] : 1950 Provider: Dr. 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: No Is patient in pain?: No Allergies pravastatin Adverse Reaction (Unknown, Verified 02/21/24 13:56) Ineffective amlodipine Adverse Reaction (Verified 02/21/24 13:56) Constipation Medications ???Medication ???Instructions ???Recorded ???Confirmed ???Type tildrakizumab-asmn 100 mg/mL 100 mg subcut Q12W 08/11/20 02/21/24 History subcutaneous syringe (Ilumya) magnesium oxide 500 mg PO DAILY 01/12/22 02/21/24 History vitamin B complex 1 tab PO DAILY 01/12/22 02/21/24 History metoprolol tartrate 25 mg tablet 12.5 mg (1/2 x 25 mg) PO BID BP 12/02/22 02/21/24 Rx #180 tabs cholecalciferol (vitamin D3) 25 5,000 unit PO DAILY 03/29/23 02/21/24 History mcg (1,000 unit) tablet trazodone 50 mg tablet 50 mg PO QHS PRN insomnia #60 tabs 03/29/23 02/21/24 Rx clopidogrel 75 mg tablet 75 mg PO DAILY #90 tabs 03/30/23 02/21/24 Rx tamsulosin 0.4 mg capsule 0.4 mg PO DAILY PROSTATE #90 caps 08/23/23 02/21/24 Rx dutasteride 0.5 mg capsule 0.5 mg PO DAILY PROSTATE #90 caps 12/05/23 02/21/24 Rx lisinopril 20 mg tablet 20 mg PO BID BP #180 tabs 12/20/23 02/21/24 Rx apixaban 5 mg tablet (Eliquis) 5 mg PO BID #60 tabs 01/29/24 02/21/24 Rx atorvastatin 80 mg tablet 80 mg PO QPM #90 tabs 02/19/24 02/21/24 Rx Have you fallen in the past year?: No Nurse's Note: Had a carioversion on monday by [facility] f/u on 04/09/24 w/ cardio. [facility]LY [facility], [facility] Medical History (Updated 02/21/24 @ 14:[address] Deanna Cruz MD) History of cardioversion Atrial fibrillation CKD (chronic kidney disease), stage III Carotid artery stenosis Abnormal kidney function study SBO (small bowel obstruction) Insomnia Cerumen impaction Flu vaccine need Back pain Venous insufficiency of both lower extremities Health care maintenance Bradycardia History of tobacco use Encounter for screening for malignant neoplasm of lung Chronic low back pain Retinal vascular occlusion of right eye Dyspnea ANUJA (obstructive sleep apnea) Mixed hyperlipidemia Type 2 diabetes mellitus Atherosclerotic heart disease of [place] coronary artery without angina pectoris Essential hypertension Presence of stent in coronary artery ( 03/09/16) Non-rheumatic mitral regurgitation Nonrheumatic tricuspid valve regurgitation Bilateral carotid artery stenosis History of ST elevation myocardial infarction (STEMI) ( 03/08/16) Diabetic neuropathy Venous insufficiency BPH (benign prostatic hyperplasia) Type 2 diabetes mellitus Psoriasis Peripheral artery disease Sleep apnea Heart attack Vision problems Vascular disease prostatse issues Pneumonia High cholesterol Hypertension Heart disease GERD (gastroesophageal reflux disease) Diabetes Cataracts, bilateral Back problem Seasonal allergies Surgical History Hx of right cataract extraction History of left-sided carotid endarterectomy ( 08/2018) History of cataract surgery Presence of coronary angioplasty implant and graft ( 03/09/16) S/P aortobifemoral bypass surgery ( 01/09/17) Status post aortobifemoral bypass surgery S/P aortobifemoral bypass surgery S/P aortobifemoral bypass surgery S/P aortobifemoral bypass surgery history aortic bifemerol bypass Family History Father Angina pectoris Brother Angina pectoris Cancer Myocardial infarction Heart disease Hypertension High cholesterol Prostate cancer Mother Angina pectoris Cancer Myocardial infarction Heart disease Hypertension High cholesterol Sister Hypertension Brother Prostate cancer Cancer prostate cancer, with mets. Social History Smoking Status: Former smoker Tobacco: How many years used: 45 alcohol intake: current alcohol intake frequency: holidays/special occasions only substance use type: does not use caffeine: Yes Type: coffee Number of servings: 3 what type of physical activity do you participate in: none HPI HPI Chief Complaint: FU Chronic c (more content not included)... Normal [facility] Laboratory - Hematology and Cell countson 02-21-2024 HbA1c (Bld) [Mass fraction] 5.4 % 4.2-6.3 [facility] BASIC METABOLIC PANELon Anion gap [Moles/Vol] 18 mmol/L Normal 10-20 [facility] Comment on above: Order Comment: If no t done in the last 30 days [facility] has implemented the eGFR calculation approach that does not have a coefficient for race that conforms to the NKF-ASN Task Force Recommendations. Performed By: #### 4 [id number] #### [facility] [address] [place], [place] [address] Casey Lay M.D. [id number] Calcium [Mass/Vol] 9.8 mg/dL Normal 8.4-10.2 [facility] Comment on above: Order Comment: If no t done in the last 30 days [facility] has implemented the eGFR calculation approach that does not have a coefficient for race that conforms to the NKF-ASN Task Force Recommendations. Performed By: #### 4 6124 #### [facility] [address] [place], [place] [address] Casey Lay M.D. [id number] Chloride [Moles/Vol] 107 mmol/L Normal 98-[address] [facility] Comment on above: Order Comment: If no t done in the last 30 days [facility] has implemented the eGFR calculation approach that does not have a coefficient for race that conforms to the NKF-ASN Task Force Recommendations. Performed By: #### 4 6162 #### LAB [address] [place] [id number] Casey Lay M.D. [id number] Creatinine [Mass/Vol] 1.46 mg/dL High 0.80-1.30 [facility] Comment on above: Order Comment: If no t done in the last 30 days [facility] has implemented the eGFR calculation approach that does not have a coefficient for race that conforms to the NKF-ASN Task Force Recommendations. Performed By: #### 4 [id number] #### LAB [address] [place] [id number] Casey Lay M.D. [id number] EGFR 51 mL/min/1.73 m2 Low >=60 [facility] Comment on above: Order Comment: If no t done in the last 30 days [facility] has implemented the eGFR calculation approach that does not have a coefficient for race that conforms to the NKF-ASN Task Force Recommendations. Result Comment: Sulema mated GFR was calculated using the 2020 CKD-EPI creatinine equation. Performed By: #### 4 [id number] #### LAB [address] [place] [address] Casey Lay M.D. [id number] Glucose [Mass/Vol] 89 mg/dL Normal 65-99 [facility] Comment on above: Order Comment: If no t done in the last 30 days [facility] has implemented the eGFR calculation approach that does not have a coefficient for race that conforms to the NKF-ASN Task Force Recommendations. Performed By: #### 4 [id number] #### [facility] [address] [place] [address] Casey Lay M.D. [id number] HCO3 (Bld) [Moles/Vol] 20 mmol/L Low 21-32 [facility] Comment on above: Order Comment: If no t done in the last 30 days [facility] has implemented the eGFR calculation approach that does not have a coefficient for race that conforms to the NKF-ASN Task Force Recommendations. Performed By: #### 4 6124 #### LAB [address] [place] [address] Casey Lay M.D. [id number] Potassium [Moles/Vol] 4.9 mmol/L Normal 3.5-5.1 [facility] Comment on above: Order Comment: If no t done in the last 30 days [facility] has implemented the eGFR calculation approach that does not have a coefficient for race that conforms to the NKF-ASN Task Force Recommendations. Result Comment: Slig htly Hemolyzed Performed By: #### 4 [id number] #### LAB [address] [place] [address] Casey Lay M.D. [id number] Sodium [Moles/Vol] 140 mmol/L Normal 135-145 [facility] Comment on above: Order Comment: If no t done in the last 30 days [facility] has implemented the eGFR calculation approach that does not have a coefficient for race that conforms to the NKF-ASN Task Force Recommendations. Performed By: #### 4 [id number] #### LAB [address] [place] [address] Casey Lay M.D. [id number] Urea nitrogen [Mass/Vol] 38 mg/dL High 8-25 [facility] Comment on above: Order Comment: If no t done in the last 30 days [facility] has implemented the eGFR calculation approach that does not have a coefficient for race that conforms to the NKF-ASN Task Force Recommendations. Performed By: #### 4 6124 #### LAB [address] [place] [address] Casey Lay M.D. [id number] Urea nitrogen/Creatinine [Mass ratio] 26.0 mg/mg High 10.0-20.0 [facility] Comment on above: Order Comment: If no t done in the last 30 days [facility] has implemented the eGFR calculation approach that does not have a coefficient for race that conforms to the NKF-ASN Task Force Recommendations. Performed By: #### 4 [id number] #### LAB [address] [place], [place] [address] Casey Lay M.D. [id number] CARDIOVERSION EXTERNALon CARDIOVERSION EXTERNAL EXTERNAL CARDIOVERSION NOTE MR #: [id number] : 1950 Sedation Plan: Moderate sedation using Propofol. [place] Protocol: 1. Pre-procedure verification: - Correct patient, correct site, correct procedure (correct patient verified against two identifiers: name and date of ) - H AND P or H AND P update complete and in medical record - Consent form completed and signed: Yes - Informed consent risks: bleeding, pain, infections, vascular compromise - Review of: Radiology images, scans, labs, pathology, biopsy reports with appropriate identifiers (if applicable) - Any required blood products, implants, devices, and/or special equipment for the procedure (if applicable) Procedure Details: The patient was in a fasting non-absorptive state. The patient was connected to continuous electrocardiographic monitoring, non-invasive blood pressure, pulse oximetry, and a well running IV access line. Anterior and posterior defibrillation pads were placed in the usual fashion. Intravenous sedation was administered using Propofol. When adequate sedation was achieved, a single successful synchronized 200J biphasic shock was delivered via the defibrillation pads. Cardioversion Details: Arrhythmia Type:Atrial fibrillation The patient awakened shortly thereafter fully neurologically intact and hemodynamically stable and was observed in the patient care unit. Complications: None Conclusions/Diagnosis: Successful cardioversion to NSR Nicolás Tinsley DO, MPH [facility] Clinical Cardiac Electrophysiology Normal [facility] CBC WITH AUTO DIFFERENTIALon 02-19-2024 AUTO NRBC 0.0 % Normal [facility] Comment on above: Order Comment: If no t done in the last 30 days Performed By: #### L [id number] #### [facility] [address] [place], [place] [address] Casey Lay M.D. [id number] AUTO NRBC ABS COUNT 0.00 K/mcL Normal 0.00-0.00 [facility] Comment on above: Order Comment: If no t done in the last 30 days Performed By: #### L [id number] #### [facility] [address] [place], [place] [address] Casey Lay M.D. [id number] BASOPHILS ABSOLUTE COUNT 0.06 K/mcL Normal 0.00-0.30 [facility] Comment on above: Order Comment: If no t done in the last 30 days Performed By: #### L [id number] #### [facility] [address] [place] [address] Casey Lay M.D. [id number] Basophils/100 WBC (Bld) 1.0 % Normal [facility] Comment on above: Order Comment: If no t done in the last 30 days Performed By: #### L [id number] #### LAB [address] [place] [address] Casey Lay M.D. [id number] Eosinophils (Bld) [#/Vol] 0.09 10*3/uL Normal 0.00-0.50 [facility] Comment on above: Order Comment: If no t done in the last 30 days Performed By: #### L [id number] #### LAB [address] [place] [address] Casey Lay M.D. [id number] Eosinophils/100 WBC (Bld) 1.5 % Normal [facility] Comment on above: Order Comment: If no t done in the last 30 days Performed By: #### L [id number] #### LAB [address] [place] [address] Casey Lay M.D. [id number] Erythrocyte distribution width (RBC) [Ratio] 14.7 % Normal 11.6-14.8 [facility] Comment on above: Order Comment: If no t done in the last 30 days Performed By: #### L [id number] #### LAB [address] [place] [address] Casey Lay M.D. [id number] Hematocrit (Bld) [Volume fraction] 43.6 % Normal 41.0-53.0 [facility] Comment on above: Order Comment: If no t done in the last 30 days Performed By: #### L [id number] #### LAB [address] [place] [address] Casey Lay M.D. [id number] Hemoglobin (Bld) [Mass/Vol] 14.4 g/dL Normal 13.5-17.5 [facility] Comment on above: Order Comment: If no t done in the last 30 days Performed By: #### L [id number] #### LAB [address] [place] [address] Casey Lay M.D. [id number] IG ABSOLUTE 0.01 K/mcL Normal 0.00-0.30 [facility] Comment on above: Order Comment: If no t done in the last 30 days Performed By: #### L [id number] #### LAB [address] [place] [address] Casey Lay M.D. [id number] IG PERCENT 0.20 % Normal [facility] Comment on above: Order Comment: If no t done in the last 30 days Result Comment: The IG parameter is the percentage of metamyelocytes, myelocytes and promyelocytes. An immature granulocyte count (IG) of 1% or more suggests the possibility of infection, an IG count of 3% is very likely related to an infection. Performed By: #### L [id number] #### LAB [address] [place] [address] Casey Lay M.D. [id number] Lymphocytes (Bld) [#/Vol] 1.23 10*3/uL Normal 0.90-4.00 [facility] Comment on above: Order Comment: If no t done in the last 30 days Performed By: #### L [id number] #### LAB [address] [place] [address] Casey Lay M.D. [id number] Lymphocytes/100 WBC (Bld) 20.1 % Normal [facility] Comment on above: Order Comment: If no t done in the last 30 days Performed By: #### L [id number] #### LAB [address] [address] Casey Lay M.D. [id number] MCH (RBC) [Entitic mass] 29.8 pg Normal 26.0-34.0 [facility] Comment on above: Order Comment: If no t done in the last 30 days Performed By: #### L [id number] #### LAB [address] [place] [address] Casey Lay M.D. [id number] MCV (RBC) [Entitic vol] 90.3 fL Normal 80.0-100.0 [facility] Comment on above: Order Comment: If no t done in the last 30 days Performed By: #### L [id number] #### LAB [address] [place] [address] Casey Lay M.D. [id number] MEAN CORPUSCULAR HEMOGLOBIN CONC 33.0 g/dL Normal 31.0-37.0 [facility] Comment on above: Order Comment: If no t done in the last 30 days Performed By: #### L [id number] #### LAB [address] [place] [address] Casey Lay M.D. [id number] Monocytes (Bld) [#/Vol] 0.44 10*3/uL Normal 0.30-0.90 [facility] Comment on above: Order Comment: If no t done in the last 30 days Performed By: #### L [id number] #### LAB [address] [place] [address] Casey Lay M.D. [id number] Monocytes/100 WBC (Bld) 7.2 % Normal [facility] Comment on above: Order Comment: If no t done in the last 30 days Performed By: #### L [id number] #### LAB [address] [place] [address] Casey Lay M.D. [id number] NEUTROPHILS ABSOLUTE COUNT 4.30 K/mcL Normal 1.70-7.00 [facility] Comment on above: Order Comment: If no t done in the last 30 days Performed By: #### L [id number] #### [facility] [address] [place] [address] Casey Lay M.D. [id number] Neutrophils/100 WBC (Bld) 70.0 % Normal [facility] Comment on above: Order Comment: If no t done in the last 30 days Performed By: #### L [id number] #### LAB [address] [place] [address] Casey Lay M.D. [id number] Platelet mean volume (Bld) [Entitic vol] 11.5 fL Normal 9.4-12.4 [facility] Comment on above: Order Comment: If no t done in the last 30 days Performed By: #### L [id number] #### [facility] [address] [address] Casey Lay M.D. [id number] Platelets (Bld) [#/Vol] 208 10*3/uL Normal 150-400 [facility] Comment on above: Order Comment: If no t done in the last 30 days Performed By: #### L [id number] #### [facility] [address] [address] Casey Lay M.D. [id number] RBC (Bld) [#/Vol] 4.83 10*6/uL Normal 4.50-5.90 [facility] Comment on above: Order Comment: If no t done in the last 30 days Performed By: #### L [id number] #### [facility] [address] [address] Casey Lay M.D. [id number] WBC (Bld) [#/Vol] 6.13 10*3/uL Normal 4.50-11.00 [facility] Comment on above: Order Comment: If no t done in the last 30 days Performed By: #### L [id number] #### [facility] [address] [address] Casey Lay M.D. [id number] PT/INRon 02-19-2024 INR Coag (PPP) [Relative time] 1.3 {INR} High 0.8-1.1 [facility] Comment on above: Order Comment: Withi n past 24 hours if patient has taken Warfarin within last 5 days During the induction phase of oral anticoagulation, the INR may not reflect the anticoagulation status of the patient. Therapeutic ranges for INR's are: Most clinical situations: INR 2.0-3.0 Mechanical Prosthetic Valve: INR 2.5-3.5 Critical: INR >5.0 Performed By: #### 4 [id number] #### LAB [address] [place] [address] Casey Lay M.D. [id number] PT Coag (PPP) [Time] 16.6 s High 11.8-14.[address] [facility] Comment on above: Order Comment: Withi n past 24 hours if patient has taken Warfarin within last 5 days During the induction phase of oral anticoagulation, the INR may not reflect the anticoagulation status of the patient. Therapeutic ranges for INR's are: Most clinical situations: INR 2.0-3.0 Mechanical Prosthetic Valve: INR 2.5-3.5 Critical: INR >5.0 Performed By: #### 4 [id number] #### [facility] [address] [place], [place] [address] Casey Lay M.D. [id number] ECG 12 Leadon 02-14-2024 Atrial Rate [facility] P-R Interval [facility] Q-T Interval [facility] Q-T Interval (corrected) [facility] QRS Duration [facility] QTC Calculation (Bezet) [facility] R [facility] T [facility] Ventricular Rate [facility] Atrial fibrillation -Old anterior infarct. -Nonspecific T-abnormality. [facility] Result approved by Nicolás Mckeon DO on 02/14/24 [facility] T4 Free Directon 11-24-2023 T4 FREE DIRECT 1.11 ng/dL Normal 0.76-1.46 [facility] Comment on above: Performed By: #### L 506.0400, L501.9520 #### [facility] Laboratory [address], [place], [id number] Thyroid Stim Hormone (TSH)on 11-24-2023 TSH 1.870 uIU/mL Normal 0.358-3.74 0 [facility] Comment on above: Performed By: #### L 506.0400, L501.9520 #### [facility] [address], [place], [id number] Comprehensive Metabolic Prof ilon 11-23-2023 Albumin [Mass/Vol] 3.8 g/dL Normal 3.2-5.0 [facility] Comment on above: Performed By: #### L 500.4100, L500.4050, [id number] #### [facility] [address] [place], [address] Albumin/Globulin [Mass ratio] 1.2 {ratio} Normal 0.9-2.4 [facility] Comment on above: Performed By: #### L 500.4100, [id number], [id number] #### [facility] [address] [place], [address] ALK P 167 U/L High 45-117 [facility] Comment on above: Performed By: #### L 500.4100, L500.4050, [id number] #### [facility] [address] [place], [address] ALT [Catalytic activity/Vol] 44 U/L Normal 16-61 [facility] Comment on above: Performed By: #### L 500.4100, L500.4050, [id number] #### [facility] [address] [place], [address] AST [Catalytic activity/Vol] 26 U/L Normal 15-37 [facility] Comment on above: Performed By: #### L 500.4100, L500.4050, [id number] #### [facility] [address] [place], [address] Bilirubin [Mass/Vol] 1.20 mg/dL High 0.20-1.00 [facility] Comment on above: Result Comment: For patients on eltrombopag therapy, use of Dimension [place] TBIL is not recommended. Performed By: #### L 500.4100, L500.4050, [id number] #### [facility] [address] [place], [address] BUN/CRE 28.6 RATIO High 10-20 [facility] Comment on above: Performed By: #### L 500.4100, L500.4050, [id number] #### [facility] [address] [place], [address] CA,Total 9.5 mg/dL Normal 8.5-10.1 [facility] Comment on above: Performed By: #### L 500.4100, [id number], [id number] #### [facility] [address] [place], [address] Chloride [Moles/Vol] 107 mmol/L Normal 98-107 [facility] Comment on above: Performed By: #### L 500.4100, L500.4050, [id number] #### [facility] [address] [place], [address] CO2 [Moles/Vol] 22.0 mmol/L Normal 21.0-32.0 [facility] Comment on above: Performed By: #### L 500.4100, L500.4050, [id number] #### [facility] [address] [place], [address] Creatinine [Mass/Vol] 1.33 mg/dL High 0.70-1.30 [facility] Comment on above: Result Comment: The validity of the calculated GFR GFRAA in patients over 70 years has not been determined. Clinical correlation is essential. Performed By: #### L 500.4100, L500.4050, [id number] #### [facility] [address] [place], [address] EST GFR - AA 68 mL/min Normal >60 [facility] Comment on above: Result Comment: Afri can [place] GFR Calc Performed By: #### L 500.4100, L500.4050, [id number] #### [facility] [address] [place], [address] GAP 7 Normal 5-15 [facility] Comment on above: Performed By: #### L 500.4100, L500.4050, [id number] #### [facility] [address] [place], [address] GFR/1.73 sq M.predicted among non-blacks MDRD (S/P/Bld) [Vol rate/Area] 56 mL/min/{1.73_m2} Low >60 [facility] Comment on above: Result Comment: Non- GFR Calc Performed By: #### L 500.4100, L500.4050, [id number] #### [facility] [address] [place], [address] Globulin (S) [Mass/Vol] 3.3 g/dL Normal 2.2-4.2 [facility] Comment on above: Performed By: #### L 500.4100, L500.4050, [id number] #### [facility] [address] [place], [address] Glucose [Mass/Vol] 87 mg/dL Normal 74-106 [facility] Comment on above: Performed By: #### L 500.4100, L500.4050, [id number] #### [facility] [address] [place], [address] Potassium [Moles/Vol] 4.8 mmol/L Normal 3.5-5.1 [facility] Comment on above: Performed By: #### L 500.4100, L500.4050, [id number] #### [facility] [address] [place], [address] Sodium [Moles/Vol] 136 mmol/L Normal 136-145 [facility] Comment on above: Performed By: #### L 500.4100, L500.4050, [id number] #### [facility] [address] [place], [address] T PROT 7.1 g/dL Normal 6.4-8.2 [facility] Comment on above: Performed By: #### L 500.4100, L500.4050, [id number] #### [facility] [address] [place], [address] Urea nitrogen [Mass/Vol] 38 mg/dL High 7-18 [facility] Comment on above: Performed By: #### L 500.4100, L500.4050, [id number] #### [facility] [address] [place], [address] Internal Medicine Office Vis iton 11-23-2023 Internal Medicine Office Visit [facility] [address] [place] [address] [place] [address] OFFICE VISIT Date of Service: 11/23/23 MR#: [id number] Acct: [id number] Name: CELESTE KINCAID Rep #: [id number] : 1950 Provider: Dr. 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 Operator Required: No Is patient in pain?: No Allergies pravastatin Adverse Reaction (Unknown, Verified 08/23/23 13:44) Ineffective amlodipine Adverse Reaction (Verified 08/23/23 13:44) Constipation Medications ???Medication ???Instructions ???Recorded ???Confirmed ???Type aspirin 81 mg tablet,delayed 81 mg PO DAILY BLOOD THINNER 04/10/18 11/23/23 History release tildrakizumab-asmn 100 mg/mL 100 mg subcut Q12W 08/11/20 11/23/23 History subcutaneous syringe (Ilumya) magnesium oxide 500 mg PO DAILY 01/12/22 11/23/23 History vitamin B complex 1 tab PO DAILY 01/12/22 11/23/23 History metoprolol tartrate 25 mg tablet 12.5 mg (1/2 x 25 mg) PO BID BP 12/02/22 11/23/23 Rx #180 tabs cholecalciferol (vitamin D3) 25 5,000 unit PO DAILY 03/29/23 11/23/23 History mcg (1,000 unit) tablet trazodone 50 mg tablet 50 mg PO QHS PRN insomnia #60 tabs 03/29/23 11/23/23 Rx clopidogrel 75 mg tablet 75 mg PO DAILY #90 tabs 03/30/23 11/23/23 Rx atorvastatin 80 mg tablet 80 mg PO QPM #90 tabs 05/18/23 11/23/23 Rx lisinopril 20 mg tablet 20 mg PO BID BP #180 tabs 05/25/23 11/23/23 Rx tamsulosin 0.4 mg capsule 0.4 mg PO DAILY PROSTATE #90 caps 08/23/23 11/23/23 Rx dutasteride 0.5 mg capsule 0.5 mg PO DAILY PROSTATE #90 caps 09/12/23 11/23/23 Rx apixaban 5 mg tablet (Eliquis) 5 mg PO BID #60 tabs 11/23/23 11/23/23 Rx Have you fallen in the past year?: No PFSH Medical History (Updated 11/23/23 @ 16:[address] Deanna Cruz MD) Atrial fibrillation CKD (chronic kidney disease), stage III Carotid artery stenosis Abnormal kidney function study SBO (small bowel obstruction) Insomnia Cerumen impaction Flu vaccine need Back pain Venous insufficiency of both lower extremities Health care maintenance Bradycardia History of tobacco use Encounter for screening for malignant neoplasm of lung Chronic low back pain Retinal vascular occlusion of right eye Dyspnea ANUJA (obstructive sleep apnea) Mixed hyperlipidemia Type 2 diabetes mellitus Atherosclerotic heart disease of [place] coronary artery without angina pectoris Essential hypertension Presence of stent in coronary artery ( 03/09/16) Non-rheumatic mitral regurgitation Nonrheumatic tricuspid valve regurgitation Bilateral carotid artery stenosis History of ST elevation myocardial infarction (STEMI) ( 03/08/16) Diabetic neuropathy Venous insufficiency BPH (benign prostatic hyperplasia) Type 2 diabetes mellitus Psoriasis Peripheral artery disease Sleep apnea Heart attack Vision problems Vascular disease prostatse issues Pneumonia High cholesterol Hypertension Heart disease GERD (gastroesophageal reflux disease) Diabetes Cataracts, bilateral Back problem Seasonal allergies Surgical History Hx of right cataract extraction History of left-sided carotid endarterectomy ( 08/2018) History of cataract surgery Presence of coronary angioplasty implant and graft ( 03/09/16) S/P aortobifemoral bypass surgery ( 01/09/17) Status post aortobifemoral bypass surgery S/P aortobifemoral bypass surgery S/P aortobifemoral bypass surgery S/P aortobifemoral bypass surgery history aortic bifemerol bypass Family History Father Angina pectoris Brother Angina pectoris Cancer Myocardial infarction Heart disease Hypertension High cholesterol Prostate cancer Mother Angina pectoris Cancer Myocardial infarction Heart disease Hypertension High cholesterol Sister Hypertension Brother Prostate cancer Cancer prostate cancer, with mets. Social History Smoking Status: Former smoker Tobacco: How many years used: 45 alcohol intake: current alcohol intake frequency: holidays/special occasions only substance use type: does not use caffeine: Yes Type: coffee Number of servings: 3 what type of physical activity do you participate in: none HPI HPI Chief Complaint: FU Chronic conditions Details: (more content not included)... Normal [facility] Lipid Profileon 11-23-2023 Cholesterol [Mass/Vol] 98 mg/dL Normal 200 [facility] Comment on above: Result Comment: <200 mg/dL Desirable 200-240 mg/dL Borderline >240 mg/dL High Risk Performed By: #### L 500.4100, L500.4050, [id number] #### [facility] [address] [place], [address] Cholesterol in HDL [Mass/Vol] 71 mg/dL Normal [facility] Comment on above: Result Comment: The drugs N-Acetylcysteine and Metamizole may falsely depress this assay. Reference Range HDL <40 mg/dL Low HDL Cholesterol HDL >or= 60 mg/dL High HDL Cholesterol Performed By: #### L 500.4100, L500.4050, [id number] #### [facility] [address] [place], [address] Cholesterol in LDL [Mass/Vol] 18 mg/dL Normal 0-130 [facility] Comment on above: Performed By: #### L 500.4100, L500.4050, [id number] #### [facility] [address] [place], [address] Cholesterol in VLDL [Mass/Vol] 9 mg/dL Normal 5-40 [facility] Comment on above: Performed By: #### L 500.4100, L500.4050, [id number] #### [facility] [address] [place], [address] Triglyceride [Mass/Vol] 43 mg/dL Normal [facility] Comment on above: Result Comment: The drugs N-Acetylcysteine and Metamizole may falsely depress this assay. Serum Triglycerides Reference Interval Normal <150 mg/dL Borderline high 150 - 199 mg/dL High 200 - 499 mg/dL Very High > or = 500 mg/dL Performed By: #### L 500.4100, L500.4050, [id number] #### [facility] [address] [place], [address] Urinalysis, Completeon 11-22 BACTERIA RARE Normal None Seen [facility] Comment on above: Order Comment: COLLE CTOR TO SPECIFY Performed By: #### L 500.4100, L500.4050, [id number] #### [facility] [address] [place], [address] EPI,SQUAMOUS 0-5 SEEN Normal 0-5 [facility] Comment on above: Order Comment: COLLE CTOR TO SPECIFY Performed By: #### L 500.4100, L500.4050, [id number] #### [facility] [address] [place], [address] Mucus Ql (Urine sed) 0 SEEN Normal [facility] Comment on above: Order Comment: COLLE CTOR TO SPECIFY Performed By: #### L 500.4100, L500.4050, [id number] #### [facility] [address] [place], [address] RBC 0 SEEN Normal 0-5 [facility] Comment on above: Order Comment: COLLE CTOR TO SPECIFY Performed By: #### L 500.4100, L500.4050, [id number] #### [facility] [address] [place], [address] WBC 0 SEEN Normal 0-5 [facility] Comment on above: Order Comment: COLLE CTOR TO SPECIFY Performed By: #### L 500.4100, L500.4050, [id number] #### [facility] [address] [place], [address] Basic Metabolic Profile (BMP )on 09-12-2023 BUN/CRE 29.1 RATIO High 10-20 [facility] Comment on above: Performed By: #### L 500.2500 ####[facility] [address] [place], [address] CA,Total 9.5 mg/dL Normal 8.5-10.1 [facility] Comment on above: Performed By: #### L 500.2500 ####[facility] [address] [place], [address] Chloride [Moles/Vol] 110 mmol/L High 98-107 [facility] Comment on above: Performed By: #### L 500.2500 ####[facility] [address] [place], [address] CO2 [Moles/Vol] 22.0 mmol/L Normal 21.0-32.0 [facility] Comment on above: Performed By: #### L 500.2500 ####[facility] [address] [place], [address] Creatinine [Mass/Vol] 1.51 mg/dL High 0.70-1.30 [facility] Comment on above: Result Comment: The validity of the calculated GFR GFRAA in patients over 70 years has not been determined. Clinical correlation is essential. Performed By: #### L 500.2500 ####[facility] [address] [place], [address] EST GFR - AA 59 mL/min Low >60 [facility] Comment on above: Result Comment: Afri can [place] GFR Calc Performed By: #### L 500.2500 ####[facility] [address] [place], [address] GAP 5 Normal 5-15 [facility] Comment on above: Performed By: #### L 500.2500 ####[facility] [address] [place], [address] GFR/1.73 sq M.predicted among non-blacks MDRD (S/P/Bld) [Vol rate/Area] 49 mL/min/{1.73_m2} Low >60 [facility] Comment on above: Result Comment: Non- GFR Calc Performed By: #### L 500.2500 ####[facility] [address] [place], [address] Glucose [Mass/Vol] 93 mg/dL Normal 74-106 [facility] Comment on above: Performed By: #### L 500.2500 ####[facility] [address] [place], [address] Potassium [Moles/Vol] 5.1 mmol/L Normal 3.5-5.1 [facility] Comment on above: Performed By: #### L 500.2500 ####[facility] [address] [place], [address] Sodium [Moles/Vol] 137 mmol/L Normal 136-145 [facility] Comment on above: Performed By: #### L 500.2500 ####[facility] [address] [place], [address] Urea nitrogen [Mass/Vol] 44 mg/dL High 7-18 [facility] Comment on above: Performed By: #### L 500.2500 ####[facility] [address] [place], [address] Basic Metabolic Profile (BMP )on 09-04-2023 BUN/CRE 27.9 RATIO High 10-20 [facility] Comment on above: Performed By: #### L 500.2500 #### [facility] [address] [place], [address] CA,Total 9.6 mg/dL Normal 8.5-10.1 [facility] Comment on above: Performed By: #### L 500.2500 #### [facility] [address] [place], [address] Chloride [Moles/Vol] 108 mmol/L High 98-107 [facility] Comment on above: Performed By: #### L 500.2500 #### [facility] [address] [place], [address] CO2 [Moles/Vol] 22.0 mmol/L Normal 21.0-32.0 [facility] Comment on above: Performed By: #### L 500.2500 #### [facility] [address] [place], [address] Creatinine [Mass/Vol] 1.40 mg/dL High 0.70-1.30 [facility] Comment on above: Result Comment: The validity of the calculated GFR GFRAA in patients over 70 years has not been determined. Clinical correlation is essential. Performed By: #### L 500.2500 #### [facility] [address] [place], [address] EST GFR - AA 64 mL/min Normal >60 [facility] Comment on above: Result Comment: Afri can [place] GFR Calc Performed By: #### L 500.2500 #### [facility] [address] [place], [address] GAP 8 Normal 5-15 [facility] Comment on above: Performed By: #### L 500.2500 #### [facility] [address] [place], [address] GFR/1.73 sq M.predicted among non-blacks MDRD (S/P/Bld) [Vol rate/Area] 53 mL/min/{1.73_m2} Low >60 [facility] Comment on above: Result Comment: Non- GFR Calc Performed By: #### L 500.2500 #### [facility] [address] [place], [address] Glucose [Mass/Vol] 92 mg/dL Normal 74-106 [facility] Comment on above: Performed By: #### L 500.2500 #### [facility] [address] [place], [address] Potassium [Moles/Vol] 5.3 mmol/L High 3.5-5.1 [facility] Comment on above: Performed By: #### L 500.2500 #### [facility] [address] [place], [address] Sodium [Moles/Vol] 138 mmol/L Normal 136-145 [facility] Comment on above: Performed By: #### L 500.2500 #### [facility] [address] [place], [address] Urea nitrogen [Mass/Vol] 39 mg/dL High 7-18 [facility] Comment on above: Performed By: #### L 500.2500 #### [facility] [address] [place], [address] COMPREHENSIVE METABOLIC PANE [place] 08-29-2023 Albumin [Mass/Vol] 4.0 g/dL Normal 3.2-5.2 [facility] Comment on above: Order Comment: [facility] has implemented the eGFR calculation approach that does not have a coefficient for race that conforms to the NKF-ASN Task Force Recommendations. Performed By: #### 4 6126 #### [facility] [address] [address] Casey Lay M.D. [id number] ALP [Catalytic activity/Vol] 167 U/L High 40-150 [facility] Comment on above: Order Comment: [facility] has implemented the eGFR calculation approach that does not have a coefficient for race that conforms to the NKF-ASN Task Force Recommendations. Performed By: #### 4 6126 #### [facility] [address] [address] Casey Lay M.D. [id number] ALT [Catalytic activity/Vol] 26 U/L Normal 0-50 U/L [facility] Comment on above: Order Comment: [facility] has implemented the eGFR calculation approach that does not have a coefficient for race that conforms to the NKF-ASN Task Force Recommendations. Performed By: #### 4 6126 #### [facility] [address] [address] Casey Lay M.D. [id number] Anion gap [Moles/Vol] 12 mmol/L Normal 10-20 [facility] Comment on above: Order Comment: [facility] has implemented the eGFR calculation approach that does not have a coefficient for race that conforms to the NKF-ASN Task Force Recommendations. Performed By: #### 4 6126 #### [facility] [address] [address] Casey Lay M.D. [id number] AST [Catalytic activity/Vol] 31 U/L Normal 0-50 U/L [facility] Comment on above: Order Comment: [facility] has implemented the eGFR calculation approach that does not have a coefficient for race that conforms to the NKF-ASN Task Force Recommendations. Performed By: #### 4 6126 #### [facility] [address] [address] Casey Lay M.D. [id number] Bilirubin [Mass/Vol] 0.7 mg/dL Normal 0.0-1.[address] [facility] Comment on above: Order Comment: [facility] has implemented the eGFR calculation approach that does not have a coefficient for race that conforms to the NKF-ASN Task Force Recommendations. Performed By: #### 4 6126 #### [facility] [address] [place], [place] [address] Casey Lay M.D. [id number] Calcium [Mass/Vol] 9.5 mg/dL Normal 8.4-10.2 [facility] Comment on above: Order Comment: [facility] has implemented the eGFR calculation approach that does not have a coefficient for race that conforms to the NKF-ASN Task Force Recommendations. Performed By: #### 4 6126 #### [facility] [address] [id number] Casey Lay M.D. [id number] Chloride [Moles/Vol] 105 mmol/L Normal 98-[address] [facility] Comment on above: Order Comment: [facility] has implemented the eGFR calculation approach that does not have a coefficient for race that conforms to the NKF-ASN Task Force Recommendations. Performed By: #### 4 6126 #### [facility] [address] [id number] Casey Lay M.D. [id number] Creatinine [Mass/Vol] 1.18 mg/dL Normal 0.80-1.30 [facility] Comment on above: Order Comment: [facility] has implemented the eGFR calculation approach that does not have a coefficient for race that conforms to the NKF-ASN Task Force Recommendations. Performed By: #### 4 6126 #### [facility] [address] [place], [place] [address] Casey Lay M.D. [id number] EGFR 66 mL/min/1.73 m2 Normal >=60 [facility] Comment on above: Order Comment: [facility] has implemented the eGFR calculation approach that does not have a coefficient for race that conforms to the NKF-ASN Task Force Recommendations. Result Comment: Sulema mated GFR was calculated using the 2020 CKD-EPI creatinine equation. Performed By: #### 4 6126 #### [facility] [address] [address] Casey Lay M.D. [id number] Glucose [Mass/Vol] 97 mg/dL Normal 65-99 [facility] Comment on above: Order Comment: [facility] has implemented the eGFR calculation approach that does not have a coefficient for race that conforms to the NKF-ASN Task Force Recommendations. Performed By: #### 4 6126 #### [facility] [address] [address] Casey Lay M.D. [id number] HCO3 (Bld) [Moles/Vol] 25 mmol/L Normal 21-32 [facility] Comment on above: Order Comment: [facility] has implemented the eGFR calculation approach that does not have a coefficient for race that conforms to the NKF-ASN Task Force Recommendations. Performed By: #### 4 6126 #### [facility] [address] [address] Casey Lay M.D. [id number] Potassium [Moles/Vol] 4.3 mmol/L Normal 3.5-5.1 [facility] Comment on above: Order Comment: [facility] has implemented the eGFR calculation approach that does not have a coefficient for race that conforms to the NKF-ASN Task Force Recommendations. Performed By: #### 4 6126 #### [facility] [address] [address] Casey Lay M.D. [id number] Protein [Mass/Vol] 6.5 g/dL Normal 6.0-8.0 [facility] Comment on above: Order Comment: [facility] has implemented the eGFR calculation approach that does not have a coefficient for race that conforms to the NKF-ASN Task Force Recommendations. Performed By: #### 4 6126 #### [facility] [address] [address] Casey Lay M.D. [id number] Sodium [Moles/Vol] 138 mmol/L Normal 135-145 [facility] Comment on above: Order Comment: [facility] has implemented the eGFR calculation approach that does not have a coefficient for race that conforms to the NKF-ASN Task Force Recommendations. Performed By: #### 4 6126 #### [facility] [address] [id number] Casey Lay M.D. [id number] Urea nitrogen [Mass/Vol] 19 mg/dL Normal 8-25 [facility] Comment on above: Order Comment: [facility] has implemented the eGFR calculation approach that does not have a coefficient for race that conforms to the NKF-ASN Task Force Recommendations. Performed By: #### 4 6126 #### [facility] [address] [address] Casey Lay M.D. [id number] Urea nitrogen/Creatinine [Mass ratio] 16.1 mg/mg Normal 10.0-20.0 [facility] Comment on above: Order Comment: [facility] has implemented the eGFR calculation approach that does not have a coefficient for race that conforms to the NKF-ASN Task Force Recommendations. Performed By: #### 4 6126 #### [facility] [address] [address] Casey Lay M.D. [id number] LIPID PANELon 08-29-2023 Cholesterol [Mass/Vol] 195 mg/dL Normal 100-199 [facility] Comment on above: Performed By: #### 4 6087 #### [facility] [address] [id number] Casey Lay M.D. [id number] Cholesterol in HDL [Mass/Vol] 65 mg/dL Normal 40-59 [facility] Comment on above: Performed By: #### 4 6087 #### [facility] [address] [id number] Casey Lay M.D. [id number] Cholesterol.total/Cho lesterol in HDL [Mass ratio] 3.0 {ratio} Normal [facility] Comment on above: Result Comment: Male s Cholesterol/HDL Ratio: Average risk: 5.0 1/2 average risk: 3.4 2 x average risk: 9.6 Performed By: #### 4 6087 #### [facility] [address] [place], [place] [address] Casey Lay M.D. [id number] LDL CHOLESTEROL CALCULATED 115 mg/dL Normal 10-130 [facility] Comment on above: Result Comment: [facility] Cholesterol Education Program Guidelines: LDL Cholesterol Optimal: <100 mg/dL Near Optimal/above Optimal: 100-129 mg/dL Borderline High: 130-159 mg/dL High: 160-189 mg/dL Very High: greater than or equal to 190 mg/dL Performed By: #### 4 6087 #### [facility] [address] [place], [place] [address] Casey Lay M.D. [id number] NON HDL CHOL 130 mg/dL Normal [facility] Comment on above: Result Comment: [facility] Cholesterol Education Program Guidelines: NON HDL Cholesterol Desirable: <130 mg/dL Borderline High: 130-159 mg/dL High: 160-189 mg/dL Very High: > or = 190 mg/dL Performed By: #### 4 6087 #### [facility] [address] [place], [place] [address] Casey Lay M.D. [id number] Triglyceride [Mass/Vol] 75 mg/dL Normal 30-150 [facility] Comment on above: Performed By: #### 4 6087 #### [facility] [address] [place], [place] [address] Casey Lay M.D. [id number] US DOPPLER CAROTIDon 024 US DOPPLER CAROTID Patient Info Name: CELESTE KINCAID Age: 72 years : 1950 Gender: Male Exam Date: 08/29/2023 1:42 PM Patient Status: Outpatient Splicer Machine Operator: Faustina Jung RVT, RVS Referring Physician: MEMO KELLEY ; Indications R42 - Dizziness and giddiness Z98.61 - Coronary angioplasty status Procedure Description 96541 Duplex examination using B-mode, color and spectral Doppler of extracranial arteries; complete bilateral study. NASCET criteria is used when performing imaging correlation with carotid duplex interpretation. Conclusions * Right. * Less than 50% stenosis in the right internal carotid artery. Due to strict lab criteria. * Right vertebral artery is patent with antegrade flow. * No evidence of hemodynamically significant stenosis in the right common carotid, external carotid and subclavian arteries. * Left. * The site of the previous left endarterectomy is patent without restenosis. * Left vertebral artery is patent with antegrade flow. * No evidence of hemodynamically significant stenosis in the left common carotid, external carotid and subclavian arteries. Measurements Name Value Right PSV Right Prox CCA PSV 76 cm/s Right Mid CCA PSV 80 cm/s Right Distal CCA PSV 73 cm/s Right Prox ICA PSV 153 cm/s Right Mid ICA PSV 173 cm/s Right Distal ICA PSV 63 cm/s Right ECA PSV 107 cm/s Right Vert PSV 50 cm/s Right Prox SCA PSV 106 cm/s Rt ICA/CCA Ratio 2.1 Measurements Name Value Right EDV Right Prox CCA EDV 10 cm/s Right Mid CCA EDV 13 cm/s Right Distal CCA EDV 14 cm/s Right Prox ICA EDV 40 cm/s Right Mid ICA EDV 27 cm/s Right Distal ICA EDV 5 cm/s Right ECA EDV 0 cm/s Right Vert EDV 8 cm/s Right Prox SCA EDV 0 cm/s Measurements Name Value Left PSV Left Prox CCA PSV 67 cm/s Left Mid CCA PSV 76 cm/s Left Distal CCA PSV 110 cm/s Left Prox ICA PSV 130 cm/s Left Mid ICA PSV 118 cm/s Left Distal ICA PSV 74 cm/s Left ECA PSV 130 cm/s Left Vert PSV 45 cm/s Left Prox SCA PSV 171 cm/s Lt ICA/CCA Ratio 1.2 Measurements Name Value Left EDV Left Prox CCA EDV 10 cm/s Left Mid CCA EDV 13 cm/s Left Distal CCA EDV 14 cm/s Left Prox ICA EDV 34 cm/s Left Mid ICA EDV 30 cm/s Left Distal ICA EDV 18 cm/s Left ECA EDV 12 cm/s Left Vert EDV 11 cm/s Left Prox SCA EDV 0 cm/s Right Findings * No plaque noted in the right common carotid artery. * No plaque noted in the right external carotid artery. * Heterogeneous plaque noted in the right internal carotid artery. Left Findings * No plaque noted in the left common carotid artery. * No plaque noted in the left internal carotid artery. * No plaque noted in the left external carotid artery. Risk Factors Patient has a history of CAD, tobacco use-previous and PAD. . Report Signatures Finalized by Nupur James MD, RPVI on 08/29/2023 04:08 PM [facility] US DOPPLER CAROTID Patient Info Name: CELESTE KINCAID Age: 72 years : 1950 Gender: Male Exam Date: 08/29/2023 1:42 PM Patient Status: Outpatient Splicer Machine Operator: Faustina Jung, RVT, RVS Referring Physician: MEMO KELLEY ; Indications R42 - Dizziness and giddiness Z98.61 - Coronary angioplasty status Procedure Description [id number] Duplex examination using B-mode, color and spectral Doppler of extracranial arteries; complete bilateral study. NASCET criteria is used when performing imaging correlation with carotid duplex interpretation. Conclusions * Right. * Less than 50% stenosis in the right internal carotid artery. Due to strict lab criteria. * Right vertebral artery is patent with antegrade flow. * No evidence of hemodynamically significant stenosis in the right common carotid, external carotid and subclavian arteries. * Left. * The site of the previous left endarterectomy is patent without restenosis. * Left vertebral artery is patent with antegrade flow. * No evidence of hemodynamically significant stenosis in the left common carotid, external carotid and subclavian arteries. Measurements Name Value Right PSV Right Prox CCA PSV 76 cm/s Right Mid CCA PSV 80 cm/s Right Distal CCA PSV 73 cm/s Right Prox ICA PSV 153 cm/s Right Mid ICA PSV 173 cm/s Right Distal ICA PSV 63 cm/s Right ECA PSV 107 cm/s Right Vert PSV 50 cm/s Right Prox SCA PSV 106 cm/s Rt ICA/CCA Ratio 2.1 Measurements Name Value Right EDV Right Prox CCA EDV 10 cm/s Right Mid CCA EDV 13 cm/s Right Distal CCA EDV 14 cm/s Right Prox ICA EDV 40 cm/s Right Mid ICA EDV 27 cm/s Right Distal ICA EDV 5 cm/s Right ECA EDV 0 cm/s Right Vert EDV 8 cm/s Right Prox SCA EDV 0 cm/s Measurements Name Value Left PSV Left Prox CCA PSV 67 cm/s Left Mid CCA PSV 76 cm/s Left Distal CCA PSV 110 cm/s Left Prox ICA PSV 130 cm/s Left Mid ICA PSV 118 cm/s Left Distal ICA PSV 74 cm/s Left ECA PSV 130 cm/s Left Vert PSV 45 cm/s Left Prox SCA PSV 171 cm/s Lt ICA/CCA Ratio 1.2 Measurements Name Value Left EDV Left Prox CCA EDV 10 cm/s Left Mid CCA EDV 13 cm/s Left Distal CCA EDV 14 cm/s Left Prox ICA EDV 34 cm/s Left Mid ICA EDV 30 cm/s Left Distal ICA EDV 18 cm/s Left ECA EDV 12 cm/s Left Vert EDV 11 cm/s Left Prox SCA EDV 0 cm/s Right Findings * No plaque noted in the right common carotid artery. * No plaque noted in the right external carotid artery. * Heterogeneous plaque noted in the right internal carotid artery. Left Findings * No plaque noted in the left common carotid artery. * No plaque noted in the left internal carotid artery. * No plaque noted in the left external carotid artery. Risk Factors Patient has a history of CAD, tobacco use-previous and PAD. . Report Signatures Finalized by Nupur James MD, RPVI on 08/29/2023 04:08 PM Dictated by: NUPUR JAMES on MonAug 29, 2023 4:09:32 PM EDT Transcribed by: NUPUR JAMES on MonAug 29, 2023 4:09:32 PM EDT Finalized by: NUPUR JAMES on MonAug 29, 2023 4:09:32 PM EDT Normal [facility] Ambulatory Ambulatory referral to Misbah abbott 06-25-2023 [facility] Qualitative QuantiFERON-TB g old in tube teston 06-12-2023 M. tuberculosis tuberculin stim IFN-g Ql (Bld) 0.03 IU/mL . [facility] Thin prep Papanicolaou smear with manual screeningon 06-12-2023 Thin prep Papanicolaou smear with manual screening Comment . [facility] Comment on above: QuantiFERON-TB Gold Plus is a qualitative indirect test forM tuberculosis infection (including disease) and isintended for use in conjunction with risk assessment,radiography, and other medical and diagnostic evaluations.The QuantiFERON-TB Gold Plus result is determined bysubtracting the Nil value from either TB antigen (Ag)value. The Mitogen tube serves as a control for the test. Thin prep Papanicolaou smear with manual screening 0.04 IU/mL . [facility] Thin prep Papanicolaou smear with manual screening > 10.00 IU/mL . [facility] Thin prep Papanicolaou smear with manual screening Negative Negative [facility] Comment on above: No response to M tub erculosis antigens detected.Infection with M tuberculosis is unlikely, but high riskindividuals should be considered for additional testing(ATS/IDSA/CDC Clinical Practice Guidelines, 2017). Thereference range is an Antigen minus Nil result of <0.35IU/mL.The specimen received for QuantiFERON testing was incubatedby the ordering institution. Specific procedures outlinedin our Directory of Services and in the package insert forthe QuantiFERON Gold (In Tube) test must be followed toenable for proper stimulation of cells for the productionof interferon gamma. Chemiluminescence immunoassaymethodologyPerformed at: [facility] [id number] Director: Kenton Encarnacion PhD, Phone: [phone] Absolute lymphocyte countOrd ered By: Deanna Cruz on 05-25-2023 Lymphocytes Auto (Unsp spec) [#/Vol] 1.44 10*3/uL 0.83-4.51 [facility] Automated lymphocyte count a s percentage of total leukocytesOrdered By: Deanna Cruz on 05-25-2023 Lymphocytes/100 WBC Auto (Unsp spec) 25.0 % 19-41 [facility] Basophil percentageOrdered B y: Deanna Cruz on 05-25-2023 Basophils/100 WBC (Bld) 1.2 % 0-1 [facility] Bilirubin [Mass/Vol] 0.70 mg/dL 0.20-1.00 [facility] Comment on above: For patients on eltr ombopag therapy, use of Dimension [place] TBIL is not recommended. Chloride [Moles/Vol] 105 mmol/L 98-107 [facility] Eosinophils/100 WBC (Bld) 1.6 % 0-5 [facility] Glucose [Mass/Vol] 89 mg/dL 74-106 [facility] Hemoglobin (Bld) [Mass/Vol] 13.5 g/dL 13.0-16.5 [facility] Monocytes/100 WBC (Bld) 9.7 % 0-10 [facility] Neutrophils (Bld) [#/Vol] 3.6 10*3/uL 2.0-7.7 [facility] Neutrophils/100 WBC (Bld) 62.2 % 47-70 [facility] Potassium [Moles/Vol] 4.9 mmol/L 3.5-5.1 [facility] Protein [Mass/Vol] 7.3 g/dL 6.4-8.2 [facility] Sodium [Moles/Vol] 136 mmol/L 136-145 [facility] WBC (Bld) [#/Vol] 5.8 10*3/uL 4.4-11.0 [facility] Determination of erythrocyte mean corpuscular volume (MCV)Ordered By: Deanna Cruz on 05-25-2023 MCV (RBC) [Entitic vol] 91.5 fL 80-94 [facility] Erythrocyte distribution wid th ratioOrdered By: Deanna Cruz on 05-25-2023 Erythrocyte distribution width (RBC) [Ratio] 16.1 % 11.6-14.6 [facility] Erythrocyte distribution wid th standard deviationOrdered By: Deanna Cruz on 05-25-2023 Erythrocyte distribution width (RBC) [Entitic vol] 53.8 fL 35.1-43.9 [facility] Hematocrit Auto (Bld) [Volum e fraction]Ordered By: Deanna Cruz on 05-25-2023 Hematocrit (Bld) [Volume fraction] 43.0 % 40-54 [facility] Immature granulocytes/100 WB C Auto (Bld)Ordered By: Deanna Cruz on 05-25-2023 Immature granulocytes/100 WBC (Bld) 0.300 % 0.0-0.9 [facility] Comment on above: IG% - Immature Granu locytes (promyelocytes, myelocytes and metamyelocytes) > 1% indicates that a LEFT SHIFT is Present. Laboratory - Chemistry and C hemistry - challengeOrdered By: Ligiasnydervika Cruz on 05-25-2023 Albumin/Globulin [Mass ratio] 1.0 {ratio} 0.9-2.4 [facility] ALP [Catalytic activity/Vol] 140 U/L 45-117 [facility] ALT [Catalytic activity/Vol] 47 U/L 16-61 [facility] CO2 [Moles/Vol] 23.0 mmol/L 21.0-32.0 [facility] Globulin (S) [Mass/Vol] 3.7 g/dL 2.2-4.2 [facility] Urea nitrogen/Creatinine [Mass ratio] 32.8 mg/mg 10-20 [facility] Laboratory - Hematology and Cell countsOrdered By: Deanna Cruz on 05-25-2023 MCH (RBC) [Entitic mass] 28.7 pg 27.0-32.0 [facility] MCHC (RBC) [Mass/Vol] 31.4 g/dL 32-36 [facility] Nucleated RBC/100 WBC (Bld) [Ratio] 0 % 0-5 [facility] Platelet mean volume (Bld) [Entitic vol] 11.1 fL 6.2-12.0 [facility] Platelets (Bld) [#/Vol] 254 10*3/uL 150-450 [facility] No Panel InformationOrdered By: Efdanielle Cruz on 05-25-2023 Estimated GFR (MDRD) Amer 66 mL/min >60 [facility] Comment on above: GFR Calc Estimated GFR (MDRD) Non-Af Amer 54 mL/min >60 [facility] Comment on above: Non- GFR Calc RBC Auto (Bld) [#/Vol]Ordere d By: Deanna Cruz on 05-25-2023 RBC (Bld) [#/Vol] 4.70 10*6/uL 4.6-6.2 [facility] Serum or plasma calcium candido urement (mass/volume)Ordered By: Deanna Cruz on 05-25-2023 Calcium [Mass/Vol] 9.6 mg/dL 8.5-10.1 [facility] Serum or plasma creatinine m easurement (mass/volume)Ordered By: Deanna Cruz on 05-25-2023 Creatinine [Mass/Vol] 1.37 mg/dL 0.70-1.30 [facility] Comment on above: The validity of the calculated GFR & GFRAA in patients over 70 years has not been determined. Clinical correlation is essential. Serum or plasma urea nitroge n measurement (mass/volume)Ordered By: Deanna Cruz on 05-25-2023 Urea nitrogen [Mass/Vol] 45 mg/dL 7-18 [facility] Thin prep Papanicolaou smear with manual screeningOrdered By: Deanna Cruz on 05-25-2023 Thin prep Papanicolaou smear with manual screening 3.6 g/dL 3.2-5.0 [facility] Thin prep Papanicolaou smear with manual screening 29 U/L 15-37 [facility] Thin prep Papanicolaou smear with manual screening 8 5-15 [facility] ECHOCARDIOGRAM COMPLETEon ECHOCARDIOGRAM COMPLETE Patient Info Name: CELESTE KINCAID Age: 72 years : 1950 Gender: Male Ht: 170 cm Wt: 76 kg BSA: 1.91 m2 HR: 58 bpm BP: 135 / 60 mmHg Heart Rhythm: Bradycardia, Sinus Rhythm Technical Quality: Fair Exam Date: 05/17/2023 8:58 AM Patient Status: Inpatient Senior Technical Editor: Kiley Paige RCDS Exam Type: ECHOCARDIOGRAM COMPLETE Study Info Indications R00.2 - Palpitations Referring Physician: ODALIS LOGAN ; [id number] BMI: 26.16 kg/m2 Summary 1. Left ventricular systolic function is normal with an ejection fraction by Biplane Method of Discs of 57 %. 2. The left ventricular diastolic function is normal. 3. Right ventricular size and systolic function are normal. 4. There is borderline pulmonary hypertension, estimated right ventricle systolic pressure is 39 mmHg. 5. No significant valvular heart disease is present. History/Risk Factors Hypertension: Yes Myocardial Infarction (HI): Yes Date of Last Tobacco Use: 03/20/2015 Date of Prior HI: 03/20/2015 Tobacco Use: Former Family History: Coronary Artery Disease History/Risk Factors Palpitations, prior inferior HI (2016). Procedure(s): Complete two-dimensional, color flow and Doppler transthoracic echocardiogram is performed. Left Ventricle Left ventricular chamber dimension is normal. Left ventricular systolic function is normal with an ejection fraction by Biplane Method of Discs of 57 %. Normal left ventricular mass. Left ventricular segmental wall motion is normal. The left ventricular diastolic function is normal. Right Ventricle Right ventricular size and systolic function are normal. Left Atria Left atrial chamber is normal with a left atrial volume index of 29 ml/m2 by BP MOD. Right Atria Right atrial chamber dimension is enlarged. Aortic Valve The aortic valve is trileaflet. There is no aortic valve sclerosis. There is no aortic valve stenosis. There is no aortic valve regurgitation. Pulmonic Valve The pulmonic valve is normal. There is no pulmonic valve stenosis. There is trace pulmonic regurgitation. Mitral Valve The mitral valve has normal leaflets. There is no mitral valve stenosis. There is mild mitral valve regurgitation. Tricuspid Valve The tricuspid valve leaflets are normal. There is no significant tricuspid valve stenosis. There is trace tricuspid valve regurgitation. There is borderline pulmonary hypertension, estimated right ventricle systolic pressure is 39 mmHg. Pericardium/Pleural There is no pericardial effusion. Inferior Vena Cava Dilated inferior vena cava with >50% collapse upon inspiration consistent with elevated right atrial pressure. Aorta The aortic measurements are indexed to age and body surface area. The aortic root is normal measuring 3.4 cm with an index of 1.8 cm/m2. The proximal ascending aorta is normal measuring 3.1 cm with an index of 1.6 cm/m2. Wall Motion Scoring Wall Motion Scoring Index: 1.00 Left Ventricular Outflow Tract Name Value Normal LVOT 2D LVOT Diameter 2.3 cm LVOT Doppler LVOT Peak Velocity 1.2 m/s LVOT Peak Gradient 6 mmHg LVOT Mean Gradient 3 mmHg LVOT VTI 26 cm LVOT VTI/AV VTI Ratio 0.9 LVOT Stroke Volume 109 ml LVOT Stroke Index 57.46 ml/m2 Pulmonic Valve Name Value Normal RVOT Doppler RVOT Peak Velocity 84 cm/s RVOT Peak Gradient 3 mmHg RVOT Mean Gradient 2 mmHg RVOT VTI 21 cm PV Doppler PV Peak Velocity 1.00 m/s PV Peak Gradient 4 mmHg PV Mean Gradient 2 mmHg PV VTI 25 cm Mitral Valve Name Value Normal MV Doppler MV Peak Velocity 1.03 m/s MV Peak Gradient 4 mmHg MV Mean Gradient 1 mmHg MV VTI 31 cm MV Decel [place] 506 cm/s2 MV PHT 51 ms MV Area (PHT) 4.3 cm2 4.0-5.0 MV Area (Cont Eq VTI) 3.6 cm2 MV Area Index (Cont Eq VTI) 1.87 cm2/m2 MV DVI 1.18 MV Diastolic Function MV E Peak Velocity 0.90 m/s MV A Peak Velocity 0.32 m/s MV E/A 2.8 MV Decel Time 177 ms MV Annular TDI (more content not included)... Normal [facility] XR SMALL BOWEL FOLLOW THROUG [facility] 05-16-2023 XR SMALL BOWEL FOLLOW THROUGH EXAMINATION: XR SMALL BOWEL FOLLOW THROUGH HISTORY: ORDERING SYSTEM PROVIDED HISTORY: concen for SBO, TECHNOLOGIST PROVIDED HISTORY: Illness/Other Reason for exam: concen for SBO Encounter Type: Ongoing Additional signs and symptoms: concen for SBO Fluoro dose in mGy: 0 ORDERING SYSTEM PROVIDED DIAGNOSIS CODES: COMPARISON: 05/14/2023. TECHNIQUE: Fluoro Dose Ka,r mGy: Fluoro dose in Ka,r mGy: 0 Small bowel followthrough was performed with 10 films. FINDINGS: The KUB demonstrates significant resolution of small bowel distention. Nasogastric tube tip is in the proximal stomach. There are postsurgical changes and vascular stents present. There are degenerative changes of the spine. SMALL BOWEL FOLLOWTHROUGH: Visualized portions of the stomach, duodenum and proximal jejunum are normal. Transit time is normal with contrast reaching the right colon by 60 minutes. There is no mechanical obstruction. The terminal ileum appears normal. IMPRESSION: Interval resolution of a mechanical small bowel obstruction or ileus. No obstruction is seen. No acute process. NORI/scott Workstation ID: [id number] Dictated by: MARIANNE HENDERSON on MonMay 16, 2023 2:30:55 PM EST Transcribed by: SAKINA GORDILLO on MonMay 16, 2023 3:05:51 PM EST Finalized by: MARIANNE HENDERSON on MonMay 17, 2023 12:45:49 PM EST [facility] Comment on above: Order Comment: Injur y/Trauma or Illness?:Illness/Other How long have you had these symptoms (acute/chronic)?:Acute Reason for exam?:concen for SBO Type of Exam?:Ongoing Additional signs and symptoms?:concen for SBO Fluoro time in minutes:0 Fluoro dose in mGy?:0 XR ABDOMEN /KUB/FLAT PLATE/1 VIEWon 05-14-2023 XR ABDOMEN /KUB/FLAT PLATE/1 VIEW EXAMINATION: Abdomen x-ray HISTORY: ORDERING SYSTEM PROVIDED HISTORY: NG/OG tube placement, TECHNOLOGIST PROVIDED HISTORY: Illness/Other Reason for exam: NG/OG tube placement Cancer History: n Surgery, RadiationHistory: graft Encounter Type: Subsequent/Follow-up Additional signs and symptoms: small bowel obstruction ORDERING SYSTEM PROVIDED DIAGNOSIS CODES: COMPARISON: 05/13/2023 TECHNIQUE: A single view the abdomen is submitted. FINDINGS: A nasogastric tube is in place and has been advanced slightly since the previous exam. The tip the tube overlies the mid left upper quadrant. The side hole overlies the distal esophagus. Advancement by approximately 6 cm is recommended. There are abnormally distended small bowel loops in the abdomen elsewhere concerning for small bowel obstruction. IMPRESSION: Slight advancement of the nasogastric tube. The side hole overlies the distal esophagus. Advancement by approximately 6 cm recommended for more optimal positioning. Workstation ID: [id number] Dictated by: MARCO ESCAMILLA on [place] May 14, 2023 1:52:15 AM EST Transcribed by: MARCO ESCAMILLA on [place] May 14, 2023 1:52:15 AM EST Finalized by: MARCO ESCAMILLA on [place] May 14, 2023 1:52:15 AM EST [facility] Comment on above: Order Comment: Injur y/Trauma or Illness?:Illness/Other How long have you had these symptoms (acute/chronic)?:Unknown Reason for exam?:NG/OG tube placement History of cancer?:n Surgeries, chemotherapy, or radiation?:graft Type of Exam?:Subsequent/Follow-up Additional signs and symptoms?:small bowel obstruction CT ANGIOGRAM CHEST ABDOMEN P ELVISon 05-13-2023 CT ANGIOGRAM CHEST ABDOMEN PELVIS EXAMINATION: CT ANGIOGRAM CHEST ABDOMEN PELVIS HISTORY: ORDERING SYSTEM PROVIDED HISTORY: Acute aortic syndrome (AAS) suspected, TECHNOLOGIST PROVIDED HISTORY: Illness/Other Reason for exam: abdominal pain Encounter Type: Initial Additional signs and symptoms: nausea ORDERING SYSTEM PROVIDED DIAGNOSIS CODES: COMPARISON: None TECHNIQUE: CT angiogram images were obtained of the chest, abdomen and pelvis following intravenous contrast administration. Slab maximum intensity projection images were obtained in the sagittal and coronal planes. Sagittal and coronal reformatted images were also obtained. 3D volume rendering was obtained of the central vasculature. IOPAMIDOL 370 MG IODINE/ML (76 %) INTRAVENOUS SOLUTION - 75 mL, Dose reduction techniques were achieved by using automated exposure control and/or adjustment of mA and/or kV according to patient size and/or use of iterative reconstruction technique. FINDINGS: CHEST: LOWER NECK AND AXILLA: No lymphadenopathy. MEDIASTINAL/HILAR LYMPH NODES: No lymphadenopathy.Esophagus is unremarkable. HEART/PERICARDIUM: The heart is normal size. There is no pericardial effusion. The thoracic aorta appears unremarkable without evidence for dissection or aneurysm. LUNGS/AIRWAYS: Trachea and central bronchi are patent.No acute infiltrate, effusion or mass. PLEURAL CAVITY: No pleural effusion or pneumothorax. CHEST WALL: Chronic appearing mild compression deformities at T12 and L1. ABDOMEN: Liver: The liver is homogeneous with normal contours and normal size. Gallbladder: Layering stones within the gallbladder. No biliary dilatation. Pancreas: The pancreas is homogeneous without evidence for mass lesion or inflammation. Spleen: The spleen is unremarkable without evidence for mass lesion. Adrenals: The adrenal glands are unremarkable Kidneys and bladder: Several bilateral benign cortical renal cysts.The ureters demonstrate normal caliber.The urinary bladder is unremarkable. GI tract: Stomach is unremarkable.Dilated small bowel loops in the anterior mid abdomen with collapsed loops distally. The transition point appears to be within the anterior lower midline and likely due to adhesions. The appendix is unremarkable. Diverticula are seen of the colon, more significant involving the distal colon. The visualized large bowel is otherwise unremarkable. Reproductive: Prostate gland is enlarged. Lymph nodes: No retroperitoneal or abdominal lymphadenopathy. 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 Peritoneum: No free intraperitoneal air or fluid. No acute inflammation. Abdominal wall and skeletal: Pagetoid appearance of the left hemipelvis. IMPRESSION: Findings of small-bowel obstruction. Transition point appears to be within the anterior lower mid abdomen and likely due to adhesions No evidence for aneurysm or dissection of the thoracic or abdominal aorta. Workstation ID: [id number] Dictated by: VANDANA MCNALLY on [facility] May 13, 2023 8:18:18 PM EST Transcribed by: VANDANA MCNALLY on [facility] May 13, 2023 8:18:18 PM EST Finalized by: VANDANA MCNALLY on [facility] May 13, 2023 8:18:18 PM EST [facility] Comment on above: Order Comment: Injur y/Trauma or Illness?:Illness/Other How long have you had these symptoms (acute/chronic)?:Acute Reason for exam?:abdominal pain Type of Exam?:Initial Additional signs and symptoms?:nausea XR ABDOMEN /KUB/FLAT PLATE/1 VIEWon 05-13-2023 XR ABDOMEN /KUB/FLAT PLATE/1 VIEW EXAMINATION: XR ABDOMEN /KUB/FLAT PLATE/1 VIEW HISTORY: Injury/Trauma or Illness?:Illness/Other How long have you had these symptoms (acute/chronic)?:Acute NG/OG tube placement COMPARISON: None. TECHNIQUE: Single supine view of the abdomen and pelvis. FINDINGS: There are dilated bowel loops. Enteric tube terminates near the GE junction The lung bases are clear. No acute osseous abnormality. IMPRESSION: 1. Enteric tube is terminates near the GE junction. 2. Dilated bowel loops. Workstation ID: [id number] Dictated by: GAYATHRI BENEDICT on [facility] May 13, 2023 9:53:21 PM EST Transcribed by: GAYATHRI BENEDICT on [facility] May 13, 2023 9:53:21 PM EST Finalized by: GAYATHRI BENEDICT on [facility] May 13, 2023 9:53:21 PM EST [facility] Comment on above: Order Comment: Injur y/Trauma or Illness?:Illness/Other How long have you had these symptoms (acute/chronic)?:Acute Reason for exam?:NG placement History of cancer?:n Surgeries, chemotherapy, or radiation?:graft Type of Exam?:Initial Additional signs and symptoms?:ng placement COVID-19, MOLECULARon 2023 SARS-CoV-2 (COVID-19) Ab IA Ql Detected Abnormal Not Detected [facility] Comment on above: Result Comment: Test ing was performed using the ubigrate ID NOW COVID-19 assay on the ID NOW platform. This test has not been approved for use in asymptomatic patients and its performance in this patient population has not been evaluated. Negative results do not rule out the presence of SARS-CoV-2/COVID-19. Absolute lymphocyte countOrd ered By: Deanna Cruz on 03-29-2023 Lymphocytes Auto (Unsp spec) [#/Vol] 1.21 10*3/uL 0.83-4.51 [facility] Basophil percentageOrdered B y: Deanna Cruz on 03-29-2023 Basophils/100 WBC (Bld) 1.4 % 0-1 [facility] Bilirubin [Mass/Vol] 0.90 mg/dL 0.20-1.00 [facility] Comment on above: For patients on eltr ombopag therapy, use of Dimension [place] TBIL is not recommended. Chloride [Moles/Vol] 109 mmol/L 98-107 [facility] Cholesterol [Mass/Vol] 386 mg/dL <200 [facility] Comment on above: <200 mg/dL Desirable 200-240 mg/dL Borderline >240 mg/dL High Risk Eosinophils/100 WBC (Bld) 1.4 % 0-5 [facility] Glucose [Mass/Vol] 88 mg/dL 74-106 [facility] Neutrophils (Bld) [#/Vol] 3.7 10*3/uL 2.0-7.7 [facility] Neutrophils/100 WBC (Bld) 65.9 % 47-70 [facility] Potassium [Moles/Vol] 4.5 mmol/L 3.5-5.1 [facility] Protein [Mass/Vol] 7.4 g/dL 6.4-8.2 [facility] Sodium [Moles/Vol] 139 mmol/L 136-145 [facility] Triglyceride [Mass/Vol] 82 mg/dL <199 [facility] Comment on above: The drugs N-Acetylcy steine and Metamizole may falsely depress this assay.Serum Triglycerides Reference Interval Normal <150 mg/dL Borderline high 150 - 199 mg/dL High 200 - 499 mg/dL Very High > or = 500 mg/dL WBC (Bld) [#/Vol] 5.6 10*3/uL 4.4-11.0 [facility] Blood erythrocytes count (nu mber/volume)Ordered By: Deanna Cruz on 03-29-2023 RBC (Bld) [#/Vol] 4.98 10*6/uL 4.6-6.2 [facility] Blood hemoglobin measurement (mass/volume)Ordered By: Deanna Cruz on 03-29-2023 Hemoglobin (Bld) [Mass/Vol] 14.5 g/dL 13.0-16.5 [facility] Blood lymphocytes/100 leukoc ytesOrdered By: Deanna Cruz on 03-29-2023 Lymphocytes/100 WBC (Bld) 21.6 % 19-41 [facility] Blood monocytes/100 leukocyt esOrdered By: Deanna Cruz on 03-29-2023 Monocytes/100 WBC (Bld) 9.3 % 0-10 [facility] Blood platelet mean volumeOr dered By: Deanna Cruz on 03-29-2023 Platelet mean volume (Bld) [Entitic vol] 11.0 fL 6.2-12.0 [facility] Determination of erythrocyte mean corpuscular volume (MCV)Ordered By: Deanna Cruz on 03-29-2023 MCV (RBC) [Entitic vol] 90.6 fL 80-94 [facility] Hematocrit Auto (Bld) [Volum e fraction]Ordered By: Deanna Cruz on 03-29-2023 Hematocrit (Bld) [Volume fraction] 45.1 % 40-54 [facility] Laboratory - Chemistry and C hemistry - challengeOrdered By: Deanna Cruz on 03-29-2023 ALP [Catalytic activity/Vol] 190 U/L 45-117 [facility] ALT [Catalytic activity/Vol] 39 U/L 16-61 [facility] CO2 [Moles/Vol] 23.0 mmol/L 21.0-32.0 [facility] Globulin (S) [Mass/Vol] 3.9 g/dL 2.2-4.2 [facility] Urea nitrogen/Creatinine [Mass ratio] 25.6 mg/mg 10-20 [facility] Laboratory - Hematology and Cell countsOrdered By: Deanna Cruz on 03-29-2023 Erythrocyte distribution width (RBC) [Entitic vol] 50.2 fL 35.1-43.9 [facility] Erythrocyte distribution width (RBC) [Ratio] 15.3 % 11.6-14.6 [facility] Immature granulocytes/100 WBC (Bld) 0.400 % 0.0-0.9 [facility] Comment on above: IG% - Immature Granu locytes (promyelocytes, myelocytes and metamyelocytes) > 1% indicates that a LEFT SHIFT is Present. MCH (RBC) [Entitic mass] 29.1 pg 27.0-32.0 [facility] Nucleated RBC/100 WBC (Bld) [Ratio] 0 % 0-5 [facility] Laboratory - Hematology and Cell countson 03-29-2023 HbA1c (Bld) [Mass fraction] 5.3 % 4.2-6.3 [facility] MCHC Auto (RBC) [Mass/Vol]Or dered By: Deanna Cruz on 03-29-2023 MCHC (RBC) [Mass/Vol] 32.2 g/dL 32-36 [facility] No Panel InformationOrdered By: Deanna Cruz on 03-29-2023 Urine Microalbumin/Creatini ne Ratio 189.7 mg/g CRE <30 [facility] Estimated GFR (MDRD) Amer 76 mL/min >60 [facility] Comment on above: GFR Calc Estimated GFR (MDRD) Non-Af Amer 63 mL/min >60 [facility] Comment on above: Non- GFR Calc Prostate Specific Antigen Total 1.05 ng/mL 0.0-4.0 [facility] Comment on above: This test was perfor med using the TPSA assay method for the[facility] chemistry [facility]. Values obtained with differentassay methods cannot be used interchangably.When changing PSA assays in the course of monitoring apatient, additional sequential testing should be carriedout to confirm baseline values. Platelets bldOrdered By: Toro Cruz on 03-29-2023 Platelets (Bld) [#/Vol] 183 10*3/uL 150-450 [facility] Serum or plasma albumin candido urement (mass/volume)Ordered By: Deanna Cruz on 03-29-2023 Albumin [Mass/Vol] 3.5 g/dL 3.2-5.0 [facility] Serum or plasma albumin/glob ulin mass ratioOrdered By: Deanna Cruz on 03-29-2023 Albumin/Globulin [Mass ratio] 0.9 {ratio} 0.9-2.4 [facility] Serum or plasma calcium candido urement (mass/volume)Ordered By: Deanna Cruz on 03-29-2023 Calcium [Mass/Vol] 9.1 mg/dL 8.5-10.1 [facility] Serum or plasma cholesterol in HDL measurement (mass/volume)Ordered By: Deanna Cruz on 03-29-2023 Cholesterol in HDL [Mass/Vol] 74 mg/dL >40 [facility] Comment on above: The drugs N-Acetylcy steine and Metamizole may falsely depress this assay. Reference Range HDL <40 mg/dL Low HDL Cholesterol HDL >or= 60 mg/dL High HDL Cholesterol Serum or plasma cholesterol in VLDL measurement (mass/volume)Ordered By: Deanna Cruz on 03-29-2023 Cholesterol in VLDL [Mass/Vol] 16 mg/dL 5-40 [facility] Serum or plasma creatinine m easurement (mass/volume)Ordered By: Deanna Cruz on 03-29-2023 Creatinine [Mass/Vol] 1.21 mg/dL 0.70-1.30 [facility] Comment on above: The validity of the calculated GFR & GFRAA in patients over 70 years has not been determined. Clinical correlation is essential. Serum or plasma low density lipoprotein (LDL) cholesterol measurement (mass/volume)Ordered By: Deanna Cruz on 03-29-2023 Cholesterol in LDL [Mass/Vol] 296 mg/dL 0-130 [facility] Serum or plasma urea nitroge n measurement (mass/volume)Ordered By: Deanna Cruz on 03-29-2023 Urea nitrogen [Mass/Vol] 31 mg/dL 7-18 [facility] Thin prep Papanicolaou smear with manual screeningOrdered By: Deanna Cruz 03-29-2023 Thin prep Papanicolaou smear with manual screening 136.0 mg/L NO RANGE EST. [facility] Thin prep Papanicolaou smear with manual screening 24 U/L 15-37 [facility] Thin prep Papanicolaou smear with manual screening 7 5-15 [facility] Urine creatinine measurement (mass/volume)Ordered By: Deanna Cruz on 03-29-2023 Creatinine (U) [Mass/Vol] 71.70 mg/dL NO RANGE EST. [facility] Basophil percentageOrdered B y: Dr. Cruz on 04-21-2022 Chloride [Moles/Vol] 105 mmol/L 98-107 [facility] Glucose [Mass/Vol] 93 mg/dL 74-106 [facility] Potassium [Moles/Vol] 4.7 mmol/L 3.5-5.1 [facility] Sodium [Moles/Vol] 137 mmol/L 136-145 [facility] Laboratory - Chemistry and C hemistry - challengeOrdered By: Dr. Cruz on 04-21-2022 CO2 [Moles/Vol] 26.0 mmol/L 21.0-32.0 [facility] Urea nitrogen/Creatinine [Mass ratio] 30.2 mg/mg 10-20 [facility] No Panel InformationOrdered By: Dr. Cruz on 04-21-2022 Estimated GFR (MDRD) Amer 73 mL/min >60 [facility] Comment on above: GFR Calc Estimated GFR (MDRD) Non-Af Amer 60 mL/min >60 [facility] Comment on above: Non- GFR Calc Urine Microalbumin/Creatini ne Ratio 26.8 mg/g CRE <30 [facility] Serum or plasma calcium candido urement (mass/volume)Ordered By: Dr. Cruz on 04-21-2022 Calcium [Mass/Vol] 9.9 mg/dL 8.5-10.1 [facility] Serum or plasma creatinine m easurement (mass/volume)Ordered By: Dr. Cruz on 04-21-2022 Creatinine [Mass/Vol] 1.26 mg/dL 0.70-1.30 [facility] Comment on above: The validity of the calculated GFR & GFRAA in patients over 70 years has not been determined. Clinical correlation is essential. Serum or plasma urea nitroge n measurement (mass/volume)Ordered By: Dr. Cruz on 04-21-2022 Urea nitrogen [Mass/Vol] 38 mg/dL 7-18 [facility] Thin prep Papanicolaou smear with manual screeningOrdered By: Dr. Cruz on 04-21-2022 Thin prep Papanicolaou smear with manual screening 6 5-15 [facility] Thin prep Papanicolaou smear with manual screening 24.3 mg/L NO RANGE EST. [facility] Urine creatinine measurement (mass/volume)Ordered By: Dr. Cruz on 04-21-2022 Creatinine (U) [Mass/Vol] 90.60 mg/dL NO RANGE EST. [facility] Whole blood hemoglobin A1c/t otal hemoglobin ratio (mass fraction)Ordered By: Dr. Cruz on 04-21-2022 HbA1c (Bld) [Mass fraction] 5.2 % 3.8-5.6 [facility] Comment on above: Normal < 5.7 % Predi abetic 5.7 - 6.4 % Diabetic >or= 6.5 % Please note range changes. Basophil percentageon 2021 Chloride [Moles/Vol] 107 mmol/L 98-107 [facility] Work Phone: Glucose [Mass/Vol] 96 mg/dL 74-106 [facility] Work Phone: Potassium [Moles/Vol] 4.4 mmol/L 3.5-5.1 [facility] Work Phone: [phone] Sodium [Moles/Vol] 140 mmol/L 136-145 [facility] Work Phone: Laboratory - Chemistry and C hemistry - challengeon 12-29-2021 CO2 [Moles/Vol] 26.0 mmol/L 21.0-32.0 [facility] Work Phone: Urea nitrogen/Creatinine [Mass ratio] 27.8 mg/mg 10-20 [facility] Work Phone: Laboratory - Hematology and Cell countson 12-29-2021 HbA1c (Bld) [Mass fraction] 5.4 % 4.2-6.3 [facility] Work Phone: No Panel Informationon 12-29 Estimated GFR (MDRD) Amer 87 mL/min >60 [facility] Work Phone: Comment on above: GFR Calc Estimated GFR (MDRD) Non-Af Amer 72 mL/min >60 [facility] [facility] Work Phone: Comment on above: Non- GFR Calc Serum or plasma calcium candido urement (mass/volume)on 12-29-2021 Calcium [Mass/Vol] 9.9 mg/dL 8.5-10.1 [facility] Work Phone: Serum or plasma creatinine m easurement (mass/volume)on 12-29-2021 Creatinine [Mass/Vol] 1.08 mg/dL 0.70-1.30 [facility] Work Phone: Comment on above: The validity of the calculated GFR & GFRAA in patients over 70 years has not been determined. Clinical correlation is essential. Serum or plasma urea nitroge n measurement (mass/volume)on 12-29-2021 Urea nitrogen [Mass/Vol] 30 mg/dL 7-18 [facility] Work Phone: Thin prep Papanicolaou smear with manual screeningon 12-29-2021 Thin prep Papanicolaou smear with manual screening 7 5-15 [facility] Work Phone: Absolute lymphocyte counton 09-28-2021 Lymphocytes Auto (Unsp spec) [#/Vol] 1.40 10*3/uL 0.83-4.51 [facility] Work Phone: Basophil percentageon 2021 Basophils/100 WBC (Bld) 0.8 % 0-1 [facility] Work Phone: Bilirubin [Mass/Vol] 0.80 mg/dL 0.20-1.00 [facility] Work Phone: Comment on above: For patients on eltr ombopag therapy, use of Dimension [place] TBIL is not recommended. Chloride [Moles/Vol] 105 mmol/L 98-107 [facility] Work Phone: Cholesterol [Mass/Vol] 156 mg/dL <200 [facility] Work Phone: Comment on above: <200 mg/dL Desirable 200-240 mg/dL Borderline >240 mg/dL High Risk Eosinophils/100 WBC (Bld) 1.5 % 0-5 [facility] Work Phone: Glucose [Mass/Vol] 96 mg/dL 74-106 [facility] Work Phone: Neutrophils (Bld) [#/Vol] 4.9 10*3/uL 2.0-7.7 [facility] Work Phone: Neutrophils/100 WBC (Bld) 68.4 % 47-70 [facility] Work Phone: Potassium [Moles/Vol] 5.4 mmol/L 3.5-5.1 [facility] Work Phone: Protein [Mass/Vol] 7.3 g/dL 6.4-8.2 [facility] Work Phone: Sodium [Moles/Vol] 137 mmol/L 136-145 [facility] Work Phone: Triglyceride [Mass/Vol] 116 mg/dL <199 [facility] Work Phone: Comment on above: The drugs N-Acetylcy steine and Metamizole may falsely depress this assay.Serum Triglycerides Reference Interval Normal <150 mg/dL Borderline high 150 - 199 mg/dL High 200 - 499 mg/dL Very High > or = 500 mg/dL WBC (Bld) [#/Vol] 7.2 10*3/uL 4.4-11.0 [facility] Work Phone: Blood erythrocytes count (nu mber/volume)on 09-28-2021 RBC (Bld) [#/Vol] 4.54 10*6/uL 4.6-6.2 [facility] Work Phone: Blood hemoglobin measurement (mass/volume)on 09-28-2021 Hemoglobin (Bld) [Mass/Vol] 13.4 g/dL 13.0-16.5 [facility] Work Phone: Blood lymphocytes/100 leukoc yteson 09-28-2021 Lymphocytes/100 WBC (Bld) 19.4 % 19-41 [facility] Work Phone: [phone] Blood monocytes/100 leukocyt eson 09-28-2021 Monocytes/100 WBC (Bld) 9.6 % 0-10 [facility] Work Phone: [phone] Blood platelet mean volumeon 09-28-2021 Platelet mean volume (Bld) [Entitic vol] 11.7 fL 6.2-12.0 [facility] Work Phone: Determination of erythrocyte mean corpuscular volume (MCV)on 09-28-2021 MCV (RBC) [Entitic vol] 93.4 fL 80-94 [facility] Work Phone: Hematocrit Auto (Bld) [Volum e fraction]on 09-28-2021 Hematocrit (Bld) [Volume fraction] 42.4 % 40-54 [facility] Work Phone: Laboratory - Chemistry and C hemistry - challengeon 09-28-2021 ALP [Catalytic activity/Vol] 146 U/L 45-117 [facility] Work Phone: ALT [Catalytic activity/Vol] 32 U/L 16-61 [facility] Work Phone: CO2 [Moles/Vol] 26.0 mmol/L 21.0-32.0 [facility] Work Phone: Globulin (S) [Mass/Vol] 3.5 g/dL 2.2-4.2 [facility] Work Phone: Urea nitrogen/Creatinine [Mass ratio] 23.1 mg/mg 10-20 [facility] Work Phone: Laboratory - Hematology and Cell countson 09-28-2021 Erythrocyte distribution width (RBC) [Entitic vol] 51.6 fL 35.1-43.9 [facility] Work Phone: Erythrocyte distribution width (RBC) [Ratio] 14.8 % 11.6-14.6 [facility] Work Phone: Immature granulocytes/100 WBC (Bld) 0.300 % 0.0-0.9 [facility] Work Phone: Comment on above: IG% - Immature Granu locytes (promyelocytes, myelocytes and metamyelocytes) > 1% indicates that a LEFT SHIFT is Present. MCH (RBC) [Entitic mass] 29.5 pg 27.0-32.0 [facility] Work Phone: Nucleated RBC/100 WBC (Bld) [Ratio] 0 % 0-5 [facility] Work Phone: HbA1c (Bld) [Mass fraction] 5.3 % 4.2-6.3 [facility] Work Phone: MCHC Auto (RBC) [Mass/Vol]on 09-28-2021 MCHC (RBC) [Mass/Vol] 31.6 g/dL 32-36 [facility] Work Phone: No Panel Informationon 09-28 Estimated GFR (MDRD) Amer 76 mL/min >60 [facility] Work Phone: Comment on above: GFR Calc Estimated GFR (MDRD) Non-Af Amer 63 mL/min >60 [facility] Work Phone: Comment on above: Non- GFR Calc Prostate Specific Antigen Screen 0.91 ng/mL 0.00-4.00 [facility] Work Phone: Comment on above: This test was perfor med using the TPSA assay method for the[employer] chemistry system. Values obtained with differentassay methods cannot be used interchangably.When changing PSA assays in the course of monitoring apatient, additional sequential testing should be carriedout to confirm baseline values. Platelets bldon 09-28-2021 Platelets (Bld) [#/Vol] 227 10*3/uL 150-450 [facility] Work Phone: Serum or plasma albumin candido urement (mass/volume)on 09-28-2021 Albumin [Mass/Vol] 3.8 g/dL 3.2-5.0 [facility] Work Phone: Serum or plasma albumin/glob ulin mass ratioon 09-28-2021 Albumin/Globulin [Mass ratio] 1.1 {ratio} 0.9-2.4 [facility] Work Phone: Serum or plasma calcium candido urement (mass/volume)on 09-28-2021 Calcium [Mass/Vol] 9.6 mg/dL 8.5-10.1 [facility] Work Phone: Serum or plasma cholesterol in HDL measurement (mass/volume)on 09-28-2021 Cholesterol in HDL [Mass/Vol] 44 mg/dL >40 [facility] Work Phone: Comment on above: The drugs N-Acetylcy steine and Metamizole may falsely depress this assay. Reference Range HDL <40 mg/dL Low HDL Cholesterol HDL >or= 60 mg/dL High HDL Cholesterol Serum or plasma cholesterol in VLDL measurement (mass/volume)on 09-28-2021 Cholesterol in VLDL [Mass/Vol] 23 mg/dL 5-40 [facility] Work Phone: Serum or plasma creatinine m easurement (mass/volume)on 09-28-2021 Creatinine [Mass/Vol] 1.21 mg/dL 0.70-1.30 [facility] Work Phone: Comment on above: The validity of the calculated GFR & GFRAA in patients over 70 years has not been determined. Clinical correlation is essential. Serum or plasma low density lipoprotein (LDL) cholesterol measurement (mass/volume)on 09-28-2021 Cholesterol in LDL [Mass/Vol] 89 mg/dL 0-130 [facility] Work Phone: Serum or plasma urea nitroge n measurement (mass/volume)on 09-28-2021 Urea nitrogen [Mass/Vol] 28 mg/dL 7-18 [facility] Work Phone: Thin prep Papanicolaou smear with manual screeningon 09-28-2021 Thin prep Papanicolaou smear with manual screening 23 U/L 15-37 [facility] Work Phone: Thin prep Papanicolaou smear with manual screening 6 5-15 [facility] Work Phone: Qualitative QuantiFERON-TB g old in tube teston 07-12-2021 M. tuberculosis tuberculin stim IFN-g Ql (Bld) 0.26 IU/mL . [facility] Work Phone: Serum hepatitis B virus core antibody detectionon 07-12-2021 HBV core Ab Ql (S) Negative Negative [facility] Work Phone: Comment on above: Performed at: [place] [id number] Director: Kenton Encarnacion PhD, Phone: [phone] Thin prep Papanicolaou smear with manual screeningon 07-12-2021 Thin prep Papanicolaou smear with manual screening Comment . [facility] Work Phone: Comment on above: The QuantiFERON-TB G old Plus result is determined bysubtracting the Nil value from either TB antigen (Ag) tube.The mitogen tube serves as a control for the test. Thin prep Papanicolaou smear with manual screening 0.27 IU/mL . [facility] Work Phone: Thin prep Papanicolaou smear with manual screening 0.28 IU/mL . [facility] Work Phone: Thin prep Papanicolaou smear with manual screening > 10.00 IU/mL . [facility] Work Phone: Thin prep Papanicolaou smear with manual screening Negative Negative [facility] Work Phone: Comment on above: The specimen receive d for QuantiFERON testing was incubatedby the ordering institution. Specific procedures outlinedin our Directory of Services and in the package insert forthe QuantiFERON Gold (In Tube) test must be followed toenable for proper stimulation of cells for the productionof interferon gamma. Chemiluminescence immunoassaymethodology Laboratory - Hematology and Cell countson 05-19-2021 HbA1c (Bld) [Mass fraction] 8.6 % [facility] Work Phone: Other [facility] Vital Signs Date Time Vital Sign Value Performing Clinician Facility 08-27-2024 13:57-0400 Body height 170.[address] Deanna Cruz MD Work Phone: [facility] 08-27-2024 13:57-0400 Body mass index (BMI) [Ratio] 28.1 kg/m2 Dr. Deanna Cruz MD Work Phone: [facility] 08-27-2024 13:57-0400 Body temperature 98.2 [degF] Dr. Deanna Cruz MD Work Phone: [facility] 08-27-2024 13:57-0400 Body weight 81.[address] Deanna Cruz MD Work Phone: [facility] 08-27-2024 13:57-0400 Diastolic blood pressure 62 mm[Hg] Dr. Deanna Cruz MD Work Phone: [facility] 08-27-2024 13:57-0400 Heart rate 42 /min Dr. Deanna Cruz MD Work Phone: [facility] 08-27-2024 13:57-0400 Respiratory rate 18 /min Dr. Deanna Cruz MD Work Phone: [facility] 08-27-2024 13:57-0400 SaO2% (BldA) [Mass fraction] 98 % Dr. Deanna Cruz MD Work Phone: [facility] 08-27-2024 13:57-0400 Systolic blood pressure 98 mm[Hg] Dr. Deanna Cruz MD Work Phone: [facility] 07-17-2024 14:08-0400 Body height 170.2 cm Memo Kelley MD Work Phone: [facility] 07-17-2024 14:08-0400 Body mass index (BMI) [Ratio] 26.47 kg/m2 Memo Kelley MD Work Phone: [facility] 07-17-2024 14:08-0400 Body weight 76.66 kg Memo Kelley MD Work Phone: [facility] 07-17-2024 14:08-0400 Diastolic blood pressure 61 mm[Hg] Memo Kelley MD Work Phone: [facility] 07-17-2024 14:08-0400 Heart rate 50 /min Memo Kelley MD Work Phone: [facility] 07-17-2024 14:08-0400 SaO2% (BldA) [Mass fraction] 97 % Memo Kelley MD Work Phone: [facility] 07-17-2024 14:08-0400 Systolic blood pressure 100 mm[Hg] Memo Kelley MD Work Phone: [facility] 06-12-2024 14:16-0400 Body mass index (BMI) [Ratio] 28 kg/m2 Dr. Deanan Cruz MD Work Phone: [facility] 06-12-2024 14:16-0400 Body weight 81.[address] Deanna Cruz MD Work Phone: [facility] 06-12-2024 07:54-0400 Body temperature 96.9 [degF] Dr. Deanna Cruz MD Work Phone: [facility] 06-12-2024 07:54-0400 Diastolic blood pressure 71 mm[Hg] Dr. Deanna Cruz MD Work Phone: [facility] 06-12-2024 07:54-0400 Heart rate 41 /min Dr. Deanna Cruz MD Work Phone: [facility] 06-12-2024 07:54-0400 Respiratory rate 16 /min Dr. Deanna Cruz MD Work Phone: [facility] 06-12-2024 07:54-0400 SaO2% (BldA) [Mass fraction] 98 % Dr. Deanna Cruz MD Work Phone: [facility] 06-12-2024 07:54-0400 Systolic blood pressure 149 mm[Hg] Dr. Deanna Cruz MD Work Phone: [facility] 05-22-2024 13:58-0500 Body height 170.[address] Deanna Cruz MD Work Phone: [facility] 05-22-2024 13:58-0500 Body mass index (BMI) [Ratio] 27.3 kg/m2 Dr. Deanna Cruz MD Work Phone: [facility] 05-22-2024 13:58-0500 Body temperature 97 [degF] Dr. Deanna Cruz MD Work Phone: [facility] 05-22-2024 13:58-0500 Body weight 79.[address] Deanna Cruz MD Work Phone: [facility] 05-22-2024 13:58-0500 Diastolic blood pressure 54 mm[Hg] Dr. Deanna Cruz MD Work Phone: [facility] 05-22-2024 13:58-0500 Heart rate 52 /min Dr. Deanna Cruz MD Work Phone: [facility] 05-22-2024 13:58-0500 Respiratory rate 16 /min Dr. Deanna Cruz MD Work Phone: [facility] 05-22-2024 13:58-0500 SaO2% (BldA) [Mass fraction] 96 % Dr. Deanna Cruz MD Work Phone: [facility] 05-22-2024 13:58-0500 Systolic blood pressure 110 mm[Hg] Dr. Deanna Cruz MD Work Phone: [facility] 04-23-2024 13:21-0500 Diastolic blood pressure 58 mm[Hg] Nicolás Tinsley DO Work Phone: [facility] 04-23-2024 13:21-0500 Heart rate 49 /min Nicolás Stelzer DO Work Phone: [facility] 04-23-2024 13:21-0500 Systolic blood pressure 120 mm[Hg] Nicolás Stelzer DO Work Phone: [facility] 04-23-2024 [id number] Body height 170.2 cm Nicolás Stelzer DO Work Phone: [facility] 04-23-2024 13:11-0500 Body mass index (BMI) [Ratio] 27.25 kg/m2 Nicolás Stelzer DO Work Phone: [facility] 04-23-2024 [id number] Body weight 78.93 kg Nicolás Stelzer DO Work Phone: [facility] 04-23-2024 [id number] SaO2% (BldA) [Mass fraction] 100 % Nicolás Stelzer DO Work Phone: [facility] 02-21-2024 14:06-0500 Body mass index (BMI) [Ratio] 26.4 kg/m2 Dr. Deanna Cruz MD Work Phone: [facility] 02-21-2024 14:06-0500 Body temperature 98 [degF] Dr. Deanna Cruz MD Work Phone: [facility] 02-21-2024 14:06-0500 Body weight 76.[address] Deanna Cruz MD Work Phone: [facility] 02-21-2024 14:06-0500 Diastolic blood pressure 58 mm[Hg] Dr. Deanna Cruz MD Work Phone: [facility] 02-21-2024 14:06-0500 Heart rate 46 /min Dr. Deanna Cruz MD Work Phone: [facility] 02-21-2024 14:06-0500 Respiratory rate 16 /min Dr. Deanna Cruz MD Work Phone: [facility] 02-21-2024 14:06-0500 SaO2% (BldA) [Mass fraction] 98 % Dr. Deanna Cruz MD Work Phone: [facility] 02-21-2024 14:06-0500 Systolic blood pressure 106 mm[Hg] Dr. Deanna Cruz MD Work Phone: [facility] 02-06-2024 13:53-0500 Body height 170.2 cm Nicolás Stelzer DO Work Phone: [facility] 02-06-2024 13:53-0500 Body mass index (BMI) [Ratio] 26.63 kg/m2 Nicolás Stelzer DO Work Phone: [facility] 02-06-2024 13:53-0500 Body weight 77.11 kg Nicolás Stelzer DO Work Phone: [facility] 02-06-2024 13:53-0500 Diastolic blood pressure 79 mm[Hg] Nicolás Stelzer DO Work Phone: [facility] 02-06-2024 13:53-0500 Heart rate 93 /min Nicolás Stelzer DO Work Phone: [facility] 02-06-2024 13:53-0500 SaO2% (BldA) [Mass fraction] 97 % Nicolás Stelzer DO Work Phone: [facility] 02-06-2024 13:53-0500 Systolic blood pressure 124 mm[Hg] Nicolás Stelzer DO Work Phone: [facility] 01-10-2024 13:32-0400 Body height 170.2 cm Memo Kelley MD Work Phone: [facility] 01-10-2024 13:32-0400 Body mass index (BMI) [Ratio] 26.47 kg/m2 Memo Kelley MD Work Phone: [facility] 01-10-2024 13:32-0400 Body weight 76.66 kg Memo Kelley MD Work Phone: [facility] 01-10-2024 13:32-0400 Diastolic blood pressure 68 mm[Hg] Memo Kelley MD Work Phone: [facility] 01-10-2024 13:32-0400 Heart rate 88 /min Memo Kelley MD Work Phone: [facility] 01-10-2024 13:32-0400 SaO2% (BldA) [Mass fraction] 96 % Memo Kelley MD Work Phone: [facility] 01-10-2024 13:32-0400 Systolic blood pressure 115 mm[Hg] Memo Kelley MD Work Phone: [facility] 06-22-2023 16:02-0400 Diastolic blood pressure 67 mm[Hg] Memo Kelley MD Work Phone: [facility] 06-22-2023 16:02-0400 Systolic blood pressure 135 mm[Hg] Memo Kelley MD Work Phone: [facility] 06-22-2023 15:53-0400 Body height 170.2 cm Memo Kelley MD Work Phone: [facility] 06-22-2023 15:53-0400 Body mass index (BMI) [Ratio] 26.63 kg/m2 Memo Kelley MD Work Phone: [facility] 06-22-2023 15:53-0400 Body weight 77.11 kg Memo Kelley MD Work Phone: [facility] 06-22-2023 15:53-0400 Heart rate 44 /min Memo Kelley MD Work Phone: [facility] 06-22-2023 15:53-0400 SaO2% (BldA) [Mass fraction] 99 % Memo Kelley MD Work Phone: [facility] 06-12-2023 08:03-0400 Body height 170.[address] Deanna Cruz Work Phone: [facility] 06-12-2023 08:03-0400 Body mass index (BMI) [Ratio] 26.2 kg/m2 Dr. Deanna Cruz Work Phone: [facility] 06-12-2023 08:03-0400 Body temperature 97.8 [degF] Dr. Deanna Cruz Work Phone: [facility] 06-12-2023 08:03-0400 Body weight 75.[address] Deanna Cruz Work Phone: [facility] 06-12-2023 08:03-0400 Diastolic blood pressure 57 mm[Hg] Dr. Deanna Cruz Work Phone: [facility] 06-12-2023 08:03-0400 Heart rate 46 /min Dr. Deanna Cruz Work Phone: [facility] 06-12-2023 08:03-0400 Respiratory rate 20 /min Dr. Deanna Cruz Work Phone: [facility] 06-12-2023 08:03-0400 SaO2% (BldA) [Mass fraction] 98 % Dr. Deanna Cruz Work Phone: [facility] 06-12-2023 08:03-0400 Systolic blood pressure 124 mm[Hg] Dr. Deanna Cruz Work Phone: [facility] 05-25-2023 12:59-0500 Body height 170.[address] Deanna Cruz Work Phone: [facility] 05-25-2023 12:59-0500 Body mass index (BMI) [Ratio] 26.2 kg/m2 Dr. Deanna Cruz Work Phone: [facility] 05-25-2023 12:59-0500 Body temperature 97 [degF] Dr. Deanna Cruz Work Phone: [facility] 05-25-2023 12:59-0500 Body weight 75.[address] Deanna Cruz Work Phone: [facility] 05-25-2023 12:59-0500 Diastolic blood pressure 68 mm[Hg] Dr. Deanna Cruz Work Phone: [facility] 05-25-2023 12:59-0500 Heart rate 47 /min Dr. Deanna Cruz Work Phone: [facility] 05-25-2023 12:59-0500 Respiratory rate 16 /min Dr. Deanna Cruz Work Phone: [facility] 05-25-2023 12:59-0500 SaO2% (BldA) [Mass fraction] 99 % Dr. Deanna Cruz Work Phone: [facility] 05-25-2023 12:59-0500 Systolic blood pressure 126 mm[Hg] Dr. Deanna Cruz Work Phone: [facility] 03-29-2023 15:07-0500 Body height 170.[address] Deanna Cruz Work Phone: [facility] 03-29-2023 15:07-0500 Body mass index (BMI) [Ratio] 26.9 kg/m2 Dr. Deanna Cruz Work Phone: [facility] 03-29-2023 15:07-0500 Body temperature 97.4 [degF] Dr. Deanna Cruz Work Phone: [facility] 03-29-2023 15:07-0500 Body weight 78.[address] Deanna Cruz Work Phone: [facility] 03-29-2023 15:07-0500 Diastolic blood pressure 90 mm[Hg] Dr. Deanna Cruz Work Phone: [facility] 03-29-2023 15:07-0500 Heart rate 55 /min Dr. Deanna Cruz Work Phone: [facility] 03-29-2023 15:07-0500 Respiratory rate 16 /min Dr. Deanna Cruz Work Phone: [facility] 03-29-2023 15:07-0500 SaO2% (BldA) [Mass fraction] 99 % Dr. Deanna Cruz Work Phone: [facility] 03-29-2023 15:07-0500 Systolic blood pressure 170 mm[Hg] Dr. Deanna Cruz Work Phone: [facility] 12-26-2022 11:06-0400 Diastolic blood pressure 75 mm[Hg] Kamila Lamport PA-C Work Phone: [facility] Comment on above: recheck CLG 12-26-2022 11:06-0400 Heart rate 44 /min Kamila Lamport PA-C Work Phone: [facility] Comment on above: recheck CLG 12-26-2022 11:06-0400 Systolic blood pressure 143 mm[Hg] Kamila Lamport PA-C Work Phone: [facility] Comment on above: recheck CLG 12-26-2022 11:05-0400 Body height 170.2 cm Kamila Lamport PA-C Work Phone: [facility] 12-26-2022 11:05-0400 Body mass index (BMI) [Ratio] 27.25 kg/m2 Kamila Lamport PA-C Work Phone: [facility] 12-26-2022 11:05-0400 Body temperature 97.81 [degF] Kamila Lamport PA-C Work Phone: [facility] 12-26-2022 11:05-0400 Body weight 78.93 kg Kamila Lamport PA-C Work Phone: [facility] 12-26-2022 11:05-0400 Respiratory rate 16 /min Kamila Cesar PA-C Work Phone: [facility] 12-26-2022 11:05-0400 SaO2% (BldA) [Mass fraction] 98 % Kamila Cesar PA-C Work Phone: [facility] 04-21-2022 14:07-0500 Body height 170.[address] Deanna Cruz Work Phone: [facility] 04-21-2022 14:07-0500 Body mass index (BMI) [Ratio] 27.2 kg/m2 Dr. Deanna Cruz Work Phone: [facility] 04-21-2022 14:07-0500 Body temperature 97 [degF] Dr. Deanna Cruz Work Phone: [facility] 04-21-2022 14:07-0500 Body weight 78.[address] Deanna Cruz Work Phone: [facility] 04-21-2022 14:07-0500 Diastolic blood pressure 62 mm[Hg] Dr. Deanna Cruz Work Phone: [facility] 04-21-2022 14:07-0500 Heart rate 43 /min Dr. Deanna Cruz Work Phone: [facility] 04-21-2022 14:07-0500 Respiratory rate 16 /min Dr. Deanna Cruz Work Phone: [facility] 04-21-2022 14:07-0500 SaO2% (BldA) [Mass fraction] 98 % Dr. Deanna Cruz Work Phone: [facility] 04-21-2022 14:07-0500 Systolic blood pressure 118 mm[Hg] Dr. Deanna Cruz Work Phone: [facility] 04-14-2022 06:30-0500 Body mass index (BMI) [Ratio] 27.6 kg/m2 Dr. Deanna Cruz Work Phone: [facility] 04-14-2022 06:30-0500 Body temperature 98.2 [degF] Dr. Deanna Cruz Work Phone: [facility] 04-14-2022 06:30-0500 Body weight 79.[address] Deanna Cruz Work Phone: [facility] 04-14-2022 06:30-0500 Diastolic blood pressure 67 mm[Hg] Dr. Deanna Cruz Work Phone: [facility] 04-14-2022 06:30-0500 Heart rate 48 /min Dr. Denana Cruz Work Phone: [facility] 04-14-2022 06:30-0500 Respiratory rate 18 /min Dr. Deanna Cruz Work Phone: [facility] 04-14-2022 06:30-0500 SaO2% (BldA) [Mass fraction] 97 % Dr. Deanna Cruz Work Phone: [facility] 04-14-2022 06:30-0500 Systolic blood pressure 117 mm[Hg] Dr. Deanna Cruz Work Phone: [facility] 04-12-2022 13:51-0500 Body mass index (BMI) [Ratio] 27.7 kg/m2 Dr. Deanna Cruz Work Phone: [facility] 04-12-2022 13:51-0500 Body weight 80.[address] Deanna Cruz Work Phone: [facility] 04-12-2022 13:51-0500 Diastolic blood pressure 72 mm[Hg] Dr. Deanna Cruz Work Phone: [facility] 04-12-2022 13:51-0500 Heart rate 47 /min Dr. Deanna Cruz Work Phone: [facility] 04-12-2022 13:51-0500 SaO2% (BldA) [Mass fraction] 98 % Dr. Deanna Cruz Work Phone: [facility] 04-12-2022 13:51-0500 Systolic blood pressure 122 mm[Hg] Dr. Deanna Cruz Work Phone: [facility] 04-07-2022 09:19-0500 Body mass index (BMI) [Ratio] 27.8 kg/m2 Dr. Deanna Cruz Work Phone: [facility] 04-07-2022 09:19-0500 Body weight 80.[address] Deanna Cruz Work Phone: [facility] 04-07-2022 09:19-0500 Diastolic blood pressure 71 mm[Hg] Dr. Deanna Cruz Work Phone: [facility] 04-07-2022 09:19-0500 Heart rate 45 /min Dr. Deanna Cruz Work Phone: [facility] 04-07-2022 09:19-0500 Respiratory rate 18 /min Dr. Deanna Cruz Work Phone: [facility] 04-07-2022 09:19-0500 SaO2% (BldA) [Mass fraction] 97 % Dr. Deanna Cruz Work Phone: [facility] 04-07-2022 09:19-0500 Systolic blood pressure 122 mm[Hg] Dr. Deanna Cruz Work Phone: [facility] 01-12-2022 14:42-0400 Diastolic blood pressure 53 mm[Hg] Dr. Deanna Cruz Work Phone: [facility] 01-12-2022 14:42-0400 Heart rate 44 /min Dr. Deanna Cruz Work Phone: [facility] 01-12-2022 14:42-0400 Systolic blood pressure 116 mm[Hg] Dr. Deanna Cruz Work Phone: [facility] 01-12-2022 14:26-0400 Body height 170.[address] Deanna Cruz Work Phone: [facility] Work Phone: 12-29-2021 14:27-0400 Body height 170.[address] Deanna Cruz Work Phone: [facility] Work Phone: 12-29-2021 14:27-0400 Body mass index (BMI) [Ratio] 28.5 kg/m2 Dr. Deanna Cruz Work Phone: [facility] Work Phone: 12-29-2021 14:27-0400 Body mass index (BMI) [Ratio] 28.6 kg/m2 Dr. Deanna Cruz Work Phone: [facility] 12-29-2021 14:27-0400 Body temperature 97.1 [degF] Dr. Deanna Cruz Work Phone: [facility] Work Phone: 12-29-2021 14:27-0400 Body weight 82.[address] Deanna Cruz Work Phone: [facility] Work Phone: 12-29-2021 14:27-0400 Body weight [address] Deanna Cruz Work Phone: [facility] 12-29-2021 14:27-0400 Diastolic blood pressure 62 mm[Hg] Dr. Deanna Cruz Work Phone: [facility] Work Phone: 12-29-2021 14:27-0400 Heart rate 44 /min Dr. Deanna Cruz Work Phone: [facility] Work Phone: 12-29-2021 14:27-0400 Respiratory rate 14 /min Dr. Deanna Cruz Work Phone: [facility] Work Phone: 12-29-2021 14:27-0400 Respiratory rate 16 /min Dr. Deanna Cruz Work Phone: [facility] 12-29-2021 14:27-0400 SaO2% (BldA) [Mass fraction] 98 % Dr. Deanna Cruz Work Phone: [facility] Work Phone: 12-29-2021 14:27-0400 Systolic blood pressure 120 mm[Hg] Dr. Deanna Cruz Work Phone: [facility] Work Phone: 10-12-2021 13:44-0400 Body height 170.[address] Deanna Cruz Work Phone: [facility] Work Phone: 10-12-2021 13:44-0400 Body mass index (BMI) [Ratio] 25.8 kg/m2 Dr. Deanna Cruz Work Phone: [facility] Work Phone: 10-12-2021 13:44-0400 Body temperature 98 [degF] Dr. Deanna Cruz Work Phone: [facility] Work Phone: 10-12-2021 13:44-0400 Body weight 74.[address] Deanna Cruz Work Phone: [facility] Work Phone: 10-12-2021 13:44-0400 Diastolic blood pressure 69 mm[Hg] Dr. Deanna Cruz Work Phone: [facility] Work Phone: 10-12-2021 13:44-0400 Heart rate 43 /min Dr. Deanna Cruz Work Phone: [facility] Work Phone: 10-12-2021 13:44-0400 Respiratory rate 16 /min Dr. Deanan Cruz Work Phone: [facility] Work Phone: 10-12-2021 13:44-0400 SaO2% (BldA) [Mass fraction] 96 % Dr. Deanna Cruz Work Phone: [facility] Work Phone: 10-12-2021 13:44-0400 Systolic blood pressure 116 mm[Hg] Dr. Deanna Cruz Work Phone: [facility] Work Phone: 09-28-2021 13:02-0400 Body height 170.[address] Deanna Cruz Work Phone: [facility] Work Phone: 09-28-2021 13:02-0400 Body mass index (BMI) [Ratio] 31 kg/m2 Dr. Deanna Cruz Work Phone: [facility] Work Phone: 09-28-2021 13:02-0400 Body temperature 96.5 [degF] Dr. Deanna Cruz Work Phone: [facility] Work Phone: 09-28-2021 13:02-0400 Body weight 89.[address] Deanna Cruz Work Phone: [facility] Work Phone: 09-28-2021 13:02-0400 Diastolic blood pressure 60 mm[Hg] Dr. Deanna Cruz Work Phone: [facility] Work Phone: 09-28-2021 13:02-0400 Heart rate 48 /min Dr. Deanan Cruz Work Phone: [facility] Work Phone: 09-28-2021 13:02-0400 Respiratory rate 18 /min Dr. Deanna Cruz Work Phone: [facility] Work Phone: 09-28-2021 13:02-0400 SaO2% (BldA) [Mass fraction] 97 % Dr. Deanna Cruz Work Phone: [facility] Work Phone: 09-28-2021 13:02-0400 Systolic blood pressure 118 mm[Hg] Dr. Deanna Cruz Work Phone: [facility] Work Phone: 07-12-2021 14:39-0400 Body mass index (BMI) [Ratio] 34.2 kg/m2 Dr. Deanna Cruz Work Phone: [facility] Work Phone: 07-12-2021 14:39-0400 Body weight 99.[address] Deanna Cruz Work Phone: [facility] Work Phone: 07-12-2021 14:39-0400 Diastolic blood pressure 69 mm[Hg] Dr. Deanna Cruz Work Phone: [facility] Work Phone: 07-12-2021 14:39-0400 Heart rate 49 /min Dr. Deanna Cruz Work Phone: [facility] Work Phone: 07-12-2021 14:39-0400 Respiratory rate 20 /min Dr. Deanna Cruz Work Phone: [facility] Work Phone: 07-12-2021 14:39-0400 Systolic blood pressure 116 mm[Hg] Dr. Deanna Cruz Work Phone: [facility] Work Phone: 07-12-2021 14:39-0400 Body height 170.[address] Deanna Cruz Work Phone: [facility] Work Phone: 07-12-2021 14:39-0400 Body mass index (BMI) [Ratio] 34.2 kg/m2 Dr. Deanna Cruz Work Phone: [facility] Work Phone: 07-12-2021 14:39-0400 Body weight 99.[address] Deanna Cruz Work Phone: [facility] Work Phone: 07-12-2021 14:39-0400 Diastolic blood pressure 69 mm[Hg] Dr. Deanna Cruz Work Phone: [facility] Work Phone: 07-12-2021 14:39-0400 Heart rate 49 /min Dr. Deanna Cruz Work Phone: [facility] Work Phone: 07-12-2021 14:39-0400 Respiratory rate 20 /min Dr. Deanna Cruz Work Phone: [facility] Work Phone: 07-12-2021 14:39-0400 Systolic blood pressure 116 mm[Hg] Dr. Deanna Cruz Work Phone: [facility] Work Phone: 05-19-2021 12:18-0500 Body mass index (BMI) [Ratio] 37.5 kg/m2 Dr. Deanna Cruz Work Phone: [facility] Work Phone: 05-19-2021 12:18-0500 Body temperature 97.4 [degF] Dr. Deanna Cruz Work Phone: [facility] Work Phone: 05-19-2021 12:18-0500 Body weight 108.[address] Deanna Cruz Work Phone: [facility] Work Phone: 05-19-2021 12:18-0500 Diastolic blood pressure 66 mm[Hg] Dr. Deanna Cruz Work Phone: [facility] Work Phone: 05-19-2021 12:18-0500 Heart rate 52 /min Dr. Deanna Cruz Work Phone: [facility] Work Phone: 05-19-2021 12:18-0500 Respiratory rate 16 /min Dr. Deanna Cruz Work Phone: [facility] Work Phone: 05-19-2021 12:18-0500 SaO2% (BldA) [Mass fraction] 98 % Dr. Deanna Cruz Work Phone: [facility] Work Phone: 05-19-2021 12:18-0500 Systolic blood pressure 108 mm[Hg] Dr. Deanna Cruz Work Phone: [facility] Work Phone: 04-12-2021 11:39-0500 Body mass index (BMI) [Ratio] 37.7 kg/m2 Dr. Deanna Cruz Work Phone: [facility] Work Phone: 04-12-2021 11:39-0500 Body temperature 97.5 [degF] Dr. Deanna Cruz Work Phone: [facility] Work Phone: 04-12-2021 11:39-0500 Body weight 109.[address] Deanna Cruz Work Phone: [facility] Work Phone: 04-12-2021 11:39-0500 Diastolic blood pressure 71 mm[Hg] Dr. Deanna Cruz Work Phone: [facility] Work Phone: 04-12-2021 11:39-0500 Heart rate 52 /min Dr. Deanna Cruz Work Phone: [facility] Work Phone: 04-12-2021 11:39-0500 Respiratory rate 18 /min Dr. Deanna Cruz Work Phone: [facility] Work Phone: 04-12-2021 11:39-0500 SaO2% (BldA) [Mass fraction] 95 % Dr. Deanna Cruz Work Phone: [facility] Work Phone: 04-12-2021 11:39-0500 Systolic blood pressure 119 mm[Hg] Dr. Deanna Cruz Work Phone: [facility] Work Phone: 04-20-2020 13:38-0500 BP Diastolic 65 mm[Hg] [facility] 04-20-2020 13:38-0500 BP Systolic 116 mm[Hg] [facility] 04-20-2020 13:38-0500 Pulse (Heart Rate) 59 /min [facility] merrill Encounters Encounter Date Encounter Type Care Provider Facility Start: 08-27-2024 End: 08-27-2024 ambulatory Paulette Matthews NP Facility:[facility] Start: 08-27-2024 End: 08-27-2024 Patient encounter procedure Paulette Matthews LINE MANAGER-C -[facility] Work Phone: Start: 07-17-2024 End: 07-17-2024 Office outpatient visit 25 minutes Memo Kelley MD Work Phone: [facility] Comment on above: Paroxysmal atrial fi brillation (HCC) (Primary Dx) Start: 07-17-2024 End: 07-17-2024 ambulatory EFSTEFANIAROGER WARD GRUPOE [facility] Ambulatory Start: 06-12-2024 End: 06-12-2024 Patient encounter procedure Jes Carmichael LINE MANAGER-C -[facility] Work Phone: Start: 06-12-2024 End: 06-12-2024 ambulatory Jes Carmichael Facility:[facility] Start: 05-22-2024 End: 05-22-[address] Deanna Cruz MD Work Phone: [facility] Work Phone: Start: 05-22-2024 End: 05-22-[address] Deanna Cruz MD -Laboratory, [place] Start: 05-22-2024 End: 05-22-[address] Deanna Cruz MD -[facility] Work Phone: Start: 05-22-2024 End: 05-22-2024 ambulatory Miyavidavika Grupoeusebiovero Facility:[facility] Start: 05-22-2024 End: 05-22-2024 [facility] Start: 04-23-2024 End: 04-23-2024 Office outpatient visit 25 minutes Nicolás Tinsley DO Work Phone: [facility] Comment on above: Persistent atrial fi brillation (HCC) Start: 04-23-2024 End: 04-23-2024 ambulatory NICOLÁS TINSLEY [facility] Ambulatory Start: 02-21-2024 End: 02-21-[address] Deanna Cruz MD -[facility] Work Phone: Start: 02-21-2024 End: 02-21-2024 ambulatory Efdanielle Cruz Facility:[facility] Start: 02-19-2024 End: 02-19-2024 [facility] Start: 02-09-[facility]24 End: 02-09-2024 Admission to same day surgery center Gay Fried RN [facility] Comment on above: Persistent atrial fi brillation (HCC) (Primary Dx) Start: 02-06-2024 End: 02-06-2024 Admission to same day surgery center Gay Fried RN [facility] Comment on above: Persistent atrial fi brillation (HCC) (Primary Dx) Start: 02-06-2024 End: 02-06-2024 Office outpatient new 45 minutes Memo Kelley MD Work Phone: [facility] Comment on above: Persistent atrial fi brillation (HCC) Start: 02-06-2024 End: 02-06-2024 ambulatory MEMO KELLEY [facility] Start: 01-22-2024 End: 01-22-2024 Orders Only Nicolás Tinsley DO Work Phone: [facility] Comment on above: Persistent atrial fi brillation (HCC) (Primary Dx) Start: 01-10-2024 End: 01-10-2024 Office outpatient visit 25 minutes Memo Kelley MD Work Phone: [facility] Comment on above: ASHD (arteriosclerot ic heart disease) (Primary Dx); Psoriasis; Persistent atrial fibrillation (HCC); PVD (peripheral vascular disease) (HCC) Start: 01-10-2024 End: 01-10-2024 ambulatory EFEWONGBE SYLVIA OLEE [facility] Ambulatory Start: 12-02-2023 ambulatory EFEWONGBE BENE DICTA [facility] Ambulatory Start: 11-23-2023 End: 11-23-2023 ambulatory Efewongbe Olee [place] Start: 11-23-2023 End: 11-23-2023 ambulatory Efewongbe Olee Facility:[facility] Start: 09-11-2023 End: 09-12-[address] [facility] Facility:[facility] Start: 09-11-2023 End: 09-11-2023 Patient encounter procedure Rory Tinoco OD Work Phone: Optometry Comment on above: Type 2 diabetes marla itus without retinopathy (HCC) (Primary Dx); Floaters, bilateral; Posterior vitreous detachment of left eye; Pseudophakia, both eyes Start: 09-06-2023 Refill Gege Valera RN [facility] Comment on above: Medication Refill Start: 09-04-2023 End: 09-04-2023 ambulatory Deanna Cruz Facility:[facility] Start: 08-29-2023 End: 09-02-2023 [facility] Start: 06-22-2023 End: 06-22-2023 Office outpatient visit 25 minutes Deanna Cruz MD Work Phone: [facility] Comment on above: History of left-side d carotid endarterectomy (Primary Dx); Presence of coronary angioplasty implant and graft; Lightheaded; Hyperlipidemia, unspecified hyperlipidemia type; ASHD (arteriosclerotic heart disease); PVD (peripheral vascular disease) (HCC) Start: 06-12-2023 End: 06-12-[address] Deanna Cruz Work Phone: [facility] Work Phone: Start: 06-12-2023 End: 06-12-[address] Deanna Cruz Work Phone: [facility] [place] Work Phone: Start: 05-26-2023 Transcribe Orders Deanna Cruz MD Work Phone: [facility] Comment on above: Presence of coronary angioplasty implant and graft (Primary Dx) Start: 05-25-2023 End: 05-25-[address] Deanna Cruz Work Phone: [facility] Work Phone: Start: 05-25-2023 End: 05-25-[address] Deanna Cruz Work Phone: [facility] Work Phone: Start: 05-14-2023 End: 05-17-2023 Evaluation and management of inpatient ODALIS NASH LOGAN [facility] Start: 05-13-2023 End: 05-14-2023 Emergency department patient visit DEANNA CRUZ [facility] Start: 04-27-2023 Non-patient / Non-visit Dr. Miya Cruz Work Phone: [facility] Work Phone: Start: 04-01-2023 End: 04-01-2023 ambulatory DEANNA CRUZ [facility] Start: 03-29-2023 End: 03-29-[address] Deanna Cruz Work Phone: [facility] Work Phone: Start: 03-29-2023 End: 03-29-[address] Deanna Cruz Work Phone: [facility] Work Phone: Start: 01-02-2023 End: 01-02-2023 ambulatory DEANNA CRUZ Facility:[facility] Start: 01-02-2023 End: 01-02-2023 Patient encounter procedure Rory Tinoco OD Work Phone: Optometry Comment on above: Hyperopia, bilateral (Primary Dx); Regular astigmatism, bilateral Start: 12-26-2022 End: 12-26-2022 ambulatory KAMILA CESAR [facility] Start: 12-26-2022 End: 12-26-2022 Office outpatient new 30 minutes Kamila Cesar PA-C Work Phone: [facility] Comment on above: Impacted cerumen of left ear (Primary Dx); Former smoker; Bradycardia; Acute swimmer's ear of left side Start: 04-21-2022 End: 04-21-[address] Deanna Cruz Work Phone: [facility] Work Phone: Start: 04-21-2022 End: 04-21-[address] Deanna Cruz Work Phone: [facility] Start: 04-14-2022 End: 04-14-[address] [facility] Start: 04-12-2022 End: 04-12-[address] Deanna Cruz Work Phone: [facility] Start: 04-07-2022 End: 04-07-[address] Deanna Cruz Work Phone: [facility] Start: 02-14-2022 End: 02-14-[address] Deanna Cruz Work Phone: [facility] Work Phone: Start: 02-14-2022 End: 02-14-[address] Deanna Cruz Work Phone: [facility]Cardi[facility] Start: 02-14-2022 Non-patient / Non-visit Dr. Miya Cruz Work Phone: [facility] Start: 02-04-[address] Ev Cruz Work Phone: [facility]Physical Therapy Start: 01-25-2022 Non-patient / Non-visit Dr. Miya Cruz Work Phone: [facility] Start: 01-25-2022 End: 01-25-[address] Deanna Cruz Work Phone: [facility] Work Phone: Start: 01-25-2022 End: 01-25-[address] Deanna Cruz Work Phone: [facility] Start: 01-17-[address] Ev Cruz Work Phone: [facility] Start: 01-12-2022 End: 01-12-[address] Deanna Cruz Work Phone: [facility] Start: 12-29-2021 End: 12-29-[address] Deanna Cruz Work Phone: [facility] Work Phone: Start: 12-29-2021 End: 12-29-[address] Deanna Cruz Work Phone: [facility] Start: 10-12-2021 End: 10-12-[address] Deanna Cruz Work Phone: [facility] Start: 09-28-2021 End: 09-28-[address] Deanna Cruz Work Phone: [facility] Start: 08-06-2021 End: 08-06-2021 Patient encounter procedure Rory Tinoco OD Work Phone: Ophthalmology Comment on above: Type 2 diabetes marla itus without retinopathy (HCC) (Primary Dx); Branch retinal artery occlusion of right eye; Floaters, bilateral; Posterior vitreous detachment of left eye; Pseudophakia, both eyes Start: 07-12-2021 End: 07-12-[address] Deanna Cruz Work Phone: [facility] Start: 05-19-2021 End: 05-19-[address] Deanna Cruz Work Phone: [facility] Start: 04-12-2021 End: 04-12-[address] Deanan [facility] Start: 02-15-[address] Deanna Cruz Work Phone: [facility] Start: 04-20-2020 End: 04-20-2020 Patient encounter procedure Raphael Alan Work Phone: Ophthalmology Comment on above: Branch retinal arter y occlusion of right eye (Primary Dx); Combined forms of age-related cataract of right eye; Pseudophakia of left eye; Type 2 diabetes mellitus without retinopathy (HCC); Essential hypertension Procedures Date Procedure Procedure Detail Performing Clinician Start: 05-22-2024 Prostate specific an tigen measurement Dr. Deanna Cruz MD Work Phone: Comment on above: This test was perfor med using the [employer] tPSA method. Measured values of a patient sample can vary depending on the testing procedure used. PSA values determined on patient samples by different testing procedures cannot be used interchangeably. If there is a change in PSA assays while monitoring therapy, sequential testing should be performed to confirm baseline values. Start: 05-22-2024 Urine microalbumin/creatinine ratio measurement Dr. Deanna Cruz MD Work Phone: Start: 04-30-2024 Ecg routine ecg w/le ast 12 lds w/i&r Nicolás Tinsley DO Work Phone: Start: 02-14-2024 Ecg routine ecg w/le ast 12 lds w/i&r Nicolás Tinsley DO Work Phone: Start: 08-29-2023 Lipid 1996 panel - S laurie or Plasma Rory Tinoco OD Work Phone: Start: 06-25-2023 Referral to cardiolo gy service External Transcribed Start: 06-25-2023 History of carotid endarterectomy History of left-sided carotid endarterectomy Memo Kelley MD Work Phone: Start: 05-15-2023 Adult depression screening assessment Deanna Cruz MD Work Phone: Start: 01-25-2022 Radionuclide imaging of perfusion of myocardium under exercise stress Dr. Deanna Cruz Work Phone: Start: 12-29-2021 Radiography of thora cic spine Dr. Deanna Cruz Work Phone: Start: 10-12-[address] Nora Cruz Work Phone: Start: 08-06-2021 Computerized ophthal deysi imaging retina Raphael Alan MD Work Phone: Start: 04-20-2020 Camera fundoscopy Gurdeep Kelly Work Phone: Start: 04-20-2020 IOL BIOMETRY W/ IOL CALC OD (RIGHT EYE) Raphael Alan Work Phone: Start: 04-20-2020 Computerized ophthal deysi imaging retina Raphael Alan Work Phone: Start: 03-20-2018 History of carotid endarterectomy History of left-sided carotid endarterectomy Dr. Deanna Cruz Work Phone: Start: 03-09-2016 CATHETERIZATION Memo Kelley MD Work Phone: Start: 03-08-2016 CATHETERIZATION Memo Kelley MD Work Phone: History of carotid endarterectomy History of left-sided carotid endarterectomy Deanna Cruz MD Work Phone: History of cataract extraction History of cataract surgery Dr. Deanna Cruz Work Phone: Comment on above: Lt/Rt Plan of Treatment Date Care Activity Detail Author Start: 08-28-2028 Lipid panel Lipid Screening [facility] Start: 08-28-2026 Diabetes Screening Diabetes Screenin [facility] Start: 04-30-2026 Screening for malign ant neoplasm of colon [facility] Start: 02-18-2025 Urine screening for protein eGFR Diabetes [facility] Start: 01-22-2025 End: 01-22-2025 Patient encounter procedure 01/22/2025 2:20 PM EST Office Visit [facility] [address] [place] [address] Memo Kelley MD [address] [address] [facility] Start: 11-18-2024 Influenza vaccination Influenz a Vaccine (Season Ended) [facility] Start: 09-16-2024 End: 09-16-2024 Patient encounter procedure 09/16/2024 2:00 PM EDT Office Visit [facility] [address] [place] [address] Rory Tinoco, OD [address] [place] [address] Diabetic Eye exam/Medicare/MMO/VSP savings [facility] Comment on above: Diabetic Eye exam/Me dicare/MMO/VSP savings [facility] Start: 08-28-2024 Urine screening for protein eGFR Diabetes [facility] Start: 07-17-2024 End: 07-17-2024 Patient encounter procedure 07/17/2024 2:20 PM EDT Office Visit [facility] [address] [place] [address] Memo Kelley MD [address] [address] [facility] Start: 05-15-2024 Depression screening using PHQ-9 (Patient Health Questionnaire 9) score [facility] Start: 02-19-2024 End: 02-19-2024 Patient encounter procedure 02/19/2024 8:00 AM EST Appointment [facility] [address] [place] [phone] Nicolás Tinsley DO [address] [place] [address] [facility] Start: 02-06-2024 End: 02-06-2024 Patient encounter procedure 02/06/2024 2:00 PM EST Office Visit [facility] [address] [facility] [place] [address] Memo Kelley MD [address] [address] Nicolás Tinsley DO [address] [place] [address] [facility] Start: 11-19-2023 COVID-19 Vaccine ( season) COVID-19 Vaccine ( season) [facility] Start: 11-19-2023 COVID-19 Vaccine ( season) COVID-19 Vaccine ( season) [facility] Start: 11-19-2023 Influenza vaccination [facility] Start: 08-29-2023 End: 08-29-2023 Patient encounter procedure 08/29/2023 2:00 PM EDT Appointment [facility] [address] [facility] [place] [address] Memo Kelley MD [address] [address] [facility] Start: 08-09-2023 Glaucoma screening Diabetic Eye Exam [facility] Start: 08-09-2023 Hepatitis C antibody , confirmatory test Dilated Retinal Exam [facility] Start: 06-22-2023 Tetanus vaccination Tetanus: Every 1 0yrs [facility] Start: 06-22-2023 Urine microalbumin profile DTaP,Tdap,Td Vaccine (2 - Td or Tdap) [facility] Start: 05-25-2023 Patient referral agencyQ [facility] Work Phone: Start: 03-20-2023 Advance Directive Discussion Advance Directive Discussion [facility] Start: 03-20-2023 Behavioral Health Screening [facility] [place] Start: 11-18-2022 COVID-19 Vaccine ( season) COVID-19 Vaccine ( season) [facility] Start: 11-18-2022 Influenza vaccination [facility] Start: 10-06-2022 Screening for malign ant neoplasm of colon [facility] Start: 08-06-2022 Hepatitis C antibody , confirmatory test DILATED RETINAL EXAM [facility] [place] Start: 03-20-2022 Advance Directive Discussion Advance Directive Discussion [facility] Start: 03-20-2022 Depression Assessment Depression Ass essment [facility] [place] Start: 12-29-2021 Patient referral agencyQ [facility] Work Phone: Start: 11-18-2021 Influenza vaccination INFLUENZA (Sea son Ended) [facility] [place] Start: 04-20-2021 Hepatitis C antibody , confirmatory test DILATED RETINAL EXAM [facility] [place] Start: 04-15-2021 COVID-19 VACCINE (2 - Pfizer series) COVID-19 VACCINE (2 - Pfizer series) [facility] [place] Start: 03-20-2021 ADVANCE DIRECTIVE DISCUSSION ADVANCE DIRECTIVE DISCUSSION [facility] [place] Start: 11-19-2019 Influenza vaccination INFLUENZA (#1) [facility] [place] Start: 05-17-2018 Hemoglobin A1c measurement A1C [facility] Start: 03-06-2018 Screening for malign ant neoplasm of colon Fecal occult blood test (FOBT,FIT) [facility] Start: 03-01-2018 Screening for malign ant neoplasm of colon Fecal occult blood test (FOBT,FIT) [facility] Start: 12-09-2016 ADVANCE DIRECTIVE DISCUSSION ADVANCE DIRECTIVE DISCUSSION [facility] [place] Start: 12-09-2016 Fall risk assessment Falls Risk Asse ssment [facility] Start: 12-09-2016 Pneumococcal Vaccine : 65+ (2 of 2 - PCV) Pneumococcal Vaccine: 65+ (2 of 2 - PCV) [facility] [place] Start: 12-09-2016 Pneumococcal Vaccine : Age 65+ (1 - PCV) Pneumococcal Vaccine: Age 65+ (1 - PCV) [facility] Start: 12-09-2016 Pneumococcal Vaccine : Age 65+ (2 of 2 - PCV) Pneumococcal Vaccine: Age 65+ (2 of 2 - PCV) [facility] Start: 12-09-2016 PNEUMOVAX AGE 65 AND OVER WITH 5YR LOOKBACK (#1) PNEUMOVAX AGE 65 AND OVER WITH 5YR LOOKBACK (#1) [facility] [place] Start: 09-17-2014 Administration of he rpes zoster vaccine Zoster Vaccines (2 of 3) [facility] Start: 09-17-2014 Shingrix Vaccine (2 of 3) Shingrix Vaccine (2 of 3) [facility] [place] Start: 07-03-2014 Pneumococcal Vaccine : Age 50+ (2 of 2 - PCV) Pneumococcal Vaccine: Age 50+ (2 of 2 - PCV) [facility] Start: 07-03-2014 Pneumococcal Vaccine : Age 65+ (2 of 2 - PCV) Pneumococcal Vaccine: Age 65+ (2 of 2 - PCV) [facility] Start: 2011 Hepatitis B Vaccine (1 of 3 - Risk 3-dose series) Hepatitis B Vaccine (1 of 3 - Risk 3-dose series) [facility] [place] Start: 2011 Respiratory Syncytia l Virus Immunization: Risk, 60-74 Risk, or 75+ (1 - Risk 60-74 years 1-dose series) Respiratory Syncytial Virus Immunization: Risk, 60-74 Risk, or 75+ (1 - Risk 60-74 years 1-dose series) [facility] Start: 2011 RSV Vaccine (1 - 1-d ose 60+ series) RSV Vaccine (1 - 1-dose 60+ series) [facility] [place] Start: 12-09-2006 PROSTATE CANCER SCREENING DISCUSSION PROSTATE CANCER SCREENING DISCUSSION [facility] [place] Start: 12-09-2001 Administration of he rpes zoster vaccine Zoster Vaccines (1 of 2) [facility] Start: 12-09-2001 Screening for malign ant neoplasm of colon [facility] Start: 12-09-2001 SHINGRIX VACCINE (1 of 2) SHINGRIX VACCINE (1 of 2) [facility] [place] Start: 12-09-1996 COLOGUARD (FIT-DNA) COLOGUARD (FIT-D NA) [facility] [place] Start: 12-09-1996 Colonoscopy COLONOSCOPY [facility] [place] Start: 12-09-1996 COLORECTAL CANCER SCREENING COLORECTAL CANCER SCREENING [facility] [place] Start: 12-09-[address] COLONOGRAPHY [facility] Start: 12-09-1996 FECAL OCCULT BLOOD FECAL OCCULT BLOO D [facility] [place] Start: 12-09-1996 Screening for malign ant neoplasm of colon [facility] [place] Start: 12-09-1996 SIGMOIDOSCOPY SIGMOIDOSCOPY [facility] Start: 12-09-1970 Urine microalbumin profile [facility] [place] Start: 12-09-1969 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 MERRILL DISEASE VISIT ANNUAL PCP TEAM CHRONIC DISEASE VISIT [facility] [place] Start: 12-09-1969 BP CONTROLLED (<130/80) BP CONTROLLE D (<130/80) [facility] [place] Start: 12-09-1969 Hepatitis B surface antibody level LDL CHOLESTEROL [facility] [place] Start: 12-09-1969 HEPATITIS C [facility] [place] Start: 12-09-1969 Hepatitis C screening Hepatitis C Sc [facility] Start: 1963 Adult depression screening assessment [facility] [place] Start: 12-09-1961 [object Object] DIABETIC FOOT EXAM [facility] Start: 12-09-1961 Diabetic foot examination Diabetic Foot Exam [facility] Start: 12-09-1961 Hepatitis B screening URINE AL BUMIN:CREATININE RATIO [facility] [place] Start: 12-09-1961 Urine screening for protein [facility] Start: 12-09-1957 Pneumococcal Vaccine : 65+ (1 - PCV) Pneumococcal Vaccine: 65+ (1 - PCV) [facility] [place] Start: 12-09-1956 HbA1c (Bld) [Mass fraction] HBA1C [facility] [place] Start: 12-09-1954 History and physical examination, annual for health maintenance Wellness Visit [facility] Start: 12-09-1954 Medicare Wellness Visit Medicare Wel lness Visit [facility] Start: 1950 ABDOMINAL AORTIC ANEURYSM SCREENING ABDOMINAL AORTIC ANEURYSM SCREENING [facility] [place] Start: 1950 Abdominal aortic aneurysm screening [facility] Start: 1951 Prostate specific antigen measurement PSA Level [facility] Start: 1951 Screening for malign ant neoplasm of colon [facility] Start: 1950 Tetanus vaccination Tetanus: Every 1 0yrs [facility] 12 lead ECG ECG 12 Lead ECG Routine ASHD (arteriosclerotic heart disease) Ordered: 01/10/2024 [facility] Work Phone: Comment on above: Ordered: 01/10/2024 End: 01-21-2026 12 lead ECG ECG 12 Lead ECG Routine Persistent atrial fibrillation (HCC) 4 Occurrences starting 01/22/2024 until 01/21/2026 [facility] Work Phone: Comment on above: 4 Occurrences starti ng 01/22/2024 until 01/21/2026 End: 08-21-2024 Carotid artery doppler assessment Carotid Duplex Vascular Ultrasound Routine History of left-sided carotid endarterectomy Lightheaded 1 Occurrences starting 06/22/2023 until 08/21/2024 [facility] Work Phone: Comment on above: 1 Occurrences starti ng 06/22/2023 until 08/21/2024 End: 06-21-2024 Comprehensive metabolic 2000 panel - Serum or Plasma Comprehensive metabolic panel Lab Routine Presence of coronary angioplasty implant and graft Hyperlipidemia, unspecified hyperlipidemia type 1 Occurrences starting 06/22/2023 until 06/21/2024 [facility] Comment on above: 1 Occurrences starti ng 06/22/2023 until 06/21/2024 CT Chest [facility] End: 12-27-2023 Ear cerum removal Ear cerum removal Procedures Routine Impacted cerumen of left ear 1 Occurrences starting 12/26/2022 until 12/27/2023 [facility] Work Phone: Comment on above: 1 Occurrences starti ng 12/26/2022 until 12/27/2023 End: 04-07-2025 External electrode cardioversion Cardioversion external Cardiac Services Routine Persistent atrial fibrillation (HCC) 1 Occurrences starting 02/06/2024 until 04/07/2025 [facility] Work Phone: Comment on above: 1 Occurrences starti ng 02/06/2024 until 04/07/2025 End: 06-21-2024 Lipid 1996 panel - Serum or Plasma Lipid panel Lab Routine Presence of coronary angioplasty implant and graft Hyperlipidemia, unspecified hyperlipidemia type 1 Occurrences starting 06/22/2023 until 06/21/2024 [facility] Comment on above: 1 Occurrences starti ng 06/22/2023 until 06/21/2024 Patient referral [facility] Work Phone: Carotid arteries [facility] Work Phone: [facility] Immunizations Immunization Date Immunization Notes Care Provider Fa [facility] 12-29-2021 influenza, injectabl e, quadrivalent, preservative free Dr. Deanna Cruz Work Phone: [facility] 12-29-2021 influenza, seasonal, injectable Dr. Deanna Cruz Work Phone: [facility] 12-29-2021 influenza virus vaccine, unspecified formulation Rory Tinoco OD Work Phone: [facility] [place] 03-25-2021 Covid (Pfizer) Dr. Deanna Cruz MD Work Phone: [facility] 01-29-2020 Influenza, injectabl e, [facility] Canine Kidney, quadrivalent with preservative Deanna Cruz MD Work Phone: [facility] 01-29-2020 influenza, injectable,quadrivalen t, preservative free, pediatric Dr. Deanna Cruz Work Phone: [facility] 01-29-2020 influenza, seasonal, injectable, preservative free Deanna Cruz MD Work Phone: [facility] 01-29-2020 Flucelvax Quad [id number] (PF) (flu vac qs 2019(4 yr up)CD(PF)) 60 mcg ([address] Deanna Cruz Work Phone: [facility] Work Phone: Payers Date Payer Category Payer Self-pay [id number] 2021 Managed Care (unspecified) [facility] [id number] 2020 Unknown [id number] 2020 Unknown [id number]. [id number] 2020 Unknown [id number]. 1.13.385.2. [id number] 2020 Unknown [id number] 2016 Medicare [id number]. [id number] 2016 Medicare [id number]. 1.13.385.2. [id number] 2016 Medicare [id number] 1950 Unknown [id number] 2.16.840.1.624061.3.579.2. 90 1951 Unknown [id number] 2.16.840.1.857082.3.579.2. 1951 Unknown [id number] 2.16.840.1.502635.3.579.2. 902 1951 Unknown [id number] 2.16.840.1.913284.3.579.2. 90 1951 Unknown [id number] 2.16.840.1.196361.3.579.2. 90 1951 Unknown [id number] 2.16.840.1.885429.3.579.2. 90 1951 Unknown [id number] 2.16.840.1.810930.3.579.2. 903 1951 Unknown [id number] 2.16.840.1.768028.3.579.2. 903 1951 Unknown [id number] 2.16.840.1.234191.3.579.2. 903 1951 Unknown [id number] 2.16.840.1.035522.3.579.2. 903 1951 Unknown [id number] 2.16.840.1.571278.3.579.2. 903 1951 Unknown [id number] 2.16.840.1.506139.3.579.2. 903 Unknown [id number] 2.16.840.1.929990.3.579.2. 462 Unknown [id number] 2.16.840.1.919589.3.579.2. 462 Unknown [id number] 2.16.840.1.085194.3.579.2. 462 Unknown [id number] 2.16.840.1.004635.3.579.2. 462 Unknown [id number] 2.16.840.1.082402.3.579.2. 462 Unknown [id number] 2.16.840.1.738319.3.579.2. 462 Unknown [id number] 2.16.840.1.415743.3.579.2. 462 Unknown [id number] 2.16.840.1.390398.3.579.2. 462 Unknown [id number] 2.16.840.1.722874.3.579.2. 462 Social History Date Type Detail Facility Start: 04-20-2020 End: 08-27-2024 Tobacco smoking status NHIS Former smoker [facility] [place] End: 04-20-2015 History of tobacco use Current smoker [facility] [place] Start: 04-20-2020 End: 02-19-2024 Tobacco use and exposure Never used [facility] [place] Start: 04-20-2020 End: 07-18-2024 Alcohol intake Ex-drinker (finding) [facility] [place] Start: 1950 Sex Assigned At Not [facility] file [facility] Exposure to SARS-CoV -2 (event) Not sure [facility] [place] Start: 07-12-2021 End: 06-12-2023 Tobacco smoking status NHIS Unknown if ever smoked [facility] Start: 09-12-2018 Non-smoker [facility] Start: 1950 Sex Assigned At Male [facility] End: 04-20-2015 History of tobacco use Cigarette Smoker [facility] Start: 08-08-2022 End: 05-14-2023 Gender identity Not on file [facility] Start: 08-08-2022 End: 05-14-2023 History of Social function [facility] National Score (1-10 0), lower number is lower risk 87 [facility] Has the [employer], [employer], oil, or water company threatened to shut off services in your home in past 12Mo [facility] ([facility]We) worried wheth er (my/our) food would run out before (I/we) got money to buy more. Never true [facility] Start: 06-04-2024 Sex Male (finding) [facility] Medical Equipment Procedure Code Equipment Code Equipment Origin al Text Equipment Identifier Dates Endarterectomy, carotid PATCH,VASC 1CM X 10CM FDA Start: 09-12-2018 Endarterectomy, carotid SEALANT,FLOSEAL HEMOSTATIC 5ML FDA Start: 09-12-2018 Endarterectomy, carotid SUTURE,LIGA CLIP MED [id number] FDA Start: 09-12-2018 Endarterectomy, carotid SUTURE,LIGA CLIP MED [id number] FDA Start: 09-12-2018 Endarterectomy, carotid SUTURE,LIGA CLIP SM LT-100 FDA Start: 09-12-2018 Endarterectomy, carotid SUTURE,LIGA CLIP SM LT-100 FDA Start: 09-12-2018 Endarterectomy, carotid SUTURE,LIGA CLIP SM LT-100 FDA Start: 09-12-2018 Endarterectomy, carotid PATCH,VASC 1CM X 10CM FDA Start: 09-12-2018 Endarterectomy, carotid SEALANT,FLOSEAL HEMOSTATIC 5ML FDA Start: 09-12-2018 Endarterectomy, carotid SUTURE,LIGA CLIP MED [id number] FDA Start: 09-12-2018 Endarterectomy, carotid SUTURE,LIGA CLIP MED [id number] FDA Start: 09-12-2018 Endarterectomy, carotid SUTURE,LIGA CLIP SM LT-100 FDA Start: 09-12-2018 Endarterectomy, carotid SUTURE,LIGA CLIP SM LT-100 FDA Start: 09-12-2018 Endarterectomy, carotid SUTURE,LIGA CLIP SM LT-100 FDA Start: 09-12-2018 Endarterectomy, carotid PATCH,VASC 1CM X 10CM FDA Start: 09-12-2018 Endarterectomy, carotid SEALANT,FLOSEAL HEMOSTATIC 5ML FDA Start: 09-12-2018 Endarterectomy, carotid SUTURE,LIGA CLIP MED [id number] FDA Start: 09-12-2018 Endarterectomy, carotid SUTURE,LIGA CLIP MED [id number] FDA Start: 09-12-2018 Endarterectomy, carotid SUTURE,LIGA CLIP SM LT-100 FDA Start: 09-12-2018 Endarterectomy, carotid SUTURE,LIGA CLIP SM LT-100 FDA Start: 09-12-2018 Endarterectomy, carotid SUTURE,LIGA CLIP SM LT-100 FDA Start: 09-12-2018 Endarterectomy, carotid PATCH,VASC 1CM X 10CM FDA Start: 09-12-2018 Endarterectomy, carotid SEALANT,FLOSEAL HEMOSTATIC 5ML FDA Start: 09-12-2018 Endarterectomy, carotid SUTURE,LIGA CLIP MED [id number] FDA Start: 09-12-2018 Endarterectomy, carotid SUTURE,LIGA CLIP MED [id number] FDA Start: 09-12-2018 Endarterectomy, carotid SUTURE,LIGA CLIP SM LT-100 FDA Start: 09-12-2018 Endarterectomy, carotid SUTURE,LIGA CLIP SM LT-100 FDA Start: 09-12-2018 Endarterectomy, carotid SUTURE,LIGA CLIP SM LT-100 FDA Start: 09-12-2018 Endarterectomy, carotid PATCH,VASC 1CM X 10CM FDA Start: 09-12-2018 Endarterectomy, carotid SEALANT,FLOSEAL HEMOSTATIC 5ML FDA Start: 09-12-2018 Endarterectomy, carotid SUTURE,LIGA CLIP MED [id number] FDA Start: 09-12-2018 Endarterectomy, carotid SUTURE,LIGA CLIP MED [id number] FDA Start: 09-12-2018 Endarterectomy, carotid SUTURE,LIGA CLIP SM LT-100 FDA Start: 09-12-2018 Endarterectomy, carotid SUTURE,LIGA CLIP SM LT-100 FDA Start: 09-12-2018 Endarterectomy, carotid SUTURE,LIGA CLIP SM LT-100 FDA Start: 09-12-2018 Endarterectomy, carotid PATCH,VASC 1CM X 10CM FDA Start: 09-12-2018 Endarterectomy, carotid SEALANT,FLOSEAL HEMOSTATIC 5ML FDA Start: 09-12-2018 Endarterectomy, carotid SUTURE,LIGA CLIP MED [id number] FDA Start: 09-12-2018 Endarterectomy, carotid SUTURE,LIGA CLIP MED [id number] FDA Start: 09-12-2018 Endarterectomy, carotid SUTURE,LIGA CLIP SM LT-100 FDA Start: 09-12-2018 Endarterectomy, carotid SUTURE,LIGA CLIP SM LT-100 FDA Start: 09-12-2018 Endarterectomy, carotid SUTURE,LIGA CLIP SM LT-100 FDA Start: 09-12-2018 Endarterectomy, carotid PATCH,VASC 1CM X 10CM FDA Start: 09-12-2018 Endarterectomy, carotid SEALANT,FLOSEAL HEMOSTATIC 5ML FDA Start: 09-12-2018 Endarterectomy, carotid SUTURE,LIGA CLIP MED [id number] FDA Start: 09-12-2018 Endarterectomy, carotid SUTURE,LIGA CLIP MED [id number] FDA Start: 09-12-2018 Endarterectomy, carotid SUTURE,LIGA CLIP SM LT-100 FDA Start: 09-12-2018 Endarterectomy, carotid SUTURE,LIGA CLIP SM LT-100 FDA Start: 09-12-2018 Endarterectomy, carotid SUTURE,LIGA CLIP SM LT-100 FDA Start: 09-12-2018 Endarterectomy, carotid PATCH,VASC 1CM X 10CM FDA Start: 09-12-2018 Endarterectomy, carotid SEALANT,FLOSEAL HEMOSTATIC 5ML FDA Start: 09-12-2018 Endarterectomy, carotid SUTURE,LIGA CLIP MED [id number] FDA Start: 09-12-2018 Endarterectomy, carotid SUTURE,LIGA CLIP MED [id number] FDA Start: 09-12-2018 Endarterectomy, carotid SUTURE,LIGA CLIP SM LT-100 FDA Start: 09-12-2018 Endarterectomy, carotid SUTURE,LIGA CLIP SM LT-100 FDA Start: 09-12-2018 Endarterectomy, carotid SUTURE,LIGA CLIP SM LT-100 FDA Start: 09-12-2018 Endarterectomy, carotid PATCH,VASC 1CM X 10CM FDA Start: 09-12-2018 Endarterectomy, carotid SEALANT,FLOSEAL HEMOSTATIC 5ML FDA Start: 09-12-2018 Endarterectomy, carotid SUTURE,LIGA CLIP MED [id number] FDA Start: 09-12-2018 Endarterectomy, carotid SUTURE,LIGA CLIP MED [id number] FDA Start: 09-12-2018 Endarterectomy, carotid SUTURE,LIGA CLIP SM LT-100 FDA Start: 09-12-2018 Endarterectomy, carotid SUTURE,LIGA CLIP SM LT-100 FDA Start: 09-12-2018 Endarterectomy, carotid SUTURE,LIGA CLIP SM LT-100 FDA Start: 09-12-2018 Endarterectomy, carotid PATCH,VASC 1CM X 10CM FDA Start: 09-12-2018 Endarterectomy, carotid SEALANT,FLOSEAL HEMOSTATIC 5ML FDA Start: 09-12-2018 Endarterectomy, carotid SUTURE,LIGA CLIP MED [id number] FDA Start: 09-12-2018 Endarterectomy, carotid SUTURE,LIGA CLIP MED [id number] FDA Start: 09-12-2018 Endarterectomy, carotid SUTURE,LIGA CLIP SM LT-100 FDA Start: 09-12-2018 Endarterectomy, carotid SUTURE,LIGA CLIP SM LT-100 FDA Start: 09-12-2018 Endarterectomy, carotid SUTURE,LIGA CLIP SM LT-100 FDA Start: 09-12-2018 Endarterectomy, carotid PATCH,VASC 1CM X 10CM FDA Start: 09-12-2018 Endarterectomy, carotid SEALANT,FLOSEAL HEMOSTATIC 5ML FDA Start: 09-12-2018 Endarterectomy, carotid SUTURE,LIGA CLIP MED LT200 FDA Start: 09-12-2018 Endarterectomy, carotid SUTURE,LIGA CLIP MED [id number] FDA Start: 09-12-2018 Endarterectomy, carotid SUTURE,LIGA CLIP SM LT-100 FDA Start: 09-12-2018 Endarterectomy, carotid SUTURE,LIGA CLIP SM LT-100 FDA Start: 09-12-2018 Endarterectomy, carotid SUTURE,LIGA CLIP SM LT-100 FDA Start: 09-12-2018 Endarterectomy, carotid PATCH,VASC 1CM X 10CM FDA Start: 09-12-2018 Endarterectomy, carotid SEALANT,FLOSEAL HEMOSTATIC 5ML FDA Start: 09-12-2018 Endarterectomy, carotid SUTURE,LIGA CLIP MED [id number] FDA Start: 09-12-2018 Endarterectomy, carotid SUTURE,LIGA CLIP MED [id number] FDA Start: 09-12-2018 Endarterectomy, carotid SUTURE,LIGA CLIP SM LT-100 FDA Start: 09-12-2018 Endarterectomy, carotid SUTURE,LIGA CLIP SM LT-100 FDA Start: 09-12-2018 Endarterectomy, carotid SUTURE,LIGA CLIP SM LT-100 FDA Start: 09-12-2018 Lens Acrysof Iq +21.5 Diopter Natural 0 D Biconvex Acrylic Methacrylate - [id number] Start: 05-27-2020 Clinical Notes 05-28-2020 to 07-17-2024 Assessment & Plan Note - Memo Kelley MD - 07/17/2024 2:54 PM EDTAssessment & Plan Note - Memo Kelley MD - 07/17/2024 2:54 PM EDTPatient Instructions Note Date & Type Note Facility 07-17-2024 Evaluation + Plan note Associated Problem(s): A-fib (HCC) Follows with EP also. Pulse regular today. [facility] 07-17-2024 Miscellaneous Notes Associate d Problem(s): A-fib (HCC) Follows with EP also. Pulse regular today. documented in this encounter [facility] 07-17-2024 Note [facility] [address] ([address]) [facility] [address] [facility] [id number] Subjective: Celeste Kincaid is a 73 y.o. male seen in the office today for Chief Complaint Patient presents with Follow-up 6mo - states he still feels as if his heart is racing at times since cardioversion in February. pt followed up with EP in April Successful cardioversion February 2024 followed by EP. Continues on low-dose metoprolol and oral anticoagulation history of Plavix for his coronary artery disease stable and peripheral vascular disease. Pulse regular physical exam unremarkable. Tells me he can do some regular walking couple of miles easily without any leg pain no chest pains says he can feel his heart go probably irregular for an hour or so now and then but he has no interest in further treatment for his A-fib at the present time continues on the OAC. Mildly or minimally symptomatic with the PAF. Denies any syncope near syncope. Plan no change in medications we will see back in 6 months for a general cardiology standpoint has follow-up with the EP. Did discuss the Watchman with him in general terms and gave him a brochure since he continues on oral anticoagulation and Plavix. Is tolerating well no nosebleeds no bleeding. Overview of Problems Addressed: Problem A-Fib (Hcc) Successful cardioversion February 2024 OAC and low-dose beta-arnoldo therapy. Has not had interest in ablation Persistent diagnosed early November 2023. Assessment & Plan: Reviewed A-fib (HCC) Follows with EP also. Pulse regular today. Histories: Past Medical History: Diagnosis Date Carotid artery stenosis Chronic kidney disease Diabetes mellitus (HCC) Hyperlipidemia Hypertension Myocardial infarction (HCC) 2015 Past Surgical History: Procedure Laterality Date BYPASS AORTOILIAC REPAIR/GRAFT CARDIAC CATHETERIZATION [place] TEAEC W/PATCH GRF CAROTID VERTB SUBCLAV NECK INC Left 06/19/2019 STENT PLACEMENT Family History Problem Relation Age of Onset Heart disease Mother Cancer Mother Heart disease Father Kidney disease Sister Prostate cancer Brother Prostate cancer Brother Social History[1] Patient's Medications New Prescriptions No medications on file Previous Medications APIXABAN (ELIQUIS) 5 MG TAB Take 1 (one) tablet (5 mg total) by mouth 2 (two) times a day . ATORVASTATIN (LIPITOR) 80 MG TABLET Take 1 (one) tablet (80 mg total) by mouth . CHOLECALCIFEROL, VITAMIN D3, 1,000 UNIT TABLET Take 5 (five) tablets (5,000 Units total) by mouth . CLOPIDOGREL (PLAVIX) 75 MG TABLET Take 1 (one) tablet (75 mg total) by mouth daily . DUTASTERIDE (AVODART) 0.5 MG CAPSULE Take 1 (one) capsule (0.5 mg total) by mouth daily . LISINOPRIL (PRINIVIL,ZESTRIL) 20 MG TABLET Take 1 (one) tablet (20 mg total) by mouth 2 (two) times a day . MAGNESIUM OXIDE 500 MG MAGNESIUM TAB Take 1 (one) tablet (500 mg total) by mouth . METOPROLOL TARTRATE (LOPRESSOR) 25 MG TABLET TAKE 1/2 (ONE-HALF) TABLET BY MOUTH TWICE DAILY FOR BLOOD PRESSURE TAMSULOSIN (FLOMAX) 0.4 MG CAPSULE TAKE 1 CAPSULE BY MOUTH ONCE DAILY FOR PROSTATE TILDRAKIZUMAB-ASMN (ILUMYA) 100 MG/ML SYRG Inject 1 mL (100 mg total) under the skin every 3 (three) months . TRAZODONE (DESYREL) 50 MG TABLET Take 1 (one) tablet (50 mg total) by mouth nightly as needed For insomnia . TRIAMCINOLONE (KENALOG) 0.1 % CREAM APPLY TOPICALLY TO THE AFFECTED AREAS TWICE DAILY FOR UP TO TWO WEEKS, TAKING A WEEK OFF BEFORE RESUMING FOR FLARE UPS VITAMIN B COMPLEX ORAL Take 1 tablet by mouth . Modified Medications No medications on file Discontinued Medications No medications on file Allergies[2] Review of Systems Constitutional: Negative for malaise/fatigue. Cardiovascular: Positive for palpitations. Negative for chest pain, dyspnea on exertion and leg swelling. Neurological: Negative for dizziness. Objective: Physical Exam Vitals and nursing note reviewed. Constitutional: General: He is not in acute distress. Appearance: He is well-developed. He is not diaphoretic. Comments: No acute distress Body mass index is 26.63 kg/m . HENT: Head: Normocephalic. Eyes: General: No scleral icterus. Neck: Vascular: No JVD. Cardiovascular: Rate and Rhythm: Regular rhythm. Bradycardia present. Pulses: Radial pulses are 2+ on the right side and 2+ on the left side. Heart sounds: S1 normal and S2 normal. No murmur heard. No gallop. No S3 or S4 sounds. Comments: Feet warm bilateral. Pulses 2+ dorsalis pedis posterior tibial on the right 1-2+ on the left. Feet are warm bilateral collaterally color intact. 1/6 short systolic murmur pulse regular. Pulmonary: Effort: No respiratory distress. Breath sounds: Normal breath sounds. No stridor. No wheezing or rales. Abdominal: General: There is no distension. Palpations: Abdomen is soft. Musculoskeletal: General: No tenderness. (more content not included)... [facility] 07-17-2024 History of Presen t illness Narrative [facility] [address] ([address]) [facility] [address] [facility] [id number] Subjective: Celeste Kincaid is a 73 y.o. male seen in the office today for Chief Complaint Patient presents with Follow-up 6mo - states he still feels as if his heart is racing at times since cardioversion in February. pt followed up with EP in April Successful cardioversion February 2024 followed by EP. Continues on low-dose metoprolol and oral anticoagulation history of Plavix for his coronary artery disease stable and peripheral vascular disease. Pulse regular physical exam unremarkable. Tells me he can do some regular walking couple of miles easily without any leg pain no chest pains says he can feel his heart go probably irregular for an hour or so now and then but he has no interest in further treatment for his A-fib at the present time continues on the OAC. Mildly or minimally symptomatic with the PAF. Denies any syncope near syncope. Plan no change in medications we will see back in 6 months for a general cardiology standpoint has follow-up with the EP. Did discuss the Watchman with him in general terms and gave him a brochure since he continues on oral anticoagulation and Plavix. Is tolerating well no nosebleeds no bleeding. Overview of Problems Addressed: Problem A-Fib (Hcc) Successful cardioversion February 2024 OAC and low-dose beta-arnoldo therapy. Has not had interest in ablation Persistent diagnosed early November 2023. Assessment & Plan: Reviewed A-fib (HCC) Follows with EP also. Pulse regular today. Histories: Past Medical History: Diagnosis Date Carotid artery stenosis Chronic kidney disease Diabetes mellitus (HCC) Hyperlipidemia Hypertension Myocardial infarction (HCC) 2015 Past Surgical History: Procedure Laterality Date BYPASS AORTOILIAC REPAIR/GRAFT CARDIAC CATHETERIZATION [place] TEAEC W/PATCH GRF CAROTID VERTB SUBCLAV NECK INC Left 06/19/2019 STENT PLACEMENT Family History Problem Relation Age of Onset Heart disease Mother Cancer Mother Heart disease Father Kidney disease Sister Prostate cancer Brother Prostate cancer Brother Social History[1] Patient's Medications New Prescriptions No medications on file Previous Medications APIXABAN (ELIQUIS) 5 MG TAB Take 1 (one) tablet (5 mg total) by mouth 2 (two) times a day . ATORVASTATIN (LIPITOR) 80 MG TABLET Take 1 (one) tablet (80 mg total) by mouth . CHOLECALCIFEROL, VITAMIN D3, 1,000 UNIT TABLET Take 5 (five) tablets (5,000 Units total) by mouth . CLOPIDOGREL (PLAVIX) 75 MG TABLET Take 1 (one) tablet (75 mg total) by mouth daily . DUTASTERIDE (AVODART) 0.5 MG CAPSULE Take 1 (one) capsule (0.5 mg total) by mouth daily . LISINOPRIL (PRINIVIL,ZESTRIL) 20 MG TABLET Take 1 (one) tablet (20 mg total) by mouth 2 (two) times a day . MAGNESIUM OXIDE 500 MG MAGNESIUM TAB Take 1 (one) tablet (500 mg total) by mouth . METOPROLOL TARTRATE (LOPRESSOR) 25 MG TABLET TAKE 1/2 (ONE-HALF) TABLET BY MOUTH TWICE DAILY FOR BLOOD PRESSURE TAMSULOSIN (FLOMAX) 0.4 MG CAPSULE TAKE 1 CAPSULE BY MOUTH ONCE DAILY FOR PROSTATE TILDRAKIZUMAB-ASMN (ILUMYA) 100 MG/ML SYRG Inject 1 mL (100 mg total) under the skin every 3 (three) months . TRAZODONE (DESYREL) 50 MG TABLET Take 1 (one) tablet (50 mg total) by mouth nightly as needed For insomnia . TRIAMCINOLONE (KENALOG) 0.1 % CREAM APPLY TOPICALLY TO THE AFFECTED AREAS TWICE DAILY FOR UP TO TWO WEEKS, TAKING A WEEK OFF BEFORE RESUMING FOR FLARE UPS VITAMIN B COMPLEX ORAL Take 1 tablet by mouth . Modified Medications No medications on file Discontinued Medications No medications on file Allergies[2] Review of Systems Constitutional: Negative for malaise/fatigue. Cardiovascular: Positive for palpitations. Negative for chest pain, dyspnea on exertion and leg swelling. Neurological: Negative for dizziness. Objective: Physical Exam Vitals and nursing note reviewed. Constitutional: General: He is not in acute distress. Appearance: He is well-developed. He is not diaphoretic. Comments: No acute distress Body mass index is 26.63 kg/m . HENT: Head: Normocephalic. Eyes: General: No scleral icterus. Neck: Vascular: No JVD. Cardiovascular: Rate and Rhythm: Regular rhythm. Bradycardia present. Pulses: Radial pulses are 2+ on the right side and 2+ on the left side. Heart sounds: S1 normal and S2 normal. No murmur heard. No gallop. No S3 or S4 sounds. Comments: Feet warm bilateral. Pulses 2+ dorsalis pedis posterior tibial on the right 1-2+ on the left. Feet are warm bilateral collaterally color intact. 1/6 short systolic murmur pulse regular. Pulmonary: Effort: No respiratory distress. Breath sounds: Normal breath sounds. No stridor. No wheezing or rales. Abdominal: General: There is no distension. Palpations: Abdomen is soft. Musculoskeletal: General: No tenderness. Skin: General: Skin is warm and dry. Neurological: Mental Status: He is alert. Comments: Oriented conversant. Psychiatric: Comments: Behavior unremarkable. Vitals: Vitals: 07/17/24 1408 BP: 100/61 BP Location: Left arm Patient Position: Sitting BP Cuff Size: X-large Adult Pulse: (!) 50 SpO2: 97% Weight: 76.7 kg (169 lb) Height: 5' 7 Body mass index is 26.47 kg/m . No orders of the defined types were placed in this encounter. Follow Up Ordered: Return in about 6 months (around 01/16/2025). Memo Kelley MD [1] Social History Tobacco Use Smoking status: Former Current packs/day: 0.00 Types: Cigarettes Quit date: 2015 Years since quittin.3 Smokeless tobacco: Never Vaping Use Vaping status: Never Used Substance Use Topics Alcohol use: Not Currently Drug use: Not Currently Types: Marijuana [2] No Known Allergies Review of Systems Constitutional: Negative for malaise/fatigue. Cardiovascular: Positive for palpitations. Negative for chest pain, dyspnea on exertion and leg swelling. Neurological: Negative for dizziness. documented in this encounter [facility] 07-16-2024 Instructions Daniela Stratton MA - 07/16/2024 8:59 AM EDT How to Contact your Care Team: Provider: Dr. Memo Kelley MD Parts Person: Mamie TAI assistant men's soccer coach: Daniela documented in this encounter [facility] 05-22-2024 Evaluation note Diagnosis Onset Date Resolution Atrial fibrillation chronic May 22, 2024 1:39pm BPH (benign prostatic hyperplasia) chronic May 22, 2024 1:39pm Essential hypertension chronic [facility] 2024 1:39pm GERD (gastroesophageal reflux disease) chronic May 22, 2024 1:39pm Type 2 diabetes mellitus chronic May 22, 2024 1:39pm ANUJA (obstructive sleep apnea) chronic June 12, 2024 1:57pm [facility] Work Phone: [phone]) 550-191002-11-2025 NoteSinus Bradycardia -Poor R-wave progression -nonspecific -consider old anterior infarct. -Negative T-waves -Possible Inferior ischemia. ABNORMAL [id number] NoteSinus Bradycardia -Poor R-wave progression -nonspecific -consider old anterior infarct. -Negative T-waves -Possible Inferior ischemia. [facility]02-04-2025 Instructions* Patient Instructions* Gay Fried RN - 04/23/2024 1:40 PM EST Testing Ordered: none Medication Changes: none Lab Work Ordered: none Referrals: none If you have any medical questions or concerns, please call Gay RN at [phone]. If you need to schedule/reschedule testing or your next appointment, please call [phone]. documented in this [id number] NoteHeart & Vascular Clinic Note [facility] Visit Date: 04/23/2024 Patient Name: Celeste Kincaid : 1950 Reason for Visit: Follow-up (Post DCCV/Afib ) ASSESSMENT/PLAN: Persistent Atrial Fibrillation Patient with persistent atrial fibrillation and baseline bradycardia. Feels better since being started on apixaban 5 mg BID by cardiology. Symptoms: Palpitations, irregular heartbeats, dizziness, lightheadedness Rhythm/Rate Control Strategy: Rhythm control for now with DCCV and reassess for long-term rhythm control following Therapies Used in Past: Metoprolol tartrate 12.5 mg BID, successful DCCV (02/19/2024) Current Therapies: Metoprolol tartrate 12.5 mg BID [id number] (Hypertension [1], Age 65-74 [1], and Vasc (Prior HI, PAD, Aortic Plaque) [1]): 3, which predicts an elevated annual risk of stroke or systemic thromboembolism of 3.2%, on apixaban 5 mg BID -We discussed risk factor modification -Continue oral anti-coagulation with apixaban 5 mg BID -At this time, patient would like to remain on metoprolol tartrate 12.5 mg twice daily and monitor for worsening symptoms -Follow up with arrhythmia clinic -Please contact arhythmia clinic if you have any questions or concerns HPI: Celeste Kincaid is a 73 y.o. male who presents today for follow-up regarding atrial fibrillation management post cardioversion. He reports that he has been doing well. He remains on metoprolol. He does note some intermittent irregular heartbeats. He denies any lightheadedness, dizziness, shortness of breath. We discussed long-term management strategies related to his persistent atrial fibrillation. At this time, patient would like to continue with his current therapies. He would not like to undergo any sort of further rhythm control at this time. We did discuss that we would readdress this, where his atrial fibrillation to return. Patient would like to follow-up in 6 months to reevaluate symptoms and management related to his atrial fibrillation. He was encouraged to contact if he had any recurrence in symptoms or had desired to address rhythm control at an earlier time. Histories Past Medical History: Diagnosis Date Carotid artery stenosis Chronic kidney disease Diabetes mellitus (HCC) Hyperlipidemia Hypertension Myocardial infarction (HCC) 2015 Past Surgical History: Procedure Laterality Date BYPASS AORTOILIAC REPAIR/GRAFT CARDIAC CATHETERIZATION [place] TEAEC W/PATCH GRF CAROTID VERTB SUBCLAV NECK INC Left 06/19/2019 STENT PLACEMENT Family History Problem Relation Age of Onset Heart disease Mother Cancer Mother Heart disease Father Kidney disease Sister Prostate cancer Brother Prostate cancer Brother Social History Socioeconomic History Marital status: Tobacco Use Smoking status: Former Current packs/day: 0.00 Types: Cigarettes Quit date: 2015 Years since quittin.1 Smokeless tobacco: Never Vaping Use Vaping status: Never Used Substance and Sexual Activity Alcohol use: Not Currently Drug use: Not Currently Types: Marijuana Social Drivers of Health Food Insecurity: No Food Insecurity (05/14/2023) Hunger Vital Sign Worried About Running Out of Food in the Last Year: Never true Ran Out of Food in the Last Year: Never true Transportation Needs: No Transportation Needs (05/14/2023) PRAPARE - Transportation Lack of Transportation (Medical): No Lack of Transportation (Non-Medical): No Housing Stability: Low Risk (05/14/2023) Housing Stability Vital Sign Unable to Pay for Housing in the Last Year: No Number of Places Lived in the Last Year: 1 Unstable Housing in the Last Year: No Patient has no known allergies. Patient's Medications New Prescriptions No medications on file Previous Medications APIXABAN (ELIQUIS) 5 MG TAB Take 1 (one) tablet (5 mg total) by mouth 2 (two) times a day . ATORVASTATIN (LIPITOR) 80 MG TABLET Take 1 (one) tablet (80 mg total) by mouth . CHOLECALCIFEROL, VITAMIN D3, 1,000 UNIT TABLET Take 5 (five) tablets (5,000 Units total) by mouth . CLOPIDOGREL (PLAVIX) 75 MG TABLET Take 1 (one) tablet (75 mg total) by mouth daily . DUTASTERIDE (AVODART) 0.5 MG CAPSULE Take 1 (one) capsule (0.5 mg total) by mouth daily . LISINOPRIL (PRINIVIL,ZESTRIL) 20 MG TABLET Take 1 (one) tablet (20 mg total) by mouth 2 (two) times a day . MAGNESIUM OXIDE 500 MG MAGNESIUM TAB Take 1 (one) tablet (500 mg total) by mouth . METOPROLOL TARTRATE (LOPRESSOR) 25 MG TABLET TAKE 1/2 (ONE-HALF) TABLET BY MOUTH TWICE DAILY FOR BLOOD PRESSURE TAMSULOSIN (FLOMAX) 0.4 MG CAPSULE TAKE 1 CAPSULE BY MOUTH ONCE DAILY FOR PROSTATE TILDRAKIZUMAB-ASMN (ILUMYA) 100 MG/ML SYRG Inject 1 mL (100 mg total) under the sk (more content not included)...[facility] [id number] History of Present illness Narrative* Nicolás Tinsley, DO - 04/23/2024 1:26 PM EST Heart & Vascular Clinic Note [facility] Visit Date: 04/23/2024 Patient Name: Celeste Kincaid : 1950 Reason for Visit: Follow-up (Post DCCV/Afib ) ASSESSMENT/PLAN: Persistent Atrial Fibrillation Patient with persistent atrial fibrillation and baseline bradycardia. Feels better since being started on apixaban 5 mg BID by cardiology. Symptoms: Palpitations, irregular heartbeats, dizziness, lightheadedness Rhythm/Rate Control Strategy: Rhythm control for now with DCCV and reassess for long-term rhythm control following Therapies Used in Past: Metoprolol tartrate 12.5 mg BID, successful DCCV (02/19/2024) Current Therapies: Metoprolol tartrate 12.5 mg BID [id number] (Hypertension [1], Age 65-74 [1], and Vasc (Prior HI, PAD, Aortic Plaque) [1]): 3, which predicts an elevated annual risk of stroke or systemic thromboembolism of 3.2%, on apixaban 5 mg BID -We discussed risk factor modification -Continue oral anti-coagulation with apixaban 5 mg BID -At this time, patient would like to remain on metoprolol tartrate 12.5 mg twice daily and monitor for worsening symptoms -Follow up with arrhythmia clinic -Please contact arhythmia clinic if you have any questions or concerns HPI: Celeste Kincaid is a 73 y.o. male who presents today for follow-up regarding atrial fibrillation management post cardioversion. He reports that he has been doing well. He remains on metoprolol. He does note some intermittent irregular heartbeats. He denies any lightheadedness, dizziness, shortness of breath. We discussed long-term management strategies related to his persistent atrial fibrillation. At thistime, patient would like to continue with his current therapies. He would not like to undergo any sort of further rhythm control at this time. We did discuss that we would readdress this, where his atrial fibrillation to return. Patient would like to follow-up in 6 months to reevaluate symptoms andmanagement related to his atrial fibrillation. He was encouraged to contact if he had any recurrence in symptoms or had desired to address rhythm control at an earlier time. Histories Past Medical History: Diagnosis Date Carotid artery stenosis Chronic kidney disease Diabetes mellitus (HCC) Hyperlipidemia Hypertension Myocardial infarction (HCC) 2015 Past Surgical History: Procedure Laterality Date BYPASS AORTOILIAC REPAIR/GRAFT CARDIAC CATHETERIZATION [place] TEAEC W/PATCH GRF CAROTID VERTB SUBCLAV NECK INC Left 06/19/2019 STENT PLACEMENT Family History Problem Relation Age of Onset Heart disease Mother Cancer Mother Heart disease Father Kidney disease Sister Prostate cancer Brother Prostate cancer Brother Social History Socioeconomic History Marital status: Tobacco Use Smoking status: Former Current packs/day: 0.00 Types: Cigarettes Quit date: 2015 Years since quittin.1 Smokeless tobacco: Never Vaping Use Vaping status: Never Used Substance and Sexual Activity Alcohol use: Not Currently Drug use: Not Currently Types: Marijuana Social Drivers of Health Food Insecurity: No Food Insecurity (05/14/2023) Hunger Vital Sign Worried About Running Out of Food in the Last Year: Never true Ran Out of Food in the Last Year: Never true Transportation Needs: No Transportation Needs (05/14/2023) PRAPARE - Transportation Lack of Transportation (Medical): No Lack of Transportation (Non-Medical): No Housing Stability: Low Risk (05/14/2023) Housing Stability Vital Sign Unable to Pay for Housing in the Last Year: No Number of Places Lived in the Last Year: 1 Unstable Housing in the Last Year: No Patient has no known allergies. Patient's Medications New Prescriptions No medications on file Previous Medications APIXABAN (ELIQUIS) 5 MG TAB Take 1 (one) tablet (5 mg total) by mouth 2 (two) times a day . ATORVASTATIN (LIPITOR) 80 MG TABLET Take 1 (one) tablet (80 mg total) by mouth . CHOLECALCIFEROL, VITAMIN D3, 1,000 UNIT TABLET Take 5 (five) tablets (5,000 Units total) by mouth . CLOPIDOGREL (PLAVIX) 75 MG TABLET Take 1 (one) tablet (75 mg total) by mouth daily . DUTASTERIDE (AVODART) 0.5 MG CAPSULE Take 1 (one) capsule (0.5 mg total) by mouth daily . LISINOPRIL (PRINIVIL,ZESTRIL) 20 MG TABLET Take 1 (one) tablet (20 mg total) by mouth 2 (two) timesa day . MAGNESIUM OXIDE 500 MG MAGNESIUM TAB Take 1 (one) tablet (500 mg total) by mouth . METOPROLOL TARTRATE (LOPRESSOR) 25 MG TABLET TAKE 1/2 (ONE-HALF) TABLET BY MOUTH TWICE DAILY FOR BLOOD PRESSURE TAMSULOSIN (FLOMAX) 0.4 MG CAPSULE TAKE 1 CAPSULE BY MOUTH ONCE DAILY FOR PROSTATE TILDRAKIZUMAB-ASMN (ILUMYA) 100 MG/ML SYRG Inject 1 mL (100 mg total) under the skin every 3 (three) months . TRAZODONE (DESYREL) 50 MG TABLET Take 1 (one) tablet (50 mg total) by mouth nightly as needed For insomnia . TRIAMCINOLONE (KENALOG) 0.1 % CREAM APPLY TOPICALLY TO THE AFFECTED AREAS TWICE DAILY FOR UP TO TWOWEEKS, TAKING A WEEK OFF BEFORE RESUMING FOR FLARE UPS VITAMIN B COMPLEX ORAL Take 1 tablet by mouth . Modified Medications No medications on file Discontinued Medications No medications on file No Known Allergies Review of Systems Constitutional: Negative for chills and fever. HENT: Negative for nosebleeds. Cardiovascular: Positive for irregular heartbeat. Negative for chest pain, dyspnea on exertion, legswelling, near-syncope, orthopnea, palpitations and syncope. Respiratory: Negative for shortness of breath. Hematologic/Lymphatic: Negative for bleeding problem. Musculoskeletal: Negative for falls and muscle weakness. Gastrointestinal: Negative for abdominal pain, diarrhea and vomiting. Genitourinary: Negative for hematuria. Neurological: Negative for dizziness and light-headedness. Psychiatric/Behavioral: Negative for altered mental status and substance abuse. All other systems reviewed and are negative. PACU Vitals 04/23/24 1321 BP: (!) 120/58 Pulse: (!) 49 SpO2: Physical Exam Vitals reviewed. Constitutional: Appearance: He is well-developed. HENT: Head: Normocephalic. Eyes: General: Lids are normal. Conjunctiva/sclera: Conjunctivae normal. Neck: Vascular: No JVD. Cardiovascular: Rate and Rhythm: Regular rhythm. Bradycardia present. Pulses: Normal pulses. Heart sounds: Normal heart sounds. Pulmonary: Effort: Pulmonary effort is normal. Breath sounds: Normal breath sounds. Abdominal: General: Abdomen is flat. There is no distension. Palpations: Abdomen is soft. There is no mass. Musculoskeletal: General: Normal range of motion. Skin: General: Skin is warm. Findings: No rash. Neurological: Mental Status: He is alert and oriented to person, place, and time. Gait: Gait normal. Psychiatric: Behavior: Behavior normal. Lab Results Component Value Date GLUCOSE 89 02/19/2024 CALCIUM 9.8 02/19/2024 NA 140 02/19/2024 K 4.9 02/19/2024 CL 107 02/19/2024 BUN 38 (H) 02/19/2024 CREATININE 1.46 (H) 02/19/2024 Lab Results Component Value Date INR 1.3 (H) 02/19/2024 PROTIME 16.6 (H) 02/19/2024 ECG reviewed: Sinus Bradycardia -Non-specific ST-T wave abnormalities Echocardiogram: reviewed Other workup reviewed ASSESSMENT & PLAN: See above Nicolás Tinsley DO, MPH [facility] Clinical Cardiac Hoop Punch And Coiler Operator Helper Please feel free to contact if you have any questions or concerns. * Latanya Claros MA - 04/23/2024 1:20 PM EST Review of Systems Cardiovascular: Positive for irregular heartbeat and leg swelling. documented in this [id number] Evaluation note* Diagnosis Onset Date Resolution Status Admit Date Atrial fibrillation chronic Decem 2023 1:52pm BPH (benign prostatic hyperplasia) chronic February 20 1:52pm Essential hypertension chronic De cem2023 1:52pm GERD (gastroesophageal reflu x disease) chronic February 20 1:52pm Type 2 diabetes mellitus chronic February 21, 2024 1:52pm Atrial fibrillation chronic May 22, 2024 1:39pm BPH (benign prostatic hyperplasia) chronic May 22, 2024 1:39pm Essential hypertension chronic [facility] 2024 1:39pm GERD (gastroesophageal reflu x disease) chronic May 22, 2024 1:39pm Type 2 diabetes mellitus chronic May 22, 2024 1:39pm [facility] Work Phone: 1(825) 744-970211-19-2024 NoteHeart & Vascular Clinic Note [facility] Visit Date: 02/06/2024 Patient Name: Celeste Kincaid : 1950 Reason for Visit: Initial Visit (Intake) (Arianib/Lizette ) ASSESSMENT/PLAN: Persistent Atrial Fibrillation Patient with persistent atrial fibrillation and baseline bradycardia. Feels better since being started on apixaban 5 mg BID by cardiology. Symptoms: Palpitations, irregular heartbeats, dizziness, lightheadedness Rhythm/Rate Control Strategy: Rhythm control for now with DCCV and reassess for long-term rhythm control following Therapies Used in Past: Metoprolol tartrate 12.5 mg BID Current Therapies: Metoprolol tartrate 12.5 mg BID [id number] (Hypertension [1], Age 65-74 [1], and Vasc (Prior HI, PAD, Aortic Plaque) [1]): 3, which predicts an elevated annual risk of stroke or systemic thromboembolism of 3.2%, on apixaban 5 mg BID -We discussed risk factor modification -Continue oral anti-coagulation with apixaban 5 mg BID -Plan for DCCV and then discuss plans for terminal makeup operator arrhythmia management -Follow up with arrhythmia clinic -Please contact arhythmia clinic if you have any questions or concerns HPI: Celeste Kincaid is a 73 y.o. male who presents today for evaluation and management of his persistent atrial fibrillation. He states that he felt an irregular heart beat, dizziness, and lightheadedness. He was noted to have atrial fibrillation (11/23/2023) and was started on apixaban 5 mg BID. He has remained in atrial fibrillation. He does state that he feels somewhat improved since starting the apixaban 5 mg BID. We discussed several different management strategies of his atrial fibrillation. After a shared decision making discussion with patient, plan will be to undergo DCCV and readdress terminal makeup operator arrhythmia management. Patient will continue uninterrupted anticoagulation and metoprolol tartrate. Histories Past Medical History: Diagnosis Date Hypertension Past Surgical History: Procedure Laterality Date BYPASS AORTOILIAC REPAIR/GRAFT CARDIAC CATHETERIZATION [place] TEAEC W/PATCH GRF CAROTID VERTB SUBCLAV NECK INC Left 06/19/2019 STENT PLACEMENT Family History Problem Relation Age of Onset Heart disease Mother Cancer Mother Heart disease Father Kidney disease Sister Prostate cancer Brother Prostate cancer Brother Social History Socioeconomic History Marital status: Tobacco Use Smoking status: Former Current packs/day: 0.00 Types: Cigarettes Quit date: 2016 Years since quittin.8 Smokeless tobacco: Never Vaping Use Vaping status: Never Used Substance and Sexual Activity Alcohol use: Not Currently Drug use: Not Currently Social Drivers of Health Food Insecurity: No Food Insecurity (05/14/2023) Hunger Vital Sign Worried About Running Out of Food in the Last Year: Never true Ran Out of Food in the Last Year: Never true Transportation Needs: No Transportation Needs (05/14/2023) PRAPARE - Transportation Lack of Transportation (Medical): No Lack of Transportation (Non-Medical): No Housing Stability: Low Risk (05/14/2023) Housing Stability Vital Sign Unable to Pay for Housing in the Last Year: No Number of Places Lived in the Last Year: 1 Unstable Housing in the Last Year: No Patient has no known allergies. Patient's Medications New Prescriptions No medications on file Previous Medications APIXABAN (ELIQUIS) 5 MG TAB Take 1 (one) tablet (5 mg total) by mouth 2 (two) times a day . ATORVASTATIN (LIPITOR) 80 MG TABLET Take 1 (one) tablet (80 mg total) by mouth . CHOLECALCIFEROL, VITAMIN D3, 1,000 UNIT TABLET Take 5 (five) tablets (5,000 Units total) by mouth . CLOPIDOGREL (PLAVIX) 75 MG TABLET Take 1 (one) tablet (75 mg total) by mouth daily . DUTASTERIDE (AVODART) 0.5 MG CAPSULE Take 1 (one) capsule (0.5 mg total) by mouth daily . LISINOPRIL (PRINIVIL,ZESTRIL) 20 MG TABLET Take 1 (one) tablet (20 mg total) by mouth 2 (two) times a day . MAGNESIUM OXIDE 500 MG MAGNESIUM TAB Take 1 (one) tablet (500 mg total) by mouth . METOPROLOL TARTRATE (LOPRESSOR) 25 MG TABLET TAKE 1/2 (ONE-HALF) TABLET BY MOUTH TWICE DAILY FOR BLOOD PRESSURE TAMSULOSIN (FLOMAX) 0.4 MG CAPSULE TAKE 1 CAPSULE BY MOUTH ONCE DAILY FOR PROSTATE TILDRAKIZUMAB-ASMN (ILUMYA) 100 MG/ML SYRG Inject 1 mL (100 mg total) under the skin every 3 (three) months . TRAZODONE (DESYREL) 50 MG TABLET Take 1 (one) tablet (50 mg total) by mouth nightly as needed For insomnia . TRIAMCINOLONE (KENALOG) 0.1 % CREAM APPLY TOPICALLY TO THE AFFECTED AREAS TWICE DAILY FOR UP TO TWO WEEKS, TAKING A WEEK OFF BEFORE RESUMING FOR FLARE UPS VITAMIN B COMPLEX ORAL Take 1 tablet by mouth . Modified Medications No medications on file (more content not included)...[facility] 02-06-2024 History of Present illness Narrative* Nicolás Tinsley, - 02/06/2024 2:13 PM EST Heart & Vascular Clinic Note [facility] Visit Date: 02/06/2024 Patient Name: Celeste Kincaid : 1950 Reason for Visit: Initial Visit (Intake) (Amy/Lizette ) ASSESSMENT/PLAN: Persistent Atrial Fibrillation Patient with persistent atrial fibrillation and baseline bradycardia. Feels better since being started on apixaban 5 mg BID by cardiology. Symptoms: Palpitations, irregular heartbeats, dizziness, lightheadedness Rhythm/Rate Control Strategy: Rhythm control for now with DCCV and reassess for terminal makeup operator rhythm control following Therapies Used in Past: Metoprolol tartrate 12.5 mg BID Current Therapies: Metoprolol tartrate 12.5 mg BID [id number] (Hypertension [1], Age 65-74 [1], and Vasc (Prior HI, PAD, Aortic Plaque) [1]): 3, which predicts an elevated annual risk of stroke or systemic thromboembolism of 3.2%, on apixaban 5 mg BID -We discussed risk factor modification -Continue oral anti-coagulation with apixaban 5 mg BID -Plan for DCCV and then discuss plans for terminal makeup operator arrhythmia management -Follow up with arrhythmia clinic -Please contact arhythmia clinic if you have any questions or concerns HPI: Celeste Kincaid is a 73 y.o. male who presents today for evaluation and management of his persistent atrial fibrillation. He states that he felt an irregular heart beat, dizziness, and lightheadedness. He was noted to have atrial fibrillation (11/23/2023) and was started on apixaban 5 mg BID. He has remained in atrial fibrillation. He does state that he feels somewhat improved since starting the apixaban 5 mg BID. We discussed several different management strategies of his atrial fibrillation. After a shared decision making discussion with patient, plan will be to undergo DCCV and readdress terminal makeup operator arrhythmia management. Patient will continue uninterrupted anticoagulation and metoprolol tartrate. Histories Past Medical History: Diagnosis Date Hypertension Past Surgical History: Procedure Laterality Date BYPASS AORTOILIAC REPAIR/GRAFT CARDIAC CATHETERIZATION [place] TEA[place] W/PATCH GRF CAROTID VERTB SUBCLAV NECK INC Left 06/19/2019 STENT PLACEMENT Family History Problem Relation Age of Onset Heart disease Mother Cancer Mother Heart disease Father Kidney disease Sister Prostate cancer Brother Prostate cancer Brother Social History Socioeconomic History Marital status: Tobacco Use Smoking status: Former Current packs/day: 0.00 Types: Cigarettes Quit date: 2016 Years since quittin.8 Smokeless tobacco: Never Vaping Use Vaping status: Never Used Substance and Sexual Activity Alcohol use: Not Currently Drug use: Not Currently Social Drivers of Health Food Insecurity: No Food Insecurity (05/14/2023) Hunger Vital Sign Worried About Running Out of Food in the Last Year: Never true Ran Out of Food in the Last Year: Never true Transportation Needs: No Transportation Needs (05/14/2023) PRAPARE - Transportation Lack of Transportation (Medical): No Lack of Transportation (Non-Medical): No Housing Stability: Low Risk (05/14/2023) Housing Stability Vital Sign Unable to Pay for Housing in the Last Year: No Number of Places Lived in the Last Year: 1 Unstable Housing in the Last Year: No Patient has no known allergies. Patient's Medications New Prescriptions No medications on file Previous Medications APIXABAN (ELIQUIS) 5 MG TAB Take 1 (one) tablet (5 mg total) by mouth 2 (two) times a day . ATORVASTATIN (LIPITOR) 80 MG TABLET Take 1 (one) tablet (80 mg total) by mouth . CHOLECALCIFEROL, VITAMIN D3, 1,000 UNIT TABLET Take 5 (five) tablets (5,000 Units total) by mouth . CLOPIDOGREL (PLAVIX) 75 MG TABLET Take 1 (one) tablet (75 mg total) by mouth daily . DUTASTERIDE (AVODART) 0.5 MG CAPSULE Take 1 (one) capsule (0.5 mg total) by mouth daily . LISINOPRIL (PRINIVIL,ZESTRIL) 20 MG TABLET Take 1 (one) tablet (20 mg total) by mouth 2 (two) timesa day . MAGNESIUM OXIDE 500 MG MAGNESIUM TAB Take 1 (one) tablet (500 mg total) by mouth . METOPROLOL TARTRATE (LOPRESSOR) 25 MG TABLET TAKE 1/2 (ONE-HALF) TABLET BY MOUTH TWICE DAILY FOR BLOOD PRESSURE TAMSULOSIN (FLOMAX) 0.4 MG CAPSULE TAKE 1 CAPSULE BY MOUTH ONCE DAILY FOR PROSTATE TILDRAKIZUMAB-ASMN (ILUMYA) 100 MG/ML SYRG Inject 1 mL (100 mg total) under the skin every 3 (three) months . TRAZODONE (DESYREL) 50 MG TABLET Take 1 (one) tablet (50 mg total) by mouth nightly as needed For insomnia . TRIAMCINOLONE (KENALOG) 0.1 % CREAM APPLY TOPICALLY TO THE AFFECTED AREAS TWICE DAILY FOR UP TO TWOWEEKS, TAKING A WEEK OFF BEFORE RESUMING FOR FLARE UPS VITAMIN B COMPLEX ORAL Take 1 tablet by mouth . Modified Medications No medications on file Discontinued Medications No medications on file No Known Allergies Review of Systems Constitutional: Negative for chills and fever. HENT: Negative for nosebleeds. Cardiovascular: Positive for irregular heartbeat and palpitations. Negative for chest pain, dyspneaon exertion, leg swelling, near-syncope, orthopnea and syncope. Respiratory: Negative for shortness of breath. Hematologic/Lymphatic: Negative for bleeding problem. Musculoskeletal: Negative for falls. Gastrointestinal: Negative for abdominal pain. Neurological: Positive for dizziness and light-headedness. Psychiatric/Behavioral: Negative for altered mental status and substance abuse. All other systems reviewed and are negative. PACU Vitals 02/06/24 1353 BP: 124/79 Pulse: 93 SpO2: 97% Physical Exam Vitals reviewed. Constitutional: Appearance: He is well-developed. HENT: Head: Normocephalic. Eyes: General: Lids are normal. Conjunctiva/sclera: Conjunctivae normal. Neck: Vascular: No JVD. Cardiovascular: Rate and Rhythm: Normal rate. Rhythm irregular. Pulses: Normal pulses. Heart sounds: Normal heart sounds. Pulmonary: Effort: Pulmonary effort is normal. Breath sounds: Normal breath sounds. Abdominal: General: Abdomen is flat. Palpations: Abdomen is soft. There is no mass. Musculoskeletal: General: Normal range of motion. Skin: General: Skin is warm. Findings: No rash. Neurological: Mental Status: He is alert and oriented to person, place, and time. Gait: Gait normal. Psychiatric: Behavior: Behavior normal. Lab Results Component Value Date GLUCOSE 97 08/29/2023 CALCIUM 9.5 08/29/2023 NA 138 08/29/2023 K 4.3 08/29/2023 CL 105 08/29/2023 BUN 19 08/29/2023 CREATININE 1.18 08/29/2023 No results found for: INR, PROTIME ECG reviewed: Atrial fibrillation -Old anterior infarct. -Nonspecific T-abnormality. Echocardiogram: reviewed Other workup reviewed ASSESSMENT & PLAN: See above Nicolás Tinsley DO, MPH [facility] Clinical Cardiac [employer] Punch [employer] Co[employer] Operator Helper Please feel free to contact if you have any questions or concerns. * Latanya Claros MA - 02/06/2024 2:01 PM EST Review of Systems Cardiovascular: Positive for irregular heartbeat. Neurological: Positive for dizziness, light-headedness and weakness. documented in this [id number] Instructions* Patient Instructions* Gay Fried RN - 01/29/2024 3:20 PM EST Images from the original note were not included. If you have any medical questions or concerns, please call [facility] at [phone]. Electrical Cardioversion: Before Your Procedure What is electrical cardioversion? Electrical cardioversion is a treatment for a heartbeat that isn't normal, such as atrial fibrillation. It uses a brief electric shock to reset your heart's rhythm. Before the treatment, you will get medicine to make you sleepy. You should not feel any pain. Your doctor will put paddles or patches on your chest. Or you might get them on both your chest andback. They send a brief electric current to your heart. In most cases, this restores the heart's normal rhythm right away. Cardioversion itself takes about 5 minutes. But the whole procedure will likely take about 30 to 45minutes. That includes time to recover. Abnormal heart rhythms sometimes come back after the treatment. You may need to take medicines. These may help your heart keep its normal rhythm. Pre-Procedure Instructions CHECK-IN DATE/TIME: Location: [facility]: [address] [place] [address] You will then be taken to short term care where the nurses will prepare you for your procedure. Thecheck-in time allows for adequate preparation time prior to your procedure and is not the actual time of your procedure. You may park in the parking garage or use the stem roller at the hospital entrance. Medications: You may take your scheduled morning medications with a small sip of water. Please bring an accurate medication list of all medications to the hospital with you. Please do notassume an accurate list of medication is on file. Additional Pre-Procedure Testing: Blood Work: will need to be arranged within 30 days of your procedure. This is a requirement of [facility]. This maybe completed at any [facility] associated lab. The orders are electronic. Our office staff can assist you in making arrangements with other facilities if needed. Please provide us with the desired facility so that we may fax these orders do them. Please make sure the results are faxed back to our office at [phone] Additional Instructions: Bring photo ID and insurance card No smoking or products containing nicotine for 24 hours prior to your procedure. Please do not eat or drink anything after midnight the night before your procedure. This considered an outpatient procedure. You will most likely be discharged the same day. You will not be permitted to drive yourself home. Please arrange to have a auto carrier driver upon discharge, however per sedation policy, you may not use public transportation. For your safety, please request afriend or family to pick you up and take you home. Going home You will be given more specific instructions about recovering from your procedure. They will cover things like diet, wound care, follow-up care, driving, and getting back to your normal routine. documented in this [id number] Evaluation + Plan note* Assessment & Plan Note - Memo Kelley MD - 01/10/2024 2:20 PM EDT Associated Problem(s): A-fib (HCC) As above. [id number] Miscellaneous Notes* Assessment & Plan Note - Memo Kelley MD - 01/10/2024 2:20 PM EDTAssociated Problem(s): A-fib (HCC) As above. * Assessment & Plan Note - Memo Kelley MD - 01/10/2024 2:19 PM EDT Associated Problem(s): PVD (peripheral vascular disease) (HCC) Stable reviewed. * Assessment & Plan Note - Memo Kelley MD - 01/10/2024 2:18 PM EDT Associated Problem(s): ASHD (arteriosclerotic heart disease) Reviewed. documented in this [id number] Evaluation + Plan note* Assessment & Plan Note - Memo Kelley MD - 01/10/2024 2:19 PM EDT Associated Problem(s): PVD (peripheral vascular disease) (HCC) Stable reviewed. [id number] Evaluation + Plan note* Assessment & Plan Note - Memo Kelley MD - 01/10/2024 2:18 PM EDTAssociated Problem(s): ASHD (arteriosclerotic heart disease) Reviewed. [id number] ([address]) [facility] [address] [facility] [id number] Subjective: Celeste Kincaid is a 73 y.o. male seen in the office today for Chief Complaint Patient presents with Follow-up 6 mo - discuss recent labs/ EKG. States he cannot afford Eliquis and would not qualify for FA Patient with history of coronary disease coronary stenting and remote myocardial infarction. Also history of asymptomatic sinus bradycardia. Was found on PCP visit to have irregular heart rate with EKG done on November 23, 2023 showing atrial fibrillation with controlled medical response 83 bpm. No other significant new changes. Patient was appropriately started on Eliquis. Patient is unclear of the dose but would recommend 5 mg twice a day. He has a lot of questions about the blood thinner naturally very concerned about the cost tells me he was not eligible for financial assistance. We discussed warfarin as an option or he lives in [facility] and would be a long way to travel to a Coumadin clinic. Patient is generally doing well he is limited by believes he has some fasciitis in his foot. He was walking 3 to 4 miles regularly before that bothered him. He has a history of significant PAD continues on Plavix for that and for his coronary artery disease. Says he actually feels little better overall since he started the Eliquis. Discussed cardioversion, antiarrhythmic drugs and ablation is possible treatments to correct his atrial fibrillation which appears persistent at this time. Of note he did have significant bradycardia longstanding prior to his A-fib. Impression new onset of persistent atrial fibrillation with rate controlled easily. Coronary artery disease stable no angina Peripheral vascular disease stable. Plan reviewed the importance of oral anticoagulation. And would recommend the Eliquis at 5 mg twice a day based on his blood work age and weight. He is going to check his dose at home. Otherwise he is agreeable to seeing EP for consultation to discuss other rhythm control treatments of his A-fib. Hyperlipidemia Zetia was started and his LDL went from 115-18 which is unusual. Okay to stop Zetia at this point. Maintain the LDL greater than 30. Otherwise see back in 6 months. Overview of Problems Addressed: Problem Psoriasis Injectable every 3 months. A-Fib ([facility]) Persistent diagnosed early November 2023. OAC rate easily controlled history of sinus bradycardia previous. Ashd (Arteriosclerotic Heart Disease) Echo April 2023 EF 57% no significant valvular heart disease present. History of myocardial infarction around 2015 down in [place]. Had 2 stents put in the LAD. Since then has done well quit smoking at that time. Also has history of severe peripheral vascular disease with left carotid endarterectomy done around 2019 over in [place] and in [place] around 2016 had aortobifem done. No history of any aneurysm. Pvd (Peripheral Vascular Disease) ([facility]) Assessment & Plan: Reviewed ASHD (arteriosclerotic heart disease) Reviewed. PVD (peripheral vascular disease) ([facility]) Stable reviewed. A-fib ([facility]) As above. Histories: Past Medical History: Diagnosis Date Hypertension Past Surgical History: Procedure Laterality Date BYPASS AORTOILIAC REPAIR/GRAFT CARDIAC CATHETERIZATION [place] TEAEC W/PATCH GRF CAROTID VERTB SUBCLAV NECK INC Left 06/19/2019 STENT PLACEMENT Family History Problem Relation Age of Onset Heart disease Mother Cancer Mother Heart disease Father Kidney disease Sister Prostate cancer Brother Prostate cancer Brother Social History Tobacco Use Smoking status: Former Current packs/day: 0.00 Types: Cigarettes Quit date: 2015 Years since quittin.8 Smokeless tobacco: Never Vaping Use Vaping status: Never Used Substance Use Topics Alcohol use: Not Currently Drug use: Not Currently Patient's Medications New Prescriptions No medications on file Previous Medications ATORVASTATIN (LIPITOR) 80 MG TABLET Take 1 (one) tablet (80 mg total) by mouth . CLOPIDOGREL (PLAVIX) 75 MG TABLET Take 1 (one) tablet (75 mg total) by mouth daily . DUTASTERIDE (AVODART) 0.5 MG CAPSULE Take 1 (one) capsule (0.5 mg total) by mouth daily . LISINOPRIL (PRINIVIL,ZESTRIL) 20 MG TABLET Take 1 (one) tablet (20 mg total) by mouth 2 (two) times a day . METOPROLOL TARTRATE (LOPRESSOR) 25 MG TABLET TAKE 1/2 (ONE-HALF) TABLET BY MOUTH TWICE DAILY FOR BLOOD PRESSURE TAMSULOSIN (FLOMAX) 0.4 MG CAPSULE TAKE 1 CAPSULE BY MOUTH ONCE DAILY FOR PROSTATE TILDRAKIZUMAB-ASMN (ILUMYA) 100 MG/ML SYRG Inject 1 mL (100 mg total) under the skin every 3 (three) months . TRAZODONE (DESYREL) 50 MG TABLET Take 1 (one) tablet (50 mg total) by mouth nightly as needed For insomnia . TRIAMCINOLONE (KENALOG) 0.1 % CREAM APPLY TOPICALLY TO THE AFFECTED AREAS TWICE DAILY FOR UP TO TWO WEEKS, TAKING A WEE (more content not included)...[facility] [id number] History of Present illness Narrative* Memo Kelley MD - 01/10/2024 2:13 PM EDT [facility] [address] ([address]) [facility] [address] [facility] [id number] Subjective: Celeste Kincaid is a 73 y.o. male seen in the office today for Chief Complaint Patient presents with Follow-up 6 mo - discuss recent labs/ EKG. States he cannot afford Eliquis and would not qualify for FA Patient with history of coronary disease coronary stenting and remote myocardial infarction. Also history of asymptomatic sinus bradycardia. Was found on PCP visit to have irregular heart rate with EKG done on November 23, 2023 showing atrial fibrillation with controlled medical response 83 bpm. Noother significant new changes. Patient was appropriately started on Eliquis. Patient is unclear of the dose but would recommend 5 mg twice a day. He has a lot of questions about the blood thinner naturally very concerned about the cost tells me he was not eligible for financial assistance. We discussed warfarin as an option or he lives in [facility] and would be a long way to travel to a Coumadin clinic. Patient is generally doing well he is limited by believes he has some fasciitis in his foot. He waswalking 3 to 4 miles regularly before that bothered him. He has a history of significant PAD continues on Plavix for that and for his coronary artery disease. Says he actually feels little better overall since he started the Eliquis. Discussed cardioversion, antiarrhythmic drugs and ablation is possible treatments to correct his atrial fibrillation which appears persistent at this time. Of note he did have significant bradycardialongstanding prior to his A-fib. Impression new onset of persistent atrial fibrillation with rate controlled easily. Coronary artery disease stable no angina Peripheral vascular disease stable. Plan reviewed the importance of oral anticoagulation. And would recommend the Eliquis at 5 mg twicea day based on his blood work age and weight. He is going to check his dose at home. Otherwise he is agreeable to seeing EP for consultation to discuss other rhythm control treatments of his A-fib. Hyperlipidemia Zetia was started and his LDL went from 115-18 which is unusual. Okay to stop Zetia at this point. Maintain the LDL greater than 30. Otherwise see back in 6 months. Overview of Problems Addressed: Problem Psoriasis Injectable every 3 months. A-Fib (Hcc) Persistent diagnosed early November 2023. OAC rate easily controlled history of sinus bradycardia previous. Ashd (Arteriosclerotic Heart Disease) Echo April 2023 EF 57% no significant valvular heart disease present. History of myocardial infarction around 2015 down in [place]. Had 2 stents put in the LAD. Since then has done well quit smoking at that time. Also has history of severe peripheral vascular diseasewith left carotid endarterectomy done around 2019 over in [place] and in [place] around 2017 had aortobifem done. No history of any aneurysm. Pvd (Peripheral Vascular Disease) ([facility]) Assessment & Plan: Reviewed ASHD (arteriosclerotic heart disease) Reviewed. PVD (peripheral vascular disease) ([facility]) Stable reviewed. A-fib ([facility]) As above. Histories: Past Medical History: Diagnosis Date Hypertension Past Surgical History: Procedure Laterality Date BYPASS AORTOILIAC REPAIR/GRAFT CARDIAC CATHETERIZATION [place] TEAEC W/PATCH GRF CAROTID VERTB SUBCLAV NECK INC Left 06/19/2019 STENT PLACEMENT Family History Problem Relation Age of Onset Heart disease Mother Cancer Mother Heart disease Father Kidney disease Sister Prostate cancer Brother Prostate cancer Brother Social History Tobacco Use Smoking status: Former Current packs/day: 0.00 Types: Cigarettes Quit date: 2015 Years since quittin.8 Smokeless tobacco: Never Vaping Use Vaping status: Never Used Substance Use Topics Alcohol use: Not Currently Drug use: Not Currently Patient's Medications New Prescriptions No medications on file Previous Medications ATORVASTATIN (LIPITOR) 80 MG TABLET Take 1 (one) tablet (80 mg total) by mouth . CLOPIDOGREL (PLAVIX) 75 MG TABLET Take 1 (one) tablet (75 mg total) by mouth daily . DUTASTERIDE (AVODART) 0.5 MG CAPSULE Take 1 (one) capsule (0.5 mg total) by mouth daily . LISINOPRIL (PRINIVIL,ZESTRIL) 20 MG TABLET Take 1 (one) tablet (20 mg total) by mouth 2 (two) timesa day . METOPROLOL TARTRATE (LOPRESSOR) 25 MG TABLET TAKE 1/2 (ONE-HALF) TABLET BY MOUTH TWICE DAILY FOR BLOOD PRESSURE TAMSULOSIN (FLOMAX) 0.4 MG CAPSULE TAKE 1 CAPSULE BY MOUTH ONCE DAILY FOR PROSTATE TILDRAKIZUMAB-ASMN (ILUMYA) 100 MG/ML SYRG Inject 1 mL (100 mg total) under the skin every 3 (three) months . TRAZODONE (DESYREL) 50 MG TABLET Take 1 (one) tablet (50 mg total) by mouth nightly as needed For insomnia . TRIAMCINOLONE (KENALOG) 0.1 % CREAM APPLY TOPICALLY TO THE AFFECTED AREAS TWICE DAILY FOR UP TO TWOWEEKS, TAKING A WEEK OFF BEFORE RESUMING FOR FLARE UPS Modified Medications Modified Medication Previous Medication APIXABAN (ELIQUIS) 5 MG TAB apixaban (ELIQUIS) 2.5 mg Tab Take 1 (one) tablet (5 mg total) by mouth 2 (two) times a day . Take 1 (one) tablet (2.5 mg total) by mouth 2 (two) times a day . Discontinued Medications EZETIMIBE (ZETIA) 10 MG TABLET Take 1 (one) tablet (10 mg total) by mouth daily . No Known Allergies Review of Systems Constitutional: Negative for malaise/fatigue. Cardiovascular: Negative for chest pain, dyspnea on exertion, leg swelling and palpitations. Neurological: Negative for dizziness. Objective: Physical Exam Vitals and nursing note reviewed. Constitutional: General: He is not in acute distress. Appearance: He is well-developed. He is not diaphoretic. Comments: No acute distress Body mass index is 26.63 kg/m . HENT: Head: Normocephalic. Eyes: General: No scleral icterus. Neck: Vascular: No JVD. Cardiovascular: Rate and Rhythm: Rhythm irregular. Pulses: Radial pulses are 2+ on the right side and 2+ on the left side. Heart sounds: S1 normal and S2 normal. No murmur heard. No gallop. No S3 or S4 sounds. Comments: Feet warm bilateral. Pulses 2+ dorsalis pedis posterior tibial on the right 1-2+ on the left. Feet are warm bilateral collaterally color intact. 1/6 short systolic murmur pulse regular. Pulmonary: Effort: No respiratory distress. Breath sounds: Normal breath sounds. No stridor. No wheezing or rales. Abdominal: General: There is no distension. Palpations: Abdomen is soft. Musculoskeletal: General: No tenderness. Skin: General: Skin is warm and dry. Neurological: Mental Status: He is alert. Comments: Oriented conversant. Psychiatric: Comments: Behavior unremarkable. Vitals: Vitals: 01/10/24 1332 BP: 115/68 BP Location: Left arm Patient Position: Sitting BP Cuff Size: Adult Pulse: 88 SpO2: 96% Weight: 76.7 kg (169 lb) Height: 5' 7 Body mass index is 26.47 kg/m . Orders Placed This Encounter Procedures Ambulatory referral to Cardiac Electrophysiology Standing Status: Future Standing Expiration Date: 01/09/2025 Referral Priority: Routine Referral Type: Evaluate and Treat Number of Visits Requested: 1 ECG 12 Lead Order Specific Question: Release to patient Answer: Immediate Follow Up Ordered: Return in about 6 months (around 07/10/2024). Memo Kelley MD * Daniela Stratton MA - 01/10/2024 1:40 PM EDT Review of Systems Constitutional: Negative for malaise/fatigue. Cardiovascular: Negative for chest pain, dyspnea on exertion, leg swelling and palpitations. Neurological: Negative for dizziness. documented in this [id number] Instructions* Patient Instructions* Daniela Stratton MA - 01/09/2024 8:17 AM EDT How to Contact your Care Team: Provider: Dr. Memo Kelley MD Parts Person: Gege Valera RN documented in this [id number] Instructions* Patient Instructions* Rory Tinoco, OD - 09/11/2023 2:58 PM EDT ASSESSMENT/PLAN: 1. Type 2 diabetes mellitus without retinopathy (HCC) - ICD9: 250.00, ICD10: E11.9 (primary diagnosis) Examination shows no ocular diabetic complications today. Discussed need for optimal diabetes control to minimize chance of ocular complications. Advise patient to immediately report worsening in status or additional symptoms. Continue yearly dilated eye examinations. 2. Floaters, bilateral - ICD9: 379.24, ICD10: H43.393 3. Posterior vitreous detachment of left eye - ICD9: 379.21, ICD10: H43.812 Vitreal floaters stable both eyes. Retinas flat and intact with no apparent retinal tear or traction. Discussed symptoms of retinal tear/detachment and if seen patient will return to clinic without delay. 4. Pseudophakia, both eyes - ICD9: V43.1, ICD10: Z96.1 Posterior chamber intraocular lenses are well positioned and clear. Recommended yearly dilated exams. [facility] NoteHNO ID: [id number] Author: RORY TINOCO OD Service: ? Author Type: SECURITY AND PRIVACY CONSULTANT Type: Progress Notes Filed: 09/11/2023 15:00 Note Text: ASSESSMENT/PLAN: 1. Type 2 diabetes mellitus without retinopathy (HCC) - ICD9: 250.00, ICD10: E11.9 (primary diagnosis) Examination shows no ocular diabetic complications today. Discussed need for optimal diabetes control to minimize chance of ocular complications. Advise patient to immediately report worsening in status or additional symptoms. Continue yearly dilated eye examinations. 2. Floaters, bilateral - ICD9: 379.24, ICD10: H43.393 3. Posterior vitreous detachment of left eye - ICD9: 379.21, ICD10: H43.812 Vitreal floaters stable both eyes. Retinas flat and intact with no apparent retinal tear or traction. Discussed symptoms of retinal tear/detachment and if seen patient will return to clinic without delay. 4. Pseudophakia, both eyes - ICD9: V43.1, ICD10: Z96.1 Posterior chamber intraocular lenses are well positioned and clear. Recommended yearly dilated exams. Rory Tinoco, OD I have confirmed and edited as necessary the relevant ophthalmic history, ROS, and the neuro exam findings as obtained by others.[facility] 09-11-2023 History of Present illness Narrative* Rory Tinoco, OD - 09/11/2023 2:57 PM EDT ASSESSMENT/PLAN: 1. Type 2 diabetes mellitus without retinopathy (HCC) - ICD9: 250.00, ICD10: E11.9 (primary diagnosis) Examination shows no ocular diabetic complications today. Discussed need for optimal diabetes control to minimize chance of ocular complications. Advise patient to immediately report worsening in status or additional symptoms. Continue yearly dilated eye examinations. 2. Floaters, bilateral - ICD9: 379.24, ICD10: H43.393 3. Posterior vitreous detachment of left eye - ICD9: 379.21, ICD10: H43.812 Vitreal floaters stable both eyes. Retinas flat and intact with no apparent retinal tear or traction. Discussed symptoms of retinal tear/detachment and if seen patient will return to clinic without delay. 4. Pseudophakia, both eyes - ICD9: V43.1, ICD10: Z96.1 Posterior chamber intraocular lenses are well positioned and clear. Recommended yearly dilated exams. Rory Tinoco, OD I have confirmed and edited as necessary the relevant ophthalmic history, ROS, and the neuro exam findings as obtained by others. [facility] Evaluation + Plan note* Assessment & Plan Note - Memo Kelley MD - 06/25/2023 10:44 PM EDT Associated Problem(s): PVD (peripheral vascular disease) (HCC) Reviewed. [id number] Miscellaneous Notes* Assessment & Plan Note - Memo Kelley MD - 06/25/2023 10:44 PM EDTAssociated Problem(s): PVD (peripheral vascular disease) (HCC) Reviewed. * Assessment & Plan Note - Memo Kelley MD - 06/25/2023 10:43 PM EDT Associated Problem(s): ASHD (arteriosclerotic heart disease) Reviewed. documented in this [id number] Evaluation + Plan note* Assessment & Plan Note - Meom Kelley MD - 06/25/2023 10:43 PM EDT Associated Problem(s): ASHD (arteriosclerotic heart disease) Reviewed. [id number] History of Present illness Narrative* Memo Kelley MD - 06/22/2023 4:12 PM EDT [facility] [address] ([address]) [facility] [address] [facility] [id number] Subjective: Celeste Kincaid is a 72 y.o. male seen in the office today for Chief Complaint Patient presents with Establish Care Presence of coronary angioplasty implant and graft/ dr. Cruz - review echo from recent hospitalization 05/14/23 bowel obstruction Patient wishes to get established with our group for cardiology. Has done well from a cardiac standpoint. History of myocardial infarction around 2015 down in [place]. Had 2 stents put in the LAD. Since then has done well quit smoking at that time. Also has history of severe peripheral vascular disease with left carotid endarterectomy done around 2019 over in [place] and in [place] around 2016 had aortobifem done. No history of any aneurysm. 2016. Presented with ST elevation [place] acute posterior myocardial infarction with thrombus in left circumflex. Thrombectomy angioplasty and stenting of the circumflex. Follow-up staged stenting of the LAD the next day. 2016 No tobacco products says he walks 4 to 5 miles almost every day. Pulses are excellent in the right leg right ankle mildly decreased in the left. But no signs of any claudication. No history of stroke or TIA. Has been told he had moderate carotid blockage. Might get a rare lightheadedness. 1/6 short systolic murmur heard today. Recent hospitalization with small bowel obstruction thought secondary to adhesions no surgery necessary. Is been doing well with that troponins were negative. Echocardiogram showed normal LV functionwith normal wall motion and valve function was all intact. Does have a history of hypertension avoiding amlodipine because question related to small bowel obstruction. Plan no changes today. Continues on Plavix Will check a lipid panel in August also check carotid Doppler at that time see him back in 6 months. Sooner if has any chest pain shortness of breath let us know. Has a rare palpitation but pretty random. No syncope near syncope. EKG reviewed looks good except for minimal poor R wave progression. Nonspecific. Overview of Problems Addressed: Problem History of Left-Sided Carotid Endarterectomy Presence of Coronary Angioplasty Implant and Graft Ashd (Arteriosclerotic Heart Disease) Pvd (Peripheral Vascular Disease) ([facility]) Assessment & Plan: Reviewed. ASHD (arteriosclerotic heart disease) Reviewed. PVD (peripheral vascular disease) ([facility]) Reviewed. Histories: Past Medical History: Diagnosis Date Hypertension Past Surgical History: Procedure Laterality Date BYPASS AORTOILIAC REPAIR/GRAFT CARDIAC CATHETERIZATION [place] TEAEC W/PATCH GRF CAROTID VERTB SUBCLAV NECK INC Left 06/19/2019 STENT PLACEMENT Family History Problem Relation Age of Onset Heart disease Mother Cancer Mother Heart disease Father Kidney disease Sister Prostate cancer Brother Prostate cancer Brother Social History Tobacco Use Smoking status: Former Types: Cigarettes Quit date: 2015 Years since quittin.2 Smokeless tobacco: Never Vaping Use Vaping Use: Never used Substance Use Topics Alcohol use: Not Currently Drug use: Not Currently Patient's Medications New Prescriptions No medications on file Previous Medications ATORVASTATIN (LIPITOR) 80 MG TABLET Take 1 (one) tablet (80 mg total) by mouth . CLOPIDOGREL (PLAVIX) 75 MG TABLET Take 1 (one) tablet (75 mg total) by mouth daily . DUTASTERIDE (AVODART) 0.5 MG CAPSULE Take 1 (one) capsule (0.5 mg total) by mouth daily . LISINOPRIL (PRINIVIL,ZESTRIL) 20 MG TABLET Take 1 (one) tablet (20 mg total) by mouth 2 (two) timesa day . METOPROLOL TARTRATE (LOPRESSOR) 25 MG TABLET TAKE 1/2 (ONE-HALF) TABLET BY MOUTH TWICE DAILY FOR BLOOD PRESSURE TAMSULOSIN (FLOMAX) 0.4 MG CAPSULE TAKE 1 CAPSULE BY MOUTH ONCE DAILY FOR PROSTATE TILDRAKIZUMAB-ASMN (ILUMYA) 100 MG/ML SYRG Inject 1 mL (100 mg total) under the skin every 3 (three) months . TRAZODONE (DESYREL) 50 MG TABLET Take 1 (one) tablet (50 mg total) by mouth nightly as needed For insomnia . TRIAMCINOLONE (KENALOG) 0.1 % CREAM APPLY TOPICALLY TO THE AFFECTED AREAS TWICE DAILY FOR UP TO TWOWEEKS, TAKING A WEEK OFF BEFORE RESUMING FOR FLARE UPS Modified Medications No medications on file Discontinued Medications LISINOPRIL (PRINIVIL,ZESTRIL) 20 MG TABLET Take 1 (one) tablet (20 mg total) by mouth daily . No Known Allergies Review of Systems Constitutional: Negative for malaise/fatigue. Cardiovascular: Negative for chest pain, dyspnea on exertion, leg swelling and palpitations. Neurological: Negative for dizziness. Objective: Physical Exam Vitals and nursing note reviewed. Constitutional: General: He is not in acute distress. Appearance: He is well-developed. He is not diaphoretic. Comments: No acute distress Body mass index is 26.63 kg/m . HENT: Head: Normocephalic. Eyes: General: No scleral icterus. Neck: Vascular: No JVD. Cardiovascular: Rate and Rhythm: Regular rhythm. Pulses: Radial pulses are 2+ on the right side and 2+ on the left side. Heart sounds: S1 normal and S2 normal. No murmur heard. No gallop. No S3 or S4 sounds. Comments: Feet warm bilateral. Pulses 2+ dorsalis pedis posterior tibial on the right 1-2+ on the left. Feet are warm bilateral collaterally color intact. 1/6 short systolic murmur pulse regular. Pulmonary: Effort: No respiratory distress. Breath sounds: Normal breath sounds. No stridor. No wheezing or rales. Abdominal: General: There is no distension. Palpations: Abdomen is soft. Musculoskeletal: General: No tenderness. Skin: General: Skin is warm and dry. Neurological: Mental Status: He is alert. Comments: Oriented conversant. Psychiatric: Comments: Behavior unremarkable. Vitals: Vitals: 06/22/23 1553 06/22/23 1602 BP: (!) 144/68 135/67 BP Location: Left arm Right arm Patient Position: Sitting BP Cuff Size: Adult Pulse: (!) 44 SpO2: 99% Weight: 77.1 kg (170 lb) Height: 5' 7 Body mass index is 26.63 kg/m . Orders Placed This Encounter Procedures Lipid panel Standing Status: Future Standing Expiration Date: 06/21/2024 Order Specific Question: Release to patient Answer: Immediate Comprehensive metabolic panel Standing Status: Future Standing Expiration Date: 06/21/2024 Order Specific Question: Release to patient Answer: Immediate Carotid Duplex Standing Status: Future Standing Expiration Date: 08/21/2024 Order Specific Question: Reason for Exam Answer: left endarectomy Order Specific Question: Release to patient Answer: Immediate CATHETERIZATION CATHETERIZATION Follow Up Ordered: Return in about 6 months (around 12/22/2023). Memo Kelley MD * Daniela Stratton MA - 06/22/2023 4:00 PM EDT Review of Systems Constitutional: Negative for malaise/fatigue. Cardiovascular: Negative for chest pain, dyspnea on exertion, leg swelling and palpitations. Neurological: Negative for dizziness. documented in this [id number] Instructions* Patient Instructions* Gege Valera RN - 06/20/2023 9:34 AM EDT How to Contact your Care Team: Provider: Dr. Memo Kelley MD Parts Person: Gege Valera RN PLEASE HAVE BLOOD WORK COMPLETED AT THE BEGINNING OF AUGUST NOTHING TO EAT OR DRINK FOR 10-12 HOURS PRIOR TO LAB DRAW documented in this [id number] Instructions* Patient Instructions* Rory Tinoco OD - 01/02/2023 1:23 PM EDT ASSESSMENT/PLAN: 1. Hyperopia, bilateral - ICD9: 367.0, ICD10: H52.03 (primary diagnosis) 2. Regular astigmatism, bilateral - ICD9: 367.21, ICD10: H52.223 Continue to wear his glasses as desired. He would like to continue care in [place] for convenience. [facility]23 NoteHNO ID: [id number] Author: Rory Tinoco OD Service: ? Author Type: SECURITY AND PRIVACY CONSULTANT Type: Progress Notes Filed: 01/02/2023 1:26 PM Note Text: ASSESSMENT/PLAN: 1. Hyperopia, bilateral - ICD9: 367.0, ICD10: H52.03 (primary diagnosis) 2. Regular astigmatism, bilateral - ICD9: 367.21, ICD10: H52.223 Continue to wear his glasses as desired. He would like to continue care in [place] for convenience. Rory Tinoco, MC I have confirmed and edited as necessary the relevant ophthalmic history, ROS, and the neuro exam findings as obtained by others.[facility]10[facility] History of Present illness Narrative* Rory Tinoco OD - 01/02/2023 1:22 PM EDT ASSESSMENT/PLAN: 1. Hyperopia, bilateral - ICD9: 367.0, ICD10: H52.03 (primary diagnosis) 2. Regular astigmatism, bilateral - ICD9: 367.21, ICD10: H52.223 Continue to wear his glasses as desired. He would like to continue care in [place] for convenience. Rory Tinoco, MC I have confirmed and edited as necessary the relevant ophthalmic history, ROS, and the neuro exam findings as obtained by others. documented in this [facility]10-09-2023 Instructions* Patient Instructions* Kamila Cesar PA-C - 12/26/2022 12:29 PM EDT Samantha Berrtand ear wax impaction/ Left ear canal infection Ear irrigation Floxin otic Any worsening ear pain, bloody or abnl discharge, doc temp, new or unusual headache, nausea/vomiting, neck pain/stiffness/rash, pain/redness/warmth/swelling behind ear, difficulty walking/speaking, feeling like you are going to pass out/passing out, or any other concerns - ER! Get better!!! * Attachments The following attachments cannot be sent through Care Everywhere. * Earwax Blockage (Wallis[place]) * Otitis Externa (Wallisian) documented in this [id number] History of Present illness Narrative* Kamila Cesar PA-C - 12/26/2022 12:23 PM EDT Images from the original note were not included. Patient Name: [facility] Location: Celeste Kincaid [address] [facility] [address] Date Of : Date Of Visit: 1950 12/26/2022 MRN# Provider: [id number] Kamila Cesar PA-C Chief Complaint Patient presents with Ear [...] swelling. No abscess or skin break or rashlocated around/in ear. There is no auricular lymphadenopathy. [...] choking, chest tightness, shortness of breath, wheezing andstridor. Cardiovascular: Negative for chest pain, palpitations and [...] nasal polyp. + septal deviation. Mouth/Throat: Lips: [place]. No lesions. Mouth: Mucous membranes are moist. [...] AFFECTED AREAS TWICE DAILY FOR UP TO TWOWEEKS, TAKING A WEEK OFF BEFORE RESUMING FOR [...] - ER! Get better!!! documented in this [id number] Instructions* Patient Instructions* Rory Tinoco, OD - 08/06/2021 3:15 PM EDT ASSESSMENT/PLAN: 1. [...] noted in his vision. documented in this encounterReg[facility]-20-2022 History of Present illness Narrative* Rory Tinoco, MC - 08/06/2021 3:13 PM EDT ASSESSMENT/PLAN: 1. Type 2 diabetes [...] if changes are noted in his vision. Rory Tinoco, OD documented in this encounterReg[facility]03-11-2021 History of Past illness Narrative* Problem Noted Date Resolved Date Status post cataract extract ion and insertion of intraocular lens of right eye 05/28/2020 08/06/2021 Combined forms of age-related cataract of right eye 04/29/2020 05/27/2020 documented as of this encounter (statuses as of 08/06/2021) [facility] History of Past illness Narrative* Problem Noted Date Diagnosed Date Resolved Date Status post cataract extract ion and insertion of intraocular lens of right eye 05/28/2020 022 Combined forms of age-relate d cataract of right eye 04/29/2020 05/27/2020 documented as of this encounter (statuses as of 01/02/2023) [facility]* Diagnosis Onset Date Resolution Status Obesity (BMI 30-39.9) acute ANUJA (obstructive sleep apnea) chronic Venous insufficiency of both lower extremities acute Essential hypertension chron ic Mixed hyperlipidemia chronic Type 2 diabetes mellitus chr onic Bradycardia acute Atherosclerotic heart diseas e of [place] coronary artery without angina pectoris chronic Bilateral carotid artery stenosis chronic Mixed hyperlipidemia chronic Hypertensive urgency resolve d Presence of coronary angioplasty implant and graft Feb resolved S/P aortobifemoral bypass surgery December, resolved [facility] Work Phone: Evaluation note* Diagnosis Type 2 diabetes mellitus without retinopathy (HCC)- Primary Type II or unspecified type diabetes mellitus without mention of complication, not stated as uncontrolled Branch retinal artery occlusion of right eye Arterial branch occlusion of retina Floaters, bilateral Posterior vitreous detachment of left eye Vitreous degeneration Pseudophakia, both eyes Lens replaced by other means [facility]* Diagnosis Onset Date Resolution Status Bradycardia acute Atherosclerotic heart diseas e of [place] coronary artery without angina pectoris chronic Bilateral carotid artery stenosis chronic Mixed hyperlipidemia chronic Hypertensive urgency resolve d Presence of coronary angioplasty implant and graft Feb resolved S/P aortobifemoral bypass surgery December, resolved Essential hypertension chron ic GERD (gastroesophageal reflux disease) chronic Type 2 diabetes mellitus chr [facility] Work Phone: Evaluation note* Diagnosis Onset Date Resolution Status Bradycardia acute Atherosclerotic heart diseas e of [place] coronary artery without angina pectoris chronic Bilateral carotid artery stenosis chronic Mixed hyperlipidemia chronic Hypertensive urgency resolve d Presence of coronary angioplasty implant and graft Feb resolved S/P aortobifemoral bypass surgery December, resolved Essential hypertension chron ic GERD (gastroesophageal reflux disease) chronic Type 2 diabetes mellitus chr onic Encounter for screening for malignant neoplasm of lung acute History of tobacco use acute [facility] Work Phone: Evaluation note* Diagnosis Onset Date Resolution Status Essential hypertension chron ic GERD (gastroesophageal reflux disease) chronic Type 2 diabetes mellitus chr onic Encounter for screening for malignant neoplasm of lung acute History of tobacco use acute Flu vaccine need acute Back pain chronic Essential hypertension chron ic GERD (gastroesophageal reflux disease) chronic Type 2 diabetes mellitus chr [facility] Work Phone: Evaluation note* Diagnosis Onset Date Resolution Status Encounter for screening for malignant neoplasm of lung acute History of tobacco use acute Flu vaccine need acute Back pain chronic Essential hypertension chron ic GERD (gastroesophageal reflux disease) chronic Type 2 diabetes mellitus chr onic Bradycardia acute Atherosclerotic heart diseas e of [place] coronary artery without angina pectoris chronic Bilateral carotid artery stenosis chronic Mixed hyperlipidemia chronic Presence of coronary angioplasty implant and graft Feb resolved S/P aortobifemoral bypass surgery December, resolved [facility] Work Phone: Evaluation note* Diagnosis Onset Date Resolution Status Flu vaccine need acute Back pain chronic Essential hypertension chron ic GERD (gastroesophageal reflux disease) chronic Type 2 diabetes mellitus chr onic Bradycardia acute Atherosclerotic heart diseas e of [place] coronary artery without angina pectoris chronic Bilateral carotid artery stenosis chronic Mixed hyperlipidemia chronic Presence of coronary angioplasty implant and graft Feb resolved S/P aortobifemoral bypass surgery December, resolved [facility] Work Phone: Evaluation note* Diagnosis Onset Date Resolution Status Bradycardia acute Atherosclerotic heart diseas e of [place] coronary artery without angina pectoris chronic Bilateral carotid artery stenosis chronic Mixed hyperlipidemia chronic Presence of coronary angioplasty implant and graft Feb resolved S/P aortobifemoral bypass surgery December, resolved Bradycardia acute Atherosclerotic heart diseas e of [place] coronary artery without angina pectoris chronic Bilateral carotid artery stenosis chronic Essential hypertension chron ic Mixed hyperlipidemia chronic S/P aortobifemoral bypass surgery December, resolved Hoarseness of voice acute Post-nasal drainage acute GERD (gastroesophageal reflux disease) chronic ANUJA (obstructive sleep apnea) chronic Back pain chronic Essential hypertension chron ic GERD (gastroesophageal reflux disease) chronic Type 2 diabetes mellitus [facility] Work Phone: Evaluation note* Diagnosis Impacted cerumen of left ear- Primary Impacted cerumen Former smoker Personal history of tobacco use, presenting hazards to health Bradycardia Other specified cardiac dysrhythmias Acute swimmer's ear of left side [facility]* Diagnosis Hyperopia, bilateral- Primary Regular astigmatism, bilateral [facility]* Diagnosis Onset Date Resolution Status BPH (benign prostatic hyperplasia) chronic Essential hypertension chron ic GERD (gastroesophageal reflux disease) chronic Insomnia chronic Type 2 diabetes mellitus [facility] Work Phone: Evaluation note* Diagnosis Presence of coronary angioplasty implant and graft- Primary [facility]* Diagnosis Onset Date Resolution Status BPH (benign prostatic hyperplasia) chronic Essential hypertension chron ic GERD (gastroesophageal reflux disease) chronic Insomnia chronic Type 2 diabetes mellitus chr [facility] Essential hypertension chron ic Presence of coronary angioplasty implant and graft Feb resolved SBO (small bowel obstruction) resolved [facility] Work Phone: Evaluation note* Diagnosis Onset Date Resolution Status BPH (benign prostatic hyperplasia) chronic Essential hypertension chron ic GERD (gastroesophageal reflux disease) chronic Insomnia chronic Type 2 diabetes mellitus chr onic Essential hypertension chron ic Presence of coronary angioplasty implant and graft Feb resolved SBO (small bowel obstruction) resolved ANUJA (obstructive sleep apnea) chronic [facility] Work Phone: Evaluation note* Diagnosis History of left-sided carotid endarterectomy- Primary Presence of coronary angioplasty implant and graft Lightheaded Dizziness and giddiness Hyperlipidemia, unspecified hyperlipidemia type ASHD (arteriosclerotic heart disease) Coronary atherosclerosis of unspecified type of vessel, [place] or graft PVD (peripheral vascular disease) (HCC) Unspecified peripheral vascular disease [facility] Diagnosis Type 2 diabetes mellitus without retinopathy (HCC)- Primary Type II or unspecified type diabetes mellitus without mention of complication, not stated as uncontrolled Floaters, bilateral Posterior vitreous detachment of left eye Vitreous degeneration Pseudophakia, both eyes Lens replaced by other means documented in this encounter [facility] note* Diagnosis ASHD (arteriosclerotic heart disease)- Primary Coronary atherosclerosis of unspecified type of vessel, [place] or graft Psoriasis Other psoriasis Persistent atrial fibrillation (HCC) Atrial fibrillation PVD (peripheral vascular disease) ([facility]) Unspecified peripheral vascular disease documented in this encounter [facility] note* Diagnosis SBO (small bowel obstruction) ([facility])- Primary Unspecified intestinal obstruction History of left-sided carotid endarterectomy- Primary Presence of coronary angioplasty implant and graft Lightheaded Dizziness and giddiness Hyperlipidemia, unspecified hyperlipidemia type ASHD (arteriosclerotic heart disease) Coronary atherosclerosis of unspecified type of vessel, [place] or graft PVD (peripheral vascular disease) ([facility]) Unspecified peripheral vascular disease ASHD (arteriosclerotic heart disease)- Primary Coronary atherosclerosis of unspecified type of vessel, [place] or graft Psoriasis Other psoriasis Persistent atrial fibrillation (HCC) Atrial fibrillation PVD (peripheral vascular disease) ([facility]) Unspecified peripheral vascular disease Persistent atrial fibrillation (HCC)- Primary Atrial fibrillation documented in this encounter [facility] note* Diagnosis SBO (small bowel obstruction) (HCC)- Primary Unspecified intestinal obstruction History of left-sided carotid endarterectomy- Primary Presence of coronary angioplasty implant and graft Lightheaded Dizziness and giddiness Hyperlipidemia, unspecified hyperlipidemia type ASHD (arteriosclerotic heart disease) Coronary atherosclerosis of unspecified type of vessel, [place] or graft PVD (peripheral vascular disease) (HCC) Unspecified peripheral vascular disease ASHD (arteriosclerotic heart disease)- Primary Coronary atherosclerosis of unspecified type of vessel, [place] or graft Psoriasis Other psoriasis Persistent atrial fibrillation (HCC) Atrial fibrillation PVD (peripheral vascular disease) ([facility]) Unspecified peripheral vascular disease Persistent atrial fibrillation (HCC)- Primary Atrial fibrillation [facility]* Diagnosis SBO (small bowel obstruction) ([facility])- Primary Unspecified intestinal obstruction History of left-sided carotid endarterectomy- Primary Presence of coronary angioplasty implant and graft Lightheaded Dizziness and giddiness Hyperlipidemia, unspecified hyperlipidemia type ASHD (arteriosclerotic heart disease) Coronary atherosclerosis of unspecified type of vessel, [place] or graft PVD (peripheral vascular disease) (HCC) Unspecified peripheral vascular disease ASHD (arteriosclerotic heart disease)- Primary Coronary atherosclerosis of unspecified type of vessel, [place] or graft Psoriasis Other psoriasis Persistent atrial fibrillation (HCC) Atrial fibrillation PVD (peripheral vascular disease) (HCC) Unspecified peripheral vascular disease Persistent atrial fibrillation (HCC) Atrial fibrillation documented in this encounter [facility]* Diagnosis SBO (small bowel obstruction) (HCC)- Primary Unspecified intestinal obstruction History of left-sided carotid endarterectomy- Primary Presence of coronary angioplasty implant and graft Lightheaded Dizziness and giddiness Hyperlipidemia, unspecified hyperlipidemia type ASHD (arteriosclerotic heart disease) Coronary atherosclerosis of unspecified type of vessel, [place] or graft PVD (peripheral vascular disease) Unspecified peripheral vascular disease ASHD (arteriosclerotic heart disease)- Primary Coronary atherosclerosis of unspecified type of vessel, [place] or graft Psoriasis Other psoriasis Persistent atrial fibrillation (HCC) Atrial fibrillation PVD (peripheral vascular disease) Unspecified peripheral vascular disease Persistent atrial fibrillation (HCC) [facility] Diagnosis SBO (small bowel obstruction) (HCC)- Primary Unspecified intestinal obstruction History of left-sided carotid endarterectomy- Primary Presence of coronary angioplasty implant and graft Lightheaded Dizziness and giddiness Hyperlipidemia, unspecified hyperlipidemia type ASHD (arteriosclerotic heart disease) Coronary atherosclerosis of unspecified type of vessel, [place] or graft PVD (peripheral vascular disease) Unspecified peripheral vascular disease ASHD (arteriosclerotic heart disease)- Primary Coronary atherosclerosis of unspecified type of vessel, [place] or graft Psoriasis Other psoriasis Persistent atrial fibrillation (HCC) Atrial fibrillation PVD (peripheral vascular disease) Unspecified peripheral vascular disease Paroxysmal atrial fibrillation (HCC)- Primary Atrial fibrillation [facility] (narrative)No reason for referral information availableWMartin [facility] Work Phone: Instructions * Patient Instructions* Raphael Alan - [...] technical staff.I have seen and examined Celeste Kincaid. I have discussed the examination findings, diagnosis, and treatment options with Celeste Kincaid and/or his family. I have also reviewed [...] EYES, DIRECTED, Starting 04/20/20 at 1400, Until 04/21/20 at 0159, Administer for applanation tonometry. In the event of a Fluress shortage, administer Tasha-Fluor 1 drop into both eyes as directed for applanation tonometry, Given 04/20/2020 2:10 PM EST 1 Drop PHENYLephrine 2.5 % 1 Drop (AK-DILATE, KAZ-SYNEPHRINE) 1 Drop, BOTH EYES, DIRECTED, Starting 04/20/20 at 1400, Until 04/21/20 at 0159, Administer for dilation PROTECT FROM LIGHT, Given 04/20/2020 2:10 PM EST 1 Drop proparacaine 0.5 % 1 Drop (ALCAINE) 1 Drop, BOTH EYES, DIRECTED, Starting 04/20/20 at 1400, Until Tu04/21/20 at 0159, Administer for pneumo tonometry, tonopen tonometry, or pachymetry. In the event of a proparacaine shortage, administer tetracaine 0.5% ophthalmic drops 1 drop in the left eye as directed for pneumo tonometry, tonopen tonometry, or pachymetry, Given 04/20/2020 2:10 PM EST 1 Drop tropicamide 1 % 1 Drop (MYDRIACYL) 1 Drop, BOTH EYES, DIRECTED, Starting 04/20/20 at 1400, Until Tu04/21/20 at 0159, Administer for dilation, Given 04/20/2020 [...] Given 08/06/2021 2:45 PM EDT 1 Drop Chief Complaint and Reason for Visit Chief Complaint 1 Y FU 3 M FU 6 M FU Reason for Visit Obesity (BMI 30-39.9 ) ANUJA (obstructive sleep apnea) Venous insufficiency of both lower extremities Essential hypertension Mixed hyperlipidemia Type 2 diabetes mellitus Bradycardia Atherosclerotic heart disease of [place] coronary artery without angina pectoris Bilateral carotid artery stenosis Mixed hyperlipidemia Hypertensive urgency Presence of coronary angioplasty implant and graft S/P aortobifemoral bypass surgery Chief Complaint 6 M FU 3 M FU Reason for Visit Bradycardia Atherosclerotic heart disease of [place] coronary artery without angina pectoris Bilateral carotid artery stenosis Mixed hyperlipidemia Hypertensive urgency Presence of coronary angioplasty implant and graft S/P aortobifemoral bypass surgery Essential hypertension GERD (gastroesophageal reflux disease) Type 2 diabetes mellitus Chief Complaint 6 M FU 3 M FU Lung cancer screening TOBACCO USE Reason for Visit Bradycardia Atherosclerotic heart disease of [place] coronary artery without angina pectoris Bilateral carotid artery stenosis Mixed hyperlipidemia Hypertensive urgency Presence of coronary angioplasty implant and graft S/P aortobifemoral bypass surgery Essential hypertension GERD (gastroesophageal reflux disease) Type 2 diabetes mellitus Encounter for screening for malignant neoplasm of lung History of tobacco use Chief Complaint 3 M FU Lung cancer screening TOBACCO USE 3 M FU UPPER BACK PAIN Reason for Visit Essential hypertensi on GERD (gastroesophageal reflux disease) Type 2 diabetes mellitus Encounter for screening for malignant neoplasm of lung History of tobacco use Flu vaccine need Back pain Essential hypertension GERD (gastroesophageal reflux disease) Type 2 diabetes mellitus Chief Complaint Lung cancer screenin g TOBACCO USE 3 M FU UPPER BACK PAIN 6 M FU DORSALGIA/RX HERE CAD Coronary artery disease Reason for Visit Encounter for screen ing for malignant neoplasm of lung History of tobacco use Flu vaccine need Back pain Essential hypertension GERD (gastroesophageal reflux disease) Type 2 diabetes mellitus Bradycardia Atherosclerotic heart disease of [place] coronary artery without angina pectoris Bilateral carotid artery stenosis Mixed hyperlipidemia Presence of coronary angioplasty implant and graft S/P aortobifemoral bypass surgery Chief Complaint 3 M FU UPPER BACK PAIN 6 M FU CAD Coronary artery disease DORSALGIA/RX HERE Occlusion and stenosis of bilateral carotid arteri Reason for Visit Flu vaccine need Back pain Essential hypertension GERD (gastroesophageal reflux disease) Type 2 diabetes mellitus Bradycardia Atherosclerotic heart disease of [place] coronary artery without angina pectoris Bilateral carotid artery stenosis Mixed hyperlipidemia Presence of coronary angioplasty implant and graft S/P aortobifemoral bypass surgery Chief Complaint 6 M FU CAD Coronary artery disease DORSALGIA/RX HERE Occlusion and stenosis of bilateral carotid arteri 3 M FU Gastroesophageal reflux disease (GERD) 1 Y FU 4 M FU Reason for Visit Bradycardia Atherosclerotic heart disease of [place] coronary artery without angina pectoris Bilateral carotid artery stenosis Mixed hyperlipidemia Presence of coronary angioplasty implant and graft S/P aortobifemoral bypass surgery Bradycardia Atherosclerotic heart disease of [place] coronary artery without angina pectoris Bilateral carotid artery stenosis Essential hypertension Mixed hyperlipidemia S/P aortobifemoral bypass surgery Hoarseness of voice Post-nasal drainage GERD (gastroesophageal reflux disease) ANUJA (obstructive sleep apnea) Back pain Essential hypertension GERD (gastroesophageal reflux disease) Type 2 diabetes mellitus Chief Complaint 6 M FU Reason for Visit BPH (benign prostati c hyperplasia) Essential hypertension GERD (gastroesophageal reflux disease) Insomnia Type 2 diabetes mellitus Chief Complaint 6 M FU Amb Documentation Amb Documentation HOSPITAL FOLLOW UP Reason for Visit BPH (benign prostati c hyperplasia) Essential hypertension GERD (gastroesophageal reflux disease) Insomnia Type 2 diabetes mellitus Essential hypertension Presence of coronary angioplasty implant and graft SBO (small bowel obstruction) Chief Complaint 6 M FU Amb Documentation Amb Documentation HOSPITAL FOLLOW UP 1 Y FU/needs supplies Reason for Visit BPH (benign prostati c hyperplasia) Essential hypertension GERD (gastroesophageal reflux disease) Insomnia Type 2 diabetes mellitus Essential hypertension Presence of coronary angioplasty implant and graft SBO (small bowel obstruction) ANUJA (obstructive sleep apnea) Chief Complaint Admit Date 3 M FU February 21, 2024 1 :52pm 3 M FU May 22, 2024 1:39 pm Reason for Visit Admit Date Atrial fibrillation February 21, 2024 1 :52pm BPH (benign prostatic hyperplasia) Decem 2023 1:52pm Essential hypertension February 20 1:52pm GERD (gastroesophageal reflux disease) D ec2023 1:52pm Type 2 diabetes mellitus February 20, 2 024 1:52pm Atrial fibrillation May 22, 2024 1:39 pm BPH (benign prostatic hyperplasia) May 22, 2024 1:39pm Essential hypertension May 22, 2024 1 :39pm GERD (gastroesophageal reflux disease) M arch 2024 1:39pm Type 2 diabetes mellitus May 22, 2024 1:39pm Chief Complaint Admit Date 3 M FU May 22, 2024 1:39 pm 1 Y FU June 12, 2024 1:5 7pm Lung cancer screening August 27, 2024 1: 42pm Reason for Visit Admit Date Atrial fibrillation May 22, 2024 1:39 pm BPH (benign prostatic hyperplasia) May 22, 2024 1:39pm Essential hypertension May 22, 2024 1 :39pm GERD (gastroesophageal reflux disease) M arch 2024 1:39pm Type 2 diabetes mellitus May 22, 2024 1:39pm ANUJA (obstructive sleep apnea) May 1:57pm Family History Relationship Condition Age at Onset Recorded Date/T kami father Angina pectoris Unknown brother Angina pectoris Unknown Malignant neoplasm Unknown Myocardial infarction Unknown Cardiac disease Unknown Hypertension Unknown High blood cholesterol Unknown Malignant neoplasm of prostate Unknown mother Angina pectoris Unknown sister Hypertension Unknown brother Malignant neoplasm of prostate Unknown Advance Directives Advance Directive Response Recorded Date/ Time Living Will No September 05, 2018 10:06am Power of Manager Fire No September 05 9 10:06am Documents on File Type Date Recorded Patient Hotel Custodian Expl anation Advance Directive(s) 05/27/2020 7:26 AM Advance Directive Response Recorded Date/ Time Living Will No September 05, 2018 9:06am Power of Manager Fire No September 05 9 9:06am Latest Code Status on File Code Status Date Activated Date Inactivated Comments Full Code - Unverified 05/14/2023 12:34 AM 05/17/2023 5: 38 PM Date Activated Date Inactivated Comments 05/14/2023 12:34 AM 05/17/2023 5:38 PM Date Activated Date Inactivated Comments 05/14/2023 12:34 AM 05/17/2023 5:38 PM Date Activated Date Inactivated Comments 02/06/2024 10:11 PM 02/07/2024 12:11 AM Date Activated Date Inactivated Comments 05/14/2023 12:34 AM 05/17/2023 5:38 PM Date Activated Date Inactivated Comments 02/06/2024 10:11 PM 02/07/2024 12:11 AM Date Activated Date Inactivated Comments 05/14/2023 12:34 AM 05/17/2023 5:38 PM Date Activated Date Inactivated Comments 02/19/2024 6:08 AM 02/20/2024 3:36 AM Date Activated Date Inactivated Comments 02/06/2024 10:11 PM 02/07/2024 12:11 AM Date Activated Date Inactivated Comments 05/14/2023 12:34 AM 05/17/2023 5:38 PM Advance Directive Response Recorded Date/ Time Living Will No September 05, 2018 10:06am Do you have a Healthcare Power of Manager Fire? No September 05, 2018 10:06am Summary Purpose Reason for Referral Specialty Diagnoses / Procedures Referred By Contac t Referred To Contact Cardiology Diagnoses Presence of coronary angioplasty implant and graft Deanna Cruz MD [address] [place] [address] [facility] [address] [place] [address] Referral ID Status Reason Start Date Expiration Date V isits Requested Visits Authorized [id number] Authorized 05/26/2023 05/25/2024 1 1 Specialty Diagnoses / Procedures Referred By Contac t Referred To Contact Cardiology Diagnoses History of left-sided carotid endarterectomy Lightheaded Procedures Carotid Duplex Memo Kelley MD [address] [address] Referral ID Status Reason Start Date Expiration Date V isits Requested Visits Authorized [id number] Authorized 06/22/2023 06/21/2024 1 1 Specialty Diagnoses / Procedures Referred By Contac t Referred To Contact Cardiology Diagnoses Persistent atrial fibrillation (HCC) Memo Kelley MD [address] [address] Referral ID Status Reason Start Date Expiration Date V isits Requested Visits Authorized [id number] Authorized 01/10/2024 01/09/2025 1 1 Additional Source Comments Source Comments (unrecognize d section and content) In the event this informatio n is protected by the Federal Confidentiality of Alcohol and Drug Abuse Patient Records regulations: The Federal rules restrict any use of the information to criminally investigate or prosecute any alcohol or drug abuse patient.[facility] the event this information is protected by the Federal Confidentiality of Alcohol and Drug Abuse Patient Records regulations: The Federal rules restrict any use of the information to criminally investigate or prosecute any alcohol or drug abuse patient.[facility] the event this information is protected by the Federal Confidentiality of Alcohol and Drug Abuse Patient Records regulations: The Federal rules restrict any use of the information to criminally investigate or prosecute any alcohol or drug abuse patient.[facility] the event this information is protected by the Federal Confidentiality of Alcohol and Drug Abuse Patient Records regulations: The Federal rules restrict any use of the information to criminally investigate or prosecute any alcohol or drug abuse patient.[facility] Reason for Visit (unrecogniz ed section and content) Reason Comments Blurred Vision Both Eyes Difficulty Reading Both Eyes Floaters Left Eye Glare Halos Both Eyes Reason Comments 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 Last HgbA1c was 8.3 Pseudophakia Bilateral Reason Comments Ear Fullness C/O left ear fullnes s x weekend Reason Comments Refraction Reason Comments Establish Care Presence of coronary angioplasty implant and graft/ dr. Cruz - review echo from recent hospitalization 05/14/23 bowel obstruction Specialty Diagnoses / Procedures Referred By Beck silva Referred To Contact Cardiology Diagnoses Presence of coronary angioplasty implant and graft Deanna Cruz MD [address] [place] [address] [facility] Alan Salas [address] [facility] [place] [address] Referral ID Status Reason Start Date Expiration Date Visits Re quested Visits Authorized [id number] Closed 05/26/2023 05/25/2024 1 1 Reason Onset Date Comments Medication Refill 09/06/2023 Reason Comments Diabetes Branch Retinal Artery Occlusion Evaluati on Right eye Reason Comments Follow-up 6 mo - discuss maulikn t labs/ EKG. States he cannot afford Eliquis and would not qualify for FA Reason Comments Initial Visit (Intake) Afib/Rolandoan Specialty Diagnoses / Procedures Referred By Beck silva Referred To Contact Cardiology Diagnoses Persistent atrial fibrillation (HCC) Memo Kelley MD [address] [address] Phone: tel: fax: [facility] [address] [facility], 3rd [place] [address] Phone: tel: fax: Referral ID Status Reason Start Date Expiration Date Visits Re quested Visits Authorized [id number] Closed 01/10/2024 01/09/2025 1 1 Reason Comments Follow-up Post DCCV/Afib Reason Comments Follow-up 6mo - states he john bryan feels as if his heart is racing at times since cardioversion in February. pt followed up with EP in April Goals (unrecognized section and content) Goals may be documented in a n alternate sectionGoals may be documented in an alternate sectionGoals may be documented in an alternate sectionGoals may be documented in an alternate sectionGoals may be documented in an alternate sectionGoals may be documented in an alternate sectionGoals may be documented in an alternate sectionGoals may be documented in an alternate sectionGoals may be documented in an alternate sectionGoals may be documented in an alternate sectionGoals may be documented in an alternate sectionGoals may be documented in an alternate section Care Teams (unrecognized sec tion and content) 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 Deanna Cruz MD Family Provider Active Dr. Deanna Cruz MD Primary Care Provider Active Team Status: Inactive Member Role Status Dates Dr. Deanna Cruz MD Primary Care Provider, Refer ring Provider Active Francisca Astudillo LINE MANAGER, LINE MANAGER-C Attending Provider Active Team Status: Inactive Member Role Status Dates Dr. Deanna Cruz MD Primary Care Provider, Refer ring Provider Active Dr. Tristin Jeffery MD Attending Provider Active Team Status: Inactive Member Role Status Dates Dr. Deanna Cruz MD Primary Care P dickson, Attending Provider, Referring Provider Active Team Status: Inactive Member Role Status Dates Dr. Deanna Cruz MD Primary Care Provider, Refer ring Provider Active Elis Taylor LINE MANAGER, LINE MANAGER-C Attending Provider Active Team Status: Inactive Member Role Status Dates Dr. Deanna Cruz MD Primary Care Provider, Refer ring Provider Active nAna Brice PA, PA Attending Provider Active Team Status: Active Member Role Status Dates Dr. Deanna Cruz MD Primary Care Provider Active Francisca Astudillo LINE MANAGER, LINE MANAGER-C Referring Provider, Other Provi marychuy Active Dr. Jesus Mathias MD Attending Provider Active Team Status: Active Member Role Status Dates Dr. Deanna Cruz MD Primary Care Provider Active Dr. Nupur Holguin MD Attending Provider Active Francisca Astudillo LINE MANAGER, LINE MANAGER-C Referring Provider Active Team Status: Active Member Role Status Dates Dr. Deanna Cruz MD Primary Care P rovider, Attending Provider, Referring Provider Active Team Status: Inactive Member Role Status Dates Dr. 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 Deanna Cruz MD Primary Care Provider Active Candace Garzon LPN Attending Provider Active Team Status: Inactive Member Role Status Dates Dr. Deanna Cruz MD Primary Care Provider, Atten ding Provider Active Team Status: Inactive Member Role Status Dates Dr. Deanna Cruz MD Primary Care Provider, Refer ring Provider Active Jes Carmichael LINE MANAGER, LINE MANAGER-C Attending Provider Active Team Status: Inactive Member Role Status Dates Dr. 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 Mechanic Relationship Specialty Start Date End Date Deanna Cruz MD [facility] [place] [place] [address] PCP - General Internal Medicine 04/01/23 Upholstery Mechanic Relationship Specialty Start Date End Date Deanna Cruz MD [facility] [place] [address] PCP - General Internal Medicine 04/01/23 Upholstery Mechanic Relationship Specialty Start Date End Date Deanna Cruz MD [facility] [place] [address] PCP - General Internal Medicine 04/01/23 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 Deanna Cruz MD Primary Care Provider Active Start: February 21, 2024 End: February 21, 2024 Dr. Deanna Cruz MD Attending Provider Active Start: February 21, 2024 End: February 21, 2024 Dr. Deanna Cruz MD Referring Provider Active Start: February 21, 2024 End: February 21, 2024 Team Status: Inactive Member Role Status Dates Dr. Deanna Cruz MD Primary Care Provider Active Start: May 22, 2024 End: May 22, 2024 Dr. Deanna Cruz MD Attending Provider Active Start: May 22, 2024 End: May 22, 2024 Dr. 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 Deanna Cruz MD Primary Care Provider Active Team Status: Inactive Member Role Status Dates Dr. Deanna Cruz MD Primary Care Provider Active Start: June 12, 2024 End: June 12, 2024 Dr. Deanna Cruz MD Referring Provider Active Start: June 12, 2024 End: June 12, 2024 Jes Carmichael LINE MANAGER, LINE MANAGER-C Attending Provider Active Start: June 12, 2024 End: June 12, 2024 Team Status: Inactive Member Role Status Dates Dr. Deanna Cruz MD Primary Care Provider Active Start: August 27, 2024 End: August 27, 2024 Dr. Deanna Cruz MD Referring Provider Active Start: August 27, 2024 End: August 27, 2024 Paulette Matthews LINE MANAGER, LINE MANAGER-C Attending Provider Active Start: August 27, 2024 End: August 27, 2024 (unrecognized sect ion and content) No Status Records FoundNo Status Records FoundNo Status Records FoundNo Status Records FoundNo Status Records FoundNo Status Records Found INFORMATION SOURCE (unrecogn ized section and content) DATE CREATED AUTHOR 04/02/2023 [facility] DATE CREATED AUTHOR AUTHOR'S ORGANIZ ATION 06/02/2023 [facility] DATE CREATED AUTHOR AUTHOR'S ORGANIZ ATION 09/12/2023 [facility] DATE CREATED AUTHOR [facility] DATE CREATED AUTHOR AUTHOR'S ORGANIZ ATION 08/22/2024 [facility] FOR RECORDS PERTAINING TO PATIENTS WHO ARE [...] BE BASED ON THE PRIMARY CLINICAL RECORDS. [facility] [employer] provides no warranty or guarantee of the accuracy or completeness of information in this document.
== END | disposition home or self-care (01) ==
LOC: CT 14:30
PROVIDERS: PCP Internal Medicine; Referring Provider Nurse Practitioner Family; Visit Provider Nurse Practitioner Family
DX: Z87.891 Personal history of nicotine dependence (principal); Z12.2 Encounter for screening for malignant neoplasm of respiratory organs
CPT/HCPCS: 71271

== ENCOUNTER → 2024-09-25 | Outpatient (CLI) | payer MEDICARE, OTHER, SELFPAY ==
[2024-09-25 17:08] LABS: Hematocrit 39.3 % (40-54); Hemoglobin 12.7 g/dL (13.0-16.5); Immature Granulocytes Count 0.010 X10^3/uL (0.0-0.0); Mean Corp Hgb Conc 32.3 g/dL (32-36); Mean Corpuscular Volume 93.3 fL (80-94); Mean Platelet Vol. 11.6 fl (6.2-12.0); NRBC Flagged by Analyzer 0 % (0-5); Platelet Count 206 K/mm3 (150-450); RBC Distribution Width CV 15.9 % (11.6-14.6); RBC Distribution Width SD 55.3 fl (35.1-43.9); Red Blood Count 4.21 M/mm3 (4.6-6.2); White Blood Count 5.8 K/mm3 (4.4-11.0)
[2024-09-25 17:39] LABS: AST(SGOT) 34 U/L (<=37); Alanine Aminotransfer ALT/SGPT 33 U/L (<=46); Albumin, Serum 4.2 g/dL (3.4-4.8); Alkaline Phosphatase 174 U/L (40-129); Anion Gap 12 (5-15); BUN 41 mg/dL (4-19); BUN/Creat Ratio 27.0 RATIO (10-20); Calcium,Total 10.1 mg/dL (7.6-11.0); Carbon Dioxide 19.0 mmol/L (21.0-32.0); Chloride 109 mmol/L (98-108); Globulin 2.9 g/dL (2.2-4.2); Glucose 85 mg/dL (70-99); Potassium 4.9 mmol/L (3.3-5.1)
== END | disposition home or self-care (01) ==
LOC: BIMLAB 15:02
PROVIDERS: PCP Internal Medicine; Referring Provider Internal Medicine; Visit Provider Internal Medicine
DX: I10 Essential (primary) hypertension (principal); E11.9 Type 2 diabetes mellitus without complications
CPT/HCPCS: 36415; 80053; 84439; 84443; 85025